=== PATIENT | female | born 2005 | race Caucasian/White ===

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

== ENCOUNTER 2025-04-30 20:09 | Emergency (ER) | payer BC, MEDICAID, SELFPAY ==
[2025-04-30 20:11] VITALS: BP 131/89; PULSE 99; RESP 16; TEMP 36.6; O2SAT 100; BMI 30.2
--- NOTE | 2025-04-30 20:19 | EKG12_ITS ---
Test Reason : CP Blood Pressure : */* mmHG Vent. Rate : 93 BPM Atrial Rate : 93 BPM P-R Int : 146 ms QRS Dur : 86 ms QT Int : 328 ms P-R-T Axes : 69 59 40 degrees QTcB Int : 407 ms Normal sinus rhythm Normal ECG Confirmed by RICCO BHATT, MIGUEL ([id number]), fan mail editor CINTHIA SHEN ([id number]) on 05/04/2025 1:02:21 PM Referred By: Wayne Koroma Confirmed By: MIGUEL CHACKO MD
--- NOTE | 2025-04-30 20:26 | ED.VIS.CHEST ---
HPI <MARY Guzmán - Last Filed: 04/30/25 21:36> History of Present Illness Chief Complaint: Chest Pain Narrative Narrative: 19-year-old female states her mom was just admitted to another hospital with chest pain that turned out to be pneumonia and now she is experiencing chest pain worried she has pneumonia. She started a shift at [employer] around 4 PM. Around 6 PM she felt like the center of her chest was tight when taking a deep breath. She does not feel short of breath. She has no radiating pain or pain in her jaw or arms. No recent fever, chills, cough, nausea or vomiting, or abdominal pain. She vapes occasionally. She has no personal history of cardiac disease or DVT/PE. She said no recent surgery or travel, leg pain or swelling, cough or hemoptysis, or hormone use FOR[facility]LY [facility] <MARY Guzmán - Last Filed: 04/30/25 21:36> [facility] Medical History (Updated 04/30/25 @ 21:01 by MARY Guzmán) Gastritis Colitis Seborrheic dermatitis Hyperhidrosis Tic Allergic rhinitis Asperger's disorder Acid reflux Asthma Abnormality of pituitary gland IBS (irritable bowel syndrome) Depression ADHD Home Medications ?Medication ?Instructions ?Recorded ?Last Taken ?Type atomoxetine 25 mg capsule 35 mg PO DAILY 08/04/13 Unknown History (Strattera) fluticasone propionate 50 1 spray DAILY 08/04/13 Unknown History mcg/actuation nasal spray,suspension lansoprazole 30 mg capsule,delayed 30 mg PO DAILY 08/04/13 Unknown History release (Prevacid) risperidone 0.5 mg tablet 0.5 mg PO QHS 08/04/13 Unknown History sertraline 50 mg tablet 50 mg PO DAILY 08/04/13 Unknown History dicyclomine 10 mg capsule 20 mg (2 x 10 mg) PO TIDAC ##20 10/30/18 Unknown Rx ondansetron 4 mg disintegrating 4 mg PO Q8H PRN PRN Nausea #10 tabs 10/30/18 Unknown Rx tablet albuterol sulfate 90 mcg/actuation 2 puff inhalation Q4H PRN PRN 04/30/25 Unknown History aerosol inhaler wheezing bupropion HCl 300 mg 24 hr tablet, 300 mg PO DAILY 04/30/25 Unknown History extended release cetirizine 10 mg tablet 10 mg PO DAILY 04/30/25 Unknown History Allergy/AdvReac Type Severity Reaction Status Date / Time No Known Allergies Allergy Verified 04/30/25 20:14 Social History Smoking Status: Current every day smoker tobacco type: e-cigarettes ROS <MARY Guzmán - Last Filed: 04/30/25 21:36> ROS ED ROS Narrative Constitutional: Negative for fever, chills, malaise. CVS: Positive for chest pain. No palpitations or syncope. Respiratory: Negative for shortness of breath, cough, orthopnea. GI: Negative for abdominal pain, nausea, vomiting. EXAM <MARY Guzmán - Last Filed: 04/30/25 21:36> Physical Exam Narrative Exam Narrative: CONST: Patient sitting in no acute distress. EYES: Normal inspection. NECK: Normal inspection. RESP: No respiratory distress, CTAB. CVS: Regular rate and rhythm, no murmur, no gallop. ABD: Soft and nontender, no guarding or rebound, nondistended. SKIN: Color normal, no rash, warm, dry, intact. EXTREMITIES: Normal appearance, no pedal edema. NEURO: Alert and answering questions appropriately. PSYCH: Normal affect. Const Vital Signs: 04/30/25 20:11 04/30/25 21:03 Temperature 97.9 F 98 F Temperature Source Oral Pulse Rate 99 88 Respiratory Rate 16 18 Blood Pressure 131/89 H 133/88 H Blood Pressure Mean 103 103 Pulse Ox 100 100 Oxygen Delivery Method Room Air <Dr. Wayne Koroma MD - Last Filed: 04/30/25 21:43> Physical Exam Const Vital Signs: 04/30/25 20:11 04/30/25 21:03 Temperature 97.9 F 98 F Temperature Source Oral Pulse Rate 99 88 Respiratory Rate 16 18 Blood Pressure 131/89 H 133/88 H Blood Pressure Mean 103 103 Pulse Ox 100 100 Oxygen Delivery Method Room Air MDM <MARY Guzmán - Last Filed: 04/30/25 21:36> MDM MDM Narrative Medical decision making narrative: 19-year-old female presents with a few hours of midsternal chest pain when taking a deep breath. She is concerned because her mom has pneumonia but she could also have it. She has had no fever, chills, or upper respiratory symptoms. She is awake alert no distress. Vitals are stable. Normal cardiopulmonary exam. Her chest and abdomen are nontender. She is moving all extremities and neurovascularly intact. She was concerned about hypoglycemia so a fingerstick glucose was obtained and is 96. EKG is normal sinus rhythm without ischemic changes. She does not have risk factors for ACS and symptoms are not exertional so I do not think she requires cardiac workup. She is also PERC negative. Patient seems anxious because her mom is having health problems and I think anxiety is some component of this. She does not have a fever or cough and she is not 100% on room air so pneumonia is extremely unlikely. I discussed follow-up with her primary care doctor and return precautions and she was discharged in stable condition. I have personally performed a face to face assessment of the patient and have reviewed the STEPHAN Note. I performed a substantive portion of the visit including all aspects of the following. My rodriguez findings include: History is brought in for chest pain. There is a pleuritic component. She is on no hormonal therapy. No history of VTE. No leg pain, swelling discoloration. She is concerned because her mother had chest pain and was diagnosed with pneumonia. She does report mild nasal congestion. She denies cough or shortness of breath. She denies fever or chills. She denies myalgias or arthralgias. Exam is remarkable slight elevation of blood pressure 131/89. HEENT exam is unremarkable other than piercings. Lungs are clear to auscultation with symmetric breath sounds. Heart is regular. Rate is normal. There is no murmur, gallop or rub. Pulse ox is normal. Examination lower extremity reveals no swelling, discoloration, asymmetry, leg vein distention, palpable cords signs on the distribution to be in the system. Medical Decison Making with normal vital signs normal lung exam patient was informed this is not pneumonia. Suggest pleuritic pain patient was assessed for PE. PERC negative and Wells score less than 3. Since her vital signs are normal there is no indication for imaging. There is no indication for laboratory testing. Patient was reassured. She does have a history of anxiety. She was instructed to take NSAIDs and she has no contraindication. Other additions or changes: [None] Lab Data Labs: Laboratory Results - last 24 hr 04/30/25 20:23 POC Glucose 96 EKG Initial EKG: Attestation: I personally reviewed and interpreted this EKG as follows: Interpretation: Sinus Rhythm and No Acute Injury Pattern Comments: Normal sinus rhythm at 93 bpm Normal intervals, no acute ischemic changes <Dr. Wayne Koroma MD - Last Filed: 04/30/25 21:43> [facility] MDM Narrative Medical decision making narrative: 19-year-old female presents with a few hours of midsternal chest pain when taking a deep breath. She is concerned because her mom has pneumonia but she could also have it. She has had no fever, chills, or upper respiratory symptoms. She is awake alert no distress. Vitals are stable. Normal cardiopulmonary exam. Her chest and abdomen are nontender. She is moving all extremities and neurovascularly intact. She was concerned about hypoglycemia so a fingerstick glucose was obtained and is 96. EKG is normal sinus rhythm without ischemic changes. She does not have risk factors for ACS and symptoms are not exertional so I do not think she requires cardiac workup. She is also PERC negative. Patient seems anxious because her mom is having health problems and I think anxiety is some component of this. She does not have a fever or cough and she is not 100% on room air so pneumonia is extremely unlikely. I discussed follow-up with her primary care doctor and return precautions and she was discharged in stable condition. I have personally performed a face to face assessment of the patient and have reviewed the STEPHAN Note. I performed a substantive portion of the visit including all aspects of the following. My rodriguez findings include: History is brought in for chest pain. There is a pleuritic component. She is on no hormonal therapy. No history of VTE. No leg pain, swelling discoloration. She is concerned because her mother had chest pain and was diagnosed with pneumonia. She does report mild nasal congestion. She denies cough or shortness of breath. She denies fever or chills. She denies myalgias or arthralgias. Exam is remarkable slight elevation of blood pressure 131/89. HEENT exam is unremarkable other than piercings. Lungs are clear to auscultation with symmetric breath sounds. Heart is regular. Rate is normal. There is no murmur, gallop or rub. Pulse ox is normal. Examination lower extremity reveals no swelling, discoloration, asymmetry, leg vein distention, palpable cords signs on the distribution to be in the system. Medical Decison Making with normal vital signs normal lung exam patient was informed this is not pneumonia. Suggest pleuritic pain patient was assessed for PE. PERC negative and Wells score less than 3. Since her vital signs are normal there is no indication for imaging. There is no indication for laboratory testing. Patient was reassured. She does have a history of anxiety. She was instructed to take NSAIDs and she has no contraindication. Other additions or changes: After explaining why an x-ray was not ordered. She was discharged and home going instructions were given to the nurse. The nurse told me that she wants an x-ray. Patient has been informed with normal vital signs no abnormal aspiratory findings no cough chest pain is not due to pneumonia. Patient was told since my note had been completed and I had no justification for chest x-ray 1 was not ordered. Lab Data Labs: Laboratory Results - last 24 hr 04/30/25 20:23 POC Glucose 96 Differential Diagnosis Chest pain/SOB: pulmonary embolism Reason(s) PE less likely: Positive for PERC negative, Well's <3, not tachycardic and not hypoxic, pneumothorax Reason(s) pneumothorax less likely: Positive for bilateral breath sounds, pneumonia Reason(s) pneumonia less likely: Positive for other (Symptoms are not consistent with infection), aortic dissection Reason(s) Aortic dissection less likely:: Positive for normal vascular exam, no history of HTN, normal neurological exam, no significant risk factors for dissection, pain not sudden onset, no ripping/tearing pain, no pain to back and blood pressure appropriate in ED, CHF Reason(s) CHF less likely: Positive for no significant peripheral edema, no orthopnea and other (Exam is not consistent with CHF nor is patient's history) and COPD Reason(s) COPD less likely: Positive for no significant wheezing on exam, no tachypnea, no conversational dyspnea, normal air movement noted on auscultation on lungs and other (Patient has no history of lung disease) Discharge Plan Triage Chief Complaint: Chest Pain ED Midlevel Provider: Beth Ramos ED Provider: Wayne Koroma Dx/Rx/DC Orders Clinical Impression: Chest pain Instructions: ED Chest Pain, Uncertain Cause Prescriptions: No Action lansoprazole [Prevacid] 30 MG capsule 30 mg PO DAILY fluticasone propionate 1 SPRAY spray,suspension 1 spray NASAL DAILY sertraline 50 MG tablet 50 mg PO DAILY risperidone 0.5 MG tablet 0.5 mg PO QHS atomoxetine [Strattera] 25 MG capsule 35 mg PO DAILY ondansetron 4 MG tablet 4 mg PO Q8H PRN PRN (Reason: Nausea) Qty: 10 0RF dicyclomine 10 MG capsule 20 mg PO TIDAC Qty: 20 0RF bupropion HCl 300 mg tablet extended release 24 hr 300 mg PO DAILY cetirizine 10 mg tablet 10 mg PO DAILY albuterol sulfate 90 mcg/actuation HFA aerosol inhaler 2 puff inhalation Q4H PRN PRN (Reason: wheezing) Stand Alone Forms: Work / School Excuse Primary Care Provider: Vera Song Referrals: Vera Song MD [Primary Care Provider] - Activity Restrictions/Additional Instructions: I do not think you have pneumonia since you do not have a fever or cough and your 100% on room air. Your EKG shows normal heart rhythm. I recommend you follow-up with your primary care doctor or return to the ER if symptoms worsen. Print Language: Luxembourger Disposition Disposition: Home, Self Care Discharge Date/Time: 04/30/25 21:08
[2025-04-30 21:03] VITALS: BP 133/88; PULSE 88; RESP 18; TEMP 36.6; O2SAT 100
== END 2025-04-30 21:08 | disposition home or self-care (01) ==
PROVIDERS: Emergency Provider Emergency Medicine; PCP Pediatrics; Referring Provider Emergency Medicine; Visit Provider Emergency Medicine
DX: R07.9 Chest pain, unspecified (principal); F41.9 Anxiety disorder, unspecified; F90.9 Attention-deficit hyperactivity disorder, unspecified type; Z79.899 Other long term (current) drug therapy; J45.909 Unspecified asthma, uncomplicated; Z79.51 Long term (current) use of inhaled steroids; F32.A Depression, unspecified; F17.290 Nicotine dependence, other tobacco product, uncomplicated
CPT/HCPCS: 82962; 93005; 99282

== ENCOUNTER 2025-08-12 11:18 | Emergency (ER) | payer BC, MEDICAID, SELFPAY ==
[2025-08-12 11:18] VITALS: BP 149/98; PULSE 119; RESP 19; TEMP 36.5; O2SAT 98; BMI 31.6
[2025-08-12 12:07] VITALS: PULSE 106; RESP 19; O2SAT 98
--- NOTE | 2025-08-12 12:30 | RAD_ITS ---
PROCEDURE: RAD/Chest PA and Lateral
[2025-08-12 12:38] LABS: Hematocrit 43.0 % (37-47); Hemoglobin 14.4 g/dL (12.0-15.0); Immature Granulocytes Count 0.010 X10^3/uL (0.0-0.0); Mean Corp Hgb Conc 33.5 g/dL (32-36); Mean Corpuscular Volume 87.9 fL (81-99); Mean Platelet Vol. 9.6 fl (6.2-12.0); NRBC Flagged by Analyzer 0 % (0-5); Platelet Count 306 K/mm3 (150-450); RBC Distribution Width CV 13.5 % (11.6-14.6); RBC Distribution Width SD 43.8 fl (35.1-43.9); Red Blood Count 4.89 M/mm3 (4.2-5.4); White Blood Count 5.1 K/mm3 (4.4-11.0)
--- NOTE | 2025-08-12 12:41 | ED.VIS.CHEST ---
HPI History of Present Illness Chief Complaint: Chest Pain Narrative Narrative: Chief complaint and HPI: 20-year-old female with past medical history of Asperger's disorder, gastritis, ADHD presents for evaluation of chest pain. Patient states for the past 3 days she has been having intermittent sharp chest pain. States today it radiated into her left shoulder/arm. On control. Denies any trauma or lifting anything heavy. Denies any fever, chills, URI symptoms, shortness of breath, abdominal pain, nausea, vomiting. Denies a history of DVT/PE, recent trauma or surgery, unilateral leg swelling, known malignancy, travel. Has not taken anything for the pain. Non-smoker. Review of systems: See HPI Medications: As listed on the chart Allergies: As listed on the chart PFSH: Per chart Vital signs: As listed on the chart. Reviewed. Physical exam: Gen: A&O x3, NAD Head: Normocephalic, atraumatic Eyes: No sclera icterus, conjunctiva clear ENT: Moist mucous membranes Neck: Trachea midline, full range of motion CV: RRR, no murmurs, patient tender to palpation to the left chest wall diffusely including the costal chondral angles-recreates her pain-no external signs of trauma, no peripheral edema Resp: Lungs CTA BL, no w/r/c GI: Abd soft, non-distended, non-tender, no r/r/g Musc: Full ROM, no deformity Skin: Warm, dry Psych: Cooperative, appropriate mood and affect [facility] Medical History Physical exam, pre-employment Gastritis Colitis Seborrheic dermatitis Hyperhidrosis Tic Allergic rhinitis Asperger's disorder Acid reflux Asthma Abnormality of pituitary gland IBS (irritable bowel syndrome) Depression ADHD Home Medications ?Medication ?Instructions ?Recorded ?Last Taken ?Type atomoxetine 25 mg capsule 35 mg PO DAILY 08/04/13 Unknown History (Strattera) fluticasone propionate 50 1 spray DAILY 08/04/13 Unknown History mcg/actuation nasal spray,suspension lansoprazole 30 mg capsule,delayed 30 mg PO DAILY 08/04/13 Unknown History release (Prevacid) risperidone 0.5 mg tablet 0.5 mg PO QHS 08/04/13 Unknown History sertraline 50 mg tablet 50 mg PO DAILY 08/04/13 Unknown History dicyclomine 10 mg capsule 20 mg (2 x 10 mg) PO TIDAC ##20 10/30/18 Unknown Rx ondansetron 4 mg disintegrating 4 mg PO Q8H PRN PRN Nausea #10 tabs 10/30/18 Unknown Rx tablet albuterol sulfate 90 mcg/actuation 2 puff inhalation Q4H PRN PRN 04/30/25 Unknown History aerosol inhaler wheezing bupropion HCl 300 mg 24 hr tablet, 300 mg PO DAILY 04/30/25 Unknown History extended release cetirizine 10 mg tablet 10 mg PO DAILY 04/30/25 Unknown History Allergy/AdvReac Type Severity Reaction Status Date / Time No Known Allergies Allergy Verified 08/12/25 11:20 Social History Smoking Status: Former smoker EXAM Physical Exam Const Vital Signs: 08/12/25 11:18 08/12/25 11:27 08/12/25 12:07 Temperature 97.7 F L Temperature Source Oral Pulse Rate 119 H 106 H Respiratory Rate 19 H 19 H Respiratory Effort Normal Non-Labored Respiratory Pattern Normal Blood Pressure 149/98 H Blood Pressure Mean 115 Pulse Ox 98 98 Oxygen Delivery Method Room Air 08/12/25 13:00 08/12/25 14:00 08/12/25 15:00 Temperature Temperature Source Pulse Rate 97 107 H 99 Respiratory Rate 19 H 19 H 18 Respiratory Effort Respiratory Pattern Blood Pressure 133/87 H Blood Pressure Mean 101 Pulse Ox 98 100 100 Oxygen Delivery Method MDM MDM MDM Narrative Medical decision making narrative: 20-year-old female with past medical history of Asperger's disorder, gastritis, ADHD presents for evaluation of chest pain. Patient states for the past 3 days she has been having intermittent sharp chest pain. States today it radiated into her left shoulder/arm. Chest pain is atypical and reproducible. Differential diagnosis includes but is not limited to costochondritis, chest wall pain, suspect less likely PE or ACS. Toradol ordered for pain. Cardiac workup ordered. CBC unremarkable without leukocytosis or anemia. D-dimer unremarkable. BMP unremarkable. Troponin unremarkable x 2. At this point in time, no clear etiology to explain patient's chest pain. She does describe it as atypical. She is young and healthy. Low suspicion for ACS. If you have performed a heart score, she is at 0. Patient stable to discharge home. May be secondary to costochondritis versus myofascial. Tylenol and Motrin as needed for pain. Follow-up with primary care physician. Return back to ED symptoms change or worsen. She confirmed understand the plan. Patient will discharge home. EKG: Interpreted by me/EM physician: EKG shows normal sinus rhythm with nonspecific T wave abnormalities. Heart rate 106. Diagnostic: Interpreted by me/EM physician: Chest x-ray pneumonia, effusion, cardiomegaly, pneumothorax. Radiology in agreement. Impression: 1. Atypical chest pain Lab Data Labs: Laboratory Results - last 24 hr 08/12/25 08/12/25 12:25 14:17 WBC 5.1 RBC 4.89 Hgb 14.4 Hct 43.0 MCV 87.9 MCH 29.4 MCHC 33.5 RDW Std Deviation 43.8 RDW Coeff of Pieter 13.5 Plt Count 306 MPV 9.6 Immature Gran % (Auto) 0.200 Neut % (Auto) 62.6 Lymph % (Auto) 29.0 [place] % (Auto) 6.8 Eos % (Auto) 0.8 Baso % (Auto) 0.6 Absolute Neuts (auto) 3.2 Absolute Lymphs (auto) 1.49 Nucleated RBC % 0 D-Dimer Quant (PE/DVT) < 0.27 L Sodium 140 Potassium 3.8 Chloride 105 Carbon Dioxide 23.1 Anion Gap 13 BUN 15 Creatinine 0.67 L Estim Creat Clear Calc 132.78 Est GFR (MDRD) Non-Af 127 BUN/Creatinine Ratio 22.2 H Glucose 99 Calcium 9.9 Troponin T High Sens < 6 Troponin T Hi Sens 2 Hr < 6 Radiography Diagnostic Testing: Clinical Impression(s) from Imaging Studies Chest X-Ray 08/12/25 12:30 IMPRESSION: No acute cardiopulmonary process. Reading Location: [id number] Discharge Plan Triage Chief Complaint: Chest Pain ED Provider: Juan Gray Dx/Rx/DC Orders Prescriptions: No Action lansoprazole [Prevacid] 30 MG capsule 30 mg PO DAILY fluticasone propionate 1 SPRAY spray,suspension 1 spray NASAL DAILY sertraline 50 MG tablet 50 mg PO DAILY risperidone 0.5 MG tablet 0.5 mg PO QHS atomoxetine [Strattera] 25 MG capsule 35 mg PO DAILY ondansetron 4 MG tablet 4 mg PO Q8H PRN PRN (Reason: Nausea) Qty: 10 0RF dicyclomine 10 MG capsule 20 mg PO TIDAC Qty: 20 0RF bupropion HCl 300 mg tablet extended release 24 hr 300 mg PO DAILY cetirizine 10 mg tablet 10 mg PO DAILY albuterol sulfate 90 mcg/actuation HFA aerosol inhaler 2 puff inhalation Q4H PRN PRN (Reason: wheezing) Primary Care Provider: Selam Do Referrals: Selam Do MD [Primary Care Provider, Family Practice] Print Language: Georgian
[2025-08-12 12:49] LABS: D-Dimer Quantitative (DVT/PE) < 0.27 FEU/ug/m (0.27-0.49)
[2025-08-12 13:00] VITALS: PULSE 97; RESP 19; O2SAT 98
[2025-08-12 13:18] LABS: Anion Gap 13 (5-15); BUN 15 mg/dL (4-19); BUN/Creat Ratio 22.2 RATIO (10-20); Calcium,Total 9.9 mg/dL (7.6-11.0); Carbon Dioxide 23.1 mmol/L (21.0-32.0); Chloride 105 mmol/L (98-108); Estimated Creatinine Clearance 132.78 ml/min (50-250); Glucose 99 mg/dL (70-99); Potassium 3.8 mmol/L (3.3-5.1); Troponin T High Sensitivity < 6 ng/L (<=14)
[2025-08-12 14:00] VITALS: PULSE 107; RESP 19; O2SAT 100
[2025-08-12 15:00] VITALS: BP 133/87; PULSE 99; RESP 18; O2SAT 100
[2025-08-12 15:13] LABS: Troponin T High Sens 2 HR < 6 ng/L (<=14)
[2025-08-12 15:39] VITALS: BP 130/83; PULSE 105; RESP 18; TEMP 37.3; O2SAT 100
== END 2025-08-12 15:39 | disposition home or self-care (01) ==
PROVIDERS: Emergency Provider Surgery; PCP Family Medicine Sports Medicine; Visit Provider Surgery
DX: R07.89 Other chest pain (principal); R03.0 Elevated blood-pressure reading, without diagnosis of hypertension; Z87.891 Personal history of nicotine dependence
CPT/HCPCS: 71046; 80048; 84484; 85025; 85379; 93005; 96374; 99283; A4216

== ENCOUNTER 2025-09-01 15:57 | Emergency (ER) | payer BC, MEDICAID, SELFPAY ==
[2025-09-01 15:59] VITALS: BP 144/95; PULSE 99; RESP 18; TEMP 36.1; O2SAT 100; BMI 30.4
--- NOTE | 2025-09-01 16:12 | CT_ITS ---
PROCEDURE: ABDOMEN/PELVIS WITHOUT CONT 09/01/2025 REASON FOR EXAM: KIDNEY STONE TECHNIQUE: Procedure Code: CTABDPEL Modality: CT Procedure: ABDOMEN/PELVIS WITHOUT CONT Noncontrast technique limits evaluation of the abdominal and pelvic viscera. Coronal and Sagittal reconstruction series were provided. One or more dose reduction techniques were used (e.g., Automated exposure control, adjustment of the mA and/or kV according to patient size, use of iterative reconstruction technique). RADIATION DOSE SUMMARY: CTDlvol: 11 mGy DLP: 547 mGycm COMPARISON: 10/30/2018. FINDINGS: The lung bases are clear. The peripheral soft tissues are unremarkable. No acute osseous abnormalities. The liver, gallbladder, pancreas, spleen, and adrenals are unremarkable. No renal or ureteral calculi. No hydroureteronephrosis. The urinary bladder is unremarkable. Anteverted uterus. Normal caliber large bowel, small bowel, and appendix without surrounding inflammatory changes. CT/Abdomen/Pelvis without Cont IMPRESSION: No acute abnormalities. No nephrolithiasis or obstructive uropathy. Reading Location: [id number]
--- NOTE | 2025-09-01 16:19 | EDS_ITS ---
HPI History of Present Illness Chief Complaint: Flank Pain Narrative Narrative: 20-year-old female with past medical history of IBS-D presents with right flank pain that began suddenly within the last hour. She relates history that she has had upper respiratory infection/viral infection over the last week or so. She gets up and down out of a chair for work every 30 minutes. She states that while she was sitting, she began having right flank pain right around her right hip bone. No fevers or chills, no nausea or vomiting, no exacerbating or alleviating factors. She has sharp stabbing pain in that area. No prior abdominal surgeries. She states currently she is on her menses. No dysuria or hematuria. No new problems with bowel movements. [facility] Medical History Physical exam, pre-employment Gastritis Colitis Seborrheic dermatitis Hyperhidrosis Tic Allergic rhinitis Asperger's disorder Acid reflux Asthma Abnormality of pituitary gland IBS (irritable bowel syndrome) Depression ADHD Home Medications ?Medication ?Instructions ?Recorded ?Last Taken ?Type atomoxetine 25 mg capsule 35 mg PO DAILY 08/04/13 Unkn own History (Strattera) fluticasone propionate 50 1 spray DAILY 08/04/13 Unkno wn History mcg/actuation nasal spray,suspension lansoprazole 30 mg capsule,delayed 30 mg PO DAILY 07/09 05/20 Unknown History release (Prevacid) risperidone 0.5 mg tablet 0.5 mg PO QHS 08/04/13 Unkno wn History sertraline 50 mg tablet 50 mg PO DAILY 08/04/13 Unkn own History dicyclomine 10 mg capsule 20 mg (2 x 10 mg) PO TIDAC # #20 10/30/18 Unknown Rx ondansetron 4 mg disintegrating 4 mg PO Q8H PRN PRN Na usea #10 tabs 10/30/18 Unknown Rx tablet albuterol sulfate 90 mcg/actuation 2 puff inhalation Q 4H PRN PRN 04/30/25 Unknown History aerosol inhaler wheezing bupropion HCl 300 mg 24 hr tablet, 300 mg PO DAILY Unknown History extended release cetirizine 10 mg tablet 10 mg PO DAILY 04/30/25 Unkn own History Allergy/AdvReac Type Severity Reaction Status Date / Time No Known Allergies Allergy Verified 09/01/25 15:59 Social History Smoking Status: Current some day smoker tobacco type: e-cigarettes ROS ROS ED ROS Narrative Review of systems positive for right flank pain. Described as sharp and stabbing, just above right hip bone and in right flank area. No fevers or chills, no nausea or vomiting, no dysuria or hematuria, no problems with bowel movements. Currently on menses. EXAM Physical Exam Narrative Exam Narrative: Afebrile. Vital signs noted. Nontoxic-appearing. Cardiovascular examination feels a regular rate and rhythm. Lungs are clear to auscultation bilaterally. Abdomen is soft and nontender without guarding or rebound. Negative Stephen sign. No pain over McBurney's point. No guarding or rebound. No CVA tenderness to percussion bilaterally. Neurological examination nonfocal, nonlateralizing. No pain in hip. Able to cross and uncross legs and ankles during examination. Const Vital Signs: 09/01/25 15:59 09/01/25 17:32 Temperature 96.9 F L Temperature Source Temporal Pulse Rate 99 99 Respiratory Rate 18 14 Blood Pressure 144/95 H 119/78 Blood Pressure Mean 111 91 Pulse Ox 100 100 Oxygen Delivery Method Room Air Room Air MDM MDM MDM Narrative Medical decision making narrative: The differential diagnosis includes but not limited to ureterolithiasis versus pyelonephritis versus nonspecific flank pain versus acute appendicitis. I have low suspicion for pancreatitis because her pain is in the right flank, she has no epigastric pain, and she has not had any nausea or vomiting. Kidney stone workup was pursued. After negative she will be given ketorolac 15 mg intravenously. I reviewed her laboratory work and she has normal white count of 5.0 with hemoglobin normal at 14.0, platelet count normal at 354. BMP is grossly unremarkable with a normal BUN of 7 and creatinine 0.76, serum is negative. Urinalysis is negative for ketones, there are 5-10 RBCs but 0-5 WBCs. I do not feel antibiotics are indicated and additionally she states she is on her menses. Additionally, I reviewed the radiology report of the CT of the abdomen and pelvis without contrast. There is no acute process on radiology report, no obstructive uropathy. Upon repeat examination at approximately 1800, she states she is feeling mildly improved. At this point in time, while I am unsure as to the cause of her flank pain, and it may be musculoskeletal, I do feel she can be discharged to follow- up with her primary care provider. She can take [id number] medications. Return instructions to the emergency department were reviewed. Disposition is discharged home in stable condition. History & Record Review Discussion w/independent historian: Patient Additional record(s) reviewed:: Prior ED visit (Seen earlier this month for chest pain.) Lab Data Attestation: I reviewed the patient's lab results. Labs: Laboratory Results - last 24 hr 09/01/25 16:24 WBC 5.0 RBC 4.86 Hgb 14.0 Hct 42.8 MCV 88.1 MCH 28.8 MCHC 32.7 RDW Std Deviation 42.4 RDW Coeff of Pieter 13.1 Plt Count 354 MPV 9.6 Immature Gran % (Auto) 0.200 Neut % (Auto) 52.9 Lymph % (Auto) 36.6 [place] % (Auto) 8.7 Eos % (Auto) 1.4 Baso % (Auto) 0.2 Absolute Neuts (auto) 2.6 Absolute Lymphs (auto) 1.82 Nucleated RBC % 0 Sodium 140 Potassium 3.6 Chloride 103 Carbon Dioxide 22.8 Anion Gap 14 BUN 7 Creatinine 0.76 Estim Creat Clear Calc 114.83 Est GFR (MDRD) Non-Af 114 BUN/Creatinine Ratio 8.8 L Glucose 108 H Calcium 9.4 Serum , Qual NEGATIVE Urine Color Yellow Urine Clarity Sl. Cloudy Urine pH 6.0 Ur Specific Adrian 1.025 Urine Protein 30 H Urine Glucose (UA) Normal Urine Ketones Negative Urine Occult Blood 250 H Urine Nitrite Negative Urine Bilirubin 1 H Urine Urobilinogen 1 H Ur Leukocyte Esterase Negative Urine RBC 5-10 SEEN Urine WBC 0-5 SEEN Ur Squamous Epith Cells 0-5 SEEN Amorphous Sediment 1+ Urine Bacteria 1+ Urine Mucus 0 SEEN Radiography Diagnostic Testing: Clinical Impression(s) from Imaging Studies Abdomen/Pelvis CT 09/01/25 16:12 IMPRESSION: No acute abnormalities. No nephrolithiasis or obstructive uropathy. Reading Location: [address] Discharge Plan Triage Chief Complaint: Flank Pain ED Provider: Andreas Petersen Dx/Rx/DC Orders Clinical Impression: Flank pain, right side, History of depression Instructions: ED Flank Pain with Uncertain Cause Prescriptions: No Action lansoprazole [Prevacid] 30 MG capsule 30 mg PO DAILY fluticasone propionate 1 SPRAY spray,suspension 1 spray NASAL DAILY sertraline 50 MG tablet 50 mg PO DAILY risperidone 0.5 MG tablet 0.5 mg PO QHS atomoxetine [Strattera] 25 MG capsule 35 mg PO DAILY ondansetron 4 MG tablet 4 mg PO Q8H PRN PRN (Reason: Nausea) Qty: 10 0RF dicyclomine 10 MG capsule 20 mg PO TIDAC Qty: 20 0RF bupropion HCl 300 mg tablet extended release 24 hr 300 mg PO DAILY cetirizine 10 mg tablet 10 mg PO DAILY albuterol sulfate 90 mcg/actuation HFA aerosol inhaler 2 puff inhalation Q4H PRN PRN (Reason: wheezing) Primary Care Provider: Selam Do Referrals: Selam Do MD [Primary Care Provider, Family Practice] - 3-5 Days if not improving Activity Restrictions/Additional Instructions: [id number] medications like Tylenol and/or ibuprofen as needed for pain. Return with fever, worsening pain, new or worsening symptoms. Print Language: Romansh Disposition Disposition: Home, Self Care
[2025-09-01 16:29] LABS: Mucous, Urine 0 SEEN /hpf (<or=2+)
[2025-09-01 16:41] LABS: Hematocrit 42.8 % (37-47); Hemoglobin 14.0 g/dL (12.0-15.0); Immature Granulocytes Count 0.010 X10^3/uL (0.0-0.0); Mean Corp Hgb Conc 32.7 g/dL (32-36); Mean Corpuscular Volume 88.1 fL (81-99); Mean Platelet Vol. 9.6 fl (6.2-12.0); NRBC Flagged by Analyzer 0 % (0-5); Platelet Count 354 K/mm3 (150-450); RBC Distribution Width CV 13.1 % (11.6-14.6); RBC Distribution Width SD 42.4 fl (35.1-43.9); Red Blood Count 4.86 M/mm3 (4.2-5.4); White Blood Count 5.0 K/mm3 (4.4-11.0)
[2025-09-01 16:48] LABS: Internal QC Validated? YES +Cl - CLEAR BKGD; Pregnancy, Serum, hCG Quali. NEGATIVE Negative; Record Kit Lot#, Serum Preg. 980607
[2025-09-01 17:02] LABS: Color, Urine Yellow (Yellow); Glucose, Dipstick Normal (Normal); Ketone-Dipstick Negative (Negative); Leukocyte Esterase-Dipstick Negative /ul (Negative); Nitrite-Dipstick Negative (Negative); Occult Blood-Urine 250 /ul (Negative); Protein-Dipstick 30 mg/dl (Negative); Specific Gravity, Urine 1.025 (1.002-1.030)
[2025-09-01 17:03] LABS: Urine Bilirubin Dipstick 1 mg/dL (Negative)
[2025-09-01 17:31] LABS: Red Blood Cells-Urine 5-10 SEEN /hpf (0-5)
[2025-09-01 17:32] VITALS: BP 119/78; PULSE 99; RESP 14; O2SAT 100
[2025-09-01 17:32] LABS: Squamous Epithelial Cells - UA 0-5 SEEN /hpf (5-10)
[2025-09-01 17:35] LABS: Anion Gap 14 (5-15); BUN 7 mg/dL (4-19); BUN/Creat Ratio 8.8 RATIO (10-20); Calcium,Total 9.4 mg/dL (7.6-11.0); Carbon Dioxide 22.8 mmol/L (21.0-32.0); Chloride 103 mmol/L (98-108); Estimated Creatinine Clearance 114.83 ml/min (50-250); Glucose 108 mg/dL (70-99); Potassium 3.6 mmol/L (3.3-5.1)
[2025-09-01 18:11] VITALS: BP 124/66; PULSE 99; RESP 14; TEMP 37; O2SAT 100
== END 2025-09-01 18:29 | disposition home or self-care (01) ==
PROVIDERS: Emergency Provider Emergency Medicine; PCP Family Medicine Sports Medicine; Visit Provider Emergency Medicine
DX: R10.A1 Flank pain, right side (principal); F32.A Depression, unspecified; F17.290 Nicotine dependence, other tobacco product, uncomplicated; Z79.899 Other long term (current) drug therapy
CPT/HCPCS: 74176; 80048; 81001; 84703; 85025; 96374; 99283; A4216

== ENCOUNTER 2025-10-01 21:21 | Emergency (ER) | payer BC, MEDICAID, SELFPAY ==
[2025-10-01 21:22] VITALS: BP 134/89; PULSE 99; RESP 18; TEMP 36.2; O2SAT 100; BMI 30.7
--- OUTSIDE RECORDS SUMMARY | 2025-10-01 21:49 | XMS RPT_ITS | CCD ---
Author Organization [facility] Care Team Providers Care Straight Line Edger Name Role Phone Karlie Parra Primary Care Provid er JOHNATHAN QUINTERO Attending Unavailable VERA SONG Primary Care Unavailable REFERRED, SELF Referring Unavailable VERA SONG Attending Unavailable REFERRED, SELF Referring Unavailable VERA SONG Primary Care Unavailable VERA SONG Attending Unavailable REFERRED, SELF Referring Unavailable VERA SONG Primary Care Unavailable VERA SONG Attending Unavailable REFERRED, SELF Referring Unavailable VERA SONG Primary Care Unavailable NOHEMIVERA ALAS Attending Unavailable REFERRED, SELF Referring Unavailable VERA SONG Primary Care Unavailable CARRI ANDERSON Attending Unavailable VERA SONG Referring Unavailable VERA SONG Primary Care Unavailable VERA SONG Referring Unavailable VERA SONG Attending Unavailable FRANCINE ESTRADA Primary Care Unavailable Priya Do MD Primary Care Provider Priya Do MD Primary Care Provider [phone] [facility] Primary Care Unavailable BRAYAN, MONICA Attending Unavailable [facility] Primary Care Unavailable BRAYAN, MONICA Attending Unavailable [facility] Primary Care Unavailable BRAYAN, MONICA Attending Unavailable [facility] Primary Care Unavailable BRAYAN, MONICA Attending Unavailable [facility] Primary Care Unavailable BRAYAN, MONICA Attending Unavailable [facility] Primary Care Unavailable BRAYAN, MONICA Attending Unavailable [facility] Primary Care Unavailable BRAYAN, MONICA Attending Unavailable [facility] Primary Care Provider Unav ailable Pb RODRIGUEZ, Yue Thompson Unavailable Nohemi BHATT, Dr. Gamez Primary Care Provider Ga BHATT, Dr. Black Referring Provider Ga BHATT, Dr. Black Emergency Provider [phone] Nohemi BHATT, Dr. Gamez Primary Care Physician Ga BHATT, Dr. Black Attending Physician Ga BHATT, Dr. Black Emergency Department Physician Nohemi BHATT, Dr. Gamez Referring Provider Gilbert Hilario Attending Physician Vera Song Referring Unavailable Gilbert Hilario Attending Unavailable Nohemi, Vera Primary Care Unavailable Distel, Priya Primary Care Unavailable Juan Gray Attending Unavailabl e Nohemi, Vera Primary Care Unavailable Koroma, Wayne Attending Unavailable Ga, Wayne Referring Unavailable Nohemi, Vera Primary Care Unavailable Vera Song Referring Unavailable Gilbert Hilario Attending Unavailable DISTEL, PRIYA Primary Care Unavailable AMBRIZ, YUE E Attending Unavailable DISTEL, PRIYA Primary Care Unavailable AMBRIZ, YUE E Referring Unavailable PATRICIA KEARNEY Attending Unava ilable DISTEL, PRIYA Primary Care Unavailable DISTEL, PRIYA Primary Care Unavailable WIGLE, HALEY Attending Unavailable PATRICIA KEARNEY Referring Unava ilable WIGLE, HALEY Referring Unavailable ASHISH MCCLENDON Attending Unavailable DISTEL, PRIYA Primary Care Unavailable DISTEL, PRIYA Primary Care Unavailable AMBRIZ, YUE E Referring Unavailable AMBRIZ, YUE E Attending Unavailable DISTEL, PRIYA Primary Care Unavailable DISTEL, PRIYA Primary Care Unavailable AMBRIZ, YUE E Attending Unavailable DISTEL, PRIYA Primary Care Unavailable AMBRIZ, YUE E Attending Unavailable DANIAL GUIDRY Attending Unavailable DISTEL, PRIYA Primary Care Unavailable DISTEL, PRIYA Referring Unavailable DISTEL, PRIYA Primary Care Unavailable AMBRIZ, YUE E Referring Unavailable DISTEL, PRIYA Primary Care Unavailable Allergies Allergy Classification Reported Allergen(s) Allergy Type Date of Onset Reaction(s) Facility (2 sources) OTHER; Translations: [OTHER] Propensity to adverse reactions to food (disorder) 3 [facility] Repository Medications Current Medications Medication Drug Class(es) Dates Sig (Normalized) Sig (Original) [id number] 200 actuat albuterol 0.09 mg/actuat metered dose inhaler (20 sources) beta2-Adrenergic Agonist Start: 04-30-2025 Start: 01-19-2023 End: 11-18-2024 take 2 puff(s) by inhalation every four hours as needed for wheezing albuterol HFA (PROVENTIL HFA, VENTOLIN HFA) 90 mcg/actuation inhaler Indications: Moderate persistent asthma, uncomplicated (HCC) Inhale 2 Puffs as instructed every 4 hours as needed for wheezing/shortness of breath. 1 Each 11/18/2024 Active Start: 07-23-2020 End: 01-19-2023 take 2 puff(s) by mouth every four hours albuterol HFA (PROVENTIL HFA, VENTOLIN HFA) 90 mcg/actuation inhaler Indications: Asthma case management patient inhale 2 puffs by mouth and INTO THE LUNGS every 4 hours if needed for shortness of breath 0 07/23/2020 01/19/2023 Discontinued Comment on above: inhale 2 puffs by mo [facility] and INTO THE LUNGS every 4 hours if needed for shortness of breath Inhale 2 Puffs as in structed every 4 hours as needed for wheezing/shortness of breath. aluminum chloride 200 mg/ml topical solution (20 sources) Start: 01-20-20 End: 01-19-20 aluminum chloride (DRYSOL) 20 % external solution Indications: Hyperhidrosis Apply to affected area daily at bedtime. 60 mL 01/19/2023 Active Comment on above: Apply to affected ar ea daily at bedtime. amoxicillin 875 mg oral tablet (1 source) Penicillin-class Antibacterial Start: 05-15-20 End: 05-22-20 take 1 tablet by mouth twice daily amoxicillin (AMOXIL) 875 mg tablet Take 1 tablet by mouth twice daily for 7 days. 14 tablet 0 05/15/2022 05/22/2022 Active Comment on above: Take 1 tablet by la twice daily for 7 days. atomoxetine 25 mg oral capsule (20 sources) Norepinephrine Reuptake Inhibitor Start: 08-24-20 End: 06-13-20 25 take 2 capsules by mouth once daily at bedtime atomoxetine (STRATTERA) 25 mg capsule TAKE 2 CAPSULES BY MOUTH DAILY AT BEDTIME. 180 capsule 2 03/20/2025 Active Start: 01-19-2023 take 2 capsules by m outh once daily at bedtime atomoxetine (STRATTERA) 25 mg capsule Take 2 capsules by mouth daily at bedtime. 0 01/19/2023 Active Start: 08-04-2013 take 1 capsule by mo uth once daily End: 01-19-2023 ATOMOXETINE HCL (STRATTERA O RAL) Take by mouth. 0 01/19/2023 Discontinued ATOMOXETINE HCL (STRATTERA ORAL) Take by mouth. 0 Active Comment on above: Take by mouth. Take 2 capsules by m outh daily at bedtime. benzonatate 100 mg oral capsule (5 sources) Non-narcotic Antitussive Start: 03-26-20 25 take 1 capsule by mouth three times daily as needed benzonatate (TESSALON PERLE) 100 mg capsule Indications: URI, acute Take 1-2 capsules by mouth three times a day as needed. 30 capsule 03/26/2025 Active Budesonide / formoterol (20 sources) Corticosteroid, beta2-Adrenergic Agonist Start: 01-20-20 23 take 2 puff(s) by inhalation twice daily budesonide-formoterol (SYMBICORT) 80-4.5 mcg/actuation inhaler Indications: Moderate persistent asthma, uncomplicated (HCC) Inhale 2 Puffs as instructed twice daily. 3 Each 1 01/19/2023 Active Start: 01-19-2023 take 2 puff(s) by in halation twice daily budesonide-formoterol (SYMBICORT) 80-4.5 mcg/actuation inhaler Indications: Moderate persistent asthma, uncomplicated Inhale 2 Puffs as instructed twice daily. 3 Each 1 01/19/2023 Active Start: 01-19-2023 End: 07-18-2023 take 2 puff(s) by inhalation twice daily budesonide-formoterol (SYMBICORT) 80-4.5 mcg/actuation inhaler Indications: Moderate persistent asthma, uncomplicated Inhale 2 Puffs as instructed twice daily. 3 Each 1 01/19/2023 07/18/2023 Active Start: 08-04-2013 take 1 puff(s) by in halation twice daily Symbicort 80-4.5 Mcg Inhaler Active 2 PUFF TWICE A DAY August 04, 2013 7:41pm Start: 08-04-2013 End: 04-30-2025 Symbicort 80-4.5 Mcg Inhaler Discontinued 2 NMA TWICE A DAY August 04, 2013 12:00am April 30, 2025 8:26pm Start: 08-04-2013 take 1 puff(s) by in halation twice daily Symbicort 80-4.5 Mcg Inhaler Active 2 PUFF TWICE A DAY August 04, 2013 12:00am End: 01-19-2023 take 2 puff(s) by inhalation twice daily budesonide-formoterol (SYMBICORT) 80-4.5 mcg/actuation inhaler Inhale 2 Puffs as instructed twice daily. 0 01/19/2023 Discontinued Comment on above: Inhale 2 Puffs as in structed twice daily. 24 hr buPROPion hydrochloride 300 mg extended release oral tablet (20 sources) Aminoketone Start: End: take 1 tablet by mouth once daily Comment on above: Take 300 mg by mouth once daily. cabergoline 0.5 mg oral tablet (20 sources) Ergot Derivative Start: take 1 tablet by mouth three times weekly cabergoline (DOSTINEX) 0.5 mg tablet Indications: Hyperprolactinemia (HCC) Take 1 tablet by mouth three times a week. 12 tablet 1 12/27/2023 Active Start: 06-01-2022 End: 06-01-2022 take 1 tablet by mouth three times weekly cabergoline (DOSTINEX) 0.5 mg tablet Indications: Hyperprolactinemia (HCC) Take 1 tablet by mouth three times a week. 12 tablet 11 06/01/2022 Active Start: 2022 take 1 tablet by la th two times weekly cabergoline (DOSTINEX) 0.5 mg tablet Indications: Hyperprolactinemia (HCC) take 1 tablet by mouth two times a week 0 2022 Active Comment on above: take 1 tablet by la th two times a week Take 1 tablet by la th three times a week. cetirizine hydrochloride 10 mg oral tablet (20 sources) Histamine-1 Receptor Antagonist Start: 04-30-2025 take 1 tablet by mouth once daily Start: 02-04-2024 End: 01-17-2025 take 1 tablet by mouth once daily cetirizine (ZYRTEC) 10 mg tablet Take 1 tablet by mouth once daily. 90 tablet 1 01/18/2025 Active Start: 05-11-2023 End: 02-01-2024 take 1 tablet by mouth once daily cetirizine (ZYRTEC) 10 mg tablet take 1 tablet by mouth once daily 90 tablet 1 12/31/2023 02/01/2024 Discontinued CETIRIZINE HCL ( ZYRTEC ORAL) Take by mouth. Active CETIRIZINE HCL ( ZYRTEC ORAL) Take by mouth. 0 Active Comment on above: Take by mouth. Take 1 tablet by la th once daily. take 1 tablet by la th once daily cholecalciferol 1.25 mg oral capsule (20 sources) Vitamin D Start: 10-15-2024 take 1 capsule by mouth every week cholecalciferol, Vitamin D3, (VITAMIN D3) 1,250 mcg (50,000 unit) cap capsule Take 1 capsule by mouth one time a week. 12 capsule 10/15/2024 Active Desogestrel / Ethinyl Estradiol (20 sources) Progestin, Estrogen Start: 01-18-2025 End: 12-20-2025 take 1 tablet by mouth once daily VOLNEA, 28, 0.15-0.02 mgx21 /0.01 mg x 5 per tablet Take 1 tablet by mouth once daily. 84 tablet 3 01/18/2025 12/20/2025 Active Start: 04-25-2024 End: 01-17-2025 take 1 tablet by mouth once daily VOLNEA, 28, 0.15-0.02 mgx21 /0.01 mg x 5 per tablet Take 1 tablet by mouth once daily. 84 tablet 3 04/25/2024 01/17/2025 Discontinued Start: 04-25-2024 End: 03-27-2025 take 1 tablet by mouth once daily VOLNEA, 28, 0.15-0.02 mgx21 /0.01 mg x 5 per tablet Take 1 tablet by mouth once daily. 84 tablet 3 04/25/2024 03/27/2025 Active Start: 02-21-2024 End: 04-25-2024 take 1 tablet by mouth once daily VOLNEA, 28, 0.15-0.02 mgx21 /0.01 mg x 5 per tablet Take 1 tablet by mouth once daily. 84 tablet 3 02/21/2024 04/25/2024 Discontinued Start: 02-21-2024 End: 01-22-2025 take 1 tablet by mouth once daily VOLNEA, 28, 0.15-0.02 mgx21 /0.01 mg x 5 per tablet Take 1 tablet by mouth once daily. 84 tablet 3 02/21/2024 01/22/2025 Active Start: 04-04-2022 take 1 tablet by la th once daily VOLNEA, 28, 0.15-0.02 mgx21 /0.01 mg x 5 per tablet Take 1 tablet by mouth once daily. 0 04/04/2022 Active Comment on above: Take 1 tablet by la th once daily. dicyclomine hydrochloride 10 mg oral capsule (20 sources) Anticholinergic Start: 10-30-2018 take 2 capsules by mouth three times daily before mealtime Start: 10-30-2018 take 20 mg by mouth three times daily before mealtime Dicyclomine Active 20 MG PO THREE TIMES DAILY BEFORE MEALS October 30, 2018 11:12pm Start: 02-22-2016 dicyclomine (B ENTYL) 10 mg capsule Take 10 mg by mouth. 02/22/2016 Active Comment on above: Take 10 mg by mouth. etonogestrel 68 mg drug implant (1 source) Progestin Start: 5 End: 8 etonogestrel (NEXPLANON) 68 mg impl subdermal implant 68 mg by SUBDERMAL route one time only. 05/13/2025 05/13/2028 Active ferrous sulfate 325 mg oral tablet (20 sources) Start: 4 End: 5 take 1 tablet by mouth once daily ferrous sulfate 325 mg (65 mg iron) tablet Indications: Iron deficiency anemia, unspecified iron deficiency anemia type TAKE 1 TABLET BY MOUTH EVERY DAY 30 tablet 2 04/01/2025 Active fluticasone propionate 0.05 mg/actuat metered dose nasal spray (20 sources) Corticosteroid Start: 2 take 1 spray(s) nasal route twice daily fluticasone (FLONASE) 50 mcg/actuation nasal spray Indications: Asthma case management patient (HCC) place 1 spray into each nostril twice a day 05/26/2022 Active Start: 08-04-2013 Start: 08-04-2013 Fluticasone Pr opionate Active 1 SPRAY NASAL DAILY August 04, 2013 7:41pm Comment on above: place 1 spray into e ach nostril twice a day lansoprazole 30 mg delayed release oral capsule (20 sources) Proton Pump Inhibitor Start: 4 End: 5 take 1 capsule by mouth twice daily lansoprazole (PREVACID) 30 mg capsule TAKE 1 CAPSULE BY MOUTH TWICE A DAY 180 capsule 1 01/12/2025 Active Start: 01-19-2023 End: 07-18-2023 take 1 capsule by mouth twice daily lansoprazole (PREVACID) 15 mg capsule Indications: GERD without esophagitis Take 1 capsule by mouth twice daily. 180 capsule 1 01/19/2023 Active Start: 08-04-2013 take 1 capsule by mo uth once daily LANSOPRAZOLE (HI EVACID ORAL) Take by mouth. 0 Active Comment on above: Take by mouth. Take 1 capsule by mo uth twice daily. Take 30 mg by mouth twice daily. ondansetron 4 mg disintegrating oral tablet (20 sources) Serotonin-3 Receptor Antagonist Start: 10-30-19 take 1 tablet by mouth every eight hours as needed for nausea oseltamivir 75 mg oral capsule (2 sources) Neuraminidase Inhibitor Start: 11-21-19 End: 11-26-19 take 1 capsule by mouth twice daily oseltamivir (TAMIFLU) 75 mg capsule Indications: Influenza A Take 1 capsule by mouth two times a day for 5 days. 10 capsule 11/21/2024 11/26/2024 Active risperiDONE 0.5 mg oral tablet (20 sources) Atypical Antipsychotic Start: 08-04-20 End: 02-06-20 take 1 tablet by mouth once daily risperiDONE (RisperDAL) 0.5 MG tablet Indications: Autism Disorder Take 1 tablet (0.5 mg) by mouth Nightly. 180 tablet 1 02/11/2024 02/05/2025 Active Start: 08-04-2013 End: 03-10-2025 take 1 tablet by mouth twice daily risperiDONE (RISPERDAL) 0.5 mg tablet Take 1 tablet by mouth two times a day. 180 tablet 03/10/2025 Active Start: 08-04-2013 End: 04-30-2025 take 1 tablet by mouth at breakfast Risperidone 1 MG tablet Discontinued 1 mg PO WITH BREAKFAST August 04, 2013 12:00am April 30, 2025 8:25pm take 1.5 mg by mouth once daily risperiDONE (RISPERDAL) 1 mg tablet Take 1.5 mg by mouth once daily. 0 Active Comment on above: Take 1.5 mg by mouth once daily. Take 1 mg by mouth d aily at bedtime. sertraline 100 mg oral tablet (20 sources) Serotonin Reuptake Inhibitor Start: 01-19-2023 End: 02-10-2025 take 2 tablets by mouth once daily, then take 2 tablets by mouth once daily sertraline (ZOLOFT) 100 mg tablet Take 2 tablets by mouth once daily. 2 tablets daily 60 tablet 11/18/2024 Active Start: 08-04-2013 take 1 tablet by la once daily End: 01-19-2023 sertraline (ZOLOFT) 50 mg ta blet Take 75 mg by mouth once daily. 0 01/19/2023 Discontinued Comment on above: Take 75 mg by mouth once daily. Take 2 tablets by mo [facility] once daily. 2 tablets daily Take 100 mg by mouth once daily. 2 tablets daily sulfamethoxazole 800 mg / trimethoprim 160 mg oral tablet (3 sources) Dihydrofolate Reductase Inhibitor Antibacterial, Sulfonamide Antimicrobial Start: 06-01-20 End: 06-08-20 take 1 tablet by mouth twice daily sulfamethoxazole- trimethoprim (BACTRIM DS) 800-160 mg per tablet Indications: Skin infection Take 1 tablet by mouth two times a day for 5 days. 10 tablet 06/03/2024 06/08/2024 Active Completed/Discontinued Medications Medication Drug Class(es) Dates Sig (Normalized) Sig (Original) BUDESONIDE/FORMOTEROL FUMARATE (SYMBICORT INHALATION) (5 sources) BUDESONIDE/FORMO TEROL FUMARATE (SYMBICORT INHALATION) Inhale as instructed. 0 Active Comment on above: Inhale as instructed . 9 hr methylphenidate 1.11 mg/hr transdermal system (12 sources) Central Nervous System Stimulant Start: 08-04-2013 End: 04-30-2025 Methylphenidate (Daytrana) 1 EACH patch 24 hour Discontinued 1 NMA TD August 04, 2013 12:00am April 30, 2025 8:25pm Start: 08-04-2013 Methylphenidat e (Daytrana) 1 EACH Patch.Td24 Active 1 EACH TD August 04, 2013 7:41pm End: 01-19-2023 take 1 tablet by mouth once daily methylphenidate ER 36 mg tablet Take 36 mg by mouth once daily. 0 01/19/2023 Discontinued Comment on above: Take 36 mg by mouth once daily. MULTIVIT &MINERALS/FERROUS FUM (MULTI VITAMIN ORAL) (6 sources) End: 01-19-2023 MULTIVIT &MINERALS/FERROUS FUM (MULTI VITAMIN ORAL) Take by mouth. 0 01/19/2023 Discontinued MULTIVIT &MINERA LS/FERROUS FUM (MULTI VITAMIN ORAL) Take by mouth. 0 Active Comment on above: Take by mouth. Problems Active Problems Problem Classification Problem Date Documented Date Episodic/Chronic Administrative/social admission (1 source) Encounter for pre-employment examination; Translations: [Encounter for pre-employment examination] Onset: 07-14-2025 Episodic Anxiety disorders (2 sources) Generalized anxiety disorder; Translations: [Generalized anxiety disorder] Onset: 09-20-2022 09-20-2022 Chronic Asthma (20 sources) Asthma; Translations: [Unspecified asthma, uncomplicated] Onset: 08-22-2012 05-30-2022 Chronic Attention-deficit, conduct, and disruptive behavior disorders (20 sources) Attention deficit hyperactivity disorder; Translations: [Attention-deficit hyperactivity disorder, unspecified type] Onset: 12-09-2010 05-30-2022 Chronic Attention-deficit, conduct, and disruptive behavior disorders (3 sources) Attention deficit hyperactivity disorder, combined type; Translations: [Attention-deficit hyperactivity disorder, combined type] Onset: 09-10-2022 Chronic Deficiency and other anemia (10 sources) Iron deficiency anemia; Translations: [Iron deficiency anemia, unspecified] 01-30-2024 Episodic Disorders usually diagnosed in infancy, childhood, or adolescence (20 sources) Asperger's disorder; Translations: [Asperger's syndrome] Onset: 05-29-2012 05-30-2022 Chronic Esophageal disorders (20 sources) Gastro-esophageal reflux disease with esophagitis; Translations: [Reflux esophagitis] Onset: 03-23-2017 05-30-2022 Chronic Genitourinary symptoms and ill-defined conditions (1 source) Nocturia; Translations: [Nocturia] Episodic Immunizations and screening for infectious disease (3 sources) Suspected disease caused by 2019-nCoV; Translations: [Suspected COVID-19 virus infection] Episodic Influenza (1 source) Influenza due to Influenza A virus; Translations: [Influenza due to other identified influenza virus with other respiratory manifestations] 11-21-2024 Episodic Menstrual disorders (6 sources) Irregular periods; Translations: [Irregular menstruation, unspecified] Onset: 03-26-2025 Chronic Mood disorders (3 sources) Recurrent major depressive episodes, moderate ; Translations: [Major depressive disorder, recurrent, moderate] Onset: 09-10-2022 Chronic Nonmalignant breast conditions (1 source) Increased ; Translations: [Galactorrhea not associated with childbirth] Episodic Nonspecific chest pain (8 sources) Chest pain; Translations: [Other chest pain] Onset: 03-26-2025 03-26-2025 Episodic Nutritional deficiencies (2 sources) Vitamin D deficiency; Translations: [Vitamin D deficiency, unspecified] Onset: 01-13-2025 10-15-2024 Chronic Other circulatory disease (1 source) Elevated blood-pressure reading without diagnosis of hypertension; Translations: [Elevated blood-pressure reading, without diagnosis of hypertension] 12-24-2024 Episodic Other endocrine disorders (3 sources) Hyperprolactinemia; Translations: [Hyperprolactinemia] Chronic Other female genital disorders (1 source) Vaginal bleeding; Translations: [Abnormal uterine and vaginal bleeding, unspecified] 10-31-2024 Chronic Other non-traumatic joint disorders (1 source) Pain in right knee; Translations: [Pain in joint, lower leg] 11-20-2024 Episodic Other upper respiratory disease (20 sources) Allergic rhinitis; Translations: [Allergic rhinitis, unspecified] Onset: 02-23-2009 05-30-2022 Chronic Other upper respiratory disease (1 source) Allergic rhinitis, unspecified; Translations: [Allergic rhinitis, unspecified seasonality, unspecified trigger] Onset: 05-30-2022 Chronic Otitis media and related conditions (1 source) Acute bilateral otitis media ; Translations: [Otitis media, unspecified, bilateral] Episodic Skin and subcutaneous tissue infections (2 sources) Infection of skin; Translations: [Local infection of the skin and subcutaneous tissue, unspecified] 06-01-2024 Episodic Unclassified (1 source) Patient encounter status 03-26-2025 Past or Other Problems Problem Classification Problem Date Documented Da te Episodic/Chronic Contraceptive and procreative management (8 sources) Patient encounter status; Translations: [Encounter for other general counseling and advice on contraception] Onset: 03-26-2025 03-26-2025 Episodic Deficiency and other anemia (2 sources) Iron deficiency anemia, unspecified; Translations: [Iron deficiency anemia, unspecified iron deficiency anemia type] Onset: 10-14-2024 Episodic Malaise and fatigue (2 sources) Fatigue; Translations: [Other fatigue] Onset: 10-14-2024 10-14-2024 Episodic Neoplasms of unspecified nature or uncertain behavior (20 sources) Neoplasm of pituitary gland; Translations: [Neoplasm of unspecified behavior of endocrine glands and other parts of nervous system] Onset: 05-30-2022 05-30-2022 Episodic Other screening for suspected conditions (not mental disorders or infectious disease) (1 source) Encounter for test, result unknown; Translations: [ examination or test, unconfirmed] Onset: 05-13-2025 Episodic Other skin disorders (20 sources) Hyperhidrosis; Translations: [Generalized hyperhidrosis] Onset: 01-19-2023 Episodic Other upper respiratory infections (3 sources) Acute upper respiratory infection; Translations: [Acute upper respiratory infection, unspecified] Onset: 03-26-2025 11-20-2024 Episodic Results Test Name Value Interpretation Reference Range Facility [facility] 08-14-2025 CNCO Letter Text Normal [facility] CNOVon 08-14-2025 CNOV Office Visit (FAMDNA ) CHRIS URBINA ([id number]) 1 F Date Time Provider Department 08/14/25 2:20 PM YUE AMBRIZ During your visit today, we recorded the following information about you: Temperature Pulse Blood pressure Weight 98 degrees 112/minute 139/87 79.8 kg Height 1.6 m Yue Ambriz, MAR[facility] 08/14/2025 2:26 PM Signed Chris Urbina is a 20 year old female with a complaint of chest pain x 4 days. Went to ED two days ago, [facility]. Dx with sore muscles. States had xray, EKG, labs. Told to take ibuprofen but states doesn't help. Described as sharp, worse with breathing. Radiates into left upper arm. States pain has been constant x 4 days. Heating pad helps. Feels like she has to breathe harder because of the pain. Denies cough, fever or recent illness. 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 Denies arm or leg swelling, sob or any other complaints. No recent travel or surgeries. Has nexplanon. REVIEW OF SYSTEMS See HPI, otherwise unremarkable. PAST MEDICAL HISTORY Diagnosis Date Acid reflux ADHD Asthma (HCC) High-functioning autism spectrum disorder (HCC) IBS (irritable bowel syndrome) Pituitary tumor 05/30/2022 PAST SURGICAL HISTORY Procedure Laterality Date EAR TUBES HX TONSILLECTOMY AND ADENOIDECTOMY HX FAMILY HISTORY Problem Relation Age of Onset Depression Mother Irritable Bowel Syndrome Mother Asthma Mother Fibromyalgia Mother Heart Father Depression Father Hyperlipidemia Father other (pituitary tumor) Father Anxiety disorder Sister other (ovarian cysts) Sister other (peptic ulcer) Sister Allergies Sister Hypertension Maternal Grandmother Depression Maternal Grandmother other (CVA) Maternal Grandfather other (pulmonary embolus) Maternal Grandfather Hypertension Paternal Grandmother Ischemic Heart Disease Paternal Grandmother Cancer Paternal Grandfather Ischemic Heart Disease Paternal Grandfather Diabetes Paternal Grandfather Hypertension Paternal Aunt Diabetes Paternal Aunt Alzheimer's Disease Maternal great-grandfather SOCIAL HISTORY[1] PHYSICAL EXAMINATION: Vitals:BP 139/87 Pulse 112 Temp 36.7 ?C (98 ?F) Ht 160 cm (5' 2.99) Wt 79.8 kg (175 lb 14.8 oz) LMP 04/13/2025 (Approximate) SpO2 100% BMI 31.17 kg/m? General Appearance: Well appearing, alert, in no acute distress, well-hydrated, well nourished.. Lungs: Lungs clear to auscultation. No wheezing, rhonchi, rales. +ttp center of chest wall. Heart: tachycardic 110 bpm. Extremities: No deformities, edema, calves nontender ASSESSMENT: DIAGNOSIS: (R07.9) Chest pain, unspecified type (primary encounter diagnosis) PLAN: ASSESSMENT/PLAN: 1. Chest pain, unspecified type - ICD9: 786.50, ICD10: R07.9 Unable to obtain records from ED. Check D dimer, follow up dependent on results. - D-DIMER Pt advised to report to ED in the interim for new or worsening sx. Pt in agreement with the plan and verbalized understanding. Yue Ambriz PA-C [1] Social History Tobacco Use Smoking status: Never Smokeless tobacco: Never Vaping Use Vaping status: Some Days Substances: Flavoring Devices: Disposable Substance Use Topics Alcohol use: Never Drug use: Never Jessica Petty MA 08/14/2025 2:26 PM Signed GC (Gonorrhea) Screening (18-24) Never done Depression Screening Never done Anxiety Screening Never done Chlamydia Screening (18-24) Never done Cervical Cancer Screening Never done DTaP,Tdap,Td Vaccine(7 - Td or Tdap) due on 05/15/2024 Influenza Vaccine(1) due on 06/08/2025 Covid-19 Vaccine( - season) due on 06/08/2025 Allergies As of Date: 08/14/2025 (No Known Allergies) Date Reviewed: 08/14/2025 Reviewed by: Jessica Petty MA - Fully Assessed Reason for Visit: Chest Pain [21] Primary Visit Diagnosis:Chest pain, unspecified type [R07.9] Order(s):D-DIMER [SQDDMER] Order #: [id number] FUTURE Prescriptions as of 08/14/2025 - risperiDONE (RISPERDAL) 0.5 mg tablet TAKE 1 TABLET BY MOUTH TWICE A DAY - sertraline (ZOLOFT) 100 mg tablet TAKE 2 TABLETS BY MOUTH ONCE DAILY. 2 TABLETS DAILY - lansoprazole (PREVACID) 30 mg capsule TAKE 1 CAPSULE BY MOUTH TWICE A DAY - ferrous sulfate 325 mg (65 mg iron) tablet TAKE 1 TABLET BY MOUTH EVERY DAY - buPROPion XL (WELLBUTRIN XL) 300 mg 24 hr tablet Take 1 tablet by mouth once daily. - etonogestrel (NEXPLANON) 68 mg impl subdermal implant 68 mg by SUBDERMAL route one time only. - benzonatate (TESSALON PERLE) 100 mg capsule Take 1-2 capsules by mouth three times a day as needed. - atomoxetine (STRATTERA) 25 mg capsule TAKE 2 CAPSULES BY MOUTH DAILY AT BEDTIME. - cetirizine (ZYRTEC) 10 mg tablet Take 1 tablet by mouth once daily. - ondansetron orally disintegrating (ZOFRAN ODT) 4 mg disintegrating tablet Take 1 tablet by mouth every 8 hours as n (more content not included)... Normal [facility] D dimer FEU PPP-mCncon 08-14 Fibrin D-dimer FEU (PPP) [Mass/Vol] 350 ng/mL FEU Normal <500 [facility] Comment on above: Order Comment: Speci men Type: BLOOD SPECIMEN Ordering Facility: [facility] Address: [address] [place] [address] Performed By: #### 4 8065-7 #### [facility] CLIA [id number] [address] [place] [address] [place] Basic Metabolic Profile (BMP )on 08-12-2025 BUN/CRE 22.2 RATIO High 10-20 [facility] Comment on above: Performed By: #### L 300.8000, L500.2500, L100.0100, L501.4021 #### [facility] [address] [place], [address] Calcium [Mass/Vol] 9.9 mg/dL Normal 7.6-11.0 [facility] Comment on above: Performed By: #### L 300.8000, L500.2500, L100.0100, L501.4021 #### [facility] [address] [facility] [place], [address] Chloride [Moles/Vol] 105 mmol/L Normal 98-108 [facility] Comment on above: Performed By: #### L 300.8000, L500.2500, L100.0100, L501.4021 #### [facility] [address] [place], [address] CO2 [Moles/Vol] 23.1 mmol/L Normal 21.0-32.0 [facility] Comment on above: Performed By: #### L 300.8000, L500.2500, L100.0100, L501.4021 #### [facility] [address] [place], [address] Creatinine [Mass/Vol] 0.67 mg/dL Low 0.70-1.20 [facility] Comment on above: Performed By: #### L 300.8000, L500.2500, L100.0100, L501.4021 #### [facility] [address], [address] ECRCL 132.78 ml/min Normal 50-250 [facility] Comment on above: Performed By: #### L 300.8000, L500.2500, L100.0100, L501.4021 #### [facility] [address], [address] GAP 13 Normal 5-15 [facility] Comment on above: Performed By: #### L 300.8000, L500.2500, L100.0100, L501.4021 #### [facility] [address], [address] GFR/1.73 sq M.predicted among non-blacks MDRD (S/P/Bld) [Vol rate/Area] 127 mL/min/{1.73_m2} Normal >60 [facility] Comment on above: Result Comment: mL/m in/1.73m2 CKD-EPI Creatinine Equation (2020) Performed By: #### L 300.8000, L500.2500, L100.0100, L501.4021 #### [facility] [address], [address] Glucose [Mass/Vol] 99 mg/dL Normal 70-99 [facility] Comment on above: Performed By: #### L 300.8000, L500.2500, L100.0100, L501.4021 #### [facility] [address] [place], [address] Potassium [Moles/Vol] 3.8 mmol/L Normal 3.3-5.1 [facility] Comment on above: Performed By: #### L 300.8000, L500.2500, L100.0100, L501.4021 #### [facility] [address], [address] Sodium [Moles/Vol] 140 mmol/L Normal 133-145 [facility] Comment on above: Performed By: #### L 300.8000, L500.2500, L100.0100, L501.4021 #### [facility] [address] [place], [address] Urea nitrogen [Mass/Vol] 15 mg/dL Normal 4-19 [facility] Comment on above: Performed By: #### L 300.8000, L500.2500, L100.0100, L501.4021 #### [facility] [address] [place], [address] CBC W/Diff, Automatedon 11-0 5-2024 Absolute Lymph 1.49 X10 3/uL Normal 0.83-4.51 [facility] Comment on above: Performed By: #### L 300.8000, L500.2500, L100.0100, L501.4021 #### [facility] [address], [address] Absolute Neut 3.2 X10 3/uL Normal 2.0-7.7 [facility] Comment on above: Performed By: #### L 300.8000, L500.2500, L100.0100, L501.4021 #### [facility] [address] [place], [address] Basophils/100 WBC (Bld) 0.6 % Normal 0-1 [facility] Comment on above: Performed By: #### L 300.8000, L500.2500, L100.0100, L501.4021 #### [facility] [address] [place], [address] Eosinophils/100 WBC (Bld) 0.8 % Normal 0-5 [facility] Comment on above: Performed By: #### L 300.8000, L500.2500, L100.0100, L501.4021 #### [facility] [address] [place], [address] Erythrocyte distribution width (RBC) [Ratio] 13.5 % Normal 11.6-14.6 [facility] Comment on above: Performed By: #### L 300.8000, L500.2500, L100.0100, L501.4021 #### [facility] [address] [place], [address] Hematocrit (Bld) [Volume fraction] 43.0 % Normal 37-47 [facility] Comment on above: Performed By: #### L 300.8000, L500.2500, L100.0100, L501.4021 #### [facility] [address] [place], [address] Hemoglobin (Bld) [Mass/Vol] 14.4 g/dL Normal 12.0-15.0 [facility] Comment on above: Performed By: #### L 300.8000, L500.2500, L100.0100, L501.4021 #### [facility] [address] [place], [address] IG% 0.200 Normal 0.0-0.9 [facility] Comment on above: Result Comment: IG% - Immature Granulocytes (promyelocytes, myelocytes and metamyelocytes) > 1% indicates that a LEFT SHIFT is Present. Performed By: #### L 300.8000, L500.2500, L100.0100, L501.4021 #### [facility] [address] [place], [address] Lymphocytes/100 WBC (Bld) 29.0 % Normal 19-41 [facility] Comment on above: Performed By: #### L 300.8000, L500.2500, L100.0100, L501.4021 #### [facility] [address] [place], [address] MCH (RBC) [Entitic mass] 29.4 pg Normal 27.0-32.0 [facility] Comment on above: Performed By: #### L 300.8000, L500.2500, L100.0100, L501.4021 #### [facility] [address] [place], [address] MCHC (RBC) [Mass/Vol] 33.5 g/dL Normal 32-36 [facility] Comment on above: Performed By: #### L 300.8000, L500.2500, L100.0100, L501.4021 #### [facility] [address] [place], [address] MCV (RBC) [Entitic vol] 87.9 fL Normal 81-99 [facility] Comment on above: Performed By: #### L 300.8000, L500.2500, L100.0100, L501.4021 #### [facility] [address] [place], [address] Monocytes/100 WBC (Bld) 6.8 % Normal 0-10 [facility] Comment on above: Performed By: #### L 300.8000, L500.2500, L100.0100, L501.4021 #### [facility] [address] [place], [address] Neutrophils/100 WBC (Bld) 62.6 % Normal 47-70 [facility] Comment on above: Performed By: #### L 300.8000, L500.2500, L100.0100, L501.4021 #### [facility] [address] [place], [address] Nucleated RBC (Bld) [#/Vol] 0 10*3/uL Normal 0-5 [facility] Comment on above: Performed By: #### L 300.8000, L500.2500, L100.0100, L501.4021 #### [facility] [address] [place], [address] Platelet mean volume (Bld) [Entitic vol] 9.6 fL Normal 6.2-12.0 [facility] Comment on above: Performed By: #### L 300.8000, L500.2500, L100.0100, L501.4021 #### [facility] [address] [place], [address] Platelets (Bld) [#/Vol] 306 10*3/uL Normal 150-450 [facility] Comment on above: Performed By: #### L 300.8000, L500.2500, L100.0100, L501.4021 #### [facility] [address] [place], [address] RBC (Bld) [#/Vol] 4.89 10*6/uL Normal 4.2-5.4 [facility] Comment on above: Performed By: #### L 300.8000, L500.2500, L100.0100, L501.4021 #### [facility] [address] [place], [address] RDW SD 43.8 fl Normal 35.1-43.9 [facility] Comment on above: Performed By: #### L 300.8000, L500.2500, L100.0100, L501.4021 #### [facility] [address] [place], [address] WBC (Bld) [#/Vol] 5.1 10*3/uL Normal 4.4-11.0 [facility] Comment on above: Performed By: #### L 300.8000, L500.2500, L100.0100, L501.4021 #### [facility] [address] [place], [address] Chest PA and Lateralon 08-12 Chest PA and Lateral [facility] [address] [address] Chest PA and Lateral MR#: [id number] Acct: [id number] Name: CHRIS URBINA Rep #: [id number] : 2005 F 20 From: Noman Wilkins MD PCP: Dr. Priya Do MD Status: REG ER Study: Chest PA and Lateral Date of Exam: 08/12/25 Exam# [id number] Ordering Dr: Juan Gray DO PROCEDURE: CHEST PA AND LATERAL 08/12/2025 REASON FOR EXAM: CHEST PAIN TECHNIQUE: Procedure Code: RADCXR Modality: DX Procedure: CHEST PA AND LATERAL COMPARISON: None FINDINGS: Hardware: None Heart: The heart size is normal. Mediastinum: The mediastinal contour is unremarkable. Lungs: The lungs are clear. Bones: The bones are unremarkable. RAD/Chest PA and Lateral IMPRESSION: No acute cardiopulmonary process. Reading Location: [id number] CC: Dr. Juan Gray DO; Dr. Priya Do MD R D Engineer: Signed Normal [facility] D-Dimer Quantitative (DVT/PE )on 08-12-2025 D-DIMER QUANT < 0.27 Low 0.27-0.49 [facility] Comment on above: Result Comment: NORM AL D-Dimer level (<0.50) indicates no DVT or PE. Performed By: #### L 300.8000, L500.2500, L100.0100, L501.4021 #### [facility] [address] [place], [address] Emergency Department Summary on 08-12-2025 Emergency Department Summary [facility] Medical Records Department [address] [place] [address] Emergency Department Summary 08/12/25 MR#: [id number] Acct: [id number] Name: CHRIS URBINA Rep #: [id number] : 2005 20 From: Juan Gray DO PCP: Dr. Priya Do MD Status:REG ER Location: ED HPI History of Present Illness Chief Complaint: Chest Pain Narrative Narrative: Chief complaint and HPI: 20-year-old female with past medical history of Asperger's disorder, gastritis, ADHD presents for evaluation of chest pain. Patient states for the past 3 days she has been having intermittent sharp chest pain. States today it radiated into her left shoulder/arm. On control. Denies any trauma or lifting anything heavy. Denies any fever, chills, URI symptoms, shortness of breath, abdominal pain, nausea, vomiting. Denies a history of DVT/PE, recent trauma or surgery, unilateral leg swelling, known malignancy, travel. Has not taken anything for the pain. Non-smoker. Review of systems: See HPI Medications: As listed on the chart Allergies: As listed on the chart PFSH: Per chart Vital signs: As listed on the chart. Reviewed. Physical exam: Gen: A O x3, NAD Head: Normocephalic, atraumatic Eyes: No sclera icterus, conjunctiva clear ENT: Moist mucous membranes Neck: Trachea midline, full range of motion CV: RRR, no murmurs, patient tender to palpation to the left chest wall diffusely including the costal chondral angles-recreates her pain-no external signs of trauma, no peripheral edema Resp: Lungs CTA BL, no w/r/c GI: Abd soft, non-distended, non-tender, no r/r/g Musc: Full ROM, no deformity Skin: Warm, dry Psych: Cooperative, appropriate mood and affect [facility] Medical History Physical exam, pre-employment Gastritis Colitis Seborrheic dermatitis Hyperhidrosis Tic Allergic rhinitis Asperger's disorder Acid reflux Asthma Abnormality of pituitary gland IBS (irritable bowel syndrome) Depression ADHD Home Medications ???Medication ???Instructions ???Recorded ???Last Taken ???Type atomoxetine 25 mg capsule 35 mg PO DAILY 08/04/13 Unknown Hi story (Strattera) fluticasone propionate 50 1 spray DAILY 08/04/13 Unknown His tory mcg/actuation nasal spray,suspension lansoprazole 30 mg capsule,delayed 30 mg PO DAILY 08/04/13 Unknown History release (Prevacid) risperidone 0.5 mg tablet 0.5 mg PO QHS 08/04/13 Unknown His tory sertraline 50 mg tablet 50 mg PO DAILY 08/04/13 Unknown Hi story dicyclomine 10 mg capsule 20 mg (2 x 10 mg) PO TIDAC ##20 Unknown Rx ondansetron 4 mg disintegrating 4 mg PO Q8H PRN PRN Nausea #10 tab s 10/30/18 Unknown Rx tablet albuterol sulfate 90 mcg/actuation 2 puff inhalation Q4H PRN PRN Unknown History aerosol inhaler wheezing bupropion HCl 300 mg 24 hr tablet, 300 mg PO DAILY 04/30/25 Unknown History extended release cetirizine 10 mg tablet 10 mg PO DAILY 04/30/25 Unknown Hi story Allergy/AdvReac Type Severity Reaction Status Date / Time No Known Allergies Allergy Verified 08/12/25 11:20 Social History Smoking Status: Former smoker EXAM Physical Exam Const Vital Signs: 08/12/25 11:18 08/12/25 11:27 08/12/25 12:07 Temperature 97.7 F L Temperature Source Oral Pulse Rate 119 H 106 H Respiratory Rate 19 H 19 H Respiratory Effort Normal Non-Labored Respiratory Pattern Normal Blood Pressure 149/98 H Blood Pressure Mean 115 Pulse Ox 98 98 Oxygen Delivery Method Room Air 08/12/25 13:00 08/12/25 14:00 08/12/25 15:00 Temperature Temperature Source Pulse Rate 97 107 H 99 Respiratory Rate 19 H 19 H 18 Respiratory Effort Respiratory Pattern Blood Pressure 133/87 H Blood Pressure Mean 101 Pulse Ox 98 100 100 Oxygen Delivery Method MDM MDM MDM Narrative Medical decision making narrative: 20-year-old female with past medical history of Asperger's disorder, gastritis, ADHD presents for evaluation of chest pain. Patient states for the past 3 days she has been having intermittent sharp chest pain. States today it radiated into her left shoulder/arm. Chest pain is atypical and reproducible. Differential diagnosis includes but is not limited to costochondritis, chest wall pain, suspect less likely PE or ACS. Toradol ordered for pain. Cardiac workup ordered. CBC unremarkable without leukocytosis or anemia. D-dimer unremarkable. BMP unremarkable. Troponin unremarkable x 2. At this point in time, no clear etiology to explain patient's chest pain. She does describe it as atypical. She is young and healthy. Low suspicion for ACS. If you have performed a heart score, she is at 0. Patient stable to discharge home. (more content not included)... Normal [facility] L501.4021on 08-12-2025 Trop T High Sen < 6 Normal <=14 [facility] Comment on above: Performed By: #### L 300.8000, L500.2500, L100.0100, L501.4021 #### [facility] [address] [place], [place], [address] Troponin T HS 2 HRon 025 Trop T High Sen < 6 Normal <=14 [facility] Comment on above: Performed By: #### L 499.0042 #### [facility] [address] [place], [place], [address] [facility] ([id number]) 1 F Date Time Provider Department 07/20/25 YUE AMBRIZ During your visit today, we recorded the following information about you: Yue Ambriz PA-C 07/20/2025 10:12 AM Signed Please let pt know that her iron is a little lower than previous. Is she still taking iron? Thanks, Yue Ambriz, PA-C McKoski, Shea, RN 07/20/2025 11:03 AM Signed Called patient regarding message below, no answer. Left message to call office back. CHERI Rosen Jacqueline, RN 07/20/2025 5:29 PM Signed Spoke with pt, reviewed below message. Verbalized understanding, no further questions. Taking 325 mg ferrous sulfate daily with breakfast Yue Ambriz PA-C 07/21/2025 9:02 AM Signed Continue once daily and recheck in three months. Yue Paige PA-C McKoski, Mary Kay, RN 07/21/2025 9:43 AM Signed Notified patient. Patient verbalizes understanding and has no other questions or concerns at this time. Sravanthi Lynne RN Allergies As of Date: 07/20/2025 (No Known Allergies) Date Reviewed: 05/13/2025 Reviewed by: Ashish Mcclendon MD - Fully Assessed Reason for Visit: Results [95] Primary Visit Diagnosis:Iron deficiency anemia, unspecified iron deficiency anemia type [D50.9] Order(s):COMPLETE BLOOD COUNT AND DIFFERENTIAL [SQCBCDIF] Order #: [id number] FUTURE IRON AND TIBC [SQIRON] Order #: [id number] FUTURE FERRITIN [SQFERR] Order #: [id number] FUTURE Prescriptions as of 07/21/2025 - ferrous sulfate 325 mg (65 mg iron) tablet TAKE 1 TABLET BY MOUTH EVERY DAY - sertraline (ZOLOFT) 100 mg tablet Take 2 tablets by mouth once daily. 2 tablets daily - lansoprazole (PREVACID) 30 mg capsule TAKE 1 CAPSULE BY MOUTH TWICE A DAY - buPROPion XL (WELLBUTRIN XL) 300 mg 24 hr tablet Take 1 tablet by mouth once daily. - etonogestrel (NEXPLANON) 68 mg impl subdermal implant 68 mg by SUBDERMAL route one time only. - benzonatate (TESSALON PERLE) 100 mg capsule Take 1-2 capsules by mouth three times a day as needed. - atomoxetine (STRATTERA) 25 mg capsule TAKE 2 CAPSULES BY MOUTH DAILY AT BEDTIME. - risperiDONE (RISPERDAL) 0.5 mg tablet Take 1 tablet by mouth two times a day. - cetirizine (ZYRTEC) 10 mg tablet Take 1 tablet by mouth once daily. - ondansetron orally disintegrating (ZOFRAN ODT) 4 mg disintegrating tablet Take 1 tablet by mouth every 8 hours as needed for nausea/vomiting. - albuterol HFA (PROVENTIL HFA, VENTOLIN HFA) 90 mcg/actuation inhaler Inhale 2 Puffs as instructed every 4 hours as needed for wheezing/shortness of breath. - cholecalciferol, Vitamin D3, (VITAMIN D3) 1,250 mcg (50,000 unit) cap capsule Take 1 capsule by mouth one time a week. - cabergoline (DOSTINEX) 0.5 mg tablet Take 1 tablet by mouth three times a week. - budesonide-formoterol (SYMBICORT) 80-4.5 mcg/actuation inhaler Inhale 2 Puffs as instructed twice daily. - aluminum chloride (DRYSOL) 20 % external solution Apply to affected area daily at bedtime. - fluticasone (FLONASE) 50 mcg/actuation nasal spray place 1 spray into each nostril twice a day - dicyclomine (BENTYL) 10 mg capsule Take 10 mg by mouth. - CETIRIZINE HCL (ZYRTEC ORAL) Take by mouth. Problem List As Of Date 07/20/2025 Noted Resolved Allergic rhinitis [J30.9] 02/23/2009 Asperger's disorder [F84.5] 10/30/2012 Asthma [J45.909] 08/22/2012 Attention deficit hyperactivity disorder (ADHD)*12/09/2010 Reflux esophagitis [K21.00] 03/23/2017 Tic [F95.9] 05/29/2012 Pituitary tumor [D49.7] 05/30/2022 Hyperhidrosis [R61] 01/19/2023 Encounter Status:Closed by SRAVANTHI LYNNE on 07/21/25 Normal [facility] CBC W Auto Differential pane l (Bld)on 07-17-2025 Basophils (Bld) [#/Vol] 0.04 10*3/uL Normal <0.11 [facility] Comment on above: Order Comment: Speci men Type: BLOOD SPECIMENOrdering Facility: [facility] Address: [address] [place] [address] Performed By: #### 5 7021-8 ####[facility] [id number] [place] [address] [place] Basophils/100 WBC (Bld) 0.8 % Normal [facility] Comment on above: Order Comment: Speci men Type: BLOOD SPECIMENOrdering Facility: [facility] Address: [address] [place] [address] Performed By: #### 5 7021-8 ####[facility] [id number] [place] [address] [place] Differential cell count method Nom (Bld) Auto Normal [facility] Comment on above: Order Comment: Speci men Type: BLOOD SPECIMENOrdering Facility: [facility] Address: [address] [place] [address] Performed By: #### 5 7021-8 ####[facility] [id number] [place] [address] [place] Eosinophils (Bld) [#/Vol] 0.12 10*3/uL Normal <0.46 [facility] Comment on above: Order Comment: Speci men Type: BLOOD SPECIMENOrdering Facility: [facility] Address: [address] [place] [address] Performed By: #### 5 7021-8 ####[facility] [id number] [place] [address] [place] Eosinophils/100 WBC (Bld) 2.4 % Normal [facility] Comment on above: Order Comment: Speci men Type: BLOOD SPECIMENOrdering Facility: [facility] Address: [address] [place] [address] Performed By: #### 5 7021-8 ####[facility] HOSPITALLIA [id number] [place] [address] [place] Erythrocyte distribution width (RBC) [Ratio] 13.0 % Normal 11.5-15.0 [facility] Comment on above: Order Comment: Speci men Type: BLOOD SPECIMENOrdering Facility: [facility] Address: [address] [place] [address] Performed By: #### 5 7021-8 ####[facility] HOSPITALVENESSA [id number] [place] [address] [place] Hematocrit (Bld) [Volume fraction] 40.3 % Normal 36.0-46.0 [facility] Comment on above: Order Comment: Speci men Type: BLOOD SPECIMENOrdering Facility: [facility] Address: [address] [place] [address] Performed By: #### 5 7021-8 ####[facility]ITAL[facility]ESSA [id number] [place] [address] [place] Hemoglobin (Bld) [Mass/Vol] 13.6 g/dL Normal 11.5-15.5 [facility] Comment on above: Order Comment: Speci men Type: BLOOD SPECIMENOrdering Facility: [facility] Address: [address] [place] [address] Performed By: #### 5 7021-8 ####[facility] HOSPITALYUELIA [id number] [place] [address] [place] Immature granulocytes (Bld) [#/Vol] 10*3/uL Normal <0.10 [facility] Comment on above: Order Comment: Speci men Type: BLOOD SPECIMENOrdering Facility: [facility] Address: [address] [place] [address] Performed By: #### 5 7021-8 ####[facility] H[facility]ITALNCLIA [id number] [place] [address] [place] Immature granulocytes/100 WBC (Bld) 0.0 % Normal [facility] Comment on above: Order Comment: Speci men Type: BLOOD SPECIMENOrdering Facility: [facility] Address: [address] [place] [address] Performed By: #### 5 7021-8 ####[facility] LINDABeatriceNCJIN [id number] [place] [address] [place] Lymphocytes (Bld) [#/Vol] 2.08 10*3/uL Normal 1.00-4.00 [facility] Comment on above: Order Comment: Speci men Type: BLOOD SPECIMENOrdering Facility: [facility] Address: [address] [place] [address] Performed By: #### 5 7021-8 ####[facility]ITALNCLA[facility] [id number] [place] [address] [place] Lymphocytes/100 WBC (Bld) 41.4 % Normal [facility] Comment on above: Order Comment: Speci men Type: BLOOD SPECIMENOrdering Facility: [facility] Address: [address] [place] [address] Performed By: #### 5 7021-8 ####[facility] HOSPITALNCA [id number] [place] [address] [place] MCH (RBC) [Entitic mass] 29.2 pg Normal 26.0-34.0 [facility] Comment on above: Order Comment: Speci men Type: BLOOD SPECIMENOrdering Facility: [facility] Address: [address] [place] [address] Performed By: #### 5 7021-8 ####[facility] H[facility]ITALNCLIA [id number] [place] [address] [place] MCHC (RBC) [Mass/Vol] 33.7 g/dL Normal 30.5-36.0 [facility] Comment on above: Order Comment: Speci men Type: BLOOD SPECIMENOrdering Facility: [facility] Address: [address] [place] [address] Performed By: #### 5 7021-8 ####[facility]ITALNCLIA [id number] [place] [address] [place] MCV (RBC) [Entitic vol] 86.7 fL Normal 80.0-100.0 [facility] Comment on above: Order Comment: Speci men Type: BLOOD SPECIMENOrdering Facility: [facility] Address: [address] [place] [address] Performed By: #### 5 7021-8 ####[facility]ITALNCLA[facility] [id number] [place] [address] [place] Monocytes (Bld) [#/Vol] 0.32 10*3/uL Normal <0.87 [facility] Comment on above: Order Comment: Speci men Type: BLOOD SPECIMENOrdering Facility: [facility] Address: [address] [place] [address] Performed By: #### 5 7021-8 ####[facility] H[facility]PITALA [id number] [place] [address] [place] Monocytes/100 WBC (Bld) 6.4 % Normal [facility] Comment on above: Order Comment: Speci men Type: BLOOD SPECIMENOrdering Facility: [facility] Address: [address] [place] [address] Performed By: #### 5 7021-8 ####[facility] HOSPITALA [id number] [place] [address] [place] Neutrophils (Bld) [#/Vol] 2.47 10*3/uL Normal 1.45-7.50 [facility] Comment on above: Order Comment: Speci men Type: BLOOD SPECIMENOrdering Facility: [facility] Address: [address] [place] [address] Performed By: #### 5 7021-8 ####[facility] HOSPITALNCLI [id number] [place] [address] [place] Neutrophils/100 WBC (Bld) 49.0 % Normal [facility] Comment on above: Order Comment: Speci men Type: BLOOD SPECIMENOrdering Facility: [facility] Address: [address] [place] [address] Performed By: #### 5 7021-8 ####[facility]ITALNCLA[facility] [id number] [place] [address] [place] Nucleated RBC (Bld) [#/Vol] 10*3/uL Normal <0.01 [facility] Comment on above: Order Comment: Speci men Type: BLOOD SPECIMENOrdering Facility: [facility] Address: [address] [place] [address] Performed By: #### 5 7021-8 ####[facility]ITALN[facility] [id number] [place] [address] [place] Nucleated RBC/100 WBC (Bld) [Ratio] 0.0 /100 WBC Normal [facility] Comment on above: Order Comment: Speci men Type: BLOOD SPECIMENOrdering Facility: [facility] Address: [address] [place] [address] Performed By: #### 5 7021-8 ####[facility]PITALNCLIA [id number] [place] [address] [place] Platelet mean volume (Bld) [Entitic vol] 9.2 fL Normal 9.0-12.7 [facility] Comment on above: Order Comment: Speci men Type: BLOOD SPECIMENOrdering Facility: [facility] Address: [address] [place] [address] Performed By: #### 5 7021-8 ####[facility] H[facility]PITALNCLIA [id number] [place] [address] [place] Platelets (Bld) [#/Vol] 269 10*3/uL Normal 150-400 [facility] Comment on above: Order Comment: Speci men Type: BLOOD SPECIMENOrdering Facility: [facility] Address: [address] [place] [address] Performed By: #### 5 7021-8 ####[facility] INSTITUTEWNCLIA [id number] [place] [address] [place] RBC (Bld) [#/Vol] 4.65 10*6/uL Normal 3.90-5.20 [facility] Comment on above: Order Comment: Speci men Type: BLOOD SPECIMENOrdering Facility: [facility] Address: [address] [place] [address] Performed By: #### 5 7021-8 ####[facility]STITUTEWNCLIA [id number] [place] [address] [place] WBC (Bld) [#/Vol] 5.03 10*3/uL Normal 3.70-11.00 [facility] Comment on above: Order Comment: Speci men Type: BLOOD SPECIMENOrdering Facility: [facility] Address: [address] [place] [address] Performed By: #### 5 7021-8 ####[facility]ITALNCLIA [id number] [place] [address] [place] Ferritin SerPl-mCncon 2024 Ferritin [Mass/Vol] 44.8 ng/mL Normal 14.7-205.1 [facility] Comment on above: Order Comment: Speci men Type: BLOOD SPECIMENOrdering Facility: [facility] Address: [address] [place] [address] Performed By: #### 5 0190-8, 2276-4 ####[facility] LABCLIA [id number] [place] [address] [place] Iron and Iron binding capaci ty panelon 07-17-2025 Iron [Mass/Vol] 45 ug/dL Normal 41-186 [facility] Comment on above: Order Comment: Speci men Type: BLOOD SPECIMENOrdering Facility: [facility] Address: [address] [place] [address] Performed By: #### 5 0190-8, 2276-4 ####[facility] LABCLIA [id number] [place] [address] [place] Iron binding capacity [Mass/Vol] 390 ug/dL High 232-386 [facility] Comment on above: Order Comment: Speci men Type: BLOOD SPECIMENOrdering Facility: [facility] Address: [address] [place] [address] Performed By: #### 5 0190-8, 6-4 ####[facility] LABCLIA [id number] [place] [address] [place] Iron/TIBC [Molar ratio] 11.5 % Low 15.0-57.0 [facility] Comment on above: Order Comment: Speci men Type: BLOOD SPECIMENOrdering Facility: [facility] Address: [address] [place] [address] Performed By: #### 5 0190-8, 2276-4 ####[facility] LABIA [id number] [place] [address] [place] Urgent Care Visit Reporton 1 Urgent Care Visit Report [facility] [address], [address] [place] [address] OFFICE VISIT Date of Service: 07/14/25 MR#: [id number] Acct: [id number] Name: CARLITOSCHRIS LEE GILBERT Rep #: [id number] : 2005 Provider: MARY Lundberg Age/Sex: 20/F Location[place] [facility] Status: Signed Intake Vital Signs 04/30/25 20:11 Height 5 ft 3 in Intake Visit Reasons: PE NON DOT PHYSICAL/ [facility] Allergies No Known Allergies Allergy (Verified 04/30/25 20:14) [facility] (Updated 07/14/25 @ 15:28 by Gilbert HERNANDEZ PA) Physical exam, pre-employment Gastritis Colitis Seborrheic dermatitis Hyperhidrosis Tic Allergic rhinitis Asperger's disorder Acid reflux Asthma Abnormality of pituitary gland IBS (irritable bowel syndrome) Depression ADHD Social History Smoking Status: Current every day smoker tobacco type: e-cigarettes HPI HPI Details: CHRIS URBINA, is a 20 F who presents to the office today for Office Procedures Physical Exam Coding PE Coding Pre-employment PE: Yes Coding Level of Care Code Attention Adam Diagnoses Physical exam, pre-employment Z02.1 Assessment and Plan Assessment and Plan (1) Physical exam, pre-employment: Status: Acute 07/14/25 1528 Date Gilbert HERNANDEZ Cosigner Signature: Date (if applicable) CC: Normal [facility] CNOVon 05-13-2025 OV Office Visit (OBGYST ) CHRIS URBINA ([id number]) 1 F Date Time Provider Department 05/13/25 1:30 PM ASHISH MCCLENDON OBPARKER During your visit today, we recorded the following information about you: Pulse Blood pressure Weight Height 111/minute 109/74 76.2 kg 1.6 m Last Period 04/13/25 Ashish Mcclendon MD 05/13/2025 1:59 PM Signed Chris is a 20 year old patient who presents for Nexplanon insertion. Patient's last menstrual period was 04/13/2025 (approximate). VITALS: BP 109/74 Pulse 111 Ht 5' 3 (1.60m) Wt 168 lb (76.2kg) LMP 04/13/2025 BMI 29.77 kg/(m2). test: negative Nexplanon lot #: [id number] Exp date: 04/03 UNIVERSAL PROTOCOL / SAFETY CHECKLIST Procedure to be Performed: Nexplanon insertion Manager Testing: Carri Flores Sign In: A Moment of CARE was completed. Appropriate PPE (Personal Protective Equipment) worn by all providers involved with the procedure. Special equipment not required. Patient/Surrogate Stated/Verified: Patient name, Date of , Relevant allergies, and The intended procedure Time Out: Relevant labs, photos, and/or imaging studies have been reviewed. Intended patient and procedure match the source document(s) (e.g. consent, HANDP, associated studies [imaging, pathology]) are not applicable. Consent obtained and matches the intended procedure. Yes. Correct side/site has been marked and visible. Medications required for this procedure are verified. Fire risk assessed and is not applicable. Implants: are not applicable. Sign Out: Specimens not collected. All instruments, equipment, possible retained foreign bodies are accounted for. Yes. The post-procedure plan of care has been communicated to the patient or surrogate. TECHNIQUE: Patient placed in supine position with left) bent at the elbow and placed over the head. Skin cleansed with betadine. 3mL of 1% lidocaine with 1:100,000 epi injected subQ along insertion site. Nexplanon jere inserted under sterile technique. After insertion by the provider, the jere was palpable under the skin by both patient and provider. Steristrips and sterile pressure dressing applied. AANDP: Nexplanon inserted without complications. Patient user card was filled out and given to the patient. The patient was instructed to remove the dressing after 24 hours. Advised to use backup contraception for 7 days. Ashish Mcclendon MD Referring Provider: HALEY ROSS [[id number]] Allergies As of Date: 05/13/2025 (No Known Allergies) Date Reviewed: 05/13/2025 Reviewed by: Ashish Mcclendon MD - Fully Assessed Reason for Visit: nexplanon insert [Other] Primary Visit Diagnosis:Nexplanon insertion [Z30.017] Other Visit Diagnosis: examination or test, unconfirmed [Z32.00] Order(s):UA DIP,URINE HCG (POC) [2700691] Order #: [id number] #[id number] [] etonogestrel subdermal implant 68 mg (NEXPLANON)Disp: Rfl: Prescriptions as of 05/13/2025 - etonogestrel (NEXPLANON) 68 mg impl subdermal implant 68 mg by SUBDERMAL route one time only. - ferrous sulfate 325 mg (65 mg iron) tablet TAKE 1 TABLET BY MOUTH EVERY DAY - benzonatate (TESSALON PERLE) 100 mg capsule Take 1-2 capsules by mouth three times a day as needed. - atomoxetine (STRATTERA) 25 mg capsule TAKE 2 CAPSULES BY MOUTH DAILY AT BEDTIME. - risperiDONE (RISPERDAL) 0.5 mg tablet Take 1 tablet by mouth two times a day. - cetirizine (ZYRTEC) 10 mg tablet Take 1 tablet by mouth once daily. - lansoprazole (PREVACID) 30 mg capsule TAKE 1 CAPSULE BY MOUTH TWICE A DAY - ondansetron orally disintegrating (ZOFRAN ODT) 4 mg disintegrating tablet Take 1 tablet by mouth every 8 hours as needed for nausea/vomiting. - sertraline (ZOLOFT) 100 mg tablet Take 2 tablets by mouth once daily. 2 tablets daily - albuterol HFA (PROVENTIL HFA, VENTOLIN HFA) 90 mcg/actuation inhaler Inhale 2 Puffs as instructed every 4 hours as needed for wheezing/shortness of breath. - buPROPion XL (WELLBUTRIN XL) 300 mg 24 hr tablet Take 1 tablet by mouth once daily. - cholecalciferol, Vitamin D3, (VITAMIN D3) 1,250 mcg (50,000 unit) cap capsule Take 1 capsule by mouth one time a week. - cabergoline (DOSTINEX) 0.5 mg tablet Take 1 tablet by mouth three times a week. - budesonide-formoterol (SYMBICORT) 80-4.5 mcg/actuation inhaler Inhale 2 Puffs as instructed twice daily. - aluminum chloride (DRYSOL) 20 % external solution Apply to affected area daily at bedtime. - fluticasone (FLONASE) 50 mcg/actuation nasal spray place 1 spray into each nostril twice a day - dicyclomine (BENTYL) 10 mg capsule Take 10 mg by mouth. - CETIRIZINE HCL (ZYRTEC ORAL) Take by mouth. Medication notes this encounter BENZONATATE 100 MG CAPSULE >> Beny Hirsch MA 05/13/2025 1:22 PM >> BENY HIRSCH SunMay 13, 2025 1:22 PM Not taking VOLNEA (28) 0 (more content not included)... Normal [facility] 12 Lead EKGon 04-30-2025 12 Lead EKG [facility] [address] [address] 12 Lead EKG 04/30/252018 MR#: [id number] Acct: [id number] Name: CHRIS URBINA Rep #: [id number] : 2005 19 From: Ananda Roland MD Attending Dr: Status: DEP ER Ordering Dr: Wayne Koroma MD Date: 04/30/25 Location: ED Sex: F C Admitted: Test Reason : CP Blood Pressure : */* mmHG Vent. Rate : 93 BPM Atrial Rate : 93 BPM P-R Int : 146 ms QRS Dur : 86 ms QT Int : 328 ms P-R-T Axes : 69 59 40 degrees QTcB Int : 407 ms Normal sinus rhythm Normal ECG Confirmed by ANANDA ROLAND MD ([id number]), market editor CARRI SHEN ([id number]) on 05/04/2025 1:02:21 PM Referred By: Wayne Koroma Confirmed By: ANANDA ROLAND MD 05/04/25 1302 Date nAanda Roland MD CC: Dr. Vera Song MD; Dr. Wayne Koroma MD Signed Normal [facility] Bedside Glucoseon 04-30-2025 FINGERSTICK GLU 96 mg/dL Normal 74-106 [facility] Comment on above: Result Comment: SHAD [place] OF PATIENT CARE PER NURSING PROTOCOL Performed By: #### L 501.080 #### [facility] [address] [place], [address] Emergency Department Summary on 04-30-2025 Emergency Department Summary [facility] Medical Records Department [address] [place] [address] Emergency Department Summary 04/30/25 MR#: [id number] Acct: [id number] Name: CHRIS URBINA Rep #: [id number] : 2005 19 From: Wayne Koroma MD PCP: Dr. Vera Song MD Status:DEP ER Location: ED HPI History of Present Illness Chief Complaint: Chest Pain Narrative Narrative: 19-year-old female states her mom was just admitted to another hospital with chest pain that turned out to be pneumonia and now she is experiencing chest pain worried she has pneumonia. She started a shift at [employer] around 4 PM. Around 6 PM she felt like the center of her chest was tight when taking a deep breath. She does not feel short of breath. She has no radiating pain or pain in her jaw or arms. No recent fever, chills, cough, nausea or vomiting, or abdominal pain. She vapes occasionally. She has no personal history of cardiac disease or DVT/PE. She said no recent surgery or travel, leg pain or swelling, cough or hemoptysis, or hormone use [facility] Medical History (Updated 04/30/25 @ 21:01 by MARY Guzmán) Gastritis Colitis Seborrheic dermatitis Hyperhidrosis Tic Allergic rhinitis Asperger's disorder Acid reflux Asthma Abnormality of pituitary gland IBS (irritable bowel syndrome) Depression ADHD Home Medications ???Medication ???Instructions ???Recorded ???Last Taken ???Type atomoxetine 25 mg capsule 35 mg PO DAILY 08/04/13 Unknown Hi story (Strattera) fluticasone propionate 50 1 spray DAILY 08/04/13 Unknown His tory mcg/actuation nasal spray,suspension lansoprazole 30 mg capsule,delayed 30 mg PO DAILY 08/04/13 Unknown History release (Prevacid) risperidone 0.5 mg tablet 0.5 mg PO QHS 08/04/13 Unknown His tory sertraline 50 mg tablet 50 mg PO DAILY 08/04/13 Unknown Hi story dicyclomine 10 mg capsule 20 mg (2 x 10 mg) PO TIDAC ##20 Unknown Rx ondansetron 4 mg disintegrating 4 mg PO Q8H PRN PRN Nausea #10 tab s 10/30/18 Unknown Rx tablet albuterol sulfate 90 mcg/actuation 2 puff inhalation Q4H PRN PRN Unknown History aerosol inhaler wheezing bupropion HCl 300 mg 24 hr tablet, 300 mg PO DAILY 04/30/25 Unknown History extended release cetirizine 10 mg tablet 10 mg PO DAILY 04/30/25 Unknown Hi story Allergy/AdvReac Type Severity Reaction Status Date / Time No Known Allergies Allergy Verified 04/30/25 20:14 Social History Smoking Status: Current every day smoker tobacco type: e-cigarettes ROS ROS ED ROS Narrative Constitutional: Negative for fever, chills, malaise. CVS: Positive for chest pain. No palpitations or syncope. Respiratory: Negative for shortness of breath, cough, orthopnea. GI: Negative for abdominal pain, nausea, vomiting. EXAM Physical Exam Narrative Exam Narrative: CONST: Patient sitting in no acute distress. EYES: Normal inspection. NECK: Normal inspection. RESP: No respiratory distress, CTAB. CVS: Regular rate and rhythm, no murmur, no gallop. ABD: Soft and nontender, no guarding or rebound, nondistended. SKIN: Color normal, no rash, warm, dry, intact. EXTREMITIES: Normal appearance, no pedal edema. NEURO: Alert and answering questions appropriately. PSYCH: Normal affect. Const Vital Signs: 04/30/25 20:11 04/30/25 21:03 Temperature 97.9 F 98 F Temperature Source Oral Pulse Rate 99 88 Respiratory Rate 16 18 Blood Pressure 131/89 H 133/88 H Blood Pressure Mean 103 103 Pulse Ox 100 100 Oxygen Delivery Method Room Air Physical Exam Const Vital Signs: 04/30/25 20:11 04/30/25 21:03 Temperature 97.9 F 98 F Temperature Source Oral Pulse Rate 99 88 Respiratory Rate 16 18 Blood Pressure 131/89 H 133/88 H Blood Pressure Mean 103 103 Pulse Ox 100 100 Oxygen Delivery Method Room Air MDM MDM MDM Narrative Medical decision making narrative: 19-year-old female presents with a few hours of midsternal chest pain when taking a deep breath. She is concerned because her mom has pneumonia but she could also have it. She has had no fever, chills, or upper respiratory symptoms. She is awake alert no distress. Vitals are stable. Normal cardiopulmonary exam. Her chest and abdomen are nontender. She is moving all extremities and neurovascularly intact. She was concerned about hypoglycemia so a fingerstick glucose was obtained and is 96. EKG is normal sinus rhythm without ischemic changes. She does not have risk factors for ACS and symptoms are not exertional so I do not think she requires cardiac workup. She is also PERC negative. Patient seems anxious because her mom is having health problems and I think anxiety is some component of this. She does not have a fever or cough and s (more content not included)... Normal [facility] deOrdered By: Wayne Koroma on 04-30-2025 Glucose [Mass/Vol] 96 mg/dL 74-106 [facility] Comment on above: MANAGEMENT OF YAN T CARE PER NURSING PROTOCOL CNOVon 04-21-2025 CNOV Office Visit (OBGYST ) CHRIS URBINA ([id number]) 1 F Date Time Provider Department 04/21/25 2:30 PM HALEY ROSS OBPARKER During your visit today, we recorded the following information about you: Pulse Blood pressure Weight Last Period 100/minute 117/80 76.7 kg 04/13/25 Haley Ross APRN.CNP 04/22/2025 12:42 PM Signed Chris Browning Carlitos is a 19 year old who presents today for contraception.Interes elfego in the Nexplanon Patient's last menstrual period was 04/13/2025.. SUBJECTIVE Sexually active: Never Method of control: oral contraceptives x 1 year unsatisfactory, caused irregular cycles and painful periods Methods tried previously: none Patient currently interested in: Nexplanon Date of last test: Not applicable Relevant Past Medical History: No relevant past medical history OBJECTIVE: General Appearance: Well appearing, alert, in no acute distress, well-hydrated, well nourished. Reviewed options in BC, Nexplanon procedure reviewed ASSESSMENT/PLAN: Britany ordered Written information given Haley Ross APRN.GUN[employer]ER Referring Provider: PATRICIA KEARNEY [[id number]] Allergies As of Date: 04/21/2025 (No Known Allergies) Date Reviewed: 04/21/2025 Reviewed by: Kyra Madera MA - Fully Assessed Reason for Visit: Contraception [26] Primary Visit Diagnosis:General counseling and advice for contraceptive management [Z30.09] Other Visit Diagnosis:Dysmenorrhe a [N94.6] Order(s):CONSULT TO FINGER BUFFS ASSEMBLER [9021] Order #: [id number]: [id number] NEXPLANON INSERTION [1203139] Order #: [id number] Prescriptions as of 04/22/2025 - ferrous sulfate 325 mg (65 mg iron) tablet TAKE 1 TABLET BY MOUTH EVERY DAY - benzonatate (TESSALON PERLE) 100 mg capsule Take 1-2 capsules by mouth three times a day as needed. - atomoxetine (STRATTERA) 25 mg capsule TAKE 2 CAPSULES BY MOUTH DAILY AT BEDTIME. - risperiDONE (RISPERDAL) 0.5 mg tablet Take 1 tablet by mouth two times a day. - cetirizine (ZYRTEC) 10 mg tablet Take 1 tablet by mouth once daily. - VOLNEA, 28, 0.15-0.02 mgx21 /0.01 mg x 5 per tablet Take 1 tablet by mouth once daily. - lansoprazole (PREVACID) 30 mg capsule TAKE 1 CAPSULE BY MOUTH TWICE A DAY - ondansetron orally disintegrating (ZOFRAN ODT) 4 mg disintegrating tablet Take 1 tablet by mouth every 8 hours as needed for nausea/vomiting. - sertraline (ZOLOFT) 100 mg tablet Take 2 tablets by mouth once daily. 2 tablets daily - albuterol HFA (PROVENTIL HFA, VENTOLIN HFA) 90 mcg/actuation inhaler Inhale 2 Puffs as instructed every 4 hours as needed for wheezing/shortness of breath. - buPROPion XL (WELLBUTRIN XL) 300 mg 24 hr tablet Take 1 tablet by mouth once daily. - cholecalciferol, Vitamin D3, (VITAMIN D3) 1,250 mcg (50,000 unit) cap capsule Take 1 capsule by mouth one time a week. - cabergoline (DOSTINEX) 0.5 mg tablet Take 1 tablet by mouth three times a week. - budesonide-formoterol (SYMBICORT) 80-4.5 mcg/actuation inhaler Inhale 2 Puffs as instructed twice daily. - aluminum chloride (DRYSOL) 20 % external solution Apply to affected area daily at bedtime. - fluticasone (FLONASE) 50 mcg/actuation nasal spray place 1 spray into each nostril twice a day - dicyclomine (BENTYL) 10 mg capsule Take 10 mg by mouth. - CETIRIZINE HCL (ZYRTEC ORAL) Take by mouth. Problem List As Of Date 04/21/2025 Noted Resolved Allergic rhinitis [J30.9] 02/23/2009 Asperger's disorder [F84.5] 10/30/2012 Asthma [J45.909] 08/22/2012 Attention deficit hyperactivity disorder (ADHD)*12/09/2010 Reflux esophagitis [K21.00] 03/23/2017 Tic [F95.9] 05/29/2012 Pituitary tumor [D49.7] 05/30/2022 Hyperhidrosis [R61] 01/19/2023 Encounter Status:[facility] (FAM[facility] ) CHRIS URBINA ([id number]) 1 F Date Time Provider Department 03/26/25 10:40 AM PATRICIA KEARNEYDNA During your visit today, we recorded the following information about you: Temperature Pulse Respiration Blood pressure 97.1 degrees 100/minute 20/minute 110/75 Weight 74.9 kg Patricia Kearney, [employer]ER.[employer] 03/26/2025 11:14 AM Signed Patient presents with: Acute Visit Cough: Chest pain when coughing for past 3 days. Needs referral to OB to get back on control. Cough and Sinus Congestion: - Onset 3 days ago. - Using qzny-kmk-wlxaqlu cough suppressant with minimal relief. - Denies ear pain. - No known exposure to sick contacts. - Denies testing for COVID-19. Chest Pain: - Onset yesterday, associated only with coughing. - Described as midline, bilateral pain. - Denies pain with palpation or arm movement or deep breathing. - Denies dyspnea. Seasonal Allergies: - History of seasonal allergies; suspects current flare due to pollen. - Has Flonase nasal spray at home. Asthma: - History of asthma; denies current wheezing. Dysmenorrhea: - Reports severe dysmenorrhea with nausea; current oral contraceptive not providing relief. - Menstrual cycles are irregular. - Has not considered alternative forms of contraception. ROS: Constitutional: (-) fever Ears/Nose/Mouth/Throa t: (+) nasal congestion, (-) ear pain Cardiovascular: (+) chest pain Respiratory: (+) cough, (-) shortness of breath Genitourinary: (+) menstrual cramps, (+) irregular menses Musculoskeletal: (-) chest wall tenderness PE: BP 110/75 Pulse 100 Temp 36.2 ?C (97.1 ?F) (Temporal) Resp 20 Wt 74.9 kg (165 lb 2 oz) LMP 11/20/2024 (Exact Date) SpO2 98% BMI 29.26 kg/m? GENERAL: NAD, alert and oriented SKIN: Unremarkable, no rash or skin lesions. HEAD: Normocephalic EYES: PERRLA, EOMI, conjunctiva clear EARS: External ears normal, canals clear, TM's normal. NOSE/SINUSES: Nares erythematous and swollen. Septum midline. OROPHARYNX: Lips, mucosa, and tongue normal, good dentition. No oral lesions noted. NECK: Supple, no lymphadenopathy. LUNGS: Clear to auscultation bilaterally, no wheezes/rhonchi/rales . HEART: Regular rate and rhythm, no murmurs. No ectopy. EXTREMITIES: Normal, no deformities, no skin discoloration, no edema. NEURO: Awake, alert and oriented x3, cranial nerves II-XII grossly intact, normal gait, no involuntary motions Assessment and Plan: 1. URI, acute (J06.9) 2. Other chest pain (R07.89) - Onset 3 days ago; associated with cough and sinus congestion. Chest pain localized to the mid-sternal area, exacerbated by coughing. - No wheezing or abnormal lung sounds on auscultation; no fever currently. - Differential diagnosis includes costochondritis or pleurisy due to inflammation from coughing. - Ordered COVID-19 viral swab test; results expected overnight. Ok to offer antiviral if positive. - Prescribed Tessalon Perles to be taken in conjunction with current zcah-ram-kyhnskp cough suppressant. - Recommended ibuprofen twice daily with food to reduce inflammation and alleviate chest pain. - Advised to monitor symptoms and follow up if no improvement within 7-10 days or if symptoms worsen. 3. Dysmenorrhea (N94.6) - Current oral contraceptive not effectively managing menstrual cramps. - Discussed alternative contraceptive methods, including IUDs and implants, which may provide better symptom control. - Advised initiating ibuprofen a day or two before the onset of menstruation to mitigate cramps. - Referral to [employer] for further evaluation and management; scheduled with MARY Hines, at [place]. 4. General counseling and advice for contraceptive management (Z30.09) - Provided education on various contraceptive options, including oral contraceptives, IUDs, and implants. - Discussed the ease of removal and suitability of IUDs for future planning. - Referral to [employer] for consultation on alternative contraceptive methods. 5. Allergic rhinitis, unspecified seasonality, unspecified trigger (J30.9) - Noted nasal mucosa erythema and edema on examination. - Recommended Flonase nasal spray to manage symptoms. - Patient has a history of seasonal allergies; current symptoms may be exacerbated by high pollen levels. The patient consented to the use of [employer] software for draft documentation of the visit consistent with [facility]?s Notice of Privacy Practices. Patricia Christina APRN.[facility] Patient Instructions: - A COVID-19 viral swab was performed today; you will receive the result overnight. - Start Flonase nasal spray as directed to help reduce nasal inflammation. - Continue your current zhsw-baf-xryghkq cough suppressant. - Begin the prescribed Tessalon Perles (benzonatate) to help numb your cough re (more content not included)... [facility] (FAMDNA) CHRIS URBINA ([id number]) 1 F Date Time Provider Department 01/14/25 YUE AMBRIZ During your visit today, we recorded the following information about you: Yue Ambriz PA-C 01/14/2025 5:45 PM Signed Reviewing labs that were ordered in Oct and just completed yesterday. Iron is ok. Blood counts and vitamin D normal. Is she still taking iron? ThanksYue PA-C Rajecki, Jacqueline, RN 01/14/2025 7:12 PM Signed Spoke with pt, reviewed below message. Confirms she is still taking iron Denies any questions or concerns at this time Yue Ambriz PA-C 01/15/2025 8:46 AM Signed Continue current dose and recheck in 6 months. Thanks JENNIFER De Los Santos Jacqueline, RN 01/15/2025 9:15 AM Signed Spoke with pt, reviewed below message. Verbalized understanding, no further questions. Allergies As of Date: 01/14/2025 (No Known Allergies) Date Reviewed: 12/24/2024 Reviewed by: Jessica Petty MA - Fully Assessed Reason for Visit: Results [95] Primary Visit Diagnosis:Iron deficiency anemia, unspecified iron deficiency anemia type [D50.9] Order(s):FERRITIN [SQFERR] Order #: [id number] FUTURE IRON AND TIBC [SQIRON] Order #: [id number] FUTURE COMPLETE BLOOD COUNT AND DIFFERENTIAL [SQCBCDIF] Order #: [id number] FUTURE Prescriptions as of 01/15/2025 - lansoprazole (PREVACID) 30 mg capsule TAKE 1 CAPSULE BY MOUTH TWICE A DAY - atomoxetine (STRATTERA) 25 mg capsule TAKE 2 CAPSULES BY MOUTH DAILY AT BEDTIME. - ondansetron orally disintegrating (ZOFRAN ODT) 4 mg disintegrating tablet Take 1 tablet by mouth every 8 hours as needed for nausea/vomiting. - ferrous sulfate (FEROSUL) 325 mg (65 mg iron) tablet Take 1 tablet by mouth once daily. - sertraline (ZOLOFT) 100 mg tablet Take 2 tablets by mouth once daily. 2 tablets daily - albuterol HFA (PROVENTIL HFA, VENTOLIN HFA) 90 mcg/actuation inhaler Inhale 2 Puffs as instructed every 4 hours as needed for wheezing/shortness of breath. - buPROPion XL (WELLBUTRIN XL) 300 mg 24 hr tablet Take 1 tablet by mouth once daily. - risperiDONE (RISPERDAL) 0.5 mg tablet TAKE 1 TABLET BY MOUTH TWICE A DAY - cholecalciferol, Vitamin D3, (VITAMIN D3) 1,250 mcg (50,000 unit) cap capsule Take 1 capsule by mouth one time a week. - cetirizine (ZYRTEC) 10 mg tablet Take 1 tablet by mouth once daily. - VOLNEA, 28, 0.15-0.02 mgx21 /0.01 mg x 5 per tablet Take 1 tablet by mouth once daily. - cabergoline (DOSTINEX) 0.5 mg tablet Take 1 tablet by mouth three times a week. - budesonide-formoterol (SYMBICORT) 80-4.5 mcg/actuation inhaler Inhale 2 Puffs as instructed twice daily. - aluminum chloride (DRYSOL) 20 % external solution Apply to affected area daily at bedtime. - fluticasone (FLONASE) 50 mcg/actuation nasal spray place 1 spray into each nostril twice a day - dicyclomine (BENTYL) 10 mg capsule Take 10 mg by mouth. - CETIRIZINE HCL (ZYRTEC ORAL) Take by mouth. Problem List As Of Date 01/14/2025 Noted Resolved Allergic rhinitis [J30.9] 02/23/2009 Asperger's disorder [F84.5] 10/30/2012 Asthma [J45.909] 08/22/2012 Attention deficit hyperactivity disorder (ADHD)*12/09/2010 Reflux esophagitis [K21.00] 03/23/2017 Tic [F95.9] 05/29/2012 Pituitary tumor [D49.7] 05/30/2022 Hyperhidrosis [R61] 01/19/2023 Encounter Status:Closed by GINNY HOOD on 01/15/25 Normal [facility] 25(OH)D3 Sushil 2024 25-hydroxyvitamin D3 [Mass/Vol] 54.9 ng/mL Normal 31.0-80.0 [facility] Comment on above: Order Comment: Speci men Type: BLOOD SPECIMENOrdering Facility: [facility] Address: [address] [place] [address] Result Comment: Clas sification of 25 OH Vitamin D status: Deficiency/Insufficiency: < or = 30 ng/ml. Sufficiency/Optimal Levels: 31-80 ng/mL Toxicity: > 100 ng/mL. Test performed by chemiluminescent immunoassay. Performed By: #### 1 989-3 ####[facility] LABCLIA [id number] [place] [address] [place] CBC W Auto Differential pane l (Bld)on 01-13-2025 Basophils (Bld) [#/Vol] 10*3/uL Normal <0.11 [facility] Comment on above: Order Comment: Speci men Type: BLOOD SPECIMENOrdering Facility: [facility] Address: [address] [place] [address] Performed By: #### 5 7021-8 ####[facility] [id number] [place] [address] [place] Basophils/100 WBC (Bld) 0.4 % Normal [facility] Comment on above: Order Comment: Speci men Type: BLOOD SPECIMENOrdering Facility: [facility] Address: [address] [place] [address] Performed By: #### 5 7021-8 ####[facility] [id number] [place] [address] [place] Differential cell count method Nom (Bld) Auto Normal [facility] Comment on above: Order Comment: Speci men Type: BLOOD SPECIMENOrdering Facility: [facility] Address: [address] [place] [address] Performed By: #### 5 7021-8 ####[facility] EVANWYUELIA [id number] [place] [address] [place] Eosinophils (Bld) [#/Vol] 0.05 10*3/uL Normal <0.46 [facility] Comment on above: Order Comment: Speci men Type: BLOOD SPECIMENOrdering Facility: [facility] Address: [address] [place] [address] Performed By: #### 5 7021-8 ####[facility] HOSPITALYUELIA [id number] [place] [address] [place] Eosinophils/100 WBC (Bld) 0.9 % Normal [facility] Comment on above: Order Comment: Speci men Type: BLOOD SPECIMENOrdering Facility: [facility] Address: [address] [place] [address] Performed By: #### 5 7021-8 ####[facility] H[facility]PITALYUELIA [id number] [place] [address] [place] Erythrocyte distribution width (RBC) [Ratio] 13.6 % Normal 11.5-15.0 [facility] Comment on above: Order Comment: Speci men Type: BLOOD SPECIMENOrdering Facility: [facility] Address: [address] [place] [address] Performed By: #### 5 7021-8 ####[facility]ITALYUELIA [id number] [place] [address] [place] Hematocrit (Bld) [Volume fraction] 40.0 % Normal 36.0-46.0 [facility] Comment on above: Order Comment: Speci men Type: BLOOD SPECIMENOrdering Facility: [facility] Address: [address] [place] [address] Performed By: #### 5 7021-8 ####[facility] HOSPITALL[facility] [id number] [place] [address] [place] Hemoglobin (Bld) [Mass/Vol] 13.5 g/dL Normal 11.5-15.5 [facility] Comment on above: Order Comment: Speci men Type: BLOOD SPECIMENOrdering Facility: [facility] Address: [address] [place] [address] Performed By: #### 5 7021-8 ####[facility] HOSPIT[facility] [id number] [place] [address] [place] Immature granulocytes (Bld) [#/Vol] 10*3/uL Normal <0.10 [facility] Comment on above: Order Comment: Speci men Type: BLOOD SPECIMENOrdering Facility: [facility] Address: [address] [place] [address] Performed By: #### 5 7021-8 ####[facility] [id number] [place] [address] [place] Immature granulocytes/100 WBC (Bld) 0.2 % Normal [facility] Comment on above: Order Comment: Speci men Type: BLOOD SPECIMENOrdering Facility: [facility] Address: [address] [place] [address] Performed By: #### 5 7021-8 ####[facility] HOSPITALL[facility] [id number] [place] [address] [place] Lymphocytes (Bld) [#/Vol] 1.47 10*3/uL Normal 1.00-4.00 [facility] Comment on above: Order Comment: Speci men Type: BLOOD SPECIMENOrdering Facility: [facility] Address: [address] [place] [address] Performed By: #### 5 7021-8 ####[facility]ITALNCLIA [id number] [place] [address] [place] Lymphocytes/100 WBC (Bld) 26.2 % Normal [facility] Comment on above: Order Comment: Speci men Type: BLOOD SPECIMENOrdering Facility: [facility] Address: [address] [place] [address] Performed By: #### 5 7021-8 ####[facility] [id number] [place] [address] [place] MCH (RBC) [Entitic mass] 30.0 pg Normal 26.0-34.0 [facility] Comment on above: Order Comment: Speci men Type: BLOOD SPECIMENOrdering Facility: [facility] Address: [address] [place] [address] Performed By: #### 5 7021-8 ####[facility] [id number] [place] [address] [place] MCHC (RBC) [Mass/Vol] 33.8 g/dL Normal 30.5-36.0 [facility] Comment on above: Order Comment: Speci men Type: BLOOD SPECIMENOrdering Facility: [facility] Address: [address] [place] [address] Performed By: #### 5 7021-8 ####[facility] [id number] [place] [address] [place] MCV (RBC) [Entitic vol] 88.9 fL Normal 80.0-100.0 [facility] Comment on above: Order Comment: Speci men Type: BLOOD SPECIMENOrdering Facility: [facility] Address: [address] [place], [place] [address] Performed By: #### 5 7021-8 ####[facility] [id number] [place] [address] [place] Monocytes (Bld) [#/Vol] 0.38 10*3/uL Normal <0.87 [facility] Comment on above: Order Comment: Speci men Type: BLOOD SPECIMENOrdering Facility: [facility] Address: [address] [place] [address] Performed By: #### 5 7021-8 ####[facility] MILLTOWNCLIA [id number] [place] [address] [place] Monocytes/100 WBC (Bld) 6.8 % Normal [facility] Comment on above: Order Comment: Speci men Type: BLOOD SPECIMENOrdering Facility: [facility] Address: [address] [place] [address] Performed By: #### 5 7021-8 ####[facility] MILLWNCLIA [id number] [place] [address] [place] Neutrophils (Bld) [#/Vol] 3.69 10*3/uL Normal 1.45-7.50 [facility] Comment on above: Order Comment: Speci men Type: BLOOD SPECIMENOrdering Facility: [facility] Address: [address] [place] [address] Performed By: #### 5 7021-8 ####[facility]STITUTEWNCLIA [id number] [place] [address] [place] Neutrophils/100 WBC (Bld) 65.5 % Normal [facility] Comment on above: Order Comment: Speci men Type: BLOOD SPECIMENOrdering Facility: [facility] Address: [address] [place] [address] Performed By: #### 5 7021-8 ####[facility] MILLTOWNCLIA [id number] [place] [address] [place] Nucleated RBC (Bld) [#/Vol] 10*3/uL Normal <0.01 [facility] Comment on above: Order Comment: Speci men Type: BLOOD SPECIMENOrdering Facility: [facility] Address: [address] [place] [address] Performed By: #### 5 7021-8 ####[facility] MILLWNCLIA [id number] [place] [address] [place] Nucleated RBC/100 WBC (Bld) [Ratio] 0.0 /100 WBC Normal [facility] Comment on above: Order Comment: Speci men Type: BLOOD SPECIMENOrdering Facility: [facility] Address: [address] [place] [address] Performed By: #### 5 7021-8 ####[facility] [id number] [place] [address] [place] Platelet mean volume (Bld) [Entitic vol] 9.7 fL Normal 9.0-12.7 [facility] Comment on above: Order Comment: Speci men Type: BLOOD SPECIMENOrdering Facility: [facility] Address: [address] [place] [address] Performed By: #### 5 7021-8 ####[facility] [id number] [place] [address] [place] Platelets (Bld) [#/Vol] 294 10*3/uL Normal 150-400 [facility] Comment on above: Order Comment: Speci men Type: BLOOD SPECIMENOrdering Facility: [facility] Address: [address] [place] [address] Performed By: #### 5 7021-8 ####[facility] HOSPITALAkil [id number] [place] [address] [place] RBC (Bld) [#/Vol] 4.50 10*6/uL Normal 3.90-5.20 [facility] Comment on above: Order Comment: Speci men Type: BLOOD SPECIMENOrdering Facility: [facility] Address: [address] [place] [address] Performed By: #### 5 7021-8 ####[facility] [id number] [place] [address] [place] WBC (Bld) [#/Vol] 5.62 10*3/uL Normal 3.70-11.00 [facility] Comment on above: Order Comment: Speci men Type: BLOOD SPECIMENOrdering Facility: [facility] Address: [address] [place] [address] Performed By: #### 5 7021-8 ####[facility] MILLWSDLIA [id number] [place] [address] [place] Ferritin SerPl-mCncon 2024 Ferritin [Mass/Vol] 45.3 ng/mL Normal 14.7-205.1 [facility] Comment on above: Order Comment: Speci men Type: BLOOD SPECIMENOrdering Facility: [facility] Address: [address] [place] [address] Performed By: #### 5 0190-8, 2276-4 ####[facility] LABCLIA [id number] [place] [address] [place] Iron and Iron binding capaci ty panelon 01-13-2025 Iron [Mass/Vol] 72 ug/dL Normal 41-186 [facility] Comment on above: Order Comment: Speci men Type: BLOOD SPECIMENOrdering Facility: [facility] Address: [address] [place] [address] Performed By: #### 5 0190-8, 6-4 ####[facility] LABCLIA [id number] [place] [address] [place] Iron binding capacity [Mass/Vol] 440 ug/dL High 232-386 [facility] Comment on above: Order Comment: Speci men Type: BLOOD SPECIMENOrdering Facility: [facility] Address: [address] [place] [address] Performed By: #### 5 0190-8, 6-4 ####[facility] LABCLIA [id number] [place] [address] [place] Iron/TIBC [Molar ratio] 16.4 % Normal 15.0-57.0 [facility] Comment on above: Order Comment: Speci men Type: BLOOD SPECIMENOrdering Facility: [facility] Address: [address] [place] [address] Performed By: #### 5 0190-8, 2276-4 ####[facility] LABCLIA [id number] [address] JOHNSON [address] OF [facility] CNOVon 12-24-2024 CNOV Office Visit (FAMDNA ) CHRIS URBINA ([id number]) 1 F Date Time Provider Department 12/24/24 1:40 PM YUE AMBRIZ FAMDNA During your visit today, we recorded the following information about you: Temperature Pulse Blood pressure Weight 97.2 degrees 101/minute 123/84 79.3 kg Height 1.6 m Yue Ambriz, JENNIFER 12/24/2024 1:52 PM Signed Chris Browning Carlitos is a 19 year old female with a complaint of high blood pressure. Pt was curious to know her BP and took with home BP cuff and diastolic was in the 90s. She is here today to discuss. Feels fine. Drinks caffeine daily, multiple servings of pop. Sometimes energy drinks. Diet is fair. Some processed foods. No regimented exercise. REVIEW OF SYSTEMS See HPI, otherwise unremarkable. PAST MEDICAL HISTORY Diagnosis Date Acid reflux ADHD Asthma High-functioning autism spectrum disorder IBS (irritable bowel syndrome) Pituitary tumor 05/30/2022 PAST SURGICAL HISTORY Procedure Laterality Date EAR TUBES HX TONSILLECTOMY AND ADENOIDECTOMY HX FAMILY HISTORY Problem Relation Age of Onset Depression Mother Irritable Bowel Syndrome Mother Asthma Mother Fibromyalgia Mother Heart Father Depression Father Hyperlipidemia Father other (pituitary tumor) Father Anxiety disorder Sister other (ovarian cysts) Sister other (peptic ulcer) Sister Allergies Sister Hypertension Maternal Grandmother Depression Maternal Grandmother other (CVA) Maternal Grandfather other (pulmonary embolus) Maternal Grandfather Hypertension Paternal Grandmother Ischemic Heart Disease Paternal Grandmother Cancer Paternal Grandfather Ischemic Heart Disease Paternal Grandfather Diabetes Paternal Grandfather Hypertension Paternal Aunt Diabetes Paternal Aunt Alzheimer's Disease Maternal great-grandfather Social History Tobacco Use Smoking status: Never Smokeless tobacco: Never Vaping Use Vaping status: Some Days Substances: Flavoring Substance Use Topics Alcohol use: Never Drug use: Never PHYSICAL EXAMINATION: Vitals: BP 123/84 Pulse 101 Temp 36.2 ?C (97.2 ?F) Ht 160 cm (5' 2.99) Wt 79.3 kg (174 lb 13.2 oz) LMP 11/20/2024 (Exact Date) SpO2 99% BMI 30.98 kg/m? Home cuff 119/83 General Appearance: Well appearing, alert, in no acute distress, well-hydrated, well nourished.. ASSESSMENT: DIAGNOSIS: (R03.0) Elevated blood pressure reading without diagnosis of hypertension (primary encounter diagnosis) PLAN: Educated on proper body position while checking BP, reduce caffeine, 150 min cardiovascular exercise per week, reduce processed foods, weight loss. Follow up if continued elevated readings. Pt in agreement with the plan and verbalized understanding. JENNIFER De Los Santos Aliena, MA 12/24/2024 1:52 PM Signed Asthma Action Plan Never done Asthma Control Test Never done Spirometry Never done GC (Gonorrhea) Screening (18-24) Never done Depression Screening Never done Anxiety Screening Never done Chlamydia Screening (18-24) Never done Cervical Cancer Screening Never done DTaP,Tdap,Td Vaccine(7 - Td or Tdap) due on 05/15/2024 Allergies As of Date: 12/24/2024 (No Known Allergies) Date Reviewed: 12/24/2024 Reviewed by: Jessica Petty MA - Fully Assessed Reason for Visit: Follow Up [171] Cmt: Blood pressure Primary Visit Diagnosis:Elevated blood pressure reading without diagnosis of hypertension [R03.0] Prescriptions as of 12/24/2024 - lansoprazole (PREVACID) 30 mg capsule TAKE 1 CAPSULE BY MOUTH TWICE A DAY - atomoxetine (STRATTERA) 25 mg capsule TAKE 2 CAPSULES BY MOUTH DAILY AT BEDTIME. - ondansetron orally disintegrating (ZOFRAN ODT) 4 mg disintegrating tablet Take 1 tablet by mouth every 8 hours as needed for nausea/vomiting. - ferrous sulfate (FEROSUL) 325 mg (65 mg iron) tablet Take 1 tablet by mouth once daily. - sertraline (ZOLOFT) 100 mg tablet Take 2 tablets by mouth once daily. 2 tablets daily - albuterol HFA (PROVENTIL HFA, VENTOLIN HFA) 90 mcg/actuation inhaler Inhale 2 Puffs as instructed every 4 hours as needed for wheezing/shortness of breath. - buPROPion XL (WELLBUTRIN XL) 300 mg 24 hr tablet Take 1 tablet by mouth once daily. - risperiDONE (RISPERDAL) 0.5 mg tablet TAKE 1 TABLET BY MOUTH TWICE A DAY - cholecalciferol, Vitamin D3, (VITAMIN D3) 1,250 mcg (50,000 unit) cap capsule Take 1 capsule by mouth one time a week. - cetirizine (ZYRTEC) 10 mg tablet Take 1 tablet by mouth once daily. - VOLNEA, 28, 0.15-0.02 mgx21 /0.01 mg x 5 per tablet Take 1 tablet by mouth once daily. - cabergoline (DOSTINEX) 0.5 mg tablet Take 1 tablet by mouth three times a week. - budesonide-formoterol (SYMBICORT) 80-4.5 mcg/actuation inhaler Inhale 2 Puffs as instructed twice daily. - aluminum chloride (DRYSOL) 20 % external solution Apply to affected area daily at bedtime. (more content not included)... Normal [facility] CNOVon 11-20-2024 [facility] Office Visit (FAMDNA ) CHRIS URBINA ([id number]) 1 F Date Time Provider Department 11/20/24 3:40 PM DANIAL GUIDRY During your visit today, we recorded the following information about you: Temperature Pulse Respiration Blood pressure 97.8 degrees 90/minute 16/minute 126/91 Weight Last Period 76.4 kg 11/20/24 Bam Cristiane, MA 11/20/2024 4:11 PM Signed Asthma Action Plan Never done Asthma Control Test Never done Spirometry Never done GC (Gonorrhea) Screening (18-24) Never done Depression Screening Never done Anxiety Screening Never done Chlamydia Screening (18-24) Never done Cervical Cancer Screening Never done DTaP,Tdap,Td Vaccine(7 - Td or Tdap) due on 05/15/2024 Danial Guidry APRN.CNP 11/20/2024 4:11 PM Signed ESTABLISHED PATIENT Chris Urbina is a 19 year old female presenting for URI (Nausea, cough, congestion for the past two weeks. Also right knee pain). HISTORY OF PRESENT ILLNESS Had a runny nose for two weeks Yesterday Cough started Nausea started yesterday as well No fevers Bad body aches yesterday Hurts to cough in chest SOB on exertion, Using rescue inhaler every 4 hours which helps Nausea worse with laying Is eating and drinking well, no vomiting No diarrhea No wheezing Taking day/nyquil, bobbyitussin Has had chronic knee issues Both knees give out sometimes as well as cause pain Wears knee braces and this helps Knees have been ok until today Today her R lateral knee started hurting for no reason, no injury No swelling or bruising or numbness or tingling Hasn't tried her brace yet today HISTORIES FAMILY HISTORY Problem Relation Age of Onset Depression Mother Irritable Bowel Syndrome Mother Asthma Mother Fibromyalgia Mother Heart Father Depression Father Hyperlipidemia Father other (pituitary tumor) Father Anxiety disorder Sister other (ovarian cysts) Sister other (peptic ulcer) Sister Allergies Sister Hypertension Maternal Grandmother Depression Maternal Grandmother other (CVA) Maternal Grandfather other (pulmonary embolus) Maternal Grandfather Hypertension Paternal Grandmother Ischemic Heart Disease Paternal Grandmother Cancer Paternal Grandfather Ischemic Heart Disease Paternal Grandfather Diabetes Paternal Grandfather Hypertension Paternal Aunt Diabetes Paternal Aunt Alzheimer's Disease Maternal great-grandfather PAST MEDICAL HISTORY Diagnosis Date Acid reflux ADHD Asthma High-functioning autism spectrum disorder IBS (irritable bowel syndrome) Pituitary tumor 05/30/2022 PAST SURGICAL HISTORY Procedure Laterality Date EAR TUBES HX TONSILLECTOMY AND ADENOIDECTOMY HX Social History Tobacco Use Smoking status: Never Smokeless tobacco: Never Vaping Use Vaping status: Some Days Substances: Flavoring Substance Use Topics Alcohol use: Never Drug use: Never Allergies: ALLERGIES No Known Allergies Medications: atomoxetine (STRATTERA) 25 mg capsule Take 2 capsules by mouth daily at bedtime. ferrous sulfate (FEROSUL) 325 mg (65 mg iron) tablet Take 1 tablet by mouth once daily. sertraline (ZOLOFT) 100 mg tablet Take 2 tablets by mouth once daily. 2 tablets daily albuterol HFA (PROVENTIL HFA, VENTOLIN HFA) 90 mcg/actuation inhaler Inhale 2 Puffs as instructed every 4 hours as needed for wheezing/shortness of breath. buPROPion XL (WELLBUTRIN XL) 300 mg 24 hr tablet Take 1 tablet by mouth once daily. risperiDONE (RISPERDAL) 0.5 mg tablet TAKE 1 TABLET BY MOUTH TWICE A DAY cholecalciferol, Vitamin D3, (VITAMIN D3) 1,250 mcg (50,000 unit) cap capsule Take 1 capsule by mouth one time a week. cetirizine (ZYRTEC) 10 mg tablet Take 1 tablet by mouth once daily. lansoprazole (PREVACID) 30 mg capsule Take 1 capsule by mouth two times a day. VOLNEA, 28, 0.15-0.02 mgx21 /0.01 mg x 5 per tablet Take 1 tablet by mouth once daily. cabergoline (DOSTINEX) 0.5 mg tablet Take 1 tablet by mouth three times a week. fluticasone (FLONASE) 50 mcg/actuation nasal spray place 1 spray into each nostril twice a day dicyclomine (BENTYL) 10 mg capsule Take 10 mg by mouth. CETIRIZINE HCL (ZYRTEC ORAL) Take by mouth. budesonide-formoterol (SYMBICORT) 80-4.5 mcg/actuation inhaler Inhale 2 Puffs as instructed twice daily. aluminum chloride (DRYSOL) 20 % external solution Apply to affected area daily at bedtime. REVIEW OF SYSTEMS See HPI PHYSICAL EXAM BP 126/91 Pulse 90 Temp 36.6 ?C (97.8 ?F) (Left Tympanic) Resp 16 Wt 76.4 kg (168 lb 6.9 oz) LMP 11/20/2024 (Exact Date) SpO2 98% BMI 29.84 kg/m? General Appearance: Well appearing, alert, in no acute distress, well-hydrated, well nourished, does sound congested/nasally Ears: External ears normal, canals clear, bilateral TM intact R TM slightly erythematous with no purulent fluid noted behind TM, left TM normal Nose/Sinus (more content not included)... Normal [facility] CNOVon 11-04-2024 [facility] Office Visit (FAMDNA ) CHRIS URBINA ([id number]) 1 F Date Time Provider Department 11/04/24 11:00 AM YUE AMBRIZ FAMDNA During your visit today, we recorded the following information about you: Temperature Pulse Blood pressure Weight 96.8 degrees 125/minute 108/69 76.2 kg Height 1.6 m Jessica Petty MA 11/04/2024 11:10 AM Signed Asthma Action Plan Never done Asthma Control Test Never done Spirometry Never done GC (Gonorrhea) Screening (18-24) Never done Depression Screening Never done Anxiety Screening Never done Chlamydia Screening (18-24) Never done Cervical Cancer Screening Never done DTaP,Tdap,Td Vaccine(7 - Td or Tdap) due on 05/15/2024 Yue Ambriz, PAWadeC 11/04/2024 11:10 AM Signed Chris Browning Carlitos is a 19 year old female here today for medication refill. Was seeing psych at [facility]. Insurance changed. Needs new psychiatrist. Dx with depression and anxiety. Needs refill of wellbutrin. Denies SI or HI. Increased stress due to father's recent affair. REVIEW OF SYSTEMS See HPI, otherwise unremarkable. PAST MEDICAL HISTORY Diagnosis Date Acid reflux ADHD Asthma High-functioning autism spectrum disorder IBS (irritable bowel syndrome) Pituitary tumor 05/30/2022 PAST SURGICAL HISTORY Procedure Laterality Date EAR TUBES HX TONSILLECTOMY AND ADENOIDECTOMY HX FAMILY HISTORY Problem Relation Age of Onset Depression Mother Irritable Bowel Syndrome Mother Asthma Mother Fibromyalgia Mother Heart Father Depression Father Hyperlipidemia Father other (pituitary tumor) Father Anxiety disorder Sister other (ovarian cysts) Sister other (peptic ulcer) Sister Allergies Sister Hypertension Maternal Grandmother Depression Maternal Grandmother other (CVA) Maternal Grandfather other (pulmonary embolus) Maternal Grandfather Hypertension Paternal Grandmother Ischemic Heart Disease Paternal Grandmother Cancer Paternal Grandfather Ischemic Heart Disease Paternal Grandfather Diabetes Paternal Grandfather Hypertension Paternal Aunt Diabetes Paternal Aunt Alzheimer's Disease Maternal great-grandfather Social History Tobacco Use Smoking status: Never Smokeless tobacco: Never Vaping Use Vaping status: Some Days Substances: Flavoring Substance Use Topics Alcohol use: Never Drug use: Never PHYSICAL EXAMINATION: Vitals: BP 108/69 Pulse (!) 125 Temp 36 ?C (96.8 ?F) Ht 160 cm (5' 2.99) Wt 76.2 kg (167 lb 15.9 oz) LMP 05/12/2022 SpO2 98% BMI 29.77 kg/m? General Appearance: Well appearing, alert, in no acute distress, well-hydrated, well nourished.. Psych: pleasant, somewhat anxious appearing, answers questions appropriately. ASSESSMENT: DIAGNOSIS: (F90.2) Attention deficit hyperactivity disorder (ADHD), combined type (primary encounter diagnosis) (F41.1) XIOMY (generalized anxiety disorder) PLAN: Refilled wellbutrin. Call SW to get set up with psych. Return in the interim prn. Pt in agreement with the plan and verbalized understanding. Yue Ambriz PA-C Allergies As of Date: 11/04/2024 (No Known Allergies) Date Reviewed: 11/04/2024 Reviewed by: Jessica Petty MA - Fully Assessed Reason for Visit: New Medication [4091] Cmt: Wants to restart wellbutrin Primary Visit Diagnosis:Attention deficit hyperactivity disorder (ADHD), combined type [F90.2] Other Visit Diagnosis:XIOMY (generalized anxiety disorder) [F41.1] Order(s):buPROPion XL (WELLBUTRIN XL) 300 mg 24 hr tabletTake 1 tablet by mouth once daily.Disp: 90 tabletRfl: 1 Prescriptions as of 11/04/2024 - buPROPion XL (WELLBUTRIN XL) 300 mg 24 hr tablet Take 1 tablet by mouth once daily. - risperiDONE (RISPERDAL) 0.5 mg tablet TAKE 1 TABLET BY MOUTH TWICE A DAY - cholecalciferol, Vitamin D3, (VITAMIN D3) 1,250 mcg (50,000 unit) cap capsule Take 1 capsule by mouth one time a week. - cetirizine (ZYRTEC) 10 mg tablet Take 1 tablet by mouth once daily. - atomoxetine (STRATTERA) 25 mg capsule Take 2 capsules by mouth daily at bedtime. - lansoprazole (PREVACID) 30 mg capsule Take 1 capsule by mouth two times a day. - ferrous sulfate (FEROSUL) 325 mg (65 mg iron) tablet Take 1 tablet by mouth once daily. - sertraline (ZOLOFT) 100 mg tablet Take 2 tablets by mouth once daily. 2 tablets daily - VOLNEA, 28, 0.15-0.02 mgx21 /0.01 mg x 5 per tablet Take 1 tablet by mouth once daily. - cabergoline (DOSTINEX) 0.5 mg tablet Take 1 tablet by mouth three times a week. - budesonide-formoterol (SYMBICORT) 80-4.5 mcg/actuation inhaler Inhale 2 Puffs as instructed twice daily. - albuterol HFA (PROVENTIL HFA, VENTOLIN HFA) 90 mcg/actuation inhaler Inhale 2 Puffs as instructed every 4 hours as needed for wheezing/shortness of breath. - aluminum chloride (DRYSOL) 20 % external solution Apply to affected area daily at bedtime. - fluticasone (FLONASE) 50 mcg/actuat (more content not included)... Normal [facility] 11-04-2024 [facility] Telephone (PSYLME) CHRIS URBINA ([id number]) 1 F Date Time Provider Department 11/04/24 KADI BENTLEY During your visit today, we recorded the following information about you: [facility]/04/2024 12:04 PM Signed Behavioral Health Social Work Progress Note Patient identified for [facility] from: PCP [facility] encounter type: Telephone Encounter Attempts to Outreach: 3 attempts Patient Discharged?: No Patient reported that caregiver was able to meet their needs today?: N/A therapist returned patient's call, attempted to clarify what services are needed. Patient states that she does take a pill for ADHD but not sure name of rx. Patient was driving and agreed to call back when she had more information to discussed services. Kadi Bentley [facility] November 04, 2024 Allergies As of Date: 11/04/2024 (No Known Allergies) Date Reviewed: 11/04/2024 Reviewed by: Jessica Petty MA - Fully Assessed Reason for Visit: consult [Other] Prescriptions as of 11/04/2024 - buPROPion XL (WELLBUTRIN XL) 300 mg 24 hr tablet Take 1 tablet by mouth once daily. - risperiDONE (RISPERDAL) 0.5 mg tablet TAKE 1 TABLET BY MOUTH TWICE A DAY - cholecalciferol, Vitamin D3, (VITAMIN D3) 1,250 mcg (50,000 unit) cap capsule Take 1 capsule by mouth one time a week. - cetirizine (ZYRTEC) 10 mg tablet Take 1 tablet by mouth once daily. - atomoxetine (STRATTERA) 25 mg capsule Take 2 capsules by mouth daily at bedtime. - lansoprazole (PREVACID) 30 mg capsule Take 1 capsule by mouth two times a day. - ferrous sulfate (FEROSUL) 325 mg (65 mg iron) tablet Take 1 tablet by mouth once daily. - sertraline (ZOLOFT) 100 mg tablet Take 2 tablets by mouth once daily. 2 tablets daily - VOLNEA, 28, 0.15-0.02 mgx21 /0.01 mg x 5 per tablet Take 1 tablet by mouth once daily. - cabergoline (DOSTINEX) 0.5 mg tablet Take 1 tablet by mouth three times a week. - budesonide-formoterol (SYMBICORT) 80-4.5 mcg/actuation inhaler Inhale 2 Puffs as instructed twice daily. - albuterol HFA (PROVENTIL HFA, VENTOLIN HFA) 90 mcg/actuation inhaler Inhale 2 Puffs as instructed every 4 hours as needed for wheezing/shortness of breath. - aluminum chloride (DRYSOL) 20 % external solution Apply to affected area daily at bedtime. - fluticasone (FLONASE) 50 mcg/actuation nasal spray place 1 spray into each nostril twice a day - dicyclomine (BENTYL) 10 mg capsule Take 10 mg by mouth. - CETIRIZINE HCL (ZYRTEC ORAL) Take by mouth. Problem List As Of Date 11/04/2024 Noted Resolved Allergic rhinitis [J30.9] 02/23/2009 Asperger's disorder [F84.5] 10/30/2012 Asthma [J45.909] 08/22/2012 Attention deficit hyperactivity disorder (ADHD)*12/09/2010 Reflux esophagitis [K21.00] 03/23/2017 Tic [F95.9] 05/29/2012 Pituitary tumor [D49.7] 05/30/2022 Hyperhidrosis [R61] 01/19/2023 Encounter Status:Closed by KADI BENTLEY on 11/04/24 [facility] 11-03-2024 [facility] Telephone (PSYLME) CHRIS URBINA ([id number]) 1 F Date Time Provider Department 11/03/24 KADI BENTLEY PSYLME During your visit today, we recorded the following information about you: Kadi Bentley [facility] 11/03/2024 12:29 PM Signed Behavioral Health Social Work Progress Note Patient identified for [facility] from: PCP Reason for referral: [facility] Assessment [facility] encounter type: Telephone Encounter Attempts to Outreach: 1 attempt Patient Discharged?: No Patient reported that caregiver was able to meet their needs today?: N/A Phone call placed today that [facility]. Left my contact information and brief nature of call. Initial outreach also completed via [employer] sending list of in network providers with insurance. [facility] November 03, 2024 Allergies As of Date: 11/03/2024 (No Known Allergies) Date Reviewed: 10/14/2024 Reviewed by: Jessica Petty MA - Fully Assessed Reason for Visit: consult [Other] Prescriptions as of 11/03/2024 - risperiDONE (RISPERDAL) 0.5 mg tablet TAKE 1 TABLET BY MOUTH TWICE A DAY - cholecalciferol, Vitamin D3, (VITAMIN D3) 1,250 mcg (50,000 unit) cap capsule Take 1 capsule by mouth one time a week. - cetirizine (ZYRTEC) 10 mg tablet Take 1 tablet by mouth once daily. - atomoxetine (STRATTERA) 25 mg capsule Take 2 capsules by mouth daily at bedtime. - lansoprazole (PREVACID) 30 mg capsule Take 1 capsule by mouth two times a day. - ferrous sulfate (FEROSUL) 325 mg (65 mg iron) tablet Take 1 tablet by mouth once daily. - sertraline (ZOLOFT) 100 mg tablet Take 2 tablets by mouth once daily. 2 tablets daily - VOLNEA, 28, 0.15-0.02 mgx21 /0.01 mg x 5 per tablet Take 1 tablet by mouth once daily. - cabergoline (DOSTINEX) 0.5 mg tablet Take 1 tablet by mouth three times a week. - buPROPion XL (WELLBUTRIN XL) 300 mg 24 hr tablet Take 300 mg by mouth once daily. - budesonide-formoterol (SYMBICORT) 80-4.5 mcg/actuation inhaler Inhale 2 Puffs as instructed twice daily. - albuterol HFA (PROVENTIL HFA, VENTOLIN HFA) 90 mcg/actuation inhaler Inhale 2 Puffs as instructed every 4 hours as needed for wheezing/shortness of breath. - aluminum chloride (DRYSOL) 20 % external solution Apply to affected area daily at bedtime. - fluticasone (FLONASE) 50 mcg/actuation nasal spray place 1 spray into each nostril twice a day - dicyclomine (BENTYL) 10 mg capsule Take 10 mg by mouth. - CETIRIZINE HCL (ZYRTEC ORAL) Take by mouth. Problem List As Of Date 11/03/2024 Noted Resolved Allergic rhinitis [J30.9] 02/23/2009 Asperger's disorder [F84.5] 10/30/2012 Asthma [J45.909] 08/22/2012 Attention deficit hyperactivity disorder (ADHD)*12/09/2010 Reflux esophagitis [K21.00] 03/23/2017 Tic [F95.9] 05/29/2012 Pituitary tumor [D49.7] 05/30/2022 Hyperhidrosis [R61] 01/19/2023 Encounter Status:Closed by KADI BENTLEY on 11/03/24 Normal [facility] 25(OH)D3 SerPl-mCncon 2024 25-hydroxyvitamin D3 [Mass/Vol] 19.0 ng/mL Low 31.0-80.0 [facility] Comment on above: Order Comment: Speci men Type: BLOOD SPECIMEN Ordering Facility: [facility] Address: [address] [place] [address] Result Comment: Clas sification of 25 [place] Vitamin D status: Deficiency/Insufficiency: < or = 30 ng/ml. Sufficiency/Optimal Levels: 31-80 ng/mL Toxicity: > 100 ng/mL. Test performed by chemiluminescent immunoassay. Performed By: #### 1 989-3 #### [facility] CLIA [id number] [address] [place] [address] [place] CBC W Auto Differential pane l (Bld)on 10-14-2024 Basophils (Bld) [#/Vol] [facility] Basophils/100 WBC (Bld) 0.2 % [facility] Differential cell count method Nom (Bld) Auto [facility] Eosinophils (Bld) [#/Vol] 0.03 10*3/uL [facility] Eosinophils/100 WBC (Bld) 0.3 % [facility] Erythrocyte distribution width (RBC) [Ratio] 14.1 % 11.5 - 15.0 % [facility] Hematocrit (Bld) [Volume fraction] 42.9 % 36.0 - 46.0 % [facility] Hemoglobin (Bld) [Mass/Vol] 13.8 g/dL 11.5 - 15.5 g/dL [facility] Immature granulocytes (Bld) [#/Vol] [facility] Immature granulocytes/100 WBC (Bld) 0.2 % [facility] Interpretation and review of laboratory results Abnormal [facility] Lymphocytes (Bld) [#/Vol] 1.07 10*3/uL [facility] Lymphocytes/100 WBC (Bld) 11.8 % [facility] MCH (RBC) [Entitic mass] 28.8 pg 26.0 - 34.0 pg [facility] MCHC (RBC) [Mass/Vol] 32.2 g/dL 30.5 - 36.0 g/dL [facility] MCV (RBC) [Entitic vol] 89.6 fL 80.0 - 100.0 fL [facility] Monocytes (Bld) [#/Vol] 0.28 10*3/uL [facility] Monocytes/100 WBC (Bld) 3.1 % [facility] Neutrophils (Bld) [#/Vol] 7.66 10*3/uL High [facility] Neutrophils/100 WBC (Bld) 84.4 % [facility] Nucleated RBC (Bld) [#/Vol] [facility] Nucleated RBC/100 WBC (Bld) [Ratio] 0.0 % /100 WBC [facility] Platelet mean volume (Bld) [Entitic vol] 9.7 fL 9.0 - 12.7 fL [facility] Platelets (Bld) [#/Vol] 306 10*3/uL [facility] RBC (Bld) [#/Vol] 4.79 10*6/uL 3.90 - 5.2 0 m/uL [facility] WBC (Bld) [#/Vol] 9.08 10*3/uL [facility] Basophils (Bld) [#/Vol] 10*3/uL Normal <0.11 [facility] Comment on above: Order Comment: Speci men Type: BLOOD SPECIMEN Ordering Facility: [facility] Address: [address] [place] [address] Performed By: #### 5 7021-8 #### [facility] CLIA [id number] [address] [place] [id number] [place] Basophils/100 WBC (Bld) 0.2 % Normal [facility] Comment on above: Order Comment: Speci men Type: BLOOD SPECIMEN Ordering Facility: [facility] Address: [address] [place] [address] Performed By: #### 5 7021-8 #### [facility] CLIA [id number] [address] [place] Differential cell count method Nom (Bld) Auto Normal [facility] Comment on above: Order Comment: Speci men Type: BLOOD SPECIMEN Ordering Facility: [facility] Address: [address] [place] [address] Performed By: #### 5 7021-8 #### [facility] CLIA [id number] [address] [place] [address] [place] Eosinophils (Bld) [#/Vol] 0.03 10*3/uL Normal <0.46 [facility] Comment on above: Order Comment: Speci men Type: BLOOD SPECIMEN Ordering Facility: [facility] Address: [address] [place] [address] Performed By: #### 5 7021-8 #### [facility] CLIA [id number] [address] Eosinophils/100 WBC (Bld) 0.3 % Normal [facility] Comment on above: Order Comment: Speci men Type: BLOOD SPECIMEN Ordering Facility: [facility] Address: [address] [place] [address] Performed By: #### 5 7021-8 #### [facility] CLIA [id number] [address] [place] Erythrocyte distribution width (RBC) [Ratio] 14.1 % Normal 11.5-15.0 [facility] Comment on above: Order Comment: Speci men Type: BLOOD SPECIMEN Ordering Facility: [facility] Address: [address] [place] [address] Performed By: #### 5 7021-8 #### [facility] CLIA [id number] [address] [place] Hematocrit (Bld) [Volume fraction] 42.9 % Normal 36.0-46.0 [facility] Comment on above: Order Comment: Speci men Type: BLOOD SPECIMEN Ordering Facility: [facility] Address: [address] [place] [address] Performed By: #### 5 7021-8 #### [facility] CLIA [id number] [address] [place] Hemoglobin (Bld) [Mass/Vol] 13.8 g/dL Normal 11.5-15.5 [facility] Comment on above: Order Comment: Speci men Type: BLOOD SPECIMEN Ordering Facility: [facility] Address: [address] [place] [address] Performed By: #### 5 7021-8 #### [facility] CLIA [id number] [address] [place] [address] [place] Immature granulocytes (Bld) [#/Vol] 10*3/uL Normal <0.10 [facility] Comment on above: Order Comment: Speci men Type: BLOOD SPECIMEN Ordering Facility: [facility] Address: [address] [place] [address] Performed By: #### 5 7021-8 #### [facility] CLIA [id number] [address] Immature granulocytes/100 WBC (Bld) 0.2 % Normal [facility] Comment on above: Order Comment: Speci men Type: BLOOD SPECIMEN Ordering Facility: [facility] Address: [address] [place] [address] Performed By: #### 5 7021-8 #### [facility] CLIA [id number] [address] [place] Lymphocytes (Bld) [#/Vol] 1.07 10*3/uL Normal 1.00-4.00 [facility] Comment on above: Order Comment: Speci men Type: BLOOD SPECIMEN Ordering Facility: [facility] Address: [address] [place] [address] Performed By: #### 5 7021-8 #### [facility] CLIA [id number] [address] Lymphocytes/100 WBC (Bld) 11.8 % Normal [facility] Comment on above: Order Comment: Speci men Type: BLOOD SPECIMEN Ordering Facility: [facility] Address: [address] [place] [address] Performed By: #### 5 7021-8 #### [facility] CLIA [id number] [address] MCH (RBC) [Entitic mass] 28.8 pg Normal 26.0-34.0 [facility] [facility] Comment on above: Order Comment: Speci men Type: BLOOD SPECIMEN Ordering Facility: [facility] Address: [address] [place] [address] Performed By: #### 5 7021-8 #### [facility] CLIA [id number] [address] [place] MCHC (RBC) [Mass/Vol] 32.2 g/dL Normal 30.5-36.0 [facility] Comment on above: Order Comment: Speci men Type: BLOOD SPECIMEN Ordering Facility: [facility] Address: [address] [place] [address] Performed By: #### 5 7021-8 #### [facility] CLIA [id number] [address] MCV (RBC) [Entitic vol] 89.6 fL Normal 80.0-100.0 [facility] Comment on above: Order Comment: Speci men Type: BLOOD SPECIMEN Ordering Facility: [facility] Address: [address] [place] [address] Performed By: #### 5 7021-8 #### [facility] CLIA [id number] [address] Monocytes (Bld) [#/Vol] 0.28 10*3/uL Normal <0.87 [facility] Comment on above: Order Comment: Speci men Type: BLOOD SPECIMEN Ordering Facility: [facility] Address: [address] [place] [address] Performed By: #### 5 7021-8 #### [facility] CLIA [id number] [address] Monocytes/100 WBC (Bld) 3.1 % Normal [facility] Comment on above: Order Comment: Speci men Type: BLOOD SPECIMEN Ordering Facility: [facility] Address: [address] [place] [address] Performed By: #### 5 7021-8 #### [facility] CLIA [id number] [address] [place] [address] [place] Neutrophils (Bld) [#/Vol] 7.66 10*3/uL High 1.45-7.50 [facility] Comment on above: Order Comment: Speci men Type: BLOOD SPECIMEN Ordering Facility: [facility] Address: [address] [place] [address] Performed By: #### 5 7021-8 #### [facility] CLIA [id number] [address] [place] Neutrophils/100 WBC (Bld) 84.4 % Normal [facility] Comment on above: Order Comment: Speci men Type: BLOOD SPECIMEN Ordering Facility: [facility] Address: [address] [place] [address] Performed By: #### 5 7021-8 #### [facility] CLIA [id number] [address] [place] Nucleated RBC (Bld) [#/Vol] 10*3/uL Normal <0.01 [facility] Comment on above: Order Comment: Speci men Type: BLOOD SPECIMEN Ordering Facility: [facility] Address: [address] [place] [address] Performed By: #### 5 7021-8 #### [facility] CLIA [id number] [address] Nucleated RBC/100 WBC (Bld) [Ratio] 0.0 /100 WBC Normal [facility] Comment on above: Order Comment: Speci men Type: BLOOD SPECIMEN Ordering Facility: [facility] Address: [address] [place] [address] Performed By: #### 5 7021-8 #### [facility] CLIA [id number] [address] Platelet mean volume (Bld) [Entitic vol] 9.7 fL Normal 9.0-12.7 [facility] Comment on above: Order Comment: Speci men Type: BLOOD SPECIMEN Ordering Facility: [facility] Address: [address] [place] [address] Performed By: #### 5 7021-8 #### [facility] CLIA [id number] [address] [place] Platelets (Bld) [#/Vol] 306 10*3/uL Normal 150-400 [facility] Comment on above: Order Comment: Speci men Type: BLOOD SPECIMEN Ordering Facility: [facility] Address: [address] [place] [address] Performed By: #### 5 7021-8 #### [facility] CLIA [id number] [address] [place] RBC (Bld) [#/Vol] 4.79 10*6/uL Normal 3.90-5.20 [facility] Comment on above: Order Comment: Speci men Type: BLOOD SPECIMEN Ordering Facility: [facility] Address: [address] [place] [address] Performed By: #### 5 7021-8 #### [facility] CLIA [id number] [address] [place] WBC (Bld) [#/Vol] 9.08 10*3/uL Normal 3.70-11.00 [facility] Comment on above: Order Comment: Speci men Type: BLOOD SPECIMEN Ordering Facility: [facility] Address: [address] [place] [address] Performed By: #### 5 7021-8 #### [facility] CLIA [id number] [address] OF [facility] CNOVon 10-14-2024 CNOV Office Visit ([facility]AM[facility] ) CHRIS URBINA ([id number]) 1 F Date Time Provider Department 10/14/24 10:00 AM YUE AMBRIZ During your visit today, we recorded the following information about you: Temperature Pulse Blood pressure Weight 96.7 degrees 86/minute 108/75 76.6 kg Height 1.609 m Yue Ambriz PA-C 10/14/2024 10:32 AM Signed Chris Browning Carlitos is a 19 year old female with a complaint of increased fatigue since September. Wants iron checked, checked for diabetes. History of iron def anemia, taking iron once daily. Normal menses, LMP current. States normal flow. No abnormal bruising or bleeding. Denies changes in weight, hair/skin/nails, bowels, sob. Doesn't take any vitamins or supplements. Denies sore throat or recent illness. Denies chance of . Sleeps for 10-12 hours. Doesn't snore. Depression had been well controlled but recently found out father is leaving her mother. Increased depression with this news. No SI. No recent changes in medications. REVIEW OF SYSTEMS See HPI, otherwise unremarkable. PAST MEDICAL HISTORY Diagnosis Date Acid reflux ADHD Asthma High-functioning autism spectrum disorder IBS (irritable bowel syndrome) Pituitary tumor 05/30/2022 PAST SURGICAL HISTORY Procedure Laterality Date EAR TUBES HX TONSILLECTOMY AND ADENOIDECTOMY HX FAMILY HISTORY Problem Relation Age of Onset Depression Mother Irritable Bowel Syndrome Mother Asthma Mother Fibromyalgia Mother Heart Father Depression Father Hyperlipidemia Father other (pituitary tumor) Father Anxiety disorder Sister other (ovarian cysts) Sister other (peptic ulcer) Sister Allergies Sister Hypertension Maternal Grandmother Depression Maternal Grandmother other (CVA) Maternal Grandfather other (pulmonary embolus) Maternal Grandfather Hypertension Paternal Grandmother Ischemic Heart Disease Paternal Grandmother Cancer Paternal Grandfather Ischemic Heart Disease Paternal Grandfather Diabetes Paternal Grandfather Hypertension Paternal Aunt Diabetes Paternal Aunt Alzheimer's Disease Maternal great-grandfather Social History Tobacco Use Smoking status: Never Smokeless tobacco: Never Vaping Use Vaping status: Some Days Substances: Flavoring Substance Use Topics Alcohol use: Never Drug use: Never PHYSICAL EXAMINATION: Vitals:BP 108/75 Pulse 86 Temp (!) 35.9 ?C (96.7 ?F) Ht 160.9 cm (5' 3.35) Wt 76.6 kg (168 lb 15.7 oz) LMP 05/12/2022 SpO2 97% BMI 29.61 kg/m? General Appearance: Well appearing, alert, in no acute distress, well-hydrated, well nourished.. Eyes: no pallor Oropharynx: Lips, mucosa, and tongue normal, teeth and gums normal, oropharynx normal. Neck: Supple, no adenopathy; thyroid symmetric, normal size Lungs: Lungs clear to auscultation. No wheezing, rhonchi, rales.. Heart: RRR without murmur, gallop, or rubs. No ectopy. Psych: pleasant, appropriate affect. ASSESSMENT: DIAGNOSIS: (D50.9) Iron deficiency anemia, unspecified iron deficiency anemia type (primary encounter diagnosis) (R53.83) Fatigue, unspecified type PLAN: ASSESSMENT/PLAN: 1. Iron deficiency anemia, unspecified iron deficiency anemia type - ICD9: 280.9, ICD10: D50.9 (primary diagnosis) - COMPREHENSIVE METABOLIC PANEL - IRON AND TIBC - FERRITIN 2. Fatigue, unspecified type - ICD9: 780.79, ICD10: R53.83 - THYROID STIMULATING HORMONE - VITAMIN D 25 HYDROXY - COMPLETE BLOOD COUNT AND DIFFERENTIAL - COMPREHENSIVE METABOLIC PANEL - IRON AND TIBC - FERRITIN Follow up dependent on results. Return in the interim for new or worsening sx. Pt in agreement with the plan and verbalized understanding. JENNIFER De Los Santos Aliena, MA 10/14/2024 10:32 AM Signed Asthma Action Plan Never done Asthma Control Test Never done Spirometry Never done GC (Gonorrhea) Screening (18-24) Never done Depression Screening Never done Anxiety Screening Never done Chlamydia Screening (18-24) Never done Cervical Cancer Screening Never done DTaP,Tdap,Td Vaccine(7 - Td or Tdap) due on 05/15/2024 Allergies As of Date: 10/14/2024 (No Known Allergies) Date Reviewed: 10/14/2024 Reviewed by: Jessica Petty MA - Fully Assessed Reason for Visit: Fatigue [46] Primary Visit Diagnosis:Iron deficiency anemia, unspecified iron deficiency anemia type [D50.9] Other Visit Diagnosis:Fatigue, unspecified type [R53.83] Order(s):THYROID STIMULATING HORMONE [SQTSH] Order #: [id number] FUTURE VITAMIN D 25 HYDROXY [SQVITD] Order #: [id number] FUTURE COMPLETE BLOOD COUNT AND DIFFERENTIAL [SQCBCDIF] Order #: [id number] FUTURE COMPREHENSIVE METABOLIC PANEL [SQCMP] Order #: [id number] FUTURE IRON AND TIBC [SQIRON] Order #: [id number] FUTURE FERRITIN [SQFERR] Order #: [id number] FUTURE Prescriptions as of 10/14/2024 - cetirizine (ZYRTEC) 10 mg tablet Take (more content not included)... Normal [facility] metabolic 2000 panelon 10-14-2024 Albumin [Mass/Vol] 3.9 g/dL 3.9 - 4.9 g/dL [facility] ALP [Catalytic activity/Vol] 73 U/L 34 - 123 U/L [facility] ALT [Catalytic activity/Vol] 13 U/L 7 - 38 U/L [facility] Anion gap [Moles/Vol] 9 mmol/L 8 - 15 mmol/L [facility] AST [Catalytic activity/Vol] 16 U/L 13 - 35 U/L [facility] Bilirubin [Mass/Vol] 0.3 mg/dL 0.2 - 1 .3 mg/dL [facility] Calcium [Mass/Vol] 8.9 mg/dL 8.5 - 10. 2 mg/dL [facility] Chloride [Moles/Vol] 105 mmol/L 98 - 10 7 mmol/L [facility] CO2 [Moles/Vol] 24 mmol/L 22 - 30 mmol/L [facility] Creatinine [Mass/Vol] 0.75 mg/dL 0.58 - 0.96 mg/dL [facility] GFR/1.73 sq M.predicted among non-blacks MDRD (S/P/Bld) [Vol rate/Area] 116 mL/min/{1.73_m2} - PINF [facility] Comment on above: Estimated Glomerular Filtration Rate (eGFR) is calculated using the 2020 CKD-EPI creatinine equation. This equation utilizes serum creatinine, sex, and age as parameters. The creatinine assay has traceable calibration to isotope dilution-mass spectrometry. Refer to KDIGO guidelines for clinical interpretation. In patients with unstable renal function, e.g. those with acute kidney injury, the eGFR may not accurately reflect actual GFR. Glucose [Mass/Vol] 101 mg/dL High 74 - 99 mg/dL [facility] Comment on above: The [place] Diabete s Association (ADA) provides guidance for cutoff values for fasting glucose and random glucose. The ADA defines fasting as no caloric intake for at least 8 hours. Fasting plasma glucose results between 100 to 125 mg/dL indicate increased risk for diabetes (prediabetes). Fasting plasma glucose results greater than or equal to 126 mg/dL meet the criteria for diagnosis of diabetes. In the absence of unequivocal hyperglycemia, results should be confirmed by repeat testing. In a patient with classic symptoms of hyperglycemia or hyperglycemic crisis, random plasma glucose results greater than or equal to 200 mg/dL meet the criteria for diagnosis of diabetes. Reference: Standards of Medical Care in Diabetes 2016, [place] Diabetes Association. Diabetes Care. 2016.39(Suppl 1). Interpretation and review of laboratory results Abnormal [facility] Potassium [Moles/Vol] 4.3 mmol/L 3.7 - 5.1 mmol/L [facility] Protein [Mass/Vol] 6.9 g/dL 6.3 - 8.0 g/dL [facility] Sodium [Moles/Vol] 138 mmol/L 136 - 144 mmol/L [facility] Urea nitrogen [Mass/Vol] 10 mg/dL 7 - 21 mg/dL [facility] Albumin [Mass/Vol] 3.9 g/dL Normal 3.9-4.9 [facility] Comment on above: Order Comment: Shawna muniz Type: BLOOD SPECIMEN Ordering Facility: [facility] Address: [address] [place] [address] Performed By: #### 2 4323-8, 12231-9, 6-4, 3016-3 #### [facility] CLIA [id number] [address] [place] [address] [place] [facility] ALP [Catalytic activity/Vol] 73 U/L Normal 34-123 [facility] Comment on above: Order Comment: Namratai flavio Type: BLOOD SPECIMEN Ordering Facility: [facility] Address: [address] [place] [address] Performed By: #### 2 4323-8, 99147-4, 6-4, 3016-3 #### [facility] CLIA [id number] [address] [place] [address] [place] ALT [Catalytic activity/Vol] 13 U/L Normal 7-38 [facility] Comment on above: Order Comment: Namratai men Type: BLOOD SPECIMEN Ordering Facility: [facility] Address: [address] [place] [address] Performed By: #### 2 4323-8, 10724-1, 6-4, 3016-3 #### [facility] CLIA [id number] [address] [place] [address] [place] [facility] Anion gap [Moles/Vol] 9 mmol/L Normal 8-15 [facility] Comment on above: Order Comment: Speci men Type: BLOOD SPECIMEN Ordering Facility: [facility] Address: [address] [place] [address] Performed By: #### 2 4323-8, 56342-7, 6-4, 3016-3 #### [facility] CLIA [id number] [address] [place] [address] [place] AST [Catalytic activity/Vol] 16 U/L Normal 13-35 [facility] Comment on above: Order Comment: Speci men Type: BLOOD SPECIMEN Ordering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 2:00 PM I have reviewed the documented history, ROS, exam, and decision making of the resident physician, Dr. Lynn Merlos and agree. Rommel Miles Jr, MD [facility] Patient Name: Chris Urbina Date of : 2005 Date of Service: 09/25/23 Patient was identified and seen today via Telehealth by agreement and consent. I used the following Telehealth technology: Audio and video capabilities. Patient location: [place] Patient Location: Home. This patient encounter is appropriate and reasonable under the circumstances: Behavioral Health . The patient has been advised of the potential risks and limitations of this mode of treatment (including but not limited to the absence of in-person examination) and has agreed to be treated in a remote fashion in spite of them. Any and all of the patient's/patient's family's questions on this issue have been answered and I have made no promises or guarantees to the patient. The patient has also been advised to contact this office for worsening conditions or problems, and seek emergency medical treatment and/or call 911 if the patient deems either necessary. The patient stated that they are currently in the state [facility]. If the patient is a minor, permission has been obtained by the parent or guardian for the patient to receive medical care at this visit. Chief Complaint Patient presents with Anxiety Depression ADHD INTERVAL HISTORY: 18-year-old female with history of ADHD, ASD, depression and anxiety presents for follow-up. In meeting with the patient today, she states she has been at her baseline. She endorses some lack of motivation. She also endorses anxiety and that is currently preventing her from learning driving. Patient states she wishes to continue for her parents to be her legal guardian. Patient requests to fill out guardianship paperwork for another year. Patient is hoping that after this year her parents do not have to be her guardian anymore and she is able to do more with her life. she does not think she is ready to take responsibility as an adult but eventually she would like to move out and make a home for herself. Other than that patient is doing well. Patient states they have been sleeping well with no issues falling asleep or staying asleep and does awaken well rested in the mornings. No issues with appetite reported. Patient states her ADHD is well controlled right now. She denies any symptoms of depression anxiety. Patient has been compliant with their medications as prescribed and does not endorse any adverse effects. Patient denies any suicidal ideation, homicidal ideation, auditory or visual hallucinations, paranoia, or delusions. Patient denies any tobacco use, alcohol use, or illicit substance use. Patient voices no further questions or concerns about their care at this time. CURRENT MEDICATIONS: Current Outpatient Medications on File Prior to Visit Medication Sig Dispense Refill atomoxetine (Strattera) 25 MG capsule Take 2 capsules (50 mg) by mouth Nightly. Swallow capsule whole; do not open. If opened accidentally, do not touch eyes; wash hands immediately (product is an eye irritant). 180 capsule 0 buPROPion XL (Wellbutrin XL) 300 MG 24 hr tablet Take 1 tablet (300 mg) by mouth every morning. Do not crush, chew, or split. 30 tablet 11 risperiDONE (RisperDAL) 1 MG tablet Take 1 tablet (1 mg) by mouth Nightly. 180 tablet 0 sertraline (Zoloft) 100 MG tablet Take 2 tablets (200 mg) by mouth daily. 60 tablet 11 No current facility-administered medications on file prior to visit. There are no discontinued medications. ALLERGIES: Allergies Allergen Reactions Other Seasonal allergies REVIEW OF SYSTEMS: Review of Systems Constitutional: Negative for activity change and fatigue. HENT: Negative for congestion and sore throat. Eyes: Negative for photophobia and visual disturbance. Respiratory: Negative for cough and choking. Cardiovascular: Negative for chest pain and palpitations. Gastrointestinal: Negative for nausea and vomiting. Endocrine: Negative for polyphagia and polyuria. Genitourinary: Negative for dysuria and hematuria. Musculoskeletal: Negative for arthralgias and myalgias. Neurological: Negative for facial asymmetry and headaches. Psychiatric/Behaviora l: Positive for dysphoric mood. Negative for agitation, behavioral problems, confusion, decreased concentration, hallucinations, self-injury, sleep disturbance and suicidal ideas. The patient is not nervous/anxious and is not hyperactive. Remainder of review of systems is negative except where described elsewhere in this note. OBJECTIVE EXAM: There were n (more content not included)... [facility] Progress Noteon 08-28-2023 Progress Note - Attestation signed by Rajesh Oconnor MD at 09/04/2023 1:47 PM This patient met criteria for indirect supervision. I have reviewed the note and exam findings and I concur with the treatment plan as documented with the following additions/suggestions : Would question benefits of Risperdal vs significant side effect burden associated with custodial use. Rajesh Oconnor MD on 09/04/2023 at 1:41 PM [facility] Patient Name: Chris Urbina Date of : 2005 Date of Service: 08/28/23 Patient was identified and seen today via Telehealth by agreement and consent. I used the following Telehealth technology: Audio and video capabilities. Patient location: Patient Location: Home. This patient encounter is appropriate and reasonable under the circumstances: Behavioral Health . The patient has been advised of the potential risks and limitations of this mode of treatment (including but not limited to the absence of in-person examination) and has agreed to be treated in a remote fashion in spite of them. Any and all of the patient's/patient's family's questions on this issue have been answered and I have made no promises or guarantees to the patient. The patient has also been advised to contact this office for worsening conditions or problems, and seek emergency medical treatment and/or call 911 if the patient deems either necessary. The patient stated that they are currently in the [facility]. If the patient is a minor, permission has been obtained by the parent or guardian for the patient to receive medical care at this visit. Chief Complaint Patient presents with Anxiety Depression ADHD INTERVAL HISTORY: 18-year-old female with history of ADHD, ASD, depression and anxiety presents for follow-up. In meeting with the patient today, she states she has been doing well. 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 She wants to work to support her family. Currently she does not work because she does not have a tram driver's license. She states she is motivated and wants to make a plan with her family for driving lessons. She states she had to discontinue with her therapist because of co-pay. She was hoping to do some yard work to make some money, but she was not able to do it. Patient states they have been sleeping well with no issues falling asleep or staying asleep and does awaken well rested in the mornings. No issues with appetite reported. Patient states her ADHD is well controlled right now. She denies any symptoms of depression anxiety. Patient has been compliant with their medications as prescribed and does not endorse any adverse effects. Patient denies any suicidal ideation, homicidal ideation, auditory or visual hallucinations, paranoia, or delusions. Patient denies any tobacco use, alcohol use, or illicit substance use. Patient voices no further questions or concerns about their care at this time. CURRENT MEDICATIONS: Current Outpatient Medications on File Prior to Visit Medication Sig Dispense Refill [DISCONTINUED] atomoxetine (Strattera) 25 MG capsule Take 2 capsules (50 mg) by mouth Nightly. Swallow capsule whole; do not open. If opened accidentally, do not touch eyes; wash hands immediately (product is an eye irritant). 180 capsule 0 [DISCONTINUED] buPROPion XL (Wellbutrin XL) 300 MG 24 hr tablet Take 1 tablet (300 mg) by mouth every morning. Do not crush, chew, or split. 30 tablet 11 [DISCONTINUED] risperiDONE (RisperDAL) 1 MG tablet Take 1 tablet (1 mg) by mouth Nightly. 90 tablet 1 [DISCONTINUED] sertraline (Zoloft) 100 MG tablet Take 2 tablets (200 mg) by mouth daily. 60 tablet 11 No current facility-administered medications on file prior to visit. Medications Discontinued During This Encounter Medication Reason atomoxetine (Strattera) 25 MG capsule Reorder buPROPion XL (Wellbutrin XL) 300 MG 24 hr tablet Reorder risperiDONE (RisperDAL) 1 MG tablet Reorder sertraline (Zoloft) 100 MG tablet Reorder ALLERGIES: Allergies Allergen Reactions Other Seasonal allergies REVIEW OF SYSTEMS: Review of Systems Constitutional: Negative for activity change and fatigue. HENT: Negative for congestion and sore throat. Eyes: Negative for photophobia and visual disturbance. Respiratory: Negative for cough and choking. Cardiovascular: Negative for chest pain and palpitations. Gastrointestinal: Negative for nausea and vomiting. Endocrine: Negative for polyphagia and polyuria. Genitourinary: Negative for dysuria and hematuria. Musculoskeletal: Negative for arthralgias and myalgias. Neurological: Negative for facial asymmetry and headaches. Psychiatric/Behaviora l: Positive for dysph (more content not included)... Normal [facility] Progress Noteon 07-31-2023 Progress Note - Attestation signed by Rajesh Oconnor MD at 08/03/2023 1:53 PM This patient met criteria for indirect supervision. I have reviewed the note and exam findings and I concur with the treatment plan as documented. Rajesh Oconnor MD on 08/03/2023 at 1:53 PM [facility] Patient Name: Chris Urbina Date of : 2005 Date of Service: 07/31/23 Patient was identified and seen today via Telehealth by agreement and consent. I used the following Telehealth technology: Audio and video capabilities. Patient location: Patient Location: Home. This patient encounter is appropriate and reasonable under the circumstances: transportation issues . The patient has been advised of the potential risks and limitations of this mode of treatment (including but not limited to the absence of in-person examination) and has agreed to be treated in a remote fashion in spite of them. Any and all of the patient's/patient's family's questions on this issue have been answered and I have made no promises or guarantees to the patient. The patient has also been advised to contact this office for worsening conditions or problems, and seek emergency medical treatment and/or call 911 if the patient deems either necessary. The patient stated that they are currently in the [facility]. If the patient is a minor, permission has been obtained by the parent or guardian for the patient to receive medical care at this visit. Chief Complaint Patient presents with Anxiety Depression ADHD INTERVAL HISTORY: 18-year-old female with history of ADHD, ASD, depression and anxiety presents for follow-up. In meeting with the patient today, she states she did not tolerate going back on Concerta and became very anxious. Other than that, patient has been doing well for the most part. Patient states she is not in school currently. She plans to study for a test for [employer], but she does not have money right now. She states her family is financially stretched. She does not know where to start. 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 She is open to doing some yard work for the neighbors' to get some money. She states her social anxiety might be a barrier. Patient states they have been sleeping well with no issues falling asleep or staying asleep and does awaken well rested in the mornings. No issues with appetite reported. Patient states her ADHD is well controlled right now. . She has not been on Concerta since December. She would like to go back on her ADHD medications. No issues with memory reported. Patient has been compliant with their medications as prescribed and does not endorse any adverse effects. Patient denies any suicidal ideation, homicidal ideation, auditory or visual hallucinations, paranoia, or delusions. Patient denies any tobacco use, alcohol use, or illicit substance use. Patient voices no further questions or concerns about their care at this time. CURRENT MEDICATIONS: Current Outpatient Medications on File Prior to Visit Medication Sig Dispense Refill atomoxetine (Strattera) 25 MG capsule Take 2 capsules (50 mg) by mouth Nightly. Swallow capsule whole; do not open. If opened accidentally, do not touch eyes; wash hands immediately (product is an eye irritant). 180 capsule 0 buPROPion XL (Wellbutrin XL) 300 MG 24 hr tablet Take 1 tablet (300 mg) by mouth every morning. Do not crush, chew, or split. 30 tablet 11 methylphenidate ER (Concerta) 36 MG CR tablet Take 1 tablet (36 mg) by mouth every morning. Do not crush, chew, or split. 30 tablet 0 risperiDONE (RisperDAL) 1 MG tablet Take 1 tablet (1 mg) by mouth Nightly. 90 tablet 1 sertraline (Zoloft) 100 MG tablet Take 2 tablets (200 mg) by mouth daily. 60 tablet 11 No current facility-administered medications on file prior to visit. There are no discontinued medications. ALLERGIES: Allergies Allergen Reactions Other Seasonal allergies REVIEW OF SYSTEMS: Review of Systems Constitutional: Negative for activity change and fatigue. HENT: Negative for congestion and sore throat. Eyes: Negative for photophobia and visual disturbance. Respiratory: Negative for cough and choking. Cardiovascular: Negative for chest pain and palpitations. Gastrointestinal: Negative for nausea and vomiting. Endocrine: Negative for polyphagia and polyuria. Genitourinary: Negative for dysuria and hematuria. Musculoskeletal: Negative for arthralgias and myalgias. Neurological: Negative for facial asymmetry and headaches. Psychiatric/Behaviora l: Positive for dysphoric mood. Negative for agitation, behavioral problems, confusion, decreased concentration, hallucinations, self-injury, sleep disturbance and suicidal ideas. The patient is not nervous/anxious (more content not included)... Normal [facility] Progress Noteon 09-26-2022 Radiator Core Tester Authentication Interface Message Text Pediatric Gastroenterology Follow-up Note - [facility] Date of Visit: 09/26/2022 ---Telemedicine Video Visit done today in lieu of Coronavirus situation This visit was modified due to the COVID19 pandemic. ---History from patient and mother today Date of previous visit: 06/01/20 ---Last seen by Dr. Mcintosh Patient Active Problem List Diagnosis ADHD (attention deficit hyperactivity disorder) Allergic rhinitis Tic Asperger's disorder Seborrheic dermatitis Asthma Gastroesophageal reflux disease without esophagitis Generalized abdominal pain Colitis Reflux esophagitis Gastritis Anxiety associated with depression Previous History Chris Urbina is a 17 y.o. female with a PMH significant for ADHD, anxiety, Asperger's disorder and depression followed [facility] the [facility] for GERD and abdominal pain. The patient has been followed by Jennie Gonzalez in the past. She was previously treated with Prevacid, but this medication was weaned in the Fall of 2017. She was doing well until 10/2017 when she was admitted to [facility] with severe abdominal pain Oct 2018. She was admitted to GI service for serial abdominal exams and pain control. A HIDA scan was within normal limits. An Upper endoscopy with biopsies showed gastritis. The patient was discharged home on Prevacid BID, Bentyl as needed, Carafate x 2 weeks and MiraLax as needed. We did decrease the Prevacid from 30 mg BID to 30 mg daily, but the patient did not tolerate this change due to Upper GI symptoms. ABD pain - No issues at all Stooling - Regular ---no diarrhea, no blood in stool UO - Normal ---no hematuria N/V - no issues noted Dysphagia - NO issues Odynophagia - No issues Appetite - Very well - no changes Growth - no weight loss noted Activity - Patient trying to be more active ---working on getting license - wants to get a job Prevacid - 30mg po q12 ---last time she tried to decrease medication, was Oct 2018, and patient had such severe issues, she ended up being admitted to [facility] Currently - Doing very well, as long as she takes the Prevacid 2x per day Past Medical History Past Medical History: Diagnosis Date ADHD (attention deficit hyperactivity disorder) Allergy environmental Anxiety Asperger's disorder Asthma Depression GE reflux Reflux Past Surgical History Past Surgical History: Procedure Laterality Date ADENOIDECTOMY summer 2014 outside facility ESOPHAGOSCOPY N/A 09/13/2015 ENDOSCOPY (UPPER AND COLONOSCOPY) with biopsies performed by Amado Zamarripa MD at [facility] [place] ESOPHAGOSCOPY N/A 12/25/2016 ENDOSCOPY (UPPER AND COLONOSCOPY) with biopsies performed by Amado Zamarripa MD at [facility] [place] TONSILLECTOMY april 2015 TONSILLECTOMY AND ADENOIDECTOMY TYMPANOSTOMY TUBE PLACEMENT UPPER GASTROINTESTINAL ENDOSCOPY N/A 05/30/2017 ENDOSCOPY UPPER (FLEXIBLE) with biopsies performed by Amado Zamarripa MD at [facility] [place] UPPER GASTROINTESTINAL ENDOSCOPY N/A 10/17/2017 ENDOSCOPY UPPER (FLEXIBLE) with biopsies performed by Eber Batres MD at [facility] [place] UPPER GASTROINTESTINAL ENDOSCOPY N/A 11/05/2018 ENDOSCOPY UPPER (FLEXIBLE) + biopsies performed by Lashae Prince MD at [facility] OR Allergies Allergies Allergen Reactions Other Seasonal allergies Medications Outpatient Encounter Medications as of 09/26/2022 Medication Sig Dispense Refill fluticasone (FLONASE) 50 MCG/ACT nasal spray place 1 spray into each nostril twice a day 16 g 2 buPROPion (WELLBUTRIN SR) 100 MG SR tablet Take 1 Tablet (100 mg) by mouth daily cetirizine (ZYRTEC) 10 MG tablet take 1 tablet by mouth once daily 30 Tablet 5 methylphenidate HCl 36 MG ER tablet Take 1 Tablet (36 mg) by mouth daily for 30 days 30 Tablet 0 sertraline (ZOLOFT) 100 MG tablet take 2 tablets by mouth daily 60 Tablet 3 VOLNEA 0.15-0.02/0.01 MG (21/5) TABS Take 1 Tablet by mouth daily atomoxetine (STRATTERA) 25 MG capsule take 2 capsules by mouth daily 180 Capsule 0 lansoprazole (PREVACID) 30 MG capsule take 1 capsule by mouth twice a day 60 Capsule 6 ALBUTEROL 108 (90 Base) MCG/ACT inhaler inhale 2 puffs by mouth and INTO THE LUNGS every 4 hours if needed for shortness of breath (Patient not taking: No sig reported) 8.5 g 2 No facility-administered encounter medications on file as of 09/26/2022. Family Medical History Family History Problem Relation Age of Onset Asthma Mother eczema Depression Mother Constipation Mother Gastroesophageal reflux Mother Irritable Bowel Syndrome Mother Gallbladder Disease Mother Headaches Mother Asthma Father environmental Obstructive Sleep Apnea Father Reflux Father Gastroesophageal reflux Father High Blood Pressure Father Reflux Maternal Grandmother Obstructive Sleep Apnea Maternal Grandmother Constipation Maternal Grandmother Gastroesophageal reflux Maternal Grandmother Irritable Bowel Syndrome Maternal (more content not included)... Normal [facility] Progress Noteon 09-13-2022 Radiator Core Tester Authentication Interface Message Text Patient ID: Chris Urbina is a 17 y.o. female. Her chief complaint(s) include: ADHD Follow-up Assessment 1. Attention deficit hyperactivity disorder (ADHD), combined type Plan Chris was seen today for adhd follow-up. Diagnoses and associated orders for this visit: Attention deficit hyperactivity disorder (ADHD), combined type Continue current rx To transition to adult psych/medical care Call for any questions/concerns/pr oblems/.change Return withadult psych. Subjective She is accompanied by her mother. ADHD Follow-up The information was obtained from the patient and parent(s). Current ADHD medication(s) include Metadate ER. The other interventions include behavior therapy and medications. Side effects have included delayed sleep onset and sleepiness. Side effects have not included decreased appetite, stomachache and headaches. Her school performance includes: doing well. Primary Care Review of Systems Objective Vital Signs 09/13/22 0915 BP: 128/77 Pulse: 95 Weight: 75.1 kg Height: (!) 157 cm Body mass index is 30.47 kg/m . Physical Exam Nursing note reviewed. Constitutional: She appears well. She is active. No distress. HENT: Head: Atraumatic. Ears: Right Ear: External ear normal. Left Ear: External ear normal. Mouth/Throat: Mucous membranes are moist. Eyes: Conjunctivae are normal. Pulmonary/Chest: Breath sounds normal. There is normal air entry. Neurological: She is alert. Vitals reviewed: Blood pressure 128/77, pulse 95, height (!) 157 cm, weight 75.1 kg, last menstrual period 08/14/2022. Normal [facility] Progress Noteon 07-18-2022 Radiator Core Tester Authentication Interface Message Text Patient ID: Chris Urbina is a 17 y.o. female. Her chief complaint(s) include: Medication Refill Assessment 1. Anxiety associated with depression Plan Chris was seen today for medication refill. Diagnoses and all orders for this visit: Anxiety associated with depression Other orders - Influenza Vaccine 0.5 mL >= 6 mo Quadrivalent (PF) Rec psych for eval Call for any questions/concerns/pr oblems/changes No follow-ups on file. Subjective She is accompanied by her mother. Medication Refill This problem is recurrent. The course is unchanging. The patient's symptoms have included no fever, no congestion, no rhinorrhea and no difficulty breathing. The previous interventions include medications. Primary Care Review of Systems Objective Vital Signs 07/18/22 1442 BP: 116/72 Pulse: 97 Weight: 70.2 kg Height: (!) 156.6 cm Body mass index is 28.63 kg/m . Physical Exam Nursing note reviewed. Constitutional: She appears well. She is active. No distress. HENT: Head: Atraumatic. Ears: Right Ear: External ear normal. Left Ear: External ear normal. Mouth/Throat: Mucous membranes are moist. Eyes: Conjunctivae are normal. Pulmonary/Chest: There is normal air entry. Neurological: She is alert. Vitals reviewed: Blood pressure 116/72, pulse 97, height (!) 156.6 cm, weight 70.2 kg, last menstrual period 07/16/2022. Normal [facility] Comprehensive metabolic 2000 panelon 05-30-2022 Albumin [Mass/Vol] 4.3 g/dL 3.9 - 4.9 g/dL [facility] ALP [Catalytic activity/Vol] 70 U/L 34 - 123 U/L [facility] ALT [Catalytic activity/Vol] 18 U/L 7 - 38 U/L [facility] Anion gap [Moles/Vol] 12 mmol/L 9 - 18 mmol/L [facility] AST [Catalytic activity/Vol] 18 U/L 13 - 35 U/L [facility] Bilirubin [Mass/Vol] 0.2 mg/dL 0.2 - 1 .3 mg/dL [facility] Calcium [Mass/Vol] 9.4 mg/dL 8.5 - 10. 2 mg/dL [facility] Chloride [Moles/Vol] 100 mmol/L 97 - 10 5 mmol/L [facility] CO2 [Moles/Vol] 24 mmol/L 22 - 30 mmol/L [facility] Creatinine [Mass/Vol] 0.74 mg/dL 0.58 - 0.96 mg/dL [facility] Estimated Glomerular Filtration Rate 120 mL/min/1.73m >=60 mL/min/1.73m [facility] Glucose [Mass/Vol] 96 mg/dL 74 - 99 mg/dL [facility] Potassium [Moles/Vol] 4.0 mmol/L 3.7 - 5.1 mmol/L [facility] Protein [Mass/Vol] 7.4 g/dL 6.3 - 8.0 g/dL [facility] Sodium [Moles/Vol] 136 mmol/L 136 - 144 mmol/L [facility] Urea nitrogen [Mass/Vol] 10 mg/dL 7 - 21 mg/dL [facility] DHEA-S [facility] 05-30-2022 DHEA-S [Mass/Vol] 141.4 ug/dL 65.1 - 368 .0 ug/dL [facility] OSMOLALITY [facility] 05-30-2022 Osmolality [Osmolality] 284 mosm/kg 275 - 300 mOsm/kg [facility] OSMOLALITY URINEon Osmolality (U) [Osmolality] 552 mosm/kg 50 - 1,200 mOsm/kg [facility] PHOSPHORUS INORGANICon 05-30 Phosphate [Mass/Vol] 3.2 mg/dL 2.7 - 4 .8 mg/dL [facility] PROLACTIN BLDon 05-30-2022 Prolactin [Mass/Vol] 40.6 ng/mL High 4.5 - 2 6.8 ng/mL [facility] T4 FREE/FREE THYROXon 2021 Free T4 [Mass/Vol] 1.2 ng/dL 0.9 - 1.7 ng/dL [facility] Prolactin [Mass/Vol]on 03-29 Prolactin 66.2 ng/mL Abnormal 2.2 - 30.3 ng/mL [facility] Serum or plasma prolactin me asurement (mass/volume)on 03-28-2022 Prolactin [Mass/Vol] 66.3 ng/mL [facility] Work Phone: Comment on above: NORMAL REFERENCE RAN GES FEMALE NON- 2.2 - 30.3 ng/mL 8.1 - 347.6 ng/mL POST-MENOPAUSAL 0.7 - 31.5 ng/mL MALE 2.5 - 17.4 ng/mL Chlamydia trachomatis rRNA d etection by probe and target amplification methodon 01-11-2022 C. trachomatis rRNA ANALI+probe Ql (Unsp spec) Negative Negative [facility] Work Phone: Laboratory - Microbiology an d Antimicrobial susceptibilityon 01-11-2022 N. gonorrhoeae DNA ANALI+probe Ql (Unsp spec) Negative Negative [facility] Work Phone: Comment on above: Performed at: =[address] [id number] Director: Nicole Russ MD, Phone: [phone] No Panel Informationon 01-11 Thyroid Stimulating Hormone (TSH) 2.30 uIU/mL 0.358-3.74 [facility] Work Phone: Progress Noteon 01-11-2022 Radiator Core Tester Authentication Interface Message Text Patient ID: Chris Urbina is a 16 y.o. female. Her chief complaint(s) include: Follow Up (MEDICATION) Assessment 1. Attention deficit hyperactivity disorder (ADHD), combined type Plan Chris was seen today for follow up. Diagnoses and all orders for this visit: Attention deficit hyperactivity disorder (ADHD), combined type doing well Continue current medications Call for any questions/concerns/pr oblems/changes All questions answered Return 3-6 mos med check. This is a telemedicine video visit requested by the patient/guardian that was performed with the patient's location at car and the provider's location at [facility]. Subjective She is accompanied by her mother. Independent history obtained from mother. ADHD Follow-upThe information was obtained from the patient and guardian. Current ADHD medication(s) include Concerta and Intuniv. Compliance with medication: takes medication daily. The other interventions include medications. Side effects have not included decreased appetite, stomachache, weight loss and sleepiness. The patient is in 12th grade. Her school performance includes: doing well. Her contributing co-morbidities include depression. Primary Care Review of Systems Objective Vital Signs 01/11/22 1703 Temp: 37 C (98.6 F) TempSrc: Temporal Weight: 60 kg There is no height or weight on file to calculate BMI. Physical Exam Normal [facility] Prolactin [Mass/Vol]on 01-11 Prolactin 58.6 ng/mL Abnormal 2.2 - 30.3 ng/mL [facility] TSH Qn 2.300 m[IU]/L 0.510 - 4.300 mIU/L [facility] Serum or plasma prolactin me asurement (mass/volume)on 01-11-2022 Prolactin [Mass/Vol] 58.6 ng/mL [facility] Work Phone: Comment on above: NORMAL REFERENCE RAN GES FEMALE NON- 2.2 - 30.3 ng/mL 8.1 - 347.6 ng/mL POST-MENOPAUSAL 0.7 - 31.5 ng/mL MALE 2.5 - 17.4 ng/mL SARS-CoV-2 (COVID-19) RT-PCR on 11-30-2021 SARS-CoV-2 (COVID-19) RNA ANALI+probe Ql (Unsp spec) Negative Normal [facility] Comment on above: Order Comment: Is th is a pre-procedure screening test?->No Is this specimen being sent to an external lab?->No [id number]&Nasopharyngeal swab^\S\^Nose (source)&Nose (source) Result Comment: NEGA TIVE: SARS-CoV-2 RNA was NOT detected. - Interpretation: A negative result indicates severe acute respiratory syndrome coronavirus 2 (SARS-CoV-2) RNA was not detected. Negative results do not preclude SARS-CoV-2 infection and should not be used as the sole basis for patient management decisions. Negative results must be combined with clinical observations, patient history, and epidemiological information. The possibility of a false negative result should be considered if the patient's recent exposures or clinical presentation suggest that SARS-CoV-2 infection is possible, and diagnostic tests for other causes of illness are negative. If SARS-CoV-2 infection is still suspected, re-testing should be considered. - Method: Real-time reverse transcriptase PCR amplification for the qualitative detection of SARS-CoV-2 non-structural protein 2 (Nsp2) gene specific RNA and SARS-CoV-2 N gene specific RNA using the [employer] ([employer] SARS-CoV-2 Assay on the [employer] System. - Comment: This test has received FDA Emergency Use Authorization (EUA) and has been verified by [facility]. This test is only authorized for the duration of the public health emergency declaration and the circumstances that exist to justify the authorization of the emergency use of in vitro diagnostic tests for the detection of SARS-CoV-2 virus and/or diagnosis of COVID-19 infection under section 564(b) (1) of the Act, 21 U.S.C. 360bbb-3(b)(1), unless the authorization is terminated or revoked sooner. This test has not been FDA cleared or approved. Results should be used in conjunction with clinical findings, and should not form the sole basis for a diagnosis or treatment decision. Fact Sheets for this EUA can be found at the following links: For Healthcare Providers: www.fda.gov/media/320292/download For Patients: www.fda.gov/media/935958/download - Reference Value: Negative Performed By: #### C OVID #### [place] [address] [employer] SARS-CoV-2 (COVID-19) RT-PCR Not detected Normal [facility] Comment on above: Order Comment: Is th is a pre-procedure screening test?->No Is this specimen being sent to an external lab?->No [id number]&Nasopharyngeal swab^\S\^Nose (source)&Nose (source) Performed By: #### C OVID #### [place] [address] Progress Noteon 11-29-2021 Radiator Core Tester Authentication Interface Message Text Patient ID: Chris Urbina is a 16 y.o. female. Her chief complaint(s) include: Cough, Nasal Congestion, Headache, and Facial Pain (Into teeth) Assessment 1. Nasal congestion 2. Cough Plan Chris was seen today for cough, nasal congestion, headache and facial pain. Diagnoses and all orders for this visit: Nasal congestion - SARS-CoV-2 (COVID-19) RT-PCR - fluticasone (FLONASE) 50 MCG/ACT nasal spray; 1 [place] by Each Nare route 2 times daily for 30 days Cough - SARS-CoV-2 (COVID-19) RT-PCR Rest and fluids Isolate pending results Call for any questions/concerns/pr oblems/changes Return if symptoms worsen or fail to improve. Subjective She is accompanied by her mother. Independent history obtained from mother. Nasal Congestion The onset has been acute. The duration has been 4 days. The pattern is episodic. The course is unchanging. The patient's symptoms have included congestion and cough. The patient's symptoms have included no fever, no difficulty sleeping, no difficulty breathing, no wheezing, no bilateral ear pain, no vomiting, no diarrhea and no rash. The patient has been exposed to sick contacts with common cold at school The patient's home management has included acetaminophen. Primary Care Review of Systems Objective Vital Signs 11/29/21 1528 Temp: 37.2 C (98.9 F) TempSrc: Temporal Weight: 58.7 kg There is no height or weight on file to calculate BMI. Physical Exam Nursing note reviewed. Constitutional: She appears well. She is active. No distress. HENT: Head: Atraumatic. Ears: Right Ear: Tympanic membrane normal. Left Ear: Tympanic membrane normal. Nose: Nasal discharge present. Mouth/Throat: Mucous membranes are moist. Eyes: Conjunctivae are normal. Pulmonary/Chest: Breath sounds normal. There is normal air entry. Neurological: She is alert. Vitals reviewed: Temperature 37.2 C (98.9 F), temperature source Temporal, weight 58.7 kg. 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 No Normal [facility] Comment on above: Order Comment: Is th is a pre-procedure screening test?->No Is this specimen being sent to an external lab?->No [id number]&Nasopharyngeal swab^\S\^Nose (source)&Nose (source) Performed By: #### C OVID #### [place] [phone] ICU? No [facility] Comment on above: Order Comment: Is th is a pre-procedure screening test?->No Is this specimen being sent to an external lab?->No 14668&Nasopharyngeal swab^\S\^Nose (source)&Nose (source) Performed By: #### C OVID #### [place] [phone] ? Unknown Normal [facility] Comment on above: Order Comment: Is th is a pre-procedure screening test?->No Is this specimen being sent to an external lab?->No 61740&Nasopharyngeal swab^\S\^Nose (source)&Nose (source) Performed By: #### C OVID #### [place] [address] Resident in congrega care setting? No Normal [facility] Comment on above: Order Comment: Is th is a pre-procedure screening test?->No Is this specimen being sent to an external lab?->No 13821&Nasopharyngeal swab^\S\^Nose (source)&Nose (source) Performed By: #### C OVID #### [place] [address] SARS-CoV-2 (COVID-19) RNA ANALI+probe Ql (Unsp spec) No Normal [facility] Comment on above: Order Comment: Is th is a pre-procedure screening test?->No Is this specimen being sent to an external lab?->No 66846&Nasopharyngeal swab^\S\^Nose (source)&Nose (source) Performed By: #### C OVID #### [place] [address] Symptomatic as defined by CDC? Yes Normal [facility] Comment on above: Order Comment: Is th is a pre-procedure screening test?->No Is this specimen being sent to an external lab?->No 89366&Nasopharyngeal swab^\S\^Nose (source)&Nose (source) Performed By: #### C OVID #### [place] [address] Comp Metabolic Panelon 10-18 Albumin [Mass/Vol] 4.4 g/dL Normal 3.5-5.0 [facility] Comment on above: Order Comment: Is th is specimen being sent to an external lab?->No Release to patient->Automatic 39052&Blood^\S\^Vein&Vein Performed By: #### C MP #### [address] [id number] ALP [Catalytic activity/Vol] 56 U/L Normal 43-83 [facility] Comment on above: Order Comment: Is th is specimen being sent to an external lab?->No Release to patient->Automatic 79328&Blood^\S\^Vein&Vein Performed By: #### C MP #### [address] [address] ALT [Catalytic activity/Vol] 15 U/L Normal 0-31 [facility] Comment on above: Order Comment: Is th is specimen being sent to an external lab?->No Release to patient->Automatic 60702&Blood^\S\^Vein&Vein Performed By: #### C MP #### [place] [address] AST [Catalytic activity/Vol] 14 U/L Normal 0-31 [facility] Comment on above: Order Comment: Is th is specimen being sent to an external lab?->No Release to patient->Automatic 04163&Blood^\S\^Vein&Vein Performed By: #### C MP #### [place] [address] Bili,Total 1.0 mg/dl Normal 0.0-1.0 [facility] Comment on above: Order Comment: Is th is specimen being sent to an external lab?->No Release to patient->Automatic 39226&Blood^\S\^Vein&Vein Performed By: #### C MP #### [place] [address] Calcium [Mass/Vol] 9.5 mg/dL Normal 7.6-11.0 [facility] Comment on above: Order Comment: Is th is specimen being sent to an external lab?->No Release to patient->Automatic 01493&Blood^\S\^Vein&Vein Performed By: #### C MP #### [address] [address] Chloride [Moles/Vol] 104 mmol/L Normal 96-108 [facility] Comment on above: Order Comment: Is th is specimen being sent to an external lab?->No Release to patient->Automatic 17247&Blood^\S\^Vein&Vein Performed By: #### C MP #### [place] [address] CO2 [Moles/Vol] 25.4 mmol/L Normal 22.0-29.0 [facility] Comment on above: Order Comment: Is th is specimen being sent to an external lab?->No Release to patient->Automatic 95493&Blood^\S\^Vein&Vein Performed By: #### C MP #### [place] [address] Creatinine [Mass/Vol] 0.66 mg/dL Normal 0.50-1.00 [facility] Comment on above: Order Comment: Is th is specimen being sent to an external lab?->No Release to patient->Automatic 53229&Blood^\S\^Vein&Vein Result Comment: Premature 0.3-1.0 mg/dL Performed By: #### C MP #### [place] [address] Glucose [Mass/Vol] 80 mg/dL Normal 70-99 [facility] Comment on above: Order Comment: Is th is specimen being sent to an external lab?->No Release to patient->Automatic 80811&Blood^\S\^Vein&Vein Result Comment: Criteria for Diagnosis of Diabetes(Effective 03/13/11): Fasting specimen (no caloric intake for at least 8 hours). <100 mg/dl Normal 100-125 mg/dl Increased Risk for Diabetes >125 mg/dl Diagnostic for Diabetes Random Glucose (any time of day without regard to last meal). >=200 mg/dl plus Classic Symptoms of Diabetes Performed By: #### C MP #### [place] [id number] Potassium [Moles/Vol] 4.9 mmol/L Normal 3.3-5.1 [facility] Comment on above: Order Comment: Is th is specimen being sent to an external lab?->No Release to patient->Automatic 03044&Blood^\S\^Vein&Vein Performed By: #### C MP #### [place] [address] Protein [Mass/Vol] 7.0 g/dL Normal 5.9-8.4 [facility] Comment on above: Order Comment: Is th is specimen being sent to an external lab?->No Release to patient->Automatic 81955&Blood^\S\^Vein&Vein Performed By: #### C MP #### [place] [address] Sodium [Moles/Vol] 140 mmol/L Normal 133-145 [facility] Comment on above: Order Comment: Is th is specimen being sent to an external lab?->No Release to patient->Automatic 69461&Blood^\S\^Vein&Vein Performed By: #### C MP #### [place] [address] Urea nitrogen [Mass/Vol] 13 mg/dL Normal 4-19 [facility] Comment on above: Order Comment: Is th is specimen being sent to an external lab?->No Release to patient->Automatic 27864&Blood^\S\^Vein&Vein Performed By: #### C MP #### [place] [address] Lipid Panelon 10-18-2021 Cholesterol [Mass/Vol] 186 mg/dL High 0-169 [facility] Comment on above: Order Comment: Is th is specimen being sent to an external lab?->No Release to patient->Automatic 14409&Blood^\S\^Vein&Vein Result Comment: Acceptable <170 mg/dL Borderline 170-199 mg/dL Abnormal >199 mg/dL NOTE: Reference Range change effective 09/10/18 Performed By: #### L IPID #### [place] [address] Cholesterol in HDL [Mass/Vol] 60 mg/dL Normal [facility] Comment on above: Order Comment: Is th is specimen being sent to an external lab?->No Release to patient->Automatic 72583&Blood^\S\^Vein&Vein Result Comment: Acceptable >45 mg/dL Borderline 40-45 mg/dL Abnormal <40 mg/dL NOTE: Reference Range change effective 09/10/18 Performed By: #### L IPID #### [address] [id number] Cholesterol in LDL [Mass/Vol] 118 mg/dL High 0-109 [facility] Comment on above: Order Comment: Is th is specimen being sent to an external lab?->No Release to patient->Automatic 56319&Blood^\S\^Vein&Vein Result Comment: Acceptable <110 mg/dL Borderline 110-129 mg/dL Abnormal >129 mg/dl NOTE: Reference Range change effective 09/10/18 Performed By: #### L IPID #### [address] [address] Non-HDL Cholesterol 126 mg/dl High 0-119 [facility] Comment on above: Order Comment: Is th is specimen being sent to an external lab?->No Release to patient->Automatic 26349&Blood^\S\^Vein&Vein Result Comment: Acceptable <120 mg/dL Borderline 120-144 mg/dL Abnormal >144 mg/dl Performed By: #### L IPID #### [address] [address] Triglyceride [Mass/Vol] 40 mg/dL Normal 0-89 [facility] Comment on above: Order Comment: Is th is specimen being sent to an external lab?->No Release to patient->Automatic 93270&Blood^\S\^Vein&Vein Result Comment: Acceptable <90 mg/dl Borderline 90-129 mg/dl Abnormal >129 mg/dl NOTE: Reference Range change effective 09/10/18 Result invalid if not a fasting specimen. Performed By: #### L IPID #### [facility] [place] [address] Progress Noteon 10-03-2021 [employer] Authentication Interface Message Text Chris Urbina is a 16 y.o. female patient. PHQ9 Assessment With Score Performed by: Vera Song MD Authorized by: Vera Song MD PHQ-9 See PHQ9 Flowsheet Feeling down, depressed, irritable or hopeless: Nearly every day Little interest or pleasure in doing things: Several days Trouble falling or staying sleep, or sleeping too much: Nearly every day Poor appetite, weight loss, or overeating: Nearly every day Feeling tired or having little energy: Nearly every day Feeling bad about yourself - or feeling that you are a failure, or have let yourself or your family down: Not at all Trouble concentrating on things, like school work, reading or watching TV: Nearly every day Moving or speaking so slowly that other people could have noticed. Or the opposite - being so fidgety or restless that you were moving around a lot more than usual: Nearly every day Thoughts that you would be better off , or of hurting yourself in some way: Not at all In the past year have you felt depressed or sad most days, even if you felt OK sometimes?: Yes If you are experiencing any of the problems on this form, how difficult have these problems made it for you to do your work, take care of things at home or get along with other people?: Very difficult Has there been a time in the past month when you have had serious thoughts about ending your life?: No Have you ever, in your whole life, tried to kill yourself or made a suicide attempt?: No PHQ-9 Manual Score: 19 PHQ-9 Total Score: 19 Comments: resources. Health Risk Assessment - CRAFFT Authorized by: Vera Song MD CRAFFT Results: 1. Drink more than a few sips of beer, wine, or any drink containing alcohol? Put 0 if none.: 0 2. Use any marijuana (weed, oil, or hash by smoking, vaping, or in food) or synthetic marijuana (like K2, Spice)? Put 0 if none.: 0 3. Use anything else to get high (like other illegal drugs, prescription or zwhm-vhl-zrohxay medications, and things that you sniff, menchaca, or vape)? Put 0 if none.: 0 4. Use any tobacco or nicotine products (for example, cigarettes, e-cigarettes, hookahs or smokeless tobacco)?: 0 5. Have you ever ridden in a CAR driven by someone (including yourself) who was high or had been using alcohol or drugs?: No Electronically signed by: Vera Song, [facility] ID: Chris Urbina is a 16 y.o. female. Her chief complaint(s) include: 16 YEAR WELL CHILD, Difficulty Sleeping, and Immunizations (Covid booster & flu) Assessment 1. Routine general medical examination at a health care facility 2. Need for vaccination Plan Chris was seen today for 16 year well child, difficulty sleeping and immunizations. Diagnoses and all orders for this visit: Routine general medical examination at a health care facility - PHQ9 Assessment With Score - Health Risk Assessment - CRAFFT Need for vaccination - Influenza Vaccine 0.5 mL >= 6 mo Quadrivalent (PF) - COVID-19 MRNA VACCINE ([employer]) 30 MCG/0.3ML IM SUSP Growth and development reviewed Call for any questions/concerns/pr oblems/changes All questions answered Return in about 1 year (around 10/03/2022) for well check. Subjective She is accompanied by her mother. Independent history obtained from mother. 16 YEAR WELL CHILD Home: Chris eats meals with family. Education: Chris is in 12th grade and is doing well and earns A's & B's. Eating: Chris eats regular meals including fruits and vegetables. Activities & Sports: Chris has friends and performs at least 1 hour of physical activity daily. Drugs: Chris does not use tobacco and does not use alcohol. Output Urine and Stool Pattern: Urine and Stool Pattern: Normal stool pattern, normal urine pattern. Screenings Previous Vaccine Reactions: No. Hearing Vision Concerns: The caregiver has no concerns about the patient's hearing. The caregiver has no concerns about the patient's vision. Primary Care Review of Systems Objective Vital Signs 10/03/21 1112 BP: 120/69 Pulse: (!) 124 Temp: 37.6 C (99.7 F) TempSrc: Temporal Weight: 58.2 kg Height: 157.8 cm Body mass index is 23.37 kg/m . Physical Exam Nursing note reviewed. Constitutional: She appears well. She is active. No distress. HENT: Head: Atraumatic. Ears: Right Ear: Tympanic membrane normal. Left Ear: Tympanic membrane normal. Mouth/Throat: Mucous membranes are moist. Eyes: Conjunctivae are normal. Cardiovascular: Normal rate and regular rhythm. Heart murmur not heard. Pulmonary/Chest: Breath sounds normal. There is normal air entry. Neurological: She is alert. Vitals reviewed: Blood pressure 120/69, pulse (!) 124, temperature 37.6 C (99.7 F), temperature source Temporal, height 157.8 cm, weight 58.2 kg, last menstrual period 09/29/2021. Normal [facility] .Auto Diffon 02-11-2019 Ammonia mass conc (P) 0.40 10 3/mcL Normal 0.15-1.00 [facility] ([place]) Comment on above: Performed By: #### A DIFF, ANEU, CBC #### [place] [address] #### BMP #### [address] [address] Basophils #/vol (Bld) 0.00 10 3/mcL Normal 0.00-0.19 [facility] ([place]) Comment on above: Performed By: #### A DIFF, ANEU, CBC #### [place] [address] #### BMP #### [address] [address] Basophils/100 WBC (Bld) 0.3 % Normal 0.0-2.5 [facility] ([place]) Comment on above: Performed By: #### A DIFF, ANEU, CBC #### [place] [address] #### BMP #### [address] [address] Eosinophils #/vol (Bld) 0.00 10 3/mcL Normal 0.00-0.40 [facility] ([place]) Comment on above: Performed By: #### A DIFF, ANEU, CBC #### [address] [address] #### BMP #### [address] [address] Eosinophils/100 WBC (Bld) 0.5 % Normal 0.0-7.0 [facility] ([place]) Comment on above: Performed By: #### A DIFF, ANEU, CBC #### [address] [address] #### BMP #### [address] [address] Lymphocytes #/vol (Bld) 2.30 10 3/mcL Normal 0.77-3.85 [facility] ([place]) Comment on above: Performed By: #### A DIFF, ANEU, CBC #### [address] [address] #### BMP #### [address] [address] Lymphocytes/100 WBC (Bld) 34.7 % Normal 10.0-50.0 [facility] ([place]) Comment on above: Performed By: #### A DIFF, ANEU, CBC #### [address] [address] #### BMP #### [address] [address] Monocytes/100 WBC (Bld) 6.8 % Normal 1.7-13.0 [facility] ([place]) Comment on above: Performed By: #### A DIFF, ANEU, CBC #### [address] [address] #### BMP #### [address] [address] Neutrophils/100 WBC (Bld) 57.7 % Normal 37.0-80.0 [facility] ([place]) Comment on above: Performed By: #### A DIFF, ANEU, CBC #### [address] [address] #### BMP #### [address] [address] .NEUABSon 02-11-2019 Neutrophils #/vol (Bld) 3.80 10 3/mcL Normal 2.85-6.16 [facility] ([place]) Comment on above: Performed By: #### A DIFF, ANEU, CBC #### [place] [address] #### BMP #### [place] [address] .Urinalysis Microscopic (AO) on 02-11-2019 RBC #/vol (U) None Seen Normal None Seen [facility] ([place]) Comment on above: Performed By: #### U AMICAO, UA #### [place] [address] #### PREGU #### [place] [address] UA Bacteria 1+ /hpf [facility] ([place]) Comment on above: Performed By: #### U AMICAO, UA #### [place] [address] #### PREGU #### [place] [address] UA Squam Epithelial 5-10 None Seen [facility] ([place]) Comment on above: Performed By: #### U AMICAO, UA #### [place] [address] #### PREGU #### [place] [address] UA WBC None Seen Normal None Seen [facility] ([place] Comment on above: Performed By: #### U AMICAO, UA #### [place] [address] #### PREGU #### [place] [address] BMPon 02-11-2019 Calcium mass conc 9.4 mg/dL Normal 8.4-10.2 [facility] ([place] Comment on above: Performed By: #### A DIFF, ANEU, CBC #### [address] [address] #### BMP #### [address] [address] Chloride molar conc 104 mmol/L Normal 98-107 [facility] ([place] Comment on above: Performed By: #### A DIFF, ANEU, CBC #### [address] [address] #### BMP #### [address] [address] CO2 molar conc 23 mmol/L Normal 22-29 [facility] ([place]) Comment on above: Performed By: #### A DIFF, ANEU, CBC #### [address] [address] #### BMP #### [address] [address] Creatinine mass conc 0.46 mg/dL Low 0.55-1.02 Count includes the [facility] ([place]) Comment on above: Performed By: #### A DIFF, ANEU, CBC #### [address] [address] #### BMP #### [address] [address] Electrolyte Balance 14.0 mEq/L Normal [facility] ([place] Comment on above: Performed By: #### A DIFF, ANEU, CBC #### [address] [address] #### BMP #### [address] [address] Glucose mass conc 89 mg/dL Normal 70-105 [facility] ([place] Comment on above: Performed By: #### A DIFF, ANEU, CBC #### [address] [address] #### BMP #### [address] [address] Potassium molar conc 4.9 mmol/L Normal 3.5-5.1 Count includes the [facility] ([place] Comment on above: Performed By: #### A DIFF, ANEU, CBC #### [address] [address] #### BMP #### [address] [address] Sodium molar conc 141 mmol/L Normal 136-145 [facility] ([place] Comment on above: Performed By: #### A DIFF, ANEU, CBC #### [address] [address] #### BMP #### [address] [address] Urea nitrogen mass conc 14 mg/dL Normal 7-18 [facility] ([place] Comment on above: Performed By: #### A DIFF, ANEU, CBC #### [place] [address] #### BMP #### [place] [address] Urea nitrogen/Creatinine mass ratio 30 ratio High 7-27 [facility] ([place] Comment on above: Performed By: #### A DIFF, ANEU, CBC #### [place] [address] #### BMP #### [address] [address] CBCon 02-11-2019 Erythrocyte distribution width Ratio (RBC) 13.8 % Normal 11.5-14.5 [facility] ([place] Comment on above: Performed By: #### A DIFF, ANEU, CBC #### [place] [address] #### BMP #### [place] [address] Hematocrit Volume Fraction (Bld) 39.1 % Normal 37.0-47.0 [facility] ([place] Comment on above: Performed By: #### A DIFF, ANEU, CBC #### [place] [address] #### BMP #### [address] [address] Hemoglobin mass conc (Bld) 13.1 G/dL Normal 12.0-16.0 [facility] ([place] Comment on above: Performed By: #### A DIFF, ANEU, CBC #### [address] [address] #### BMP #### [place] [address] MCH Entitic mass (RBC) 28.9 pg Normal 27.0-31.2 [facility] ([place] Comment on above: Performed By: #### A DIFF, ANEU, CBC #### [place] [address] #### BMP #### [place] [address] MCHC mass conc (RBC) 33.4 G/dL Normal 33.0-37.0 Count includes the [facility] ([place] Comment on above: Performed By: #### A DIFF, ANEU, CBC #### [place] [address] #### BMP #### [place] [address] MCV Entitic volume (RBC) 86.6 fL Normal 80.0-94.0 [facility] ([place]) Comment on above: Performed By: #### A DIFF, ANEU, CBC #### [place] [address] #### BMP #### [place] [address] Platelet mean volume Entitic volume (Bld) 8.0 fL Normal 7.4-10.4 [facility] ([place] Comment on above: Performed By: #### A DIFF, ANEU, CBC #### [place] [address] #### BMP #### [address] [address] Platelets #/vol (Bld) 357 10 3/mcL Normal 130-400 A [facility] ([place]) Comment on above: Performed By: #### A DIFF, ANEU, CBC #### [place] [address] #### BMP #### [place] [address] RBC #/vol (Bld) 4.51 10 6/mcL High 3.63-4.46 [facility] ([place]) Comment on above: Performed By: #### A DIFF, ANEU, CBC #### [address] [address] #### BMP #### [place] [address] WBC #/vol (Bld) 6.50 10 3/mcL Normal 4.60-10.80 [facility] ([place]) Comment on above: Performed By: #### A DIFF, ANEU, CBC #### [place] [address] #### BMP #### [place] [address] PREGUon 02-11-2019 HCG ( test) Ql (U) Negative Normal [facility] ([place] Comment on above: Performed By: #### U AMICAO, UA #### [place] [address] #### PREGU #### [place] [address] test (u) int HCG not detected. [facility] ([place]) Comment on above: Performed By: #### U AMICAO, UA #### [place] [address] #### PREGU #### [address] [address] UAon 02-11-2019 Color Nom (U) Yellow Normal [facility] ([place]) Comment on above: Performed By: #### U AMICAO, UA #### [place] [address] #### PREGU #### [address] [address] Glucose mass conc (U) Negative Normal Negative [facility] ([place]) Comment on above: Performed By: #### U AMICAO, UA #### [place] [address] #### PREGU #### [address] [address] Ketones Ql (U) 15 mg/dL Negative [facility] ([place]) Comment on above: Performed By: #### U AMICAO, UA #### [place] [address] #### PREGU #### [address] [address] UA Appear Clear Normal Clear [facility] ([place] Comment on above: Performed By: #### U AMICAO, UA #### [place] [address] #### PREGU #### [address] [address] UA Blood Negative Normal Negative [facility] ([place] Comment on above: Performed By: #### U AMICAO, UA #### [place] [address] #### PREGU #### [address] [address] UA Leuk Est Negative Normal Negative [facility] ([place] Comment on above: Performed By: #### U AMICAO, UA #### [place] [address] #### PREGU #### [address] [address] UA Nitrite Negative Normal Negative [facility] ([place] Comment on above: Performed By: #### U AMICAO, UA #### [place] [address] #### PREGU #### [address] [address] UA pH 6.0 Normal 5.0 - 8.0 [facility] ([place] Comment on above: Performed By: #### U AMICAO, UA #### [place] [address] #### PREGU #### [place] [address] UA Protein Negative Normal Negative [facility] ([place] Comment on above: Performed By: #### U AMICAO, UA #### [place] [address] #### PREGU #### [address] [address] UA Spec Grav 1.020 Normal 1.015-1.025 [facility] ([place] Comment on above: Performed By: #### U AMICAO, UA #### [place] [address] #### PREGU #### [address] [address] UA Specimen Type Clean Catch Normal [facility] ([place] Comment on above: Performed By: #### U AMICAO, UA #### [place] [address] #### PREGU #### [place] [address] UA Urobilinogen 0.2 E.U./dL Normal 0.2-1.0 [facility] ([place] Comment on above: Performed By: #### U AMICAO, UA #### [place] [address] #### PREGU #### [place] [address] Urobilinogen Qn (U) Negative Normal Negative [facility] ([place] Comment on above: Performed By: #### U AMICAO, UA #### [place] [address] #### PREGU #### [place] [address] Vital Signs Date Time Vital Sign Value Performing Clinician Facility 04-30-2025 21:03-0400 Body temperature 98 [degF] Dr. Vera Song MD Work Phone: [facility] 04-30-2025 21:03-0400 Diastolic blood pressure 88 mm[Hg] Dr. Vera Song MD Work Phone: [phone] [place] [address] 04-30-2025 21:03-0400 Heart rate 88 /min Dr. Vera Song MD Work Phone: [phone] [address] 04-30-2025 21:03-0400 Respiratory rate 18 /min Dr. Vera Song MD Work Phone: [phone] [place] [address] 04-30-2025 21:03-0400 SaO2% (BldA) [Mass fraction] 100 % Dr. Vera Song MD Work Phone: [phone] [place] [address] 04-30-2025 21:03-0400 Systolic blood pressure 133 mm[Hg] Dr. Vera Song MD Work Phone: [phone] [place] [address] 04-30-2025 20:11-0400 Body height 160.[address] Vera Song MD Work Phone: [phone] [place] [address] 04-30-2025 20:11-0400 Body mass index (BMI) [Ratio] 30.2 kg/m2 Dr. Vera Song MD Work Phone: [phone] [address] 04-30-2025 20:11-0400 Body weight 77.[address] Vera Song MD Work Phone: [phone] [address] 04-21-2025 14:31-0400 Body mass index (BMI) [Ratio] 29.98 kg/m2 Haley Ross APRN.GUNITE M[employer]ER Work Phone: [facility] 04-21-2025 14:31-0400 Body weight 76.75 kg Haley Ross APRN.GUNITE MIXER Work Phone: [facility] 04-21-2025 14:31-0400 Diastolic blood pressure 80 mm[Hg] Haley Ross APRN.GUNITE M[employer]ER Work Phone: [facility] 04-21-2025 14:31-0400 Heart rate 100 /min Haley Ross APRN.GUNITE M[employer]ER Work Phone: [facility] 04-21-2025 14:31-0400 Systolic blood pressure 117 mm[Hg] Haley Densonrowdy SOIL BIOLOGY TEACHER.GUN[employer]ER Work Phone: [facility] 03-26-2025 10:57-0400 Body mass index (BMI) [Ratio] 29.26 kg/m2 Patricia Christina SOIL BIOLOGY TEACHER.GUNITE M[employer]ER Work Phone: [facility] 03-26-2025 10:57-0400 Body temperature 97.11 [degF] Patricia Christina SOIL BIOLOGY TEACHER.GUNITE M[employer]ER Work Phone: [facility] 03-26-2025 10:57-0400 Body weight 74.9 kg Patricia Christina SOIL BIOLOGY TEACHER.GUNITE M[employer]ER Work Phone: [facility] 03-26-2025 10:57-0400 Diastolic blood pressure 75 mm[Hg] Patricia Christina SOIL BIOLOGY TEACHER.GUNITE M[employer]ER Work Phone: [facility] 03-26-2025 10:57-0400 Heart rate 100 /min Patricia Christina APRN.GUNITE M[employer]ER Work Phone: [facility] 03-26-2025 10:57-0400 Respiratory rate 20 /min Patricia Christina APRN.GUNITE M[employer]ER Work Phone: [facility] 03-26-2025 10:57-0400 SaO2% (BldA) [Mass fraction] 98 % Patricia Christina APRN.GUNITE M[employer]ER Work Phone: [facility] 03-26-2025 10:57-0400 Systolic blood pressure 110 mm[Hg] Patricia Christina SOIL BIOLOGY TEACHER.GUNITE M[employer]ER Work Phone: [facility] 12-24-2024 13:34-0400 Body height 160 cm Yue Ambriz PA-C Work Phone: [facility] 12-24-2024 13:34-0400 Body mass index (BMI) [Ratio] 30.98 kg/m2 Yue Ambriz PA-C Work Phone: [facility] 12-24-2024 13:34-0400 Body temperature 97.2 [degF] Yue Ambriz PA-C Work Phone: [facility] 12-24-2024 13:34-0400 Body weight 79.3 kg Yue Ambriz PA-C Work Phone: [facility] 12-24-2024 13:34-0400 Diastolic blood pressure 84 mm[Hg] Yue Ambriz PA-C Work Phone: [facility] 12-24-2024 13:34-0400 Heart rate 101 /min Yue Ambriz PA-C Work Phone: [facility] 12-24-2024 13:34-0400 SaO2% (BldA) [Mass fraction] 99 % Yue Ambriz PA-C Work Phone: [facility] 12-24-2024 13:34-0400 Systolic blood pressure 123 mm[Hg] Yue Ambriz PA-C Work Phone: [facility] 11-20-2024 15:44-0500 Body mass index (BMI) [Ratio] 29.84 kg/m2 Danial Guidry APRN.GUNITE M[employer]ER Work Phone: [facility] 11-20-2024 15:44-0500 Body temperature 97.81 [degF] Dainal Guidry APRN.GUNITE MIXER Work Phone: [facility] 11-20-2024 15:44-0500 Body weight 76.4 kg Danial Guidry APRN.GUNITE MIXER Work Phone: [facility] 11-20-2024 15:44-0500 Diastolic blood pressure 91 mm[Hg] Danial Guidry APRN.GUNITE MIXER Work Phone: [facility] 11-20-2024 15:44-0500 Heart rate 90 /min Danial Guidry APRN.GUNITE MIXER Work Phone: [facility] 11-20-2024 15:44-0500 Respiratory rate 16 /min Danial Guidry APRN.GUNITE MIXER Work Phone: [facility] 11-20-2024 15:44-0500 SaO2% (BldA) [Mass fraction] 98 % Danial Guidry APRN.GUNITE MIXER Work Phone: [facility] 11-20-2024 15:44-0500 Systolic blood pressure 126 mm[Hg] Danial Guidry APRN.GUNITE MIXER Work Phone: [facility] 11-04-2024 10:50-0500 Body height 160 cm Yue Ambriz PA-C Work Phone: [facility] 11-04-2024 10:50-0500 Body mass index (BMI) [Ratio] 29.77 kg/m2 Yue Ambriz PA-C Work Phone: [facility] 11-04-2024 10:50-0500 Body temperature 96.8 [degF] Yue Ambriz PA-C Work Phone: [facility] 11-04-2024 10:50-0500 Body weight 76.2 kg Yue Ambriz PA-C Work Phone: [facility] 11-04-2024 10:50-0500 Diastolic blood pressure 69 mm[Hg] Yue Ambriz PA-C Work Phone: [facility] 11-04-2024 10:50-0500 Heart rate 125 /min Yue Ambriz PA-C Work Phone: [facility] 11-04-2024 10:50-0500 SaO2% (BldA) [Mass fraction] 98 % Yue Ambriz PA-C Work Phone: [facility] 11-04-2024 10:50-0500 Systolic blood pressure 108 mm[Hg] Yue Ambriz PA-C Work Phone: [facility] 10-14-2024 10:09-0500 Body height 160.9 cm Yue Ambriz PA-C Work Phone: [facility] 10-14-2024 10:09-0500 Body mass index (BMI) [Ratio] 29.61 kg/m2 Yue Ambriz PA-C Work Phone: [facility] 10-14-2024 10:09-0500 Body temperature 96.69 [degF] Yue Ambriz PA-C Work Phone: [facility] 10-14-2024 10:09-0500 Body weight 76.65 kg Yue Ambriz PA-C Work Phone: [facility] 10-14-2024 10:09-0500 Diastolic blood pressure 75 mm[Hg] Yue Ambriz PA-C Work Phone: [facility] 10-14-2024 10:09-0500 Heart rate 86 /min Yue Ambriz PA-C Work Phone: [facility] 10-14-2024 10:09-0500 SaO2% (BldA) [Mass fraction] 97 % Yue Ambriz PA-C Work Phone: [facility] 10-14-2024 10:09-0500 Systolic blood pressure 108 mm[Hg] Yue Ambriz PA-C Work Phone: [facility] 06-03-2024 11:32-0400 Body height 160.9 cm Yue Ambriz PA-C Work Phone: [facility] 06-03-2024 11:32-0400 Body mass index (BMI) [Ratio] 27.97 kg/m2 Yue Ambriz PA-C Work Phone: [facility] 06-03-2024 11:32-0400 Body temperature 97.2 [degF] Yue Ambriz PA-C Work Phone: [facility] 06-03-2024 11:32-0400 Body weight 72.4 kg Yue Ambriz PA-C Work Phone: [facility] 06-03-2024 11:32-0400 Diastolic blood pressure 78 mm[Hg] Yue Ambriz PA-C Work Phone: [facility] 06-03-2024 11:32-0400 Heart rate 120 /min Yue Ambriz PA-C Work Phone: [facility] 06-03-2024 11:32-0400 SaO2% (BldA) [Mass fraction] 98 % Yue Ambriz PA-C Work Phone: [facility] 06-03-2024 11:32-0400 Systolic blood pressure 126 mm[Hg] Yue Beckmane PA-C Work Phone: [facility] 06-01-2024 12:50-0400 Body mass index (BMI) [Ratio] 27.19 kg/m2 Ramon SOIL BIOLOGY TEACHER.GUNITE M[employer]ER Work Phone: [facility] 06-01-2024 12:50-0400 Body temperature 98.1 [degF] Ramon Vega SOIL BIOLOGY TEACHER.GUNITE MIXER Work Phone: [facility] 06-01-2024 12:50-0400 Body weight 70.4 kg aRmon Vega SOIL BIOLOGY TEACHER.GUN[employer] M[employer]ER Work Phone: [facility] 06-01-2024 12:50-0400 Diastolic blood pressure 70 mm[Hg] Ramon Vega SOIL BIOLOGY TEACHER.GUNITE MIXER Work Phone: [facility] 06-01-2024 12:50-0400 Heart rate 124 /min Ramon Vega SOIL BIOLOGY TEACHER.GUNITE M[employer]ER Work Phone: [facility] 06-01-2024 12:50-0400 Respiratory rate 18 /min Ramon Vega SOIL BIOLOGY TEACHER.GUNITE MIXER Work Phone: [facility] 06-01-2024 12:50-0400 SaO2% (BldA) [Mass fraction] 99 % Ramon Vega SOIL BIOLOGY TEACHER.GUNITE M[employer]ER Work Phone: [facility] 06-01-2024 12:50-0400 Systolic blood pressure 118 mm[Hg] Ramon Gary SOIL BIOLOGY TEACHER.GUNITE MIXER Work Phone: [facility] 02-26-2023 17:39-0400 Body height 160.9 cm Priya Do MD Work Phone: [facility] 02-26-2023 17:39-0400 Body temperature 97.59 [degF] Priya Do MD Work Phone: [facility] 02-26-2023 17:39-0400 Body weight 75.39 kg Priya oD MD Work Phone: [facility] 02-26-2023 17:39-0400 Diastolic blood pressure 76 mm[Hg] Priya Do MD Work Phone: [facility] 02-26-2023 17:39-0400 Heart rate 115 /min Priya Do MD Work Phone: [facility] 02-26-2023 17:39-0400 SaO2% (BldA) [Mass fraction] 99 % Priya Do MD Work Phone: [facility] 02-26-2023 17:39-0400 Systolic blood pressure 120 mm[Hg] Priya Do MD Work Phone: [facility] 01-19-2023 15:07-0400 Body height 160.9 cm Priya Do MD Work Phone: [facility] 01-19-2023 15:07-0400 Body temperature 98.29 [degF] Priya Do MD Work Phone: [facility] 01-19-2023 15:07-0400 Body weight 75.03 kg Priya Do MD Work Phone: [facility] 01-19-2023 15:07-0400 Diastolic blood pressure 78 mm[Hg] Priya Do MD Work Phone: [facility] 01-19-2023 15:07-0400 Heart rate 84 /min Priya Do MD Work Phone: [facility] 01-19-2023 15:07-0400 SaO2% (BldA) [Mass fraction] 99 % Priya Do MD Work Phone: [facility] 01-19-2023 15:07-0400 Systolic blood pressure 122 mm[Hg] Priya Do MD Work Phone: [facility] 05-30-2022 11:03-0400 Body height 160.9 cm Caitie Goodman MD Work Phone: [facility] 05-30-2022 11:03-0400 Body weight 68.04 kg Caitie Goodman MD Work Phone: [facility] 05-30-2022 11:03-0400 Diastolic blood pressure 75 mm[Hg] Caitie Goodman MD Work Phone: [facility] 05-30-2022 11:03-0400 Heart rate 106 /min Caitie Goodman MD Work Phone: [facility] 05-30-2022 11:03-0400 Systolic blood pressure 118 mm[Hg] Caitie Goodman MD Work Phone: [facility] 05-15-2022 18:12-0400 Body temperature 100.09 [degF] Jose Gleason SOIL BIOLOGY TEACHER.GUNITE M[employer]ER Work Phone: [facility] 05-15-2022 18:12-0400 Body weight 68.04 kg Jose Gleason SOIL BIOLOGY TEACHER.GUNITE M[employer]ER Work Phone: [facility] 05-15-2022 18:12-0400 Diastolic blood pressure 62 mm[Hg] Jose Pendlemartin SOIL BIOLOGY TEACHER.GUNITE M[employer]ER Work Phone: [facility] 05-15-2022 18:12-0400 Heart rate 117 /min Jose Pendlemartin SOIL BIOLOGY TEACHER.GUNITE MIXER Work Phone: [facility] 05-15-2022 18:12-0400 Respiratory rate 18 /min Jose Pendlemartin SOIL BIOLOGY TEACHER.GUNITE MIXER Work Phone: [facility] 05-15-2022 18:12-0400 SaO2% (BldA) [Mass fraction] 97 % Jose Pendlemartin SOIL BIOLOGY TEACHER.GUNITE MIXER Work Phone: [facility] 05-15-2022 18:12-0400 Systolic blood pressure 108 mm[Hg] Jose Victorino SOIL BIOLOGY TEACHER.GUNITE MIXER Work Phone: [facility] 01-11-2022 16:00-0400 Body height 133.35 cm [facility] Work Phone: Encounters Encounter Date Encounter Type Care Provider Facility Start: 08-14-2025 End: 08-14-2025 ambulatory YUE AMBRIZ Facility:[facility] Start: 08-12-2025 End: 08-12-2025 Emergency department patient visit [facility] Facility:[facility] Start: 07-17-2025 End: 07-17-2025 ambulatory [facility] Facility:[facility] Start: 07-14-2025 End: 07-14-2025 Patient encounter procedure Gilbert Swann AR [facility] Work Phone: Start: 07-14-2025 End: 07-14-[address] Vera Song MD Work Phone: -[facility] Start: 05-18-2025 End: 05-18-2025 Refill Yue Ambriz PA-C Work Phone: [facility] [place] Comment on above: Refill Request Start: 05-13-2025 End: 05-13-2025 ambulatory HALEY ROSS Facility:[facility] Start: 04-30-2025 End: 04-30-2025 Emergency department patient visit Dr. Vera Song MD Work Phone: -Emergency Department Work Phone: Start: 04-21-2025 End: 04-21-2025 Patient encounter procedure Haley Ross SOIL BIOLOGY TEACHER.G[employer] M[employer]ER Work Phone: OB/Gynecology Comment on above: General counseling a nd advice for contraceptive management (Primary Dx); Dysmenorrhea Start: 04-21-2025 End: 04-21-2025 ambulatory PRIYAAkil DO Facility:[facility] Start: 03-31-2025 End: 04-01-2025 Refill Yue Ambriz PA-C Work Phone: [facility] Comment on above: Refill Request Start: 03-27-2025 End: 05-27-2025 Follow-up encounter Patricia Christina APRN.GUNITE MIXER Work Phone: [facility] Start: 03-26-2025 End: 03-26-2025 ambulatory PATRICIA CHRISTINA Facility:[facility] Start: 03-26-2025 End: 03-26-2025 Office outpatient visit 25 minutes Patricia Christina APRN.GUNITE MIXER Work Phone: [facility] Comment on above: URI, acute (Primary Dx); Other chest pain; Dysmenorrhea; General counseling and advice for contraceptive management; Allergic rhinitis, unspecified seasonality, unspecified trigger Start: 03-19-2025 End: 03-20-2025 Refill Danial Guidry APRN.GUNITE MIXER Work Phone: [facility] Comment on above: Med Change Request Start: 03-10-2025 End: 03-10-2025 Refill Danial Guidry APRN.GUNITE MIXER Work Phone: [facility] Comment on above: Refill Request Start: 01-17-2025 End: 01-18-2025 Refill Priya Do MD Work Phone: [facility] Comment on above: Refill Request Start: 01-14-2025 End: 01-15-2025 Telephone encounter Yue Ambriz PA-C Work Phone: [facility] Comment on above: Results Start: 01-13-2025 End: 01-13-2025 ambulatory Priya Do MD Work Phone: [facility] Comment on above: Diarrhea Start: 01-12-2025 End: 01-13-2025 ambulatory Priya Do MD Work Phone: [facility] Comment on above: Weekly thing Start: 01-10-2025 End: 01-12-2025 Refill Danial Guidry APRN.GUNITE MIXER Work Phone: [facility] Comment on above: Med Change Request Start: 12-26-2024 End: 12-29-2024 Refill Yue Ambriz PA-C Work Phone: [facility] Comment on above: Med Change Request Start: 12-24-2024 End: 12-24-2024 ambulatory PRIYA DO Facility:[facility] Start: 12-24-2024 End: 12-24-2024 Office outpatient visit 15 minutes Yue Ambriz PA-C Work Phone: [facility] Comment on above: Elevated blood press ure reading without diagnosis of hypertension (Primary Dx) Start: 12-22-2024 End: 12-23-2024 ambulatory Priya Do MD Work Phone: [facility] Comment on above: Blood pressure Start: 12-16-2024 End: 12-16-2024 Refill Priya Do MD Work Phone: [facility] Comment on above: Refill Request Start: 12-11-2024 End: 12-12-2024 ambulatory Priya Do MD Work Phone: [facility] Comment on above: Gasto Start: 12-11-2024 End: 12-12-2024 Refill Yue Ambriz PA-C Work Phone: [facility] Comment on above: Med Change Request Start: 11-23-2024 End: 11-24-2024 ambulatory Danial Guidry APRN.GUNITE MIXER Work Phone: [facility] Comment on above: Vomiting Start: 11-21-2024 End: 11-21-2024 Follow-up encounter Danial Guidry APRN.GUNITE MIXER Work Phone: [facility] Comment on above: Influenza A (Primary Dx) Start: 11-20-2024 End: 11-20-2024 ambulatory DANIAL GUIDRY Facility:[facility] Start: 11-20-2024 End: 11-20-2024 Office outpatient visit 15 minutes Danial Guidry APRN.CNP Work Phone: [facility] Comment on above: URI, acute (Primary Dx); Acute pain of right knee Start: 11-18-2024 End: 11-18-2024 Refill Priya Do MD Work Phone: [facility] Comment on above: Refill Request Start: 11-17-2024 End: 11-18-2024 Refill Patricia Christina APRN.CNP Work Phone: [facility] Comment on above: Refill Request Start: 11-14-2024 End: 11-20-2024 ambulatory Priya Do MD Work Phone: [facility] Comment on above: Nurse Triage Call Start: 11-13-2024 End: 11-14-2024 ambulatory Priya Do MD Work Phone: [facility] Comment on above: Pain in my thighs an d knees Start: 11-04-2024 End: 11-04-2024 [facility] Comment on above: consult Start: 11-04-2024 End: 11-04-2024 ambulatory Yue Ambriz PA-C Work Phone: [facility] Comment on above: ADHD medication Start: 11-04-2024 End: 11-04-2024 Patient encounter procedure Yue Ambriz PA-C Work Phone: [facility] Comment on above: Attention deficit hy peractivity disorder (ADHD), combined type (Primary Dx); XIOMY (generalized anxiety disorder) Start: 11-03-2024 End: 11-03-2024 Telephone encounter Kadi VEGAS Work Phone: Psychology Comment on above: consult Start: 10-30-2024 End: 11-04-2024 ambulatory Priya Do MD Work Phone: [facility] Start: 10-30-2024 End: 11-04-2024 Patient encounter procedure Priya Do MD Work Phone: [facility] Comment on above: Referred to a psychi atrist at [facility] Referral to an obgyn Start: 10-17-2024 End: 10-17-2024 Refill Danial Guidry APRN.CNP Work Phone: [facility] Comment on above: Med Change Request Start: 10-16-2024 End: 10-16-2024 Refill Yue Ambriz PA-C Work Phone: [facility] Comment on above: Refill Request Start: 10-15-2024 End: 10-15-2024 ambulatory Yue Ambriz PA-C Work Phone: [facility] Comment on above: results Start: 10-15-2024 End: 10-15-2024 E-mail encounter from caregiver Yue Ambriz PA-C Work Phone: [facility] Start: 10-14-2024 End: 10-14-2024 ambulatory PRIYA DO Facility:[facility] Start: 10-14-2024 End: 10-14-2024 Patient encounter procedure Yue Ambriz PA-C Work Phone: [facility] Comment on above: Iron deficiency anem ia, unspecified iron deficiency anemia type (Primary Dx); Fatigue, unspecified type Start: 10-05-2024 End: 10-06-2024 ambulatory Priya Do MD Work Phone: [facility] Comment on above: Constantly extremely tired Start: 08-28-2024 End: 08-29-2024 Refill Yue Ambriz PA-C Work Phone: [facility] Comment on above: Refill Request Start: 08-22-2024 End: 08-25-2024 ambulatory Priya Do MD Work Phone: [facility] 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 Start: 08-22-2024 End: 08-26-2024 Refill Yue Ambriz PA-C Work Phone: [facility] Comment on above: Refill Request Start: 08-18-2024 End: 08-18-2024 Refill Yue Ambriz PA-C Work Phone: [facility] Comment on above: Refill Request Start: 07-22-2024 End: 07-30-2024 Refill Danial Guidry APRN.GUNITE MIXER Work Phone: [facility] Comment on above: Refill Request Appointment Request Start: 06-23-2024 End: 09-03-2024 Refill Yue Ambriz PA-C Work Phone: [facility] Comment on above: Refill Request Separation anxiety Need more Wellbutrin Start: 06-03-2024 End: 06-03-2024 Patient encounter procedure Yue Ambriz PA-C Work Phone: [facility] Comment on above: Skin infection Start: 06-01-2024 End: 06-01-2024 ambulatory Shelly Terry RN NURSE NEWSPAPER REPORTER Comment on above: skin lump Start: 06-01-2024 End: 06-01-2024 Patient encounter procedure Ramon Vega APRN.GUNITE MIXER Work Phone: [facility] Comment on above: Skin infection (Prim rob Dx) Start: 05-20-2024 Refill Danial Guidry APRN.GUNITE MIXER Work Phone: [facility] Comment on above: Refill Request Start: 05-14-2024 Refill Priya Hogue Work Phone: [facility] Comment on above: Refill Request Next step after late st blood work Start: 05-08-2024 Refill Priya Hogue Work Phone: [facility] Comment on above: Refill Request control Refill my risperidon e 0.5 mg Start: 04-25-2024 Refill Priya Hogue Work Phone: [facility] Comment on above: Refill Request Start: 04-23-2024 Refill Priya Hogue Work Phone: [facility] Comment on above: Refill Request Start: 04-21-2024 [facility] Get Medical Advice Priya Kiran MD Work Phone: [facility] Comment on above: Refill prevacid Start: 03-03-2024 Refill Priya Hogue Work Phone: [facility] Comment on above: Refill Request Start: 02-26-2024 ambulatory Priya Hogue Work Phone: [facility] Comment on above: Uncontrollable ulyssesnellie ng Start: 02-11-2024 End: 02-11-2024 ambulatory [facility] Start: 02-01-2024 Refill Yue thompson PA-C Work Phone: [facility] Comment on above: Refill Request Start: 01-30-2024 Telephone encounter Priya brewer MD Work Phone: [facility] Comment on above: Results Start: 12-31-2023 Refill Yue thompson PA-C Work Phone: [facility] Comment on above: Refill Request Start: 12-26-2023 ambulatory Priya Hogue Work Phone: [facility] Comment on above: Low iron Start: 12-24-2023 End: 12-24-2023 ambulatory [facility] Start: 12-20-2023 ambulatory Priya Hogue Work Phone: [facility] Comment on above: Pain in my left xiao st around my nipple Start: 11-12-2023 End: 11-12-2023 ambulatory [facility] Start: 10-02-2023 ambulatory [facility] Start: 09-25-2023 End: 09-25-2023 ambulatory [facility] Start: 08-28-2023 End: 08-28-2023 ambulatory [facility] Start: 07-31-2023 End: 07-31-2023 ambulatory [facility] Start: 05-21-2023 ambulatory Priya Hogue Work Phone: [facility] Comment on above: Risperdol Start: 05-11-2023 ambulatory Priya Hogue Work Phone: [facility] Comment on above: Zyrtec Start: 02-26-2023 End: 02-26-2023 Patient encounter procedure Priya Do MD Work Phone: [facility] Comment on above: Separation anxiety d isorder (Primary Dx); Attention deficit hyperactivity disorder (ADHD), combined type; Asperger's disorder; Moderate episode of recurrent major depressive disorder (HCC) Start: 01-19-2023 End: 01-19-2023 Patient encounter procedure Priya Do MD Work Phone: [facility] Comment on above: Encounter for well a dult exam without abnormal findings (Primary Dx); GERD without esophagitis; Moderate persistent asthma, uncomplicated; Moderate persistent asthma without complication; Asthma case management patient; Special screening examination for viral disease; Screening for HIV (human immunodeficiency virus); Laboratory exam ordered as part of routine general medical examination; Hyperhidrosis Start: 01-19-2023 End: 01-19-2023 Patient encounter status Priya Do MD Work Phone: [facility] Start: 09-26-2022 End: 09-26-2022 ambulatory JOHNATHAN QUINTERO [facility] Start: 09-13-2022 End: 09-13-2022 ambulatory [facility] Start: 07-18-2022 End: 07-18-2022 ambulatory [facility] Start: 06-07-2022 Telephone encounter Caitie cabrera MD Work Phone: Endocrinology Comment on above: Received Outside Med ical Records Start: 06-01-2022 Refill Caitie Goodman MD Work Phone: Endocrinology Comment on above: Refill Request Start: 05-30-2022 Telephone encounter Caitie cabrera MD Work Phone: Endocrinology Comment on above: Forms (Medical Recor ds) Start: 05-30-2022 End: 05-30-2022 Patient encounter procedure Caitie Goodman MD Work Phone: Endocrinology Comment on above: Pituitary tumor (Shanelle sravanthi Dx); Nocturia; Hyperprolactinemia (HCC); Galactorrhea; Irregular menses; Asthma case management patient Start: 05-15-2022 End: 05-15-2022 Patient encounter procedure Jose Gleason APRN.GUNITE MIXER Work Phone: [facility] Comment on above: Suspected COVID-19 v irus infection (Primary Dx); Acute otitis media, bilateral Start: 03-28-2022 End: 03-28-2022 Patient encounter procedure [facility] [place] systems coordinator Off Start: 02-06-2022 End: 02-06-2022 Patient encounter procedure [facility] Start: 01-11-2022 End: 01-11-2022 ambulatory [facility] Start: 01-11-2022 End: 01-11-2022 Patient encounter procedure [facility] [place] systems coordinator Off Start: 11-29-2021 End: 11-29-2021 ambulatory [facility] Start: 10-18-2021 End: 10-18-2021 ambulatory CARRI ANDERSON [facility] Start: 10-03-2021 End: 10-03-2021 ambulatory [facility] Procedures Date Procedure Procedure Detail Performing Clinician Start: 03-28-2022 PROLACTIN BLD [facility] Provi sharon Start: 02-06-2022 MRI of brain with contrast Start: 01-11-2022 PROLACTIN BLD [facility] Provi sharon Plan of Treatment Date Care Activity Detail Author Start: 2078 RSV Immunization for Adults (1 - 1-dose 75+ series) RSV Immunization for Adults (1 - 1-dose 75+ series) [facility] Start: 2053 Zoster Vaccines (1 of 2) Zoster Vaccines (1 of 2) [facility] Start: 03-26-2026 Annual PCP Team Chronic Disease Visit Annual PCP Team Chronic Disease Visit [facility] Start: 12-24-2025 Annual PCP Team Chronic Disease Visit Annual PCP Team Chronic Disease Visit [facility] Start: 11-20-2025 Annual PCP Team Chronic Disease Visit Annual PCP Team Chronic Disease Visit [facility] Start: 11-04-2025 Annual PCP Team Chronic Disease Visit Annual PCP Team Chronic Disease Visit [facility] Start: 10-14-2025 Annual PCP Team Chronic Disease Visit Annual PCP Team Chronic Disease Visit [facility] Start: 07-17-2025 End: 10-16-2025 CBC W Auto Differential panel - Blood COMPLETE BLOOD COUNT AND DIFFERENTIAL Lab Routine Iron deficiency anemia, unspecified iron deficiency anemia type Expected: 07/17/2025, Expires: 10/16/2025 [facility] Comment on above: Expected: 07/17/2025, Expires: Start: 07-17-2025 End: 10-16-2025 Ferritin [Mass/volume] in Serum or Plasma FERRITIN Lab Routine Iron deficiency anemia, unspecified iron deficiency anemia type Expected: 07/17/2025, Expires: 10/16/2025 [facility] Work Phone: Comment on above: Expected: 07/17/2025, Expires: Start: 07-17-2025 End: 10-16-2025 Iron and Iron binding capacity panel - Serum or Plasma IRON AND TIBC Lab Routine Iron deficiency anemia, unspecified iron deficiency anemia type Expected: 07/17/2025, Expires: 10/16/2025 [facility] Comment on above: Expected: 07/17/2025, Expires: Start: 07-17-2025 End: 07-17-2025 ambulatory 07/17/2025 11:15 AM EDT Results Only Isamar Sanchez [facility] [address] [place] [address] Isamar Sanchez [facility] Start: 06-08-2025 Influenza vaccination Influenza Vaccine (#1) [facility] Start: 06-03-2025 Annual PCP Team Chronic Disease Visit Annual PCP Team Chronic Disease Visit [facility] Start: 05-13-2025 End: 05-13-2025 Patient encounter procedure 05/13/2025 1:30 PM EDT Office Visit OB/Gynecology [address] [place] [address] [place] [address] [place] [address] [facility]plan[facility] insertion [facility] Comment on above: [employer]Explanon insertion Start: 04-30-2025 [facility] Start: 04-21-2025 End: 04-21-2025 Patient encounter procedure 04/21/2025 2:30 PM EDT Office Visit OB/Gynecology [address] [place] [address] Haley Ross APRN.[employer] [address] [place] [address] Comment: Interested in IUD placement OB/Gynecology Comment on above: Comment: Interested in IUD placement Start: 01-19-2025 End: 01-19-2025 ambulatory 01/19/2025 11:15 AM EDT Results Only [facility] [address] [place] [address] [facility] Start: 01-16-2025 End: 01-16-2025 Patient encounter procedure 01/16/2025 9:00 AM EDT [facility] [address] [facility] [address] [address] Carri Vidal APRN.[employer] [address] [facility] [place] [address] GERD without esophagitis [K21.9] [facility] Comment on above: GERD without esophagitis [K21.9] Start: 01-13-2025 End: 04-14-2025 25-hydroxyvitamin D3 [Mass/volume] in Serum or Plasma VITAMIN D 25 HYDROXY Lab Routine Vitamin D deficiency Expected: 01/13/2025, Expires: 04/14/2025 [facility] Work Phone: Comment on above: Expected: 01/13/2025, Expires: Start: 01-13-2025 End: 04-14-2025 CBC W Auto Differential panel - Blood COMPLETE BLOOD COUNT AND DIFFERENTIAL Lab Routine Iron deficiency anemia, unspecified iron deficiency anemia type Expected: 01/13/2025, Expires: 04/14/2025 [facility] Comment on above: Expected: 01/13/2025, Expires: Start: 01-13-2025 End: 04-14-2025 Ferritin [Mass/volume] in Serum or Plasma FERRITIN Lab Routine Iron deficiency anemia, unspecified iron deficiency anemia type Expected: 01/13/2025, Expires: 04/14/2025 [facility] Comment on above: Expected: 01/13/2025, Expires: Start: 01-13-2025 End: 04-14-2025 Iron and Iron binding capacity panel - Serum or Plasma IRON AND TIBC Lab Routine Iron deficiency anemia, unspecified iron deficiency anemia type Expected: 01/13/2025, Expires: 04/14/2025 [facility] Comment on above: Expected: 01/13/2025, Expires: Start: 01-13-2025 End: 01-13-2025 ambulatory 01/13/2025 10:00 AM EDT Results Only [facility] [address] [place] [address] [facility] Start: 01-01-2025 Annual PCP Team Chronic Disease Visit Annual PCP Team Chronic Disease Visit [facility] Start: 12-24-2024 End: 12-24-2024 Patient encounter procedure 12/24/2024 1:40 PM EDT Office Visit [facility] [address] [address] Yue Ambriz, [place] [address] [place] [id number] Blood pressure [facility] [place] Comment on above: Blood pressure Start: 11-11-2024 End: 02-10-2025 CBC panel - Blood by Automated count COMPLETE BLOOD COUNT Lab Routine Iron deficiency anemia, unspecified iron deficiency anemia type Expected: 11/11/2024, Expires: 02/10/2025 [facility] Work Phone: Comment on above: Expected: 11/11/2024, Expires: Start: 11-11-2024 End: 02-10-2025 Ferritin [Mass/volume] in Serum or Plasma FERRITIN Lab Routine Iron deficiency anemia, unspecified iron deficiency anemia type Expected: 11/11/2024, Expires: 02/10/2025 [facility] Comment on above: Expected: 11/11/2024, Expires: Start: 11-11-2024 End: 02-10-2025 Iron and Iron binding capacity panel - Serum or Plasma IRON AND TIBC Lab Routine Iron deficiency anemia, unspecified iron deficiency anemia type Expected: 11/11/2024, Expires: 02/10/2025 [facility] Comment on above: Expected: 11/11/2024, Expires: Start: 11-04-2024 End: 11-04-2024 Patient encounter procedure 11/04/2024 11:00 AM EST Office Visit [address] [address] Yue Ambriz PA-C [address] [place] [id number] restart Zoloft/Wellbutrin [facility] Comment on above: restart Zoloft/Wellbutrin Start: 10-14-2024 End: 01-13-2025 25-hydroxyvitamin D3 [Mass/volume] in Serum or Plasma [facility] Work Phone: Comment on above: Expected: 10/14/2024, Expires: Start: 10-14-2024 End: 10-14-2024 Patient encounter procedure 10/14/2024 10:00 AM EST Office Visit [address] [address] Yue Ambriz PA-C [address] [place] [address] Tired for no reason and test for diabetes [facility] [place] Comment on above: Tired for no reason and test for diabete s Start: 06-08-2024 COVID-19 Vaccine () COVID-19 Vaccine () [facility] Start: 06-08-2024 Covid-19 Vaccine () Covid-19 Vaccine () [facility] Start: 06-08-2024 Influenza vaccination Influenza Vaccine (#1) [facility] Start: 06-03-2024 End: 06-03-2024 Patient encounter procedure 06/03/2024 11:20 AM EDT Office Visit [address] [address] Yue Ambriz PA-C [address] [place] [address] URG CARE FOLLOW UP [facility] Comment on above: URG CARE FOLLOW UP Start: 05-15-2024 DTaP/Tdap/Td Vaccines (7 - Td or Tdap) DTaP/Tdap/Td Vaccines (7 - Td or Tdap) [facility] Start: 05-15-2024 Urine microalbumin profile [facility] Start: 05-13-2024 End: 05-13-2024 ambulatory 05/13/2024 11:45 AM EDT Results Only Isamar Sanchez [facility] [address] [place] [address] Isamar Mezawn [facility] Start: 2024 Screening for malignant neoplasm of cervix [facility] Start: 04-30-2024 End: 07-30-2024 CBC panel - Blood by Automated count COMPLETE BLOOD COUNT Lab Routine Iron deficiency anemia, unspecified iron deficiency anemia type Expected: 04/30/2024, Expires: 07/30/2024 [facility] Work Phone: Comment on above: Expected: 04/30/2024, Expires: Start: 04-30-2024 End: 07-30-2024 Ferritin [Mass/volume] in Serum or Plasma FERRITIN Lab Routine Iron deficiency anemia, unspecified iron deficiency anemia type Expected: 04/30/2024, Expires: 07/30/2024 [facility] Comment on above: Expected: 04/30/2024, Expires: Start: 04-30-2024 End: 07-30-2024 Iron and Iron binding capacity panel - Serum or Plasma IRON AND TIBC Lab Routine Iron deficiency anemia, unspecified iron deficiency anemia type Expected: 04/30/2024, Expires: 07/30/2024 [facility] Comment on above: Expected: 04/30/2024, Expires: Start: 03-07-2024 End: 03-07-2024 ambulatory 03/07/2024 11:00 AM EDT [facility] [address] [place] [address] Caitie Goodman MD [address] [place] [address] pituitary gland Endocrinology Comment on above: pituitary gland Start: 02-27-2024 ANNUAL PCP TEAM CHRONIC DISEASE VISIT ANNUAL PCP TEAM CHRONIC DISEASE VISIT [facility] Start: 02-06-2024 End: 02-06-2024 ambulatory 02/06/2024 11:40 AM EDT [facility] [address] [address] Priya Do MD [address] [place] [address] Lab work results [facility] Comment on above: Lab work results Start: 01-20-2024 ANNUAL PCP TEAM CHRONIC DISEASE VISIT ANNUAL PCP TEAM CHRONIC DISEASE VISIT [facility] Start: 01-20-2024 CHLAMYDIA SCREENING (18-24) CHLAMYDIA SCREENING (18-24) [facility] Comment on above: Postponed from 2021 (Declined at t his time) Start: 01-20-2024 GC (GONORRHEA) SCREENING (18-24) GC (GONORRHEA) SCREENING (18-24) [facility] Comment on above: Postponed from 2021 (Declined at t his time) Start: 01-20-2024 Screening for Chlamydia trachomatis Chlamydia Screening (18-) [facility] Comment on above: Postponed from 2021 (Declined at t his time) Start: 10-08-2023 Depression Assessment Depression Assessment [facility] Start: 06-16-2023 Depression Monitoring Depression Monitoring [facility] Start: 06-08-2023 Covid-19 Vaccine () Covid-19 Vaccine () [facility] Start: 06-08-2023 Influenza vaccination [facility] Start: 02-18-2023 End: 04-20-2023 Basic metabolic 2000 panel - Serum or Plasma BASIC METABOLIC PNL Lab Routine Laboratory exam ordered as part of routine general medical examination Expected: 02/18/2023, Expires: 04/20/2023 [facility] Work Phone: Comment on above: Expected: 02/18/2023, Expires: Start: 02-18-2023 End: 04-20-2023 Hepatitis C virus Ab [Presence] in Serum HEP C AB IA W/CONF SCRN Lab Routine Special screening examination for viral disease Expected: 02/18/2023 (Approximate), Expires: 04/20/2023 [facility] Work Phone: Comment on above: Expected: 02/18/2023 (Approximate), Expi res: 04/20/2023 Start: 02-18-2023 End: 04-20-2023 HIV 1+2 Ab [Presence] in Serum or Plasma by Immunoassay HIV 1 2 COMBO(AG/AB),WITH REFLEX TO DIFFERENTIATION Lab Routine Screening for HIV (human immunodeficiency virus) Expected: 02/18/2023 (Approximate), Expires: 04/20/2023 [facility] Work Phone: Comment on above: Expected: 02/18/2023 (Approximate), Expi res: 04/20/2023 Start: 07-11-2022 End: 09-10-2022 Thyrotropin [Units/volume] in Serum or Plasma TSH BLD Lab Routine Pituitary tumor Expected: 07/11/2022 (Approximate), Expires: 09/10/2022 [facility] Work Phone: Comment on above: Expected: 07/11/2022 (Approximate), Expi res: 09/10/2022 Start: 06-08-2022 Influenza vaccination INFLUENZA (#1) [facility] Start: 05-30-2022 End: 07-30-2022 INSULIN LIK GR FAC I [facility] Work Phone: Comment on above: Expected: 05/30/2022, Expires: Start: 2022 Urine microalbumin profile DTAP,TDAP,TD (1 - Tdap) [facility] Start: 2021 ANNUAL PCP TEAM CHRONIC DISEASE VISIT ANNUAL PCP TEAM CHRONIC DISEASE VISIT [facility] Start: 2021 Anxiety Screening Anxiety Screening [facility] Start: 2021 CHLAMYDIA SCREENING (18-24) CHLAMYDIA SCREENING (18-24) [facility] Start: 2021 Depression Screening Depression Screening [facility] Start: 2021 GC (GONORRHEA) SCREENING (18-24) GC (GONORRHEA) SCREENING (18-24) [facility] Start: 2021 HEPATITIS C SCREENING HEPATITIS C SCREENING [facility] Start: 2021 Hepatitis C screening Hepatitis C Screening [facility] Start: 2021 HIV SCREENING HIV SCREENING [facility] Start: 2021 Screening for Chlamydia trachomatis Chlamydia Screening (18-24) [facility] Start: 2021 SPIROMETRY SPIROMETRY [facility] Start: 2017 PEDS TO ADULT TRANSITION ANNUAL ASSESSMENT PEDS TO ADULT TRANSITION ANNUAL ASSESSMENT [facility] Start: 2015 Adult depression screening assessment DEPRESSION SCREENING [facility] Start: 2015 PEDS TO ADULT TRANSITION INITIAL DISCUSSION PEDS TO ADULT TRANSITION INITIAL DISCUSSION [facility] Start: 2014 HPV VACCINE (1 - 2-dose series) HPV VACCINE (1 - 2-dose series) [facility] Start: 2013 MENINGOCOCCAL B: Consider based on risk (1 of 2 - Risk Bexsero 2-dose series) MENINGOCOCCAL B: Consider based on risk (1 of 2 - Risk Bexsero 2-dose series) [facility] Start: 2009 PNEUMOCOCCAL (1 - PCV) PNEUMOCOCCAL (1 - PCV) [facility] Start: 2009 Pneumococcal vaccination Pneumococcal Vaccine (1 - PCV) [facility] Start: 2009 Pneumococcal Vaccine: Pediatrics (0 to 5 Years) and At-Risk Patients (6 to 64 Years) (1 of 2 - PCV) Pneumococcal Vaccine: Pediatrics (0 to 5 Years) and At-Risk Patients (6 to 64 Years) (1 of 2 - PCV) [facility] Start: 2007 ASTHMA CONTROL TEST ASTHMA CONTROL TEST [facility] Start: 2005 ASTHMA ACTION PLAN ASTHMA ACTION PLAN [facility] Start: 2003 HEPATITIS B (1 of 3 - 3-dose series) HEPATITIS B (1 of 3 - 3-dose series) [facility] Start: 2003 HIV screening HIV Screening [facility] COVID & INFLUENZA A/ B & RSV PCR, ROUTINE COVID & INFLUENZA A/B & RSV PCR, ROUTINE Microbiology Routine URI, acute 11/20/2024 4:09 PM EST [facility] Work Phone: COVID & INFLUENZA A/ B & RSV PCR, ROUTINE COVID & INFLUENZA A/B & RSV PCR, ROUTINE Microbiology Routine URI, acute 03/26/2025 11:16 AM EDT [facility] Work Phone: NEXPLANON INSERTION NEXPLANON IN SERTION Procedures Routine Dysmenorrhea Ordered: 04/21/2025 [facility] Work Phone: Comment on above: Ordered: 04/21/2025 Patient Education ED Chest Pain, Uncertain Cause [facility] Work Phone: SARS-CoV-2 (COVID-19 ) RNA [Presence] in Respiratory specimen by ANALI with probe detection 2019 CORONAVIRUS Microbiology Routine Suspected COVID-19 virus infection Ordered: 05/15/2022 [facility] Work Phone: Comment on above: Ordered: 05/15/2022 End: 02-18-2024 SPIROMETRY - BASELINE AND POST DILATOR SPIROMETRY - BASELINE AND POST DILATOR PFT Routine Moderate persistent asthma, uncomplicated 1 Occurrences starting 01/19/2023 until 02/18/2024 [facility] Work Phone: Comment on above: 1 Occurrences starting 01/19/2023 until 02/18/2024 [facility] Immunizations Immunization Date Immunization Notes Care Provider Manny doyle 06-25-2024 influenza virus vacc ine, unspecified formulation Haley Densonnayaivelisse [employer] Work Phone: [facility] 08-14-2023 influenza virus vacc ine, unspecified formulation Priya Do MD Work Phone: [facility] 07-18-2022 influenza virus vacc ine, unspecified formulation Priya Do MD Work Phone: [facility] 10-03-2021 influenza, injectabl e, quadrivalent, preservative free Caitie Goodman MD Work Phone: [facility] Work Phone: 04-28-2021 meningococcal B vacc ine, recombinant, OMV, adjuvanted Caitie Goodman MD Work Phone: [facility] Work Phone: 09-28-2020 meningococcal B vacc ine, recombinant, OMV, adjuvanted Caitie Goodman MD Work Phone: [facility] Work Phone: 06-30-2020 influenza, injectabl e, quadrivalent, preservative free Caitie Goodman MD Work Phone: [facility] Work Phone: 09-23-2019 influenza, injectabl e, quadrivalent, preservative free Caitie Goodman MD Work Phone: [facility] Work Phone: 09-23-2019 meningococcal polysaccharide (groups A, C, Y and W-135) diphtheria toxoid conjugate vaccine (MCV4P) Caitie Goodman MD Work Phone: [facility] Work Phone: 09-09-2018 influenza, injectabl e, quadrivalent, preservative free Caitie Goodman MD Work Phone: [facility] Work Phone: 08-31-2017 influenza, injectabl e, quadrivalent, preservative free Caitie Goodman MD Work Phone: [facility] Work Phone: 01-23-2017 hepatitis A vaccine, pediatric/adolescent dosage, 2 dose schedule Caitie Goodman MD Work Phone: [facility] Work Phone: 01-23-2017 Human Papillomavirus 9-valent vaccine Caitie Goodman MD Work Phone: [facility] Work Phone: 09-20-2016 Human Papillomavirus 9-valent vaccine Caitie Goodman MD Work Phone: [facility] Work Phone: 07-18-2016 hepatitis A vaccine, pediatric/adolescent dosage, 2 dose schedule Caitie Goodman MD Work Phone: [facility] Work Phone: 07-18-2016 Human Papillomavirus 9-valent vaccine Caitie Goodman MD Work Phone: [facility] Work Phone: 07-18-2016 influenza, injectabl e, quadrivalent, preservative free Caitie Goodman MD Work Phone: [facility] Work Phone: 08-27-2015 influenza, injectabl e, quadrivalent, preservative free Caitie Goodman MD Work Phone: [facility] Work Phone: 08-05-2014 influenza, injectabl e, quadrivalent, preservative free Caitie Goodman MD Work Phone: [facility] Work Phone: 05-15-2014 meningococcal polysaccharide (groups A, C, Y and W-135) diphtheria toxoid conjugate vaccine (MCV4P) Caitie Goodman MD Work Phone: [facility] Work Phone: 05-15-2014 tetanus toxoid, redu amrik diphtheria toxoid, and acellular pertussis vaccine, adsorbed Caitie Goodman MD Work Phone: [facility] Work Phone: 08-06-2013 influenza, seasonal, injectable Caitie Goodman MD Work Phone: [facility] Work Phone: 08-14-2012 influenza, seasonal, injectable Caitie Goodman MD Work Phone: [facility] Work Phone: 08-06-2012 influenza, seasonal, injectable Caitie Goodman MD Work Phone: [facility] Work Phone: 08-13-2011 influenza, seasonal, injectable Caitie Goodman MD Work Phone: [facility] Work Phone: 07-10-2011 influenza, seasonal, injectable Caitie Goodman MD Work Phone: [facility] Work Phone: 07-07-2010 influenza, seasonal, injectable Caitie Goodman MD Work Phone: [facility] Work Phone: 07-01-2010 influenza virus vacc ine, live, attenuated, for intranasal use Caitie Goodman MD Work Phone: [facility] Work Phone: 09-10-2009 novel Influenza-H1N1 -09, live virus for nasal administration Caitie Goodman MD Work Phone: [facility] Work Phone: 08-11-2009 novel Influenza-H1N1 -09, live virus for nasal administration Caitie Goodman MD Work Phone: [facility] Work Phone: 07-08-2009 influenza virus vacc ine, whole virus Caitie Goodman MD Work Phone: [facility] Work Phone: 07-30-2008 influenza virus vacc ine, live, attenuated, for intranasal use Caitie Goodman MD Work Phone: [facility] Work Phone: 05-22-2008 diphtheria, tetanus toxoids and acellular pertussis vaccine, unspecified formulation Caitie Goodman MD Work Phone: [facility] Work Phone: 05-22-2008 measles, mumps and rubella virus vaccine Caitie Goodman MD Work Phone: [facility] Work Phone: 05-22-2008 poliovirus vaccine, inactivated Caitie Goodman MD Work Phone: [facility] Work Phone: 05-22-2008 varicella virus vaccine Dylan Goodman MD Work Phone: [facility] Work Phone: 08-07-2007 influenza virus vacc ine, whole virus Caitie Goodman MD Work Phone: [facility] Work Phone: 08-20-2006 influenza virus vacc ine, whole virus Caitie Goodman MD Work Phone: [facility] Work Phone: 07-28-2005 influenza virus vacc ine, whole virus Caitie Goodman MD Work Phone: [facility] Work Phone: 10-13-2004 influenza virus vacc ine, whole virus Caitie Goodman MD Work Phone: [facility] Work Phone: 10-13-2004 varicella virus vaccine Dylan Goodman MD Work Phone: [facility] Work Phone: 08-18-2004 diphtheria, tetanus toxoids and acellular pertussis vaccine, unspecified formulation Caitie Goodman MD Work Phone: [facility] Work Phone: 08-18-2004 pneumococcal conjuga te vaccine, 7 valent Caitei Goodman MD Work Phone: [facility] Work Phone: 08-18-2004 poliovirus vaccine, inactivated Caiite Goodman MD Work Phone: [facility] Work Phone: 08-09-2004 influenza virus vacc ine, whole virus Caitie Goodman MD Work Phone: [facility] Work Phone: 05-26-2004 haemophilus influenz ae type b conjugate and Hepatitis B vaccine Caitie Goodman MD Work Phone: [facility] Work Phone: 05-26-2004 haemophilus influenz ae type b vaccine, PRP-T conjugate Caitie Goodman MD Work Phone: [facility] Work Phone: 05-26-2004 hepatitis B vaccine, pediatric or pediatric/adolescent dosage Caitie Goodman MD Work Phone: [facility] Work Phone: 05-26-2004 measles, mumps and rubella virus vaccine Caitie Goodman MD Work Phone: [facility] Work Phone: 02-24-2004 poliovirus vaccine, inactivated Caitie Goodman MD Work Phone: [facility] Work Phone: 2003 diphtheria, tetanus toxoids and acellular pertussis vaccine, unspecified formulation Caitie Goodman MD Work Phone: [facility] Work Phone: 2003 haemophilus influenz ae type b vaccine, PRP-T conjugate Caitie Goodman MD Work Phone: [facility] Work Phone: 2003 pneumococcal conjuga te vaccine, 7 valent Caitie Goodman MD Work Phone: [facility] Work Phone: 2003 poliovirus vaccine, inactivated Caitie Goodman MD Work Phone: [facility] Work Phone: 2003 diphtheria, tetanus toxoids and acellular pertussis vaccine, unspecified formulation Caitie Goodman MD Work Phone: [facility] Work Phone: 2003 haemophilus influenz ae type b vaccine, PRP-T conjugate Caitie Goodman MD Work Phone: [facility] Work Phone: 2003 pneumococcal conjuga te vaccine, 7 valent Caitie Goodman MD Work Phone: [facility] Work Phone: 2003 poliovirus vaccine, inactivated Caitie Goodman MD Work Phone: [facility] Work Phone: 2003 diphtheria, tetanus toxoids and acellular pertussis vaccine, unspecified formulation Caitie Goodman MD Work Phone: [facility] Work Phone: 2003 haemophilus influenz ae type b conjugate and Hepatitis B vaccine Caitie Goodman MD Work Phone: [facility] Work Phone: 2003 pneumococcal conjuga te vaccine, 7 valent Caitie Goodman MD Work Phone: [facility] Work Phone: 2003 poliovirus vaccine, inactivated Caitie Goodman MD Work Phone: [facility] Work Phone: 2003 hepatitis B vaccine, pediatric or pediatric/adolescent dosage Caitie Goodman MD Work Phone: [facility] Work Phone: Payers Date Payer Category Payer Self-pay [id number] [phone] [id number] 2025 Unknown [id number] 2021 [employer] BLUE ACCE SS PPO [id number] 2021 Blue Cross Blue Shie ld [facility] - [facility] ANTHEM BLUE CROSS [id number] 2021 Unknown ANTHEM BLUE ACCE SS PPO [id number] 2021-Present [phone] [address] [place] [address] PPO [id number] 2021 Unknown [id number] 2014 Medicaid [id number] 2003 Unknown [id number] 2003 Unknown [id number] 2003 Unknown [id number] 2003 Unknown [id number] 2003 Unknown [id number] 479 2003 Unknown [id number] 2003 Unknown [id number] Unknown [id number] Unknown [id number] Unknown [id number] Unknown [id number] Unknown [id number] Unknown [id number] Social History Date Type Detail Facility Start: 10-30-2018 Tobacco smoking stat us NHIS Unknown if ever smoked [facility] Work Phone: Start: 2003 Sex Assigned At Female W [facility] Work Phone: Start: 05-15-2022 End: 12-09-2022 Tobacco smoking status NHIS Never smoked tobacco [facility] Start: 05-15-2022 End: 12-09-2022 Tobacco use and exposure Smokeless tobacco non-user [facility] Start: 05-15-2022 End: 12-24-2024 Alcohol intake Lifetime non-drinker (finding) [facility] Start: 12-17-2020 End: 01-17-2023 History SDOH Alcohol Frequency 1 [facility] Start: 2003 Sex Assigned At Not on file [facility] Start: 05-05-2022 End: 05-30-2022 Exposure to SARS-CoV-2 (event) Not sure [facility] Start: 01-17-2023 History SDOH Alcohol Std Drinks 0 [facility] Start: 01-17-2023 History SDOH Social Connections Phone 5 [facility] Start: 01-17-2023 History SDOH Social Connections Get Together 2 [facility] Start: 01-17-2023 History SDOH Social Connections Jew 3 [facility] [facility] Start: 01-17-2023 History SDOH Social Connections Living 7 [facility] Start: 01-17-2023 End: 02-26-2023 History of Social function [facility] Start: 01-17-2023 End: 02-26-2023 Social connection and isolation panel [facility] Do you belong to any clubs or organizations such as roman catholic groups, unions, fraternal or athletic groups, or school groups? Yes [facility] Are you now , , , , never or living with a partner? Never [facility] How often to you hav e a drink containing alcohol? Never [facility] Start: 02-04-[address] inks containing alcohol do you have on a typical day? Patient does not drink [facility] Do you feel stress - tense, restless, nervous, or anxious, or unable to sleep at night because your mind is troubled all the time - these days [OSQ] Very much [facility] (I/We) worried wheth er (my/our) food would run out before (I/we) got money to buy more. DK or Refused [facility] In the past 12 month s, was there a time when you were not able to pay the mortgage or rent on time? No [facility] Do you feel stress - tense, restless, nervous, or anxious, or unable to sleep at night because your mind is troubled all the time - these days [OSQ] Not at all [facility] (I/We) worried wheth er (my/our) food would run out before (I/we) got money to buy more. Never true [facility] Start: 01-09-2024 Gender identity Identifies as female gender (finding) [facility] Start: 08-15-2022 Sex Female (finding) [facility] How many standard dr inks containing alcohol do you have on a typical day? 1 or 2 [facility] Start: 04-30-2025 Tobacco smoking stat [facility] Smokes tobacco daily (finding) [facility] Functional Status Date Assessment Result Facility 03-26-2025 Total score [AUDIT-C] 0 03/26/20 25 10:28 AM EDT UserMarvin [facility] 03-26-2025 How often to you hav e a drink containing alcohol? Never 03/26/2025 10:28 AM EDT UserMarvin Never [facility] 03-26-[address] inks containing alcohol do you have on a typical day? 1 or 2 03/26/2025 10:28 AM EDT User, Marvin 1 or 2 [facility] 03-26-2025 How often do you hav e 6 or more drinks on 1 occasion? Never 03/26/2025 10:28 AM EDT Marvin Villatoro Never [facility] 02-22-2015 Are you deaf, or do you have serious difficulty hearing No 02/22/2015 5:23 PM EDT Amanda Trinh LPN No [facility] 02-22-2015 Are you blind, or do you have serious difficulty seeing, even when wearing glasses No 02/22/2015 5:23 PM EDT Amanda Trinh LPN No [facility] 02-22-2015 Do you have serious difficulty walking or climbing stairs No 02/22/2015 5:23 PM EDT Amanda Trinh LPN No [facility] 02-22-2015 Do you have difficul ty dressing or bathing No 02/22/2015 5:23 PM EDT Amanda Trinh LPN No [facility] Mental Status Date Assessment Result Facility 04-30-2025 Cognitive function Level Of Cons ciousness Awake;Alert;Appropriate;Fol lows Commands [facility] Work Phone: 02-22-2015 Because of a physica l, mental, or emotional condition, do you have serious difficulty concentrating, remembering, or making decisions Yes 02/22/2015 5:23 PM EDT Amanda Trinh LPN Yes [facility] Clinical Notes 05-15-2022 to 08-14-2025 Note Date & Type Note Facility 08-14-2025 Note HNO ID: [id number] Author: JESSICA PETTY MA Service: ? 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 Author Type: Physician Typing Section Chief Type: Progress Notes Filed: 08/14/2025 14:26 Note Text: Chris Urbina is a 20 year old female with a complaint of chest pain x 4 days. Went to ED two days ago, [facility]. Dx with sore muscles. States had xray, EKG, labs. Told to take ibuprofen but states doesn't help. Described as sharp, worse with breathing. Radiates into left upper arm. States pain has been constant x 4 days. Heating pad helps. Feels like she has to breathe harder because of the pain. Denies cough, fever or recent illness. 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 Denies arm or leg swelling, sob or any other complaints. No recent travel or surgeries. Has nexplanon. REVIEW OF SYSTEMS See HPI, otherwise unremarkable. PAST MEDICAL HISTORY Diagnosis Date Acid reflux ADHD Asthma (HCC) High-functioning autism spectrum disorder (HCC) IBS (irritable bowel syndrome) Pituitary tumor 05/30/2022 PAST SURGICAL HISTORY Procedure Laterality Date EAR TUBES HX TONSILLECTOMY AND ADENOIDECTOMY HX FAMILY HISTORY Problem Relation Age of Onset Depression Mother Irritable Bowel Syndrome Mother Asthma Mother Fibromyalgia Mother Heart Father Depression Father Hyperlipidemia Father other (pituitary tumor) Father Anxiety disorder Sister other (ovarian cysts) Sister other (peptic ulcer) Sister Allergies Sister Hypertension Maternal Grandmother Depression Maternal Grandmother other (CVA) Maternal Grandfather other (pulmonary embolus) Maternal Grandfather Hypertension Paternal Grandmother Ischemic Heart Disease Paternal Grandmother Cancer Paternal Grandfather Ischemic Heart Disease Paternal Grandfather Diabetes Paternal Grandfather Hypertension Paternal Aunt Diabetes Paternal Aunt Alzheimer's Disease Maternal great-grandfather SOCIAL HISTORY[1] PHYSICAL EXAMINATION: Vitals:BP 139/87 Pulse 112 Temp 36.7 ?C (98 ?F) Ht 160 cm (5' 2.99) Wt 79.8 kg (175 lb 14.8 oz) LMP 04/13/2025 (Approximate) SpO2 100% BMI 31.17 kg/m? General Appearance: Well appearing, alert, in no acute distress, well-hydrated, well nourished.. Lungs: Lungs clear to auscultation. No wheezing, rhonchi, rales. +ttp center of chest wall. Heart: tachycardic 110 bpm. Extremities: No deformities, edema, calves nontender ASSESSMENT: DIAGNOSIS: (R07.9) Chest pain, unspecified type (primary encounter diagnosis) PLAN: ASSESSMENT/PLAN: 1. Chest pain, unspecified type - ICD9: 786.50, ICD10: R07.9 Unable to obtain records from ED. Check D dimer, follow up dependent on results. - D-DIMER Pt advised to report to ED in the interim for new or worsening sx. Pt in agreement with the plan and verbalized understanding. Yue Ambriz PA-C [1] Social History Tobacco Use Smoking status: Never Smokeless tobacco: Never Vaping Use Vaping status: Some Days Substances: Flavoring Devices: Disposable Substance Use Topics Alcohol use: Never Drug use: Never [facility] 07-14-2025 Progress note [facility] 07-14-2025 Progress note Note Date/Time July 14, 2025 3:31pm [facility] [address] , [address] [place] [address] OFFICE VISIT Date of Service: 07/14/25 MR#: [id number] Acct: [id number] Name: CHRIS URBINA Rep #: 2005 Provider: MARY Lundberg Age/Sex: 20/F [place] [facility] [place]: Signed Intake Vital Signs 04/30/25 20:11 Height 5 ft 3 in Intake Visit Reasons: PE NON DOT PHYSICAL/ [facility] Allergies No Known Allergies Allergy (Verified 04/30/25 20:14) [facility] Medical History (Updated 07/14/25 @ 15:28 by MARY Molina) Physical exam, pre-employment Gastritis Colitis Seborrheic dermatitis Hyperhidrosis Tic Allergic rhinitis Asperger's disorder Acid reflux Asthma Abnormality of pituitary gland IBS (irritable bowel syndrome) Depression ADHD Social History Smoking Status: Current every day smoker tobacco type: e-cigarettes HPI HPI Details: CHRIS URBINA, is a 20 F who presents to the office today for Office Procedures Physical Exam Coding PE Coding Pre-employment PE: Yes Coding Level of Care Code Attention Adam Diagnoses Physical exam, pre-employment Z02.1 Assessment and Plan Assessment and Plan (1) Physical exam, pre-employment: Status: Acute 07/14/25 1528 <Electronically signed by Gilbert HERNANDEZ> Date _ Gilbert HERNANDEZ Cosigner Signature: Date (if applicable) CC: ~ [facility] Work Phone: [phone] Telephone encounter Note* Telephone Encounter - Jess Vargas MA - 05/18/2025 1:44 PM EDT Pharmacy verified in [facility]. Patient has been identified by name and date of : Yes Patient aware RX will be sent to pharmacy. No need to notify patient. Patient phones for refill(s): Requested Prescriptions Pending Prescriptions Disp Refills buPROPion XL (WELLBUTRIN XL) 300 mg 24 hr tablet 90 tablet 1 Sig: Take 1 tablet by mouth once daily. Date of last office visit : 03/26/2025 Date of next office visit : Visit date not found Last 2 Encounter Wt Readings: Date: Wt: 05/13/2025 76.2 kg (168 lb) 04/21/2025 76.7 kg (169 lb 3.2 oz) Not applicable Please advise. Jess Vargas MA [facility]08-11-2025 Miscellaneous Notes* Telephone Encounter - Jess Vargas MA - 05/18/2025 1:44 PM EDT Pharmacy verified in [facility]. Patient has been identified by name and date of : Yes Patient aware RX will be sent to pharmacy. No need to notify patient. Patient phones for refill(s): Requested Prescriptions Pending Prescriptions Disp Refills buPROPion XL (WELLBUTRIN XL) 300 mg 24 hr tablet 90 tablet 1 Sig: Take 1 tablet by mouth once daily. Date of last office visit : 03/26/2025 Date of next office visit : Visit date not found Last 2 Encounter Wt Readings: Date: Wt: 05/13/2025 76.2 kg (168 lb) 04/21/2025 76.7 kg (169 lb 3.2 oz) Not applicable Please advise. Jess Vargas MA documented in this encounterCleveland [id number] NoteHNO ID: [id number] Author: ASHISH MCCLENDON MD Service: ? Author Type: Physician Type: Progress Notes Filed: 05/13/2025 13:59 Note Text: Chris is a 20 year old patient who presents for Nexplanon insertion. Patient's last menstrual period was 04/13/2025 (approximate). VITALS: BP 109/74 Pulse 111 Ht 5' 3 (1.60m) Wt 168 lb (76.2kg) LMP 04/13/2025 BMI 29.77 kg/(m2). test: negative Nexplanon lot #: [id number] Exp date: 04/03 UNIVERSAL PROTOCOL / SAFETY CHECKLIST Procedure to be Performed: Nexplanon insertion Manager Testing: Carri Flores Sign In: A Moment of CARE was completed. Appropriate PPE (Personal Protective Equipment) worn by all providers involved with the procedure. Special equipment not required. Patient/Surrogate Stated/Verified: Patient name, Date of , Relevant allergies, and The intended procedure Time Out: Relevant labs, photos, and/or imaging studies have been reviewed. Intended patient and procedure match the source document(s) (e.g. consent, HANDP, associated studies [imaging, pathology]) are not applicable. Consent obtained and matches the intended procedure. Yes. Correct side/site has been marked and visible. Medications required for this procedure are verified. Fire risk assessed and is not applicable. Implants: are not applicable. Sign Out: Specimens not collected. All instruments, equipment, possible retained foreign bodies are accounted for. Yes. The post-procedure plan of care has been communicated to the patient or surrogate. TECHNIQUE: Patient placed in supine position with left) bent at the elbow and placed over the head. Skin cleansed with betadine. 3mL of 1% lidocaine with 1:100,000 epi injected subQ along insertion site. Nexplanon jere inserted under sterile technique. After insertion by the provider, the jere was palpable under the skin by both patient and provider. Steristrips and sterile pressure dressing applied. AANDP: Nexplanon inserted without complications. Patient user card was filled out and given to the patient. The patient was instructed to remove the dressing after 24 hours. Advised to use backup contraception for 7 days. Ashish Mcclendon, [facility]07-15-2025 NoteHNO ID: [id number] Author: HALEY ROSS APRN.CNP Service: ? Author Type: Nurse Practitioner Type: Progress Notes Filed: 04/22/2025 12:42 Note Text: Chris Urbina is a 19 year old who presents today for contraception.Interested in the Nexplanon Patient's last menstrual period was 04/13/2025.. SUBJECTIVE Sexually active: Never Method of control: oral contraceptives x 1 year unsatisfactory, caused irregular cycles and painful periods Methods tried previously: none Patient currently interested in: Nexplanon Date of last test: Not applicable Relevant Past Medical History: No relevant past medical history OBJECTIVE: General Appearance: Well appearing, alert, in no acute distress, well-hydrated, well nourished. Reviewed options in BC, Nexplanon procedure reviewed ASSESSMENT/PLAN: Nexplnon ordered Written information given Haley Ross APRN.[facility]NP[facility]07-15-2025 History of Present illness Narrative* Haley Ross APRN.CNP - 04/21/2025 2:26 PM EDT Chris Urbina is a 19 year old who presents today for contraception.Interested in the Nexplanon Patient's last menstrual period was 04/13/2025.. SUBJECTIVE Sexually active: Never Method of control: oral contraceptives x 1 year unsatisfactory, caused irregular cycles and painful periods Methods tried previously: none Patient currently interested in: Nexplanon Date of last test: Not applicable Relevant Past Medical History: No relevant past medical history OBJECTIVE: General Appearance: Well appearing, alert, in no acute distress, well-hydrated, well nourished. Reviewed options in BC, Nexplanon procedure reviewed ASSESSMENT/PLAN: Nexplnon ordered Written information given Haley Ross APRN.CNP [facility] Telephone encounter Note * Telephone Encounter - Beth Carrillo LPN - 03/31/2025 9:17 AM EDT Prescription Refill Information The patient has been identified by name and date of : Yes Caregiver verified no other encounters exist for this prescription request: Yes Caregiver confirmed with patient/requestor that no other refills are due, in the near future, with this provider at this time: Yes The last office visit in the department: 03/26/2025 Does the patient have a future office visit with this provider/department: No Requested Prescriptions Pending Prescriptions Disp Refills ferrous sulfate 325 mg (65 mg iron) tablet [Pharmacy Med Name: FERROUS SULFATE 325 MG TABLET] 30 tablet 2 Sig: TAKE 1 TABLET BY MOUTH EVERY DAY Beth Carrillo LPN March 31, 2025 9:17 AM [facility]06-24-2025 Miscellaneous Notes* Telephone Encounter - Beth Carrillo LPN - 03/31/2025 9:17 AM EDT Prescription Refill Information The patient has been identified by name and date of : Yes Caregiver verified no other encounters exist for this prescription request: Yes Caregiver confirmed with patient/requestor that no other refills are due, in the near future, with this provider at this time: Yes The last office visit in the department: 03/26/2025 Does the patient have a future office visit with this provider/department: No Requested Prescriptions Pending Prescriptions Disp Refills ferrous sulfate 325 mg (65 mg iron) tablet [Pharmacy Med Name: FERROUS SULFATE 325 MG TABLET] 30 tablet 2 Sig: TAKE 1 TABLET BY MOUTH EVERY DAY Beth Carrillo LPN March 31, 2025 9:17 AM documented in this encounterMedina Hospital06-19-2025 [id number] (AGENT OF COVID-19) RNA: Not detected INFLUENZA A RNA: Not detected INFLUENZA B RNA: Not detected RESPIRATORY SYNCYTIAL VIRUS (RSV) RNA: Not detectedWestern Reserve HospitalComment on above:Performed By: #### [id number]- [id number] ####[facility] LABCLIA [id number] [address] OF [id number] History of Present illness Narrative* Patricia Kearney APRN.[facility] - 03/26/2025 11:11 AM EDT Patient presents with: Acute Visit Cough: Chest pain when coughing for past 3 days. Needs referral to OB to get back on control. Cough and Sinus Congestion: - Onset 3 days ago. - Using ljnk-dbz-ttfdbtm cough suppressant with minimal relief. - Denies ear pain. - No known exposure to sick contacts. - Denies testing for COVID-19. Chest Pain: - Onset yesterday, associated only with coughing. - Described as midline, bilateral pain. - Denies pain with palpation or arm movement or deep breathing. - Denies dyspnea. Seasonal Allergies: - History of seasonal allergies; suspects current flare due to pollen. - Has Flonase nasal spray at home. Asthma: - History of asthma; denies current wheezing. Dysmenorrhea: - Reports severe dysmenorrhea with nausea; current oral contraceptive not providing relief. - Menstrual cycles are irregular. - Has not considered alternative forms of contraception. ROS: Constitutional: (-) fever Ears/Nose/Mouth/Throat: (+) nasal congestion, (-) ear pain Cardiovascular: (+) chest pain Respiratory: (+) cough, (-) shortness of breath Genitourinary: (+) menstrual cramps, (+) irregular menses Musculoskeletal: (-) chest wall tenderness PE: BP 110/75 Pulse 100 Temp 36.2 C (97.1 F) (Temporal) Resp 20 Wt 74.9 kg (165 lb 2 oz) LMP 11/20/2024 (Exact Date) SpO2 98% BMI 29.26 kg/m GENERAL: NAD, alert and oriented SKIN: Unremarkable, no rash or skin lesions. HEAD: Normocephalic EYES: PERRLA, EOMI, conjunctiva clear EARS: External ears normal, canals clear, TM's normal. NOSE/SINUSES: Nares erythematous and swollen. Septum midline. OROPHARYNX: Lips, mucosa, and tongue normal, good dentition. No oral lesions noted. NECK: Supple, no lymphadenopathy. LUNGS: Clear to auscultation bilaterally, no wheezes/rhonchi/rales. HEART: Regular rate and rhythm, no murmurs. No ectopy. EXTREMITIES: Normal, no deformities, no skin discoloration, no edema. NEURO: Awake, alert and oriented x3, cranial nerves II-XII grossly intact, normal gait, no involuntary motions Assessment and Plan: 1. URI, acute (J06.9) 2. Other chest pain (R07.89) - Onset 3 days ago; associated with cough and sinus congestion. Chest pain localized to the mid-sternal area, exacerbated by coughing. - No wheezing or abnormal lung sounds on auscultation; no fever currently. - Differential diagnosis includes costochondritis or pleurisy due to inflammation from coughing. - Ordered COVID-19 viral swab test; results expected overnight. Ok to offer antiviral if positive. - Prescribed Tessalon Perles to be taken in conjunction with current dqss-wvo-abjjlcj cough suppressant. - Recommended ibuprofen twice daily with food to reduce inflammation and alleviate chest pain. - Advised to monitor symptoms and follow up if no improvement within 7-10 days or if symptoms worsen. 3. Dysmenorrhea (N94.6) - Current oral contraceptive not effectively managing menstrual cramps. - Discussed alternative contraceptive methods, including IUDs and implants, which may provide better symptom control. - Advised initiating ibuprofen a day or two before the onset of menstruation to mitigate cramps. - Referral to [facility] for further evaluation and management; scheduled with MARY Hines, at [place]. 4. General counseling and advice for contraceptive management (Z30.09) - Provided education on various contraceptive options, including oral contraceptives, IUDs, and implants. - Discussed the ease of removal and suitability of IUDs for future planning. - Referral to [facility] for consultation on alternative contraceptive methods. 5. Allergic rhinitis, unspecified seasonality, unspecified trigger (J30.9) - Noted nasal mucosa erythema and edema on examination. - Recommended Flonase nasal spray to manage symptoms. - Patient has a history of seasonal allergies; current symptoms may be exacerbated by high pollen levels. The patient consented to the use of [employer] software for draft documentation of the visit consistent with [facility] s Notice of Privacy Practices. Patricia Christina APRN.[employer] Patient Instructions: - A COVID-19 viral swab was performed today; you will receive the result overnight. - Start Flonase nasal spray as directed to help reduce nasal inflammation. - Continue your current vwai-qnw-ptlxdlb cough suppressant. - Begin the prescribed Tessalon Perles (benzonatate) to help numb your cough receptors; you may useit along with your OTC cough medicine. - Take ibuprofen twice daily with food to reduce chest discomfort and inflammation from coughing. - For menstrual cramp relief, start ibuprofen one to two days before your period begins and continue regularly once you feel bloated or crampy. - A consult has been placed with our women s health provider (MARY Sutton) for contraceptive counseling and alternative control options; our desk staff will help you schedule that appointment before you leave. - If you test positive for COVID-19, we can discuss starting antiviral treatment tomorrow, as you remain within the treatment window. - Contact the clinic or follow up if your symptoms significantly worsen at any time or if you have no improvement by day 7-10 of this illness. documented in this encounterMedina Hospital06-19-2025 NoteHNO ID: [id number] Author: PATRICIA KEARNEY APRN.[employer] Service: ? Author Type: Nurse Practitioner Type: Progress Notes Filed: 03/26/2025 11:14 Note Text: Patient presents with: Acute Visit Cough: Chest pain when coughing for past 3 days. Needs referral to OB to get back on control. Cough and Sinus Congestion: - Onset 3 days ago. - Using yepw-jfy-ixtujae cough suppressant with minimal relief. - Denies ear pain. - No known exposure to sick contacts. - Denies testing for COVID-19. Chest Pain: - Onset yesterday, associated only with coughing. - Described as midline, bilateral pain. - Denies pain with palpation or arm movement or deep breathing. - Denies dyspnea. Seasonal Allergies: - History of seasonal allergies; suspects current flare due to pollen. - Has Flonase nasal spray at home. Asthma: - History of asthma; denies current wheezing. Dysmenorrhea: - Reports severe dysmenorrhea with nausea; current oral contraceptive not providing relief. - Menstrual cycles are irregular. - Has not considered alternative forms of contraception. ROS: Constitutional: (-) fever Ears/Nose/Mouth/Throat: (+) nasal congestion, (-) ear pain Cardiovascular: (+) chest pain Respiratory: (+) cough, (-) shortness of breath Genitourinary: (+) menstrual cramps, (+) irregular menses Musculoskeletal: (-) chest wall tenderness PE: BP 110/75 Pulse 100 Temp 36.2 ?C (97.1 ?F) (Temporal) Resp 20 Wt 74.9 kg (165 lb 2 oz) LMP 11/20/2024 (Exact Date) SpO2 98% BMI 29.26 kg/m? GENERAL: NAD, alert and oriented SKIN: Unremarkable, no rash or skin lesions. HEAD: Normocephalic EYES: PERRLA, EOMI, conjunctiva clear EARS: External ears normal, canals clear, TM's normal. NOSE/SINUSES: Nares erythematous and swollen. Septum midline. OROPHARYNX: Lips, mucosa, and tongue normal, good dentition. No oral lesions noted. NECK: Supple, no lymphadenopathy. LUNGS: Clear to auscultation bilaterally, no wheezes/rhonchi/rales. HEART: Regular rate and rhythm, no murmurs. No ectopy. EXTREMITIES: Normal, no deformities, no skin discoloration, no edema. NEURO: Awake, alert and oriented x3, cranial nerves II-XII grossly intact, normal gait, no involuntary motions Assessment and Plan: 1. URI, acute (J06.9) 2. Other chest pain (R07.89) - Onset 3 days ago; associated with cough and sinus congestion. Chest pain localized to the mid-sternal area, exacerbated by coughing. - No wheezing or abnormal lung sounds on auscultation; no fever currently. - Differential diagnosis includes costochondritis or pleurisy due to inflammation from coughing. - Ordered COVID-19 viral swab test; results expected overnight. Ok to offer antiviral if positive. - Prescribed Tessalon Perles to be taken in conjunction with current uyan-umg-nlfqmxj cough suppressant. - Recommended ibuprofen twice daily with food to reduce inflammation and alleviate chest pain. - Advised to monitor symptoms and follow up if no improvement within 7-10 days or if symptoms worsen. 3. Dysmenorrhea (N94.6) - Current oral contraceptive not effectively managing menstrual cramps. - Discussed alternative contraceptive methods, including IUDs and implants, which may provide better symptom control. - Advised initiating ibuprofen a day or two before the onset of menstruation to mitigate cramps. - Referral to [facility] for further evaluation and management; scheduled with MARY Hines, at [place]. 4. General counseling and advice for contraceptive management (Z30.09) - Provided education on various contraceptive options, including oral contraceptives, IUDs, and implants. - Discussed the ease of removal and suitability of IUDs for future planning. - Referral to [facility] for consultation on alternative contraceptive methods. 5. Allergic rhinitis, unspecified seasonality, unspecified trigger (J30.9) - Noted nasal mucosa erythema and edema on examination. - Recommended Flonase nasal spray to manage symptoms. - Patient has a history of seasonal allergies; current symptoms may be exacerbated by high pollen levels. The patient consented to the use of [employer] software for draft documentation of the visit consistent with [facility] Notice of Privacy Practices. Patricia Christina APRN.[employer] Patient Instructions: - A COVID-19 viral swab was performed today; you will receive the result overnight. - Start Flonase nasal spray as directed to help reduce nasal inflammation. - Continue your current syac-utn-yucxgln cough suppressant. - Begin the prescribed Tessalon Perles (benzonatate) to help numb your cough receptors; you may use it along with your OTC cough medicine. - Take ibuprofen twice daily with food to reduce chest discomfort and inflammation from coughing. 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 Patient has been identified by name and date of : Yes Patient aware RX will be sent to pharmacy. No need to notify patient. Patient phones for refill(s): Requested Prescriptions Pending Prescriptions Disp Refills atomoxetine (STRATTERA) 25 mg capsule [Pharmacy Med Name: ATOMOXETINE HCL 25 MG CAPSULE] 180 capsule 2 Sig: TAKE 2 CAPSULES BY MOUTH DAILY AT BEDTIME. Date of last office visit : 12/24/2024 Date of next office visit : Visit date not found Last 2 Encounter Wt Readings: Date: Wt: 12/24/2024 79.3 kg (174 lb 13.2 oz) 11/20/2024 76.4 kg (168 lb 6.9 oz) Not applicable Please advise. Jess Vargas MA [facility]06-12-2025 Miscellaneous Notes* Telephone Encounter - Jess Vargas MA - 03/19/2025 1:18 PM EDT Pharmacy verified in [employer]. Patient has been identified by name and date of : Yes Patient aware RX will be sent to pharmacy. No need to notify patient. Patient phones for refill(s): Requested Prescriptions Pending Prescriptions Disp Refills atomoxetine (STRATTERA) 25 mg capsule [Pharmacy Med Name: ATOMOXETINE HCL 25 MG CAPSULE] 180 capsule 2 Sig: TAKE 2 CAPSULES BY MOUTH DAILY AT BEDTIME. Date of last office visit : 12/24/2024 Date of next office visit : Visit date not found Last 2 Encounter Wt Readings: Date: Wt: 12/24/2024 79.3 kg (174 lb 13.2 oz) 11/20/2024 76.4 kg (168 lb 6.9 oz) Not applicable Please advise. Jess Vargas MA [facility] Telephone encounter Note * Telephone Encounter - Lara Groves LPN - 03/10/2025 4:38 PM EDT Mychart message sent with message below to patient. Lara Groves LPN [facility]06-03-2025 Miscellaneous Notes* Telephone Encounter - Lara Groves LPN - 03/10/2025 4:38 PM EDT Mychart message sent with message below to patient. Lara Groves LPN * Telephone Encounter - Yue Ambriz PA-C - 03/10/2025 1:46 PM EDT One refill sent. Pt needs to follow up with psychiatry. This has been discussed multiple times. Yue Ambriz PA-C * Telephone Encounter - Hazel Gaming LPN - 03/10/2025 1:42 PM EDT Prescription Refill Information The patient has been identified by name and date of : Yes Caregiver verified no other encounters exist for this prescription request: Yes Caregiver confirmed with patient/requestor that no other refills are due, in the near future, with this provider at this time: Yes The last office visit in the department: 12/24/24 Does the patient have a future office visit with this provider/department: No Requested Prescriptions Pending Prescriptions Disp Refills risperiDONE (RISPERDAL) 0.5 mg tablet 180 tablet 1 Sig: Take 1 tablet by mouth two times a day. Hazel Gaming LPN March 10, 2025 1:42 PM documented in [facility] encounter[facility]06[facility] Telephone encounter Note * Telephone Encounter - Yue Ambriz PA-C - 03/10/2025 1:46 PM EDT One refill sent. Pt needs to follow up with psychiatry. This has been discussed multiple times. Yue Ambriz PA-C [facility]06-03-2025 Telephone encounter Note* Telephone Encounter - Hazel Gaming LPN - 03/10/2025 1:42 PM EDT Prescription Refill Information The patient has been identified by name and date of : Yes Caregiver verified no other encounters exist for this prescription request: Yes Caregiver confirmed with patient/requestor that no other refills are due, in the near future, with this provider at this time: Yes The last office visit in the department: 12/24/24 Does the patient have a future office visit with this provider/department: No Requested Prescriptions Pending Prescriptions Disp Refills risperiDONE (RISPERDAL) 0.5 mg tablet 180 tablet 1 Sig: Take 1 tablet by mouth two times a day. Hazel Gaming LPN March 10, 2025 1:42 PM [facility]04-12-2025 Telephone encounter Note* Telephone Encounter - Lara Groves LPN - 01/17/2025 11:16 AM EDT Prescription Refill Information The patient has been identified by name and date of : Yes Caregiver verified no other encounters exist for this prescription request: Yes Caregiver confirmed with patient/requestor that no other refills are due, in the near future, with this provider at this time: Yes The last office visit in the department: 12/24/24 Does the patient have a future office visit with this provider/department: No Requested Prescriptions Pending Prescriptions Disp Refills VOLNEA, 28, 0.15-0.02 mgx21 /0.01 mg x 5 per tablet 84 tablet 3 Sig: Take 1 tablet by mouth once daily. Lara Groves LPN January 17, 2025 11:16 AM [facility]04-12-2025 Miscellaneous Notes* Telephone Encounter - Lara Groves LPN - 01/17/2025 11:16 AM EDT Prescription Refill Information The patient has been identified by name and date of : Yes Caregiver verified no other encounters exist for this prescription request: Yes Caregiver confirmed with patient/requestor that no other refills are due, in the near future, with this provider at this time: Yes The last office visit in the department: 12/24/24 Does the patient have a future office visit with this provider/department: No Requested Prescriptions Pending Prescriptions Disp Refills VOLNEA, 28, 0.15-0.02 mgx21 /0.01 mg x 5 per tablet 84 tablet 3 Sig: Take 1 tablet by mouth once daily. Lara Groves LPN January 17, 2025 11:16 AM documented in this encounterMed[facility]04-[facility]-2025 Telephone encounter Note * Telephone Encounter - Lara Groves LPN - 01/17/2025 11:15 AM EDT Prescription Refill Information The patient has been identified by name and date of : Yes Caregiver verified no other encounters exist for this prescription request: Yes Caregiver confirmed with patient/requestor that no other refills are due, in the near future, with this provider at this time: Yes The last office visit in the department: 12/24/24 Does the patient have a future office visit with this provider/department: No Requested Prescriptions Pending Prescriptions Disp Refills cetirizine (ZYRTEC) 10 mg tablet 90 tablet 1 Sig: Take 1 tablet by mouth once daily. Lara Groves LPN January 17, 2025 11:15 AM [facility]04-12-2025 Miscellaneous Notes* Telephone Encounter - Lara Groves LPN - 01/17/2025 11:15 AM EDT Prescription Refill Information The patient has been identified by name and date of : Yes Caregiver verified no other encounters exist for this prescription request: Yes Caregiver confirmed with patient/requestor that no other refills are due, in the near future, with this provider at this time: Yes The last office visit in the department: 12/24/24 Does the patient have a future office visit with this provider/department: No Requested Prescriptions Pending Prescriptions Disp Refills cetirizine (ZYRTEC) 10 mg tablet 90 tablet 1 Sig: Take 1 tablet by mouth once daily. Lara Groves LPN January 17, 2025 11:15 AM documented in this encounterMedina Hospital04-10-2025 Telephone encounter Note * Telephone Encounter - Ginny Hood RN - 01/15/2025 9:15 AM EDT Spoke with pt, reviewed below message. Verbalized understanding, no further questions. [facility]04-10-2025 Miscellaneous Notes* Telephone Encounter - Ginny Hood RN - 01/15/2025 9:15 AM EDT Spoke with pt, reviewed below message. Verbalized understanding, no further questions. * Telephone Encounter - Yue Ambriz PA-C - 01/15/2025 8:45 AM EDT Continue current dose and recheck in 6 months. Thanks Yue Ambriz PA-C * Telephone Encounter - Ginny Hood RN - 01/14/2025 7:11 PM EDT Spoke with pt, reviewed below message. Confirms she is still taking iron Denies any questions or concerns at this time * Telephone Encounter - Yue Ambriz PA-C - 01/14/2025 5:44 PM EDT Reviewing labs that were ordered in Oct and just completed yesterday. Iron is ok. Blood counts and vitamin D normal. Is she still taking iron? ThanksYue PA-C documented in this encounterMed[facility]04-[facility] Telephone encounter Note * Telephone Encounter - Yue Ambriz PA-C - 01/15/2025 8:45 AM EDT Continue current dose and recheck in 6 months. Thanks Yue Ambriz PA-C [facility]04-09-2025 Telephone encounter Note* Telephone Encounter - Ginny Hood RN - 01/14/2025 7:11 PM EDT Spoke with pt, reviewed below message. Confirms she is still taking iron Denies any questions or concerns at this time [facility]04-09-2025 Telephone encounter Note* Telephone Encounter - Yue Ambriz PA-C - 01/14/2025 5:44 PM EDT Reviewing labs that were ordered in Oct and just completed yesterday. Iron is ok. Blood counts and vitamin D normal. Is she still taking iron? Thanks, Yue Ambriz PA-C [facility]04-08-2025 Telephone encounter Note* Telephone Encounter - Kirsty Broussard RN - 01/13/2025 11:29 AM EDT See triage [facility]04-08-2025 Miscellaneous Notes* Telephone Encounter - Kirsty Broussard RN - 01/13/2025 11:29 AM EDT See triage * Telephone Encounter - Jess Vargas MA - 01/12/2025 4:34 PM EDT Please triage patient Thank you Jess Vargas MA documented in this encounterMedina Hospital04-[facility]-2025 Miscellaneous Notes* Telephone Encounter - Kirsty Broussard RN - 01/13/2025 11:29 AM EDT Spoke to patient who states sometimes she feels nauseous Hx: IBS Diarrhea 1-2x a week, started last week Might last half a day Denies abdominal pain or cramps Denies blood Never vomits Not taking OTC medications Nausea completely unrelated Denies fever - other sick symptoms No changes in medications Said she gets diarrhea normally with her IBS Does not drink water - pop or tea Said she is trying not to eat as much processed food Advised to schedule OV if symptoms continue/worsen or unable to get into GI quickly Used to see a GI doctor but did not establish with adult provider. Transferred to scheduling, provided [facility] phone number Reason for Disposition Diarrhea is a chronic symptom (recurrent or ongoing AND present > 4 weeks) Protocols used: [id number] documented in this encounterMedina Hospital04-[facility]-2025 Telephone encounter Note * Telephone Encounter - Kirsty Broussard RN - 01/13/2025 11:29 AM EDT Spoke to patient who states sometimes she feels nauseous Hx: IBS Diarrhea 1-2x a week, started last week Might last half a day Denies abdominal pain or cramps Denies blood Never vomits Not taking OTC medications Nausea completely unrelated Denies fever - other sick symptoms No changes in medications Said she gets diarrhea normally with her IBS Does not drink water - pop or tea Said she is trying not to eat as much processed food Advised to schedule OV if symptoms continue/worsen or unable to get into GI quickly Used to see a GI doctor but did not establish with adult provider. Transferred to scheduling, provided [facility] phone number Reason for Disposition Diarrhea is a chronic symptom (recurrent or ongoing AND present > 4 weeks) Protocols used: [id number] [facility]04-07-2025 Telephone encounter Note* Telephone Encounter - Jess Vargas MA - 01/12/2025 4:34 PM EDT Please triage patient Thank you Jess Vargas MA [facility]04-07-2025 Telephone encounter Note* Telephone Encounter - Cristiane Gracia MA - 01/12/2025 9:56 AM EDT Prescription Refill Information The patient has been identified by name and date of : Yes Caregiver verified no other encounters exist for this prescription request: Yes Caregiver confirmed with patient/requestor that no other refills are due, in the near future, with this provider at this time: Yes The last office visit in the department: 12/24/2024 Does the patient have a future office visit with this provider/department: No Requested Prescriptions Pending Prescriptions Disp Refills lansoprazole (PREVACID) 30 mg capsule [Pharmacy Med Name: LANSOPRAZOLE DR 30 MG CAPSULE] 180 capsule 1 Sig: TAKE 1 CAPSULE BY MOUTH TWICE A DAY Cristiane Gracia MA January 12, 2025 9:57 AM T [facility]04-07-2025 Miscellaneous Notes* Telephone Encounter - Cristiane Gracia MA - 01/12/2025 9:56 AM EDT Prescription Refill Information The patient has been identified by name and date of : Yes Caregiver verified no other encounters exist for this prescription request: Yes Caregiver confirmed with patient/requestor that no other refills are due, in the near future, with this provider at this time: Yes The last office visit in the department: 12/24/2024 Does the patient have a future office visit with this provider/department: No Requested Prescriptions Pending Prescriptions Disp Refills lansoprazole (PREVACID) 30 mg capsule [Pharmacy Med Name: LANSOPRAZOLE DR 30 MG CAPSULE] 180 capsule 1 Sig: TAKE 1 CAPSULE BY MOUTH TWICE A DAY Cristiane Gracia MA January 12, 2025 9:57 AM documented in this encounterMedina Hospital03-21-2025 Telephone encounter Note * Telephone Encounter - Trina Nolasco MA - 12/26/2024 3:23 PM EDT Left detailed message. Asked the pt to contact the office if she had any further questions/concerns [facility]03-21-2025 Miscellaneous Notes* Telephone Encounter - Trina Nolasco MA - 12/26/2024 3:23 PM EDT Left detailed message. Asked the pt to contact the office if she had any further questions/concerns * Telephone Encounter - Yue Ambriz PA-C - 12/26/2024 2:20 PM EDT Needs level repeated. May not need prescription dose any longer. Yue Ambriz PA-C * Telephone Encounter - Trina Nolasco MA - 12/26/2024 2:15 PM EDT Pharmacy requesting a 90 day supply Prescription Refill Information The patient has been identified by name and date of : Yes Caregiver verified no other encounters exist for this prescription request: Yes Caregiver confirmed with patient/requestor that no other refills are due, in the near future, with this provider at this time: Yes The last office visit in the department: 12-24-24 Does the patient have a future office visit with this provider/department: No Requested Prescriptions Pending Prescriptions Disp Refills cholecalciferol, Vitamin D3, (VITAMIN D3) 1,250 mcg (50,000 unit) cap capsule [Pharmacy Med Name: VITAMIN D3 50,000 UNIT CAPSULE] 12 capsule 1 Sig: TAKE 1 CAPSULE BY MOUTH ONE TIME A WEEK. Trina Nolasco MA December 26, 2024 2:16 PM documented in this encounterMedina Hospital03-21-2025 Telephone encounter Note * Telephone Encounter - Yue Ambriz PA-C - 12/26/2024 2:20 PM EDT Needs level repeated. May not need prescription dose any longer. Yue Ambriz PA-C [facility]03-21-2025 Telephone encounter Note* Telephone Encounter - Trina Nolasco MA - 12/26/2024 2:15 PM EDT Pharmacy requesting a 90 day supply Prescription Refill Information The patient has been identified by name and date of : Yes Caregiver verified no other encounters exist for this prescription request: Yes Caregiver confirmed with patient/requestor that no other refills are due, in the near future, with this provider at this time: Yes The last office visit in the department: 12-24-24 Does the patient have a future office visit with this provider/department: No Requested Prescriptions Pending Prescriptions Disp Refills cholecalciferol, Vitamin D3, (VITAMIN D3) 1,250 mcg (50,000 unit) cap capsule [Pharmacy Med Name: VITAMIN D3 50,000 UNIT CAPSULE] 12 capsule 1 Sig: TAKE 1 CAPSULE BY MOUTH ONE TIME A WEEK. Trina Nolasco MA December 26, 2024 2:16 PM [facility]03-19-2025 NoteHNO ID: [id number] Author: JESSICA PETTY MA Service: ? 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 Author Type: Physician Typing Section Chief Type: Progress Notes Filed: 12/24/2024 13:52 Note Text: hCris Urbina is a 19 year old female with a complaint of high blood pressure. Pt was curious to know her BP and took with home BP cuff and diastolic was in the 90s. She is here today to discuss. Feels fine. Drinks caffeine daily, multiple servings of pop. Sometimes energy drinks. Diet is fair. Some processed foods. No regimented exercise. REVIEW OF SYSTEMS See HPI, otherwise unremarkable. PAST MEDICAL HISTORY Diagnosis Date Acid reflux ADHD Asthma High-functioning autism spectrum disorder IBS (irritable bowel syndrome) Pituitary tumor 05/30/2022 PAST SURGICAL HISTORY Procedure Laterality Date EAR TUBES HX TONSILLECTOMY AND ADENOIDECTOMY HX FAMILY HISTORY Problem Relation Age of Onset Depression Mother Irritable Bowel Syndrome Mother Asthma Mother Fibromyalgia Mother Heart Father Depression Father Hyperlipidemia Father other (pituitary tumor) Father Anxiety disorder Sister other (ovarian cysts) Sister other (peptic ulcer) Sister Allergies Sister Hypertension Maternal Grandmother Depression Maternal Grandmother other (CVA) Maternal Grandfather other (pulmonary embolus) Maternal Grandfather Hypertension Paternal Grandmother Ischemic Heart Disease Paternal Grandmother Cancer Paternal Grandfather Ischemic Heart Disease Paternal Grandfather Diabetes Paternal Grandfather Hypertension Paternal Aunt Diabetes Paternal Aunt Alzheimer's Disease Maternal great-grandfather Social History Tobacco Use Smoking status: Never Smokeless tobacco: Never Vaping Use Vaping status: Some Days Substances: Flavoring Substance Use Topics Alcohol use: Never Drug use: Never PHYSICAL EXAMINATION: Vitals: BP 123/84 Pulse 101 Temp 36.2 ?C (97.2 ?F) Ht 160 cm (5' 2.99) Wt 79.3 kg (174 lb 13.2 oz) LMP 11/20/2024 (Exact Date) SpO2 99% BMI 30.98 kg/m? Home cuff 119/83 General Appearance: Well appearing, alert, in no acute distress, well-hydrated, well nourished.. ASSESSMENT: DIAGNOSIS: (R03.0) Elevated blood pressure reading without diagnosis of hypertension (primary encounter diagnosis) PLAN: Educated on proper body position while checking BP, reduce caffeine, 150 min cardiovascular exercise per week, reduce processed foods, weight loss. Follow up if continued elevated readings. Pt in agreement with the plan and verbalized understanding. [facility]03-19-2025 History of Present illness Narrative* Jessica Petty MA - 12/24/2024 1:34 PM EDT Asthma Action Plan Never done Asthma Control Test Never done Spirometry Never done GC (Gonorrhea) Screening () Never done Depression Screening Never done Anxiety Screening Never done Chlamydia Screening () Never done Cervical Cancer Screening Never done DTaP,Tdap,Td Vaccine(7 - Td or Tdap) due on 05/15/2024 * Yue Ambriz PA-C - 12/24/2024 1:34 PM EDT Chris Urbina is a 19 year old female with a complaint of high blood pressure. Pt was curious toknow her BP and took with home BP cuff and diastolic was in the 90s. She is here today to discuss. Feels fine. Drinks caffeine daily, multiple servings of pop. Sometimes energy drinks. Diet is fair. Some processed foods. No regimented exercise. REVIEW OF SYSTEMS See HPI, otherwise unremarkable. PAST MEDICAL HISTORY Diagnosis Date Acid reflux ADHD Asthma High-functioning autism spectrum disorder IBS (irritable bowel syndrome) Pituitary tumor 05/30/2022 PAST SURGICAL HISTORY Procedure Laterality Date EAR TUBES HX TONSILLECTOMY AND ADENOIDECTOMY HX FAMILY HISTORY Problem Relation Age of Onset Depression Mother Irritable Bowel Syndrome Mother Asthma Mother Fibromyalgia Mother Heart Father Depression Father Hyperlipidemia Father other (pituitary tumor) Father Anxiety disorder Sister other (ovarian cysts) Sister other (peptic ulcer) Sister Allergies Sister Hypertension Maternal Grandmother Depression Maternal Grandmother other (CVA) Maternal Grandfather other (pulmonary embolus) Maternal Grandfather Hypertension Paternal Grandmother Ischemic Heart Disease Paternal Grandmother Cancer Paternal Grandfather Ischemic Heart Disease Paternal Grandfather Diabetes Paternal Grandfather Hypertension Paternal Aunt Diabetes Paternal Aunt Alzheimer's Disease Maternal great-grandfather Social History Tobacco Use Smoking status: Never Smokeless tobacco: Never Vaping Use Vaping status: Some Days Substances: Flavoring Substance Use Topics Alcohol use: Never Drug use: Never PHYSICAL EXAMINATION: Vitals: BP 123/84 Pulse 101 Temp 36.2 C (97.2 F) Ht 160 cm (5' 2.99) Wt 79.3 kg (174 lb 13.2 oz) LMP 11/20/2024 (Exact Date) SpO2 99% BMI 30.98 kg/m Home cuff 119/83 General Appearance: Well appearing, alert, in no acute distress, well-hydrated, well nourished.. ASSESSMENT: DIAGNOSIS: (R03.0) Elevated blood pressure reading without diagnosis of hypertension (primary encounter diagnosis) PLAN: Educated on proper body position while checking BP, reduce caffeine, 150 min cardiovascular exercise per week, reduce processed foods, weight loss. Follow up if continued elevated readings. Pt in agreement with the plan and verbalized understanding. Yue Ambriz PA-C documented in this encounterMedina Hospital03-[facility]25 Telephone encounter Note * Telephone Encounter - Yue Ambriz PA-C - 12/23/2024 3:36 PM EDT Addressed in other [facility] msg. Yue Ambriz PA-C [facility]03-18-2025 Miscellaneous Notes* Telephone Encounter - Yue Ambriz PA-C - 12/23/2024 3:36 PM EDT Addressed in other [employer] msg. Yue Ambriz PA-C * Telephone Encounter - Jessica Petty MA - 12/22/2024 10:12 AM EDT Please review and advise documented in this encounterMedina Hospital03-17-2025 Telephone encounter Note * Telephone Encounter - Jessica Petty MA - 12/22/2024 10:12 AM EDT Please review and advise [facility]03-11-2025 Telephone encounter Note* Telephone Encounter - Lara Groves LPN - 12/16/2024 2:03 PM EDT Prescription Refill Information The patient has been identified by name and date of : Yes Caregiver verified no other encounters exist for this prescription request: Yes Caregiver confirmed with patient/requestor that no other refills are due, in the near future, with this provider at this time: Yes The last office visit in the department: 11/20/24 Does the patient have a future office visit with this provider/department: No Requested Prescriptions Pending Prescriptions Disp Refills lansoprazole (PREVACID) 30 mg capsule [Pharmacy Med Name: LANSOPRAZOLE DR 30 MG CAPSULE] 60 capsule1 Sig: TAKE 1 CAPSULE BY MOUTH TWICE A DAY Lara Groves LPN December 16, 2024 2:03 PM [facility]03-11-2025 Miscellaneous Notes* Telephone Encounter - Lara Groves LPN - 12/16/2024 2:03 PM EDT Prescription Refill Information The patient has been identified by name and date of : Yes Caregiver verified no other encounters exist for this prescription request: Yes Caregiver confirmed with patient/requestor that no other refills are due, in the near future, with this provider at this time: Yes The last office visit in the department: 11/20/24 Does the patient have a future office visit with this provider/department: No Requested Prescriptions Pending Prescriptions Disp Refills lansoprazole (PREVACID) 30 mg capsule [Pharmacy Med Name: LANSOPRAZOLE DR 30 MG CAPSULE] 60 capsule1 Sig: TAKE 1 CAPSULE BY MOUTH TWICE A DAY Lara Groves LPN December 16, 2024 2:03 PM [facility] Telephone encounter Note * Telephone Encounter - Alyssa Lobo MA - 12/12/2024 8:50 AM EST Prescription Refill Information The patient has been identified by name and date of : Yes Caregiver verified no other encounters exist for this prescription request: Yes Caregiver confirmed with patient/requestor that no other refills are due, in the near future, with this provider at this time: Yes The last office visit in the department: 11/20/24 Does the patient have a future office visit with this provider/department: No Requested Prescriptions Pending Prescriptions Disp Refills atomoxetine (STRATTERA) 25 mg capsule [Pharmacy Med Name: ATOMOXETINE HCL 25 MG CAPSULE] 180 capsule 1 Sig: TAKE 2 CAPSULES BY MOUTH DAILY AT BEDTIME. Alyssa Lobo MA December 12, 2024 8:51 AM [facility]03-07-2025 Miscellaneous Notes* Telephone Encounter - Alyssa Lobo MA - 12/12/2024 8:50 AM EST Prescription Refill Information The patient has been identified by name and date of : Yes Caregiver verified no other encounters exist for this prescription request: Yes Caregiver confirmed with patient/requestor that no other refills are due, in the near future, with this provider at this time: Yes The last office visit in the department: 11/20/24 Does the patient have a future office visit with this provider/department: No Requested Prescriptions Pending Prescriptions Disp Refills atomoxetine (STRATTERA) 25 mg capsule [Pharmacy Med Name: ATOMOXETINE HCL 25 MG CAPSULE] 180 capsule 1 Sig: TAKE 2 CAPSULES BY MOUTH DAILY AT BEDTIME. Alyssa Lobo MA December 12, 2024 8:51 AM documented in [facility] encounterMed[facility]03-[facility] Telephone encounter Note * Telephone Encounter - Lara Groves LPN - 12/12/2024 8:09 AM EST Please review and advise. [facility]03-07-20[facility] Miscellaneous Notes* Telephone Encounter - Lara Groves LPN - 12/12/2024 8:09 AM EST Please review and advise. documented in this encounterMed[facility]02-14-2025 Telephone encounter Note * Telephone Encounter - Ginny Hood RN - 11/21/2024 8:48 AM EST Spoke with pt, reviewed below message. Verbalized understanding Reviewed common side effects of Tamiflu Pt agreeable to taking it Pharmacy confirmed, [facility] [place] [facility]02[facility] Miscellaneous Notes* Telephone Encounter - Ginny Hood RN - 11/21/2024 8:48 AM EST Spoke with pt, reviewed below message. Verbalized understanding Reviewed common side effects of Tamiflu Pt agreeable to taking it Pharmacy confirmed, [facility] [place] * Telephone Encounter - Danial Guidry APRN.DANIEL - 11/21/2024 8:21 AM EST Please let patient know she is positive for flu A, symptoms started two days ago and is within 48hrwindow would she like to start tamiflu? Please review side effects and if she wants I will send in documented in this encounterMedina [facility]02-14-2025 Telephone encounter Note * Telephone Encounter - Danial Guidry APRN.CNP - 11/21/2024 8:21 AM EST Please let patient know she is positive for flu A, symptoms started two days ago and is within 48hrwindow would she like to start tamiflu? Please review side effects and if she wants I will send in [facility]02[facility]13[facility] [id number] (AGENT OF COVID-19) RNA: Not detected INFLUENZA A RNA: Detected INFLUENZA B RNA: Not detected RESPIRATORY SYNCYTIAL VIRUS (RSV) RNA: Not detectedWestern Reserve HospitalComment on above:Performed By: #### [id number] ####[facility] [id number] [address]02-13-[address]25 NoteHNO ID: [id number] Author: DANIAL GUIDRY APRN.GUNITE MIXER Service: ? Author Type: Nurse Practitioner Type: Progress Notes Filed: 11/20/2024 16:11 Note Text: ESTABLISHED PATIENT Chris Urbina is a 19 year old female presenting for URI (Nausea, cough, congestion for the past two weeks. Also right knee pain). HISTORY OF PRESENT ILLNESS Had a runny nose for two weeks Yesterday Cough started Nausea started yesterday as well No fevers Bad body aches yesterday Hurts to cough in chest SOB on exertion, Using rescue inhaler every 4 hours which helps Nausea worse with laying Is eating and drinking well, no vomiting No diarrhea No wheezing Taking day/nyquil, robitussin Has had chronic knee issues Both knees give out sometimes as well as cause pain Wears knee braces and this helps Knees have been ok until today Today her R lateral knee started hurting for no reason, no injury No swelling or bruising or numbness or tingling Hasn't tried her brace yet today HISTORIES FAMILY HISTORY Problem Relation Age of Onset Depression Mother Irritable Bowel Syndrome Mother Asthma Mother Fibromyalgia Mother Heart Father Depression Father Hyperlipidemia Father other (pituitary tumor) Father Anxiety disorder Sister other (ovarian cysts) Sister other (peptic ulcer) Sister Allergies Sister Hypertension Maternal Grandmother Depression Maternal Grandmother other (CVA) Maternal Grandfather other (pulmonary embolus) Maternal Grandfather Hypertension Paternal Grandmother Ischemic Heart Disease Paternal Grandmother Cancer Paternal Grandfather Ischemic Heart Disease Paternal Grandfather Diabetes Paternal Grandfather Hypertension Paternal Aunt Diabetes Paternal Aunt Alzheimer's Disease Maternal great-grandfather PAST MEDICAL HISTORY Diagnosis Date Acid reflux ADHD Asthma High-functioning autism spectrum disorder IBS (irritable bowel syndrome) Pituitary tumor 05/30/2022 PAST SURGICAL HISTORY Procedure Laterality Date EAR TUBES HX TONSILLECTOMY AND ADENOIDECTOMY HX Social History Tobacco Use Smoking status: Never Smokeless tobacco: Never Vaping Use Vaping status: Some Days Substances: Flavoring Substance Use Topics Alcohol use: Never Drug use: Never Allergies: ALLERGIES No Known Allergies Medications: atomoxetine (STRATTERA) 25 mg capsule Take 2 capsules by mouth daily at bedtime. ferrous sulfate (FEROSUL) 325 mg (65 mg iron) tablet Take 1 tablet by mouth once daily. sertraline (ZOLOFT) 100 mg tablet Take 2 tablets by mouth once daily. 2 tablets daily albuterol HFA (PROVENTIL HFA, VENTOLIN HFA) 90 mcg/actuation inhaler Inhale 2 Puffs as instructed every 4 hours as needed for wheezing/shortness of breath. buPROPion XL (WELLBUTRIN XL) 300 mg 24 hr tablet Take 1 tablet by mouth once daily. risperiDONE (RISPERDAL) 0.5 mg tablet TAKE 1 TABLET BY MOUTH TWICE A DAY cholecalciferol, Vitamin D3, (VITAMIN D3) 1,250 mcg (50,000 unit) cap capsule Take 1 capsule by mouth one time a week. cetirizine (ZYRTEC) 10 mg tablet Take 1 tablet by mouth once daily. lansoprazole (PREVACID) 30 mg capsule Take 1 capsule by mouth two times a day. VOLNEA, 28, 0.15-0.02 mgx21 /0.01 mg x 5 per tablet Take 1 tablet by mouth once daily. cabergoline (DOSTINEX) 0.5 mg tablet Take 1 tablet by mouth three times a week. fluticasone (FLONASE) 50 mcg/actuation nasal spray place 1 spray into each nostril twice a day dicyclomine (BENTYL) 10 mg capsule Take 10 mg by mouth. CETIRIZINE HCL (ZYRTEC ORAL) Take by mouth. budesonide-formoterol (SYMBICORT) 80-4.5 mcg/actuation inhaler Inhale 2 Puffs as instructed twice daily. aluminum chloride (DRYSOL) 20 % external solution Apply to affected area daily at bedtime. REVIEW OF SYSTEMS See HPI PHYSICAL EXAM BP 126/91 Pulse 90 Temp 36.6 ?C (97.8 ?F) (Left Tympanic) Resp 16 Wt 76.4 kg (168 lb 6.9 oz) LMP 11/20/2024 (Exact Date) SpO2 98% BMI 29.84 kg/m? General Appearance: Well appearing, alert, in no acute distress, well-hydrated, well nourished, does sound congested/nasally Ears: External ears normal, canals clear, bilateral TM intact R TM slightly erythematous with no purulent fluid noted behind TM, left TM normal Nose/Sinuses: Positive findings: clear rhinorrhea. Oropharynx: Lips, mucosa, and tongue normal, teeth and gums normal, oropharynx normal. Lungs: Lungs clear to auscultation. No wheezing, rhonchi, rales.. Heart: RRR without murmur, gallop, or rubs. No ectopy. R knee appears normal, no swelling or bruising, no instability of knee and unable to reproduce pain with ROM and ROM against resistance ASSESSMENT/PLAN: 1. URI, acute - ICD9: 465.9, ICD10: J06.9 (primary diagnosis) - does sound like a new illness, check viral panel, continue OTC's, exam relatively benign - reviewed in length s/sx that would warrant follow up and patient verbalizes understanding - COVID AND INFLUENZA A/B (more content not included)...[facility]02[facility] History of Present illness Narrative* Danial Guidry APRN.GUNITE MIXER - 11/20/2024 3:46 PM EST ESTABLISHED PATIENT Chris Urbina is a 19 year old female presenting for URI (Nausea, cough, congestion for the past two weeks. Also right knee pain). HISTORY OF PRESENT ILLNESS Had a runny nose for two weeks Yesterday Cough started Nausea started yesterday as well No fevers Bad body aches yesterday Hurts to cough in chest SOB on exertion, Using rescue inhaler every 4 hours which helps Nausea worse with laying Is eating and drinking well, no vomiting No diarrhea No wheezing Taking day/nyquil, romel Has had chronic knee issues Both knees give out sometimes as well as cause pain Wears knee braces and this helps Knees have been ok until today Today her R lateral knee started hurting for no reason, no injury No swelling or bruising or numbness or tingling Hasn't tried her brace yet today HISTORIES FAMILY HISTORY Problem Relation Age of Onset Depression Mother Irritable Bowel Syndrome Mother Asthma Mother Fibromyalgia Mother Heart Father Depression Father Hyperlipidemia Father other (pituitary tumor) Father Anxiety disorder Sister other (ovarian cysts) Sister other (peptic ulcer) Sister Allergies Sister Hypertension Maternal Grandmother Depression Maternal Grandmother other (CVA) Maternal Grandfather other (pulmonary embolus) Maternal Grandfather Hypertension Paternal Grandmother Ischemic Heart Disease Paternal Grandmother Cancer Paternal Grandfather Ischemic Heart Disease Paternal Grandfather Diabetes Paternal Grandfather Hypertension Paternal Aunt Diabetes Paternal Aunt Alzheimer's Disease Maternal great-grandfather PAST MEDICAL HISTORY Diagnosis Date Acid reflux ADHD Asthma High-functioning autism spectrum disorder IBS (irritable bowel syndrome) Pituitary tumor 05/30/2022 PAST SURGICAL HISTORY Procedure Laterality Date EAR TUBES HX TONSILLECTOMY AND ADENOIDECTOMY HX Social History Tobacco Use Smoking status: Never Smokeless tobacco: Never Vaping Use Vaping status: Some Days Substances: Flavoring Substance Use Topics Alcohol use: Never Drug use: Never Allergies: ALLERGIES No Known Allergies Medications: atomoxetine (STRATTERA) 25 mg capsule Take 2 capsules by mouth daily at bedtime. ferrous sulfate (FEROSUL) 325 mg (65 mg iron) tablet Take 1 tablet by mouth once daily. sertraline (ZOLOFT) 100 mg tablet Take 2 tablets by mouth once daily. 2 tablets daily albuterol HFA (PROVENTIL HFA, VENTOLIN HFA) 90 mcg/actuation inhaler Inhale 2 Puffs as instructed every 4 hours as needed for wheezing/shortness of breath. buPROPion XL (WELLBUTRIN XL) 300 mg 24 hr tablet Take 1 tablet by mouth once daily. risperiDONE (RISPERDAL) 0.5 mg tablet TAKE 1 TABLET BY MOUTH TWICE A DAY cholecalciferol, Vitamin D3, (VITAMIN D3) 1,250 mcg (50,000 unit) cap capsule Take 1 capsule by mouth one time a week. cetirizine (ZYRTEC) 10 mg tablet Take 1 tablet by mouth once daily. lansoprazole (PREVACID) 30 mg capsule Take 1 capsule by mouth two times a day. VOLNEA, 28, 0.15-0.02 mgx21 /0.01 mg x 5 per tablet Take 1 tablet by mouth once daily. cabergoline (DOSTINEX) 0.5 mg tablet Take 1 tablet by mouth three times a week. fluticasone (FLONASE) 50 mcg/actuation nasal spray place 1 spray into each nostril twice a day dicyclomine (BENTYL) 10 mg capsule Take 10 mg by mouth. CETIRIZINE HCL (ZYRTEC ORAL) Take by mouth. budesonide-formoterol (SYMBICORT) 80-4.5 mcg/actuation inhaler Inhale 2 Puffs as instructed twice daily. aluminum chloride (DRYSOL) 20 % external solution Apply to affected area daily at bedtime. REVIEW OF SYSTEMS See HPI PHYSICAL EXAM BP 126/91 Pulse 90 Temp 36.6 C (97.8 F) (Left Tympanic) Resp 16 Wt 76.4 kg (168 lb 6.9 oz) LMP 11/20/2024 (Exact Date) SpO2 98% BMI 29.84 kg/m General Appearance: Well appearing, alert, in no acute distress, well-hydrated, well nourished, does sound congested/nasally Ears: External ears normal, canals clear, bilateral TM intact R TM slightly erythematous with no purulent fluid noted behind TM, left TM normal Nose/Sinuses: Positive findings: clear rhinorrhea. Oropharynx: Lips, mucosa, and tongue normal, teeth and gums normal, oropharynx normal. Lungs: Lungs clear to auscultation. No wheezing, rhonchi, rales.. Heart: RRR without murmur, gallop, or rubs. No ectopy. R knee appears normal, no swelling or bruising, no instability of knee and unable to reproduce painwith ROM and ROM against resistance ASSESSMENT/PLAN: 1. URI, acute - ICD9: 465.9, ICD10: J06.9 (primary diagnosis) - does sound like a new illness, check viral panel, continue OTC's, exam relatively benign - reviewed in length s/sx that would warrant follow up and patient verbalizes understanding - COVID & INFLUENZA A/B & RSV PCR, ROUTINE 2. Acute pain of right knee - ICD9: 719.46, ICD10: M25.561 - pain just started today and is intermittant, no injury, recommend rest, ice ,compression nsaid regimen, if no better over next week or for any new/worsening she will let me know Danial Guidry APRN.GUNITE MIXER * Cristiane Gracia MA - 11/20/2024 3:45 PM EST Asthma Action Plan Never done Asthma Control Test Never done Spirometry Never done GC (Gonorrhea) Screening (18-24) Never done Depression Screening Never done Anxiety Screening Never done Chlamydia Screening (18-24) Never done Cervical Cancer Screening Never done DTaP,Tdap,Td Vaccine(7 - Td or Tdap) due on 05/15/2024 documented in this encounterMedina [facility]02-13-2025 NoteHNO ID: [id number] Author: CRISTIANE GRACIA MA Service: ? 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 States she has been ill for 2 weeks. Mostly sinus symptoms. Has not been assessed but feels miserable. Scheduled OV for today for eval. Sravanthi Lynne RN [facility]02-13-2025 Miscellaneous Notes* Telephone Encounter - Sravanthi Lynne RN - 11/20/2024 11:15 AM EST Spoke to patient. States she has been ill for 2 weeks. Mostly sinus symptoms. Has not been assessed but feels miserable. Scheduled OV for today for eval. Sravanthi Lynne RN * Telephone Encounter - Lyubov Mcmahan - 11/20/2024 10:32 AM EST Patient is calling back to speak to Nurse. Contact [phone]. Lyubov Armas * Telephone Encounter - Vera Alvarez RN - 11/20/2024 10:21 AM EST Unable to reach patient by phone, message sent for follow up * Telephone Encounter - Sravanthi Lynne RN - 11/20/2024 10:15 AM EST Message sent via [employer] to call triage back to discuss Sravanthi Lynne RN * Telephone Encounter - Kirsty Broussard RN - 11/14/2024 10:00 AM EST Called to triage, no answer, left VM : I ve always had problems with my knees giving out on me randomly and today on 11/13/2024 my thighs have rlly been hurting to touch our even sit or bend down and juanis why and it a pain level 10 Reason for Disposition Message left on unidentified voice mail. Phone number verified. Protocols used: No Contact or Duplicate Contact [id number] documented in this encounterMedina Hospital02-13-2025 Telephone encounter Note * Telephone Encounter - Alex Mcmahanise - 11/20/2024 10:32 AM EST Patient is calling back to speak to Nurse. Contact [phone]. Lyubov Justinying Armas [facility]02-13-2025 Telephone encounter Note* Telephone Encounter - Vera Alvarez RN - 11/20/2024 10:21 AM EST Unable to reach patient by phone, [employer] message sent for follow up [address]13-2025 Telephone encounter Note* Telephone Encounter - Sravanthi Lynne RN - 11/20/2024 10:15 AM EST Message sent via [employer] to call triage back to discuss Sravanthi Lynne RN [facility] Telephone encounter Note* Telephone Encounter - Lara Groves LPN - 11/18/2024 10:08 AM EST Prescription Refill Information The patient has been identified by name and date of : Yes Caregiver verified no other encounters exist for this prescription request: Yes Caregiver confirmed with patient/requestor that no other refills are due, in the near future, with this provider at this time: Yes The last office visit in the department: 11/04/24 Does the patient have a future office visit with this provider/department: No Requested Prescriptions Pending Prescriptions Disp Refills albuterol HFA (PROVENTIL HFA, VENTOLIN HFA) 90 mcg/actuation inhaler 1 Each 11 Sig: Inhale 2 Puffs as instructed every 4 hours as needed for wheezing/shortness of breath. Lara Groves LPN November 18, 2024 10:08 AM [facility]02-11-2025 Miscellaneous Notes* Telephone Encounter - Lara Groves LPN - 11/18/2024 10:08 AM EST Prescription Refill Information The patient has been identified by name and date of : Yes Caregiver verified no other encounters exist for this prescription request: Yes Caregiver confirmed with patient/requestor that no other refills are due, in the near future, with this provider at this time: Yes The last office visit in the department: 11/04/24 Does the patient have a future office visit with this provider/department: No Requested Prescriptions Pending Prescriptions Disp Refills albuterol HFA (PROVENTIL HFA, VENTOLIN HFA) 90 mcg/actuation inhaler 1 Each 11 Sig: Inhale 2 Puffs as instructed every 4 hours as needed for wheezing/shortness of breath. Lara Groves LPN November 18, 2024 10:08 AM documented in this encounterMedina Hospital02-11-2025 Telephone encounter Note * Telephone Encounter - Yue Ambriz PA-C - 11/18/2024 9:26 AM EST Pt has a refill of zyrtec at the pharmacy. Yue Ambriz PA-C [facility]02-11-20[facility] Miscellaneous Notes* Telephone Encounter - Yue Ambriz PA-C - 11/18/2024 9:26 AM EST Pt has a refill of zyrtec at the pharmacy. Yue Ambriz PA-C * Telephone Encounter - Lara Groves LPN - 11/17/2024 6:01 PM EST Prescription Refill Information The patient has been identified by name and date of : Yes Caregiver verified no other encounters exist for this prescription request: Yes Caregiver confirmed with patient/requestor that no other refills are due, in the near future, with this provider at this time: Yes The last office visit in the department: 11/04/24 Does the patient have a future office visit with this provider/department: No Requested Prescriptions Pending Prescriptions Disp Refills cetirizine (ZYRTEC) 10 mg tablet 90 tablet 1 Sig: Take 1 tablet by mouth once daily. atomoxetine (STRATTERA) 25 mg capsule 60 capsule 0 Sig: Take 2 capsules by mouth daily at bedtime. ferrous sulfate (FEROSUL) 325 mg (65 mg iron) tablet 90 tablet 0 Sig: Take 1 tablet by mouth once daily. Lara Groves LPN November 17, 2024 6:01 PM documented in this encounterMedina Hospital02-10-2025 Telephone encounter Note * Telephone Encounter - Lara Groves LPN - 11/17/2024 6:01 PM EST Prescription Refill Information The patient has been identified by name and date of : Yes Caregiver verified no other encounters exist for this prescription request: Yes Caregiver confirmed with patient/requestor that no other refills are due, in the near future, with this provider at this time: Yes The last office visit in the department: 11/04/24 Does the patient have a future office visit with this provider/department: No Requested Prescriptions Pending Prescriptions Disp Refills cetirizine (ZYRTEC) 10 mg tablet 90 tablet 1 Sig: Take 1 tablet by mouth once daily. atomoxetine (STRATTERA) 25 mg capsule 60 capsule 0 Sig: Take 2 capsules by mouth daily at bedtime. ferrous sulfate (FEROSUL) 325 mg (65 mg iron) tablet 90 tablet 0 Sig: Take 1 tablet by mouth once daily. Lara Groves LPN November 17, 2024 6:01 PM [facility] Telephone encounter Note* Telephone Encounter - Lara Groves LPN - 11/17/2024 6:00 PM EST Prescription Refill Information The patient has been identified by name and date of : Yes Caregiver verified no other encounters exist for this prescription request: Yes Caregiver confirmed with patient/requestor that no other refills are due, in the near future, with this provider at this time: Yes The last office visit in the department: 11/04/24 Does the patient have a future office visit with this provider/department: No Requested Prescriptions Pending Prescriptions Disp Refills sertraline (ZOLOFT) 100 mg tablet 60 tablet 0 Sig: Take 2 tablets by mouth once daily. 2 tablets daily Lara Groves LPN November 17, 2024 6:00 PM [facility]02-10-2025 Miscellaneous Notes* Telephone Encounter - Lara Groves LPN - 11/17/2024 6:00 PM EST Prescription Refill Information The patient has been identified by name and date of : Yes Caregiver verified no other encounters exist for this prescription request: Yes Caregiver confirmed with patient/requestor that no other refills are due, in the near future, with this provider at this time: Yes The last office visit in the department: 11/04/24 Does the patient have a future office visit with this provider/department: No Requested Prescriptions Pending Prescriptions Disp Refills sertraline (ZOLOFT) 100 mg tablet 60 tablet 0 Sig: Take 2 tablets by mouth once daily. 2 tablets daily Lara Groves LPN November 17, 2024 6:00 PM documented in this encounterMedina Hospital02-07-2025 Telephone encounter Note * Telephone Encounter - Kirsty Broussard RN - 11/14/2024 10:00 AM EST Called to triage, no answer, left MC: I ve always had problems with my knees giving out on me randomly and today on 11/13/2024 my thighs have rlly been hurting to touch our even sit or bend down and juanis why and it a pain level 10 Reason for Disposition Message left on unidentified voice mail. Phone number verified. Protocols used: No Contact or Duplicate Contact [id number] [facility] Telephone encounter Note* Telephone Encounter - Kirsty Broussard RN - 11/14/2024 9:59 AM EST See triage [facility]07[facility] Miscellaneous Notes* Telephone Encounter - Kirsty Broussard RN - 11/14/2024 9:59 AM EST See triage documented in this encounterMedina Hospital01-28-2025 Telephone encounter Note * Telephone Encounter - Kadi Bentley LPCC - 11/04/2024 12:00 PM EST Behavioral Health Social Work Progress Note Patient identified for [facility] from: PCP [facility] encounter type: Telephone Encounter Attempts to Outreach: 3 attempts Patient Discharged?: No Patient reported that caregiver was able to meet their needs today?: N/A therapist returned patient's call, attempted to clarify what services are needed. Patient statesthat she does take a pill for ADHD but not sure name of rx. Patient was driving and agreed to call back when she had more information to discussed services. YESSENIA Corona November 04, 2024 [facility] Work Phone: 1(482) 499-610201-28-2025 Miscellaneous Notes* Telephone Encounter - Kadi Bentley LPCC - 11/04/2024 12:00 PM EST Behavioral Health Social Work Progress Note Patient identified for [facility] from: PCP [facility] encounter type: Telephone Encounter Attempts to Outreach: 3 attempts Patient Discharged?: No Patient reported that caregiver was able to meet their needs today?: N/A therapist returned patient's call, attempted to clarify what services are needed. Patient statesthat she does take a pill for ADHD but not sure name of rx. Patient was driving and agreed to call back when she had more information to discussed services. ASCENCION Corona-S November 04, 2024 documented in this encounterMed[facility]01-28-2025 NoteHNO ID: [id number] Author: YUE AMBRIZ PA-C Service: ? Author Type: Physician Typing Section Chief Type: Progress Notes Filed: 11/04/2024 11:10 Note Text: Chris Urbina is a 19 year old female here today for medication refill. Was seeing psych at [facility]. Insurance changed. Needs new psychiatrist. Dx with depression and anxiety. Needs refill of wellbutrin. Denies SI or HI. Increased stress due to father's recent affair. REVIEW OF SYSTEMS See HPI, otherwise unremarkable. PAST MEDICAL HISTORY Diagnosis Date Acid reflux ADHD Asthma High-functioning autism spectrum disorder IBS (irritable bowel syndrome) Pituitary tumor 05/30/2022 PAST SURGICAL HISTORY Procedure Laterality Date EAR TUBES HX TONSILLECTOMY AND ADENOIDECTOMY HX FAMILY HISTORY Problem Relation Age of Onset Depression Mother Irritable Bowel Syndrome Mother Asthma Mother Fibromyalgia Mother Heart Father Depression Father Hyperlipidemia Father other (pituitary tumor) Father Anxiety disorder Sister other (ovarian cysts) Sister other (peptic ulcer) Sister Allergies Sister Hypertension Maternal Grandmother Depression Maternal Grandmother other (CVA) Maternal Grandfather other (pulmonary embolus) Maternal Grandfather Hypertension Paternal Grandmother Ischemic Heart Disease Paternal Grandmother Cancer Paternal Grandfather Ischemic Heart Disease Paternal Grandfather Diabetes Paternal Grandfather Hypertension Paternal Aunt Diabetes Paternal Aunt Alzheimer's Disease Maternal great-grandfather Social History Tobacco Use Smoking status: Never Smokeless tobacco: Never Vaping Use Vaping status: Some Days Substances: Flavoring Substance Use Topics Alcohol use: Never Drug use: Never PHYSICAL EXAMINATION: Vitals: BP 108/69 Pulse (!) 125 Temp 36 ?C (96.8 ?F) Ht 160 cm (5' 2.99) Wt 76.2 kg (167 lb 15.9 oz) LMP 05/12/2022 SpO2 98% BMI 29.77 kg/m? General Appearance: Well appearing, alert, in no acute distress, well-hydrated, well nourished.. Psych: pleasant, somewhat anxious appearing, answers questions appropriately. ASSESSMENT: DIAGNOSIS: (F90.2) Attention deficit hyperactivity disorder (ADHD), combined type (primary encounter diagnosis) (F41.1) XIOMY (generalized anxiety disorder) PLAN: Refilled wellbutrin. Call SW to get set up with psych. Return in the interim prn. Pt in agreement with the plan and verbalized understanding. [facility]01-28-2025 History of Present illness Narrative* Yue Ambriz PA-C - 11/04/2024 10:53 AM EST Chris Urbina is a 19 year old female here today for medication refill. Was seeing psych at [facility]. Insurance changed. Needs new psychiatrist. Dx with depression and anxiety. Needs refill of wellbutrin. Denies SI or HI. Increased stress due to father's recent affair. REVIEW OF SYSTEMS See HPI, otherwise unremarkable. PAST MEDICAL HISTORY Diagnosis Date Acid reflux ADHD Asthma High-functioning autism spectrum disorder IBS (irritable bowel syndrome) Pituitary tumor 05/30/2022 PAST SURGICAL HISTORY Procedure Laterality Date EAR TUBES HX TONSILLECTOMY AND ADENOIDECTOMY HX FAMILY HISTORY Problem Relation Age of Onset Depression Mother Irritable Bowel Syndrome Mother Asthma Mother Fibromyalgia Mother Heart Father Depression Father Hyperlipidemia Father other (pituitary tumor) Father Anxiety disorder Sister other (ovarian cysts) Sister other (peptic ulcer) Sister Allergies Sister Hypertension Maternal Grandmother Depression Maternal Grandmother other (CVA) Maternal Grandfather other (pulmonary embolus) Maternal Grandfather Hypertension Paternal Grandmother Ischemic Heart Disease Paternal Grandmother Cancer Paternal Grandfather Ischemic Heart Disease Paternal Grandfather Diabetes Paternal Grandfather Hypertension Paternal Aunt Diabetes Paternal Aunt Alzheimer's Disease Maternal great-grandfather Social History Tobacco Use Smoking status: Never Smokeless tobacco: Never Vaping Use Vaping status: Some Days Substances: Flavoring Substance Use Topics Alcohol use: Never Drug use: Never PHYSICAL EXAMINATION: Vitals: BP 108/69 Pulse (!) 125 Temp 36 C (96.8 F) Ht 160 cm (5' 2.99) Wt 76.2 kg (167 lb 15.9 oz) LMP 05/12/2022 SpO2 98% BMI 29.77 kg/m General Appearance: Well appearing, alert, in no acute distress, well-hydrated, well nourished.. Psych: pleasant, somewhat anxious appearing, answers questions appropriately. ASSESSMENT: DIAGNOSIS: (F90.2) Attention deficit hyperactivity disorder (ADHD), combined type (primary encounter diagnosis) (F41.1) XIOMY (generalized anxiety disorder) PLAN: Refilled wellbutrin. Call SW to get set up with psych. Return in the interim prn. Pt in agreement with the plan and verbalized understanding. Yue Ambriz PA-C * Jessica Petty MA - 11/04/2024 10:51 AM EST Asthma Action Plan Never done Asthma Control Test Never done Spirometry Never done GC (Gonorrhea) Screening (18-24) Never done Depression Screening Never done Anxiety Screening Never done Chlamydia Screening (18-24) Never done Cervical Cancer Screening Never done DTaP,Tdap,Td Vaccine(7 - Td or Tdap) due on 05/15/2024 documented in this encounterMedina Hospital01-28-2025 NoteHNO ID: [id number] Author: JESSICA PETTY MA Service: ? 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 Apprentice Type: Progress Notes Filed: 11/04/2024 11:10 Note Text: Asthma Action Plan Never done Asthma Control Test Never done Spirometry Never done GC (Gonorrhea) Screening (18-24) Never done Depression Screening Never done Anxiety Screening Never done Chlamydia Screening (18-24) Never done Cervical Cancer Screening Never done DTaP,Tdap,Td Vaccine(7 - Td or Tdap) due on 05/15/2024[facility] 11-04-2024 Telephone encounter Note* Telephone Encounter - Ginny Hood RN - 11/04/2024 10:03 AM EST Has appt with Baldo HERNANDEZ 11/04 at 11am [facility]01-28-2025 Miscellaneous Notes* Telephone Encounter - Ginny Hood RN - 11/04/2024 10:03 AM EST Has appt with Baldo HERNANDEZ 11/04 at 11am * Telephone Encounter - Lyubov Davalos RN - 11/01/2024 8:44 AM EST Left a message on Mobile number that the referral is in for [employer]. Advised to CB if she would like to give more information about her concerns so the office can direct her what the next plan of care should be. * Telephone Encounter - Kirsty Broussard RN - 10/31/2024 4:04 PM EST Called to triage, no answer, left VM * Telephone Encounter - Yue Ambriz PA-C - 10/31/2024 12:03 PM EST Please triage to make sure she doesn't need further evaluation sooner. Referral ordered. Yue Paige PA-C documented in this encounterMedina Hospital01-27-2025 Telephone encounter Note * Telephone Encounter - Kadi Bentley LPCC - 11/03/2024 12:24 PM EST Behavioral Health Social Work Progress Note Patient identified for [facility] from: PCP Reason for referral: SW Assessment [facility] encounter type: Telephone Encounter Attempts to Outreach: 1 attempt Patient Discharged?: No Patient reported that caregiver was able to meet their needs today?: N/A Phone call placed today that went to voicemail. Left my contact information and brief nature of call. Initial outreach also completed via [employer] sending list of in network providers with insurance. YESSENIA Corona November 03, 2024 [facility] Work Phone: [phone]) 715-186401-27-2025 Miscellaneous Notes* Telephone Encounter - Kadi Bentley LPCC - 11/03/2024 12:24 PM EST Behavioral Health Social Work Progress Note Patient identified for [facility] from: PCP Reason for referral: SW Assessment SW encounter type: Telephone Encounter Attempts to Outreach: 1 attempt Patient Discharged?: No Patient reported that caregiver was able to meet their needs today?: N/A Phone call placed today that went to [id number]. Left my contact information and brief nature of call. Initial outreach also completed via [employer] sending list of in network providers with insurance. YESSENIA Corona November 03, 2024 documented in this encounterMedina Hospital01-25-2025 Telephone encounter Note * Telephone Encounter - Lyubov Davalos RN - 11/01/2024 8:44 AM EST Left a message on Mobile number that the referral is in for [employer]. Advised to CB if she would like to give more information about her concerns so the office can direct her what the next plan of care should be. [facility]01-[facility] Telephone encounter Note* Telephone Encounter - Kirsty Broussard RN - 10/31/2024 4:04 PM EST Called to triage, no answer, left VM [facility]01-24-[facility] Telephone encounter Note* Telephone Encounter - Vera Alvarez RN - 10/31/2024 2:42 PM EST Spoke with patient, due to recent family issues patient is requesting to restart Zoloft and Wellbutrin, she was previously seeing a psychologist at [facility] and had insurance change. Verbalizes she is not feeling severe depression and does not have and SI, plan or homicidal ideations. Appointment with PCP, scheduled with MARY Lin on TuesdaysNovember 04 @ 11am. Patient aware to go to ED for any thoughts of harming herself or others, she agrees. [facility]01-24-2025 Miscellaneous Notes* Telephone Encounter - Vera Alvarez RN - 10/31/2024 2:42 PM EST Spoke with patient, due to recent family issues patient is requesting to restart Zoloft and Wellbutrin, she was previously seeing a psychologist at [facility] and had insurance change. Verbalizes she is not feeling severe depression and does not have and SI, plan or homicidal ideations. Appointment with PCP, scheduled with MARY Lin on TuesdaysNovember 04 @ 11am. Patient aware to go to ED for any thoughts of harming herself or others, she agrees. * Telephone Encounter - Yue Ambriz PA-C - 10/31/2024 12:04 PM EST Please get more information. Is she looking or counseling or medication management? Yue Paige PA-C documented in this encounterMedina Hospital01-24-2025 Telephone encounter Note * Telephone Encounter - Yue Ambriz PA-C - 10/31/2024 12:04 PM EST Please get more information. Is she looking or counseling or medication management? Yue Paige PA-C [facility]01-24-2025 Telephone encounter Note* Telephone Encounter - Yue Ambriz PA-C - 10/31/2024 12:03 PM EST Please triage to make sure she doesn't need further evaluation sooner. Referral ordered. Thanks, Yue Ambriz PA-C [facility]01-10-2025 Telephone encounter Note* Telephone Encounter - Hazel Gaming LPN - 10/17/2024 11:46 AM EST Prescription Refill Information The patient has been identified by name and date of : Yes Caregiver verified no other encounters exist for this prescription request: Yes Caregiver confirmed with patient/requestor that no other refills are due, in the near future, with this provider at this time: Yes The last office visit in the department: 10/14/24 Does the patient have a future office visit with this provider/department: No Requested Prescriptions Pending Prescriptions Disp Refills risperiDONE (RISPERDAL) 0.5 mg tablet [Pharmacy Med Name: RISPERIDONE 0.5 MG TABLET] 180 tablet 1 Sig: TAKE 1 TABLET BY MOUTH TWICE A DAY Hazel Gaming LPN October 17, 2024 11:46 AM [facility]01-10-2025 Miscellaneous Notes* Telephone Encounter - Hazel Gaming LPN - 10/17/2024 11:46 AM EST Prescription Refill Information The patient has been identified by name and date of : Yes Caregiver verified no other encounters exist for this prescription request: Yes Caregiver confirmed with patient/requestor that no other refills are due, in the near future, with this provider at this time: Yes The last office visit in the department: 10/14/24 Does the patient have a future office visit with this provider/department: No Requested Prescriptions Pending Prescriptions Disp Refills risperiDONE (RISPERDAL) 0.5 mg tablet [Pharmacy Med Name: RISPERIDONE 0.5 MG TABLET] 180 tablet 1 Sig: TAKE 1 TABLET BY MOUTH TWICE A DAY Hazel Gaming LPN October 17, 2024 11:46 AM documented in this encounterMedina Hospital01-09-2025 Telephone encounter Note * Telephone Encounter - Lara Groves LPN - 10/16/2024 3:24 PM EST Prescription Refill Information The patient has been identified by name and date of : Yes Caregiver verified no other encounters exist for this prescription request: Yes Caregiver confirmed with patient/requestor that no other refills are due, in the near future, with this provider at this time: Yes The last office visit in the department: 10/14/24 Does the patient have a future office visit with this provider/department: No Requested Prescriptions Pending Prescriptions Disp Refills risperiDONE (RISPERDAL) 0.5 mg tablet [Pharmacy Med Name: RISPERIDONE 0.5 MG TABLET] 30 tablet 0 Sig: TAKE 1 TABLET BY MOUTH TWICE A DAY Lara Groves LPN October 16, 2024 3:24 PM [facility]01-09-2025 Miscellaneous Notes* Telephone Encounter - Lara Groves LPN - 10/16/2024 3:24 PM EST Prescription Refill Information The patient has been identified by name and date of : Yes Caregiver verified no other encounters exist for this prescription request: Yes Caregiver confirmed with patient/requestor that no other refills are due, in the near future, with this provider at this time: Yes The last office visit in the department: 10/14/24 Does the patient have a future office visit with this provider/department: No Requested Prescriptions Pending Prescriptions Disp Refills risperiDONE (RISPERDAL) 0.5 mg tablet [Pharmacy Med Name: RISPERIDONE 0.5 MG TABLET] 30 tablet 0 Sig: TAKE 1 TABLET BY MOUTH TWICE A DAY Lara Groves LPN October 16, 2024 3:24 PM documented in this encounterMedina Hospital01-07-2025 NoteHNO ID: [id number] Author: JESSICA PETTY MA Service: ? 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 Author Type: Physician Typing Section Chief Type: Progress Notes Filed: 10/14/2024 10:32 Note Text: Chris Urbina is a 19 year old female with a complaint of increased fatigue since September. Wants iron checked, checked for diabetes. History of iron def anemia, taking iron once daily. Normal menses, LMP current. States normal flow. No abnormal bruising or bleeding. Denies changes in weight, hair/skin/nails, bowels, sob. Doesn't take any vitamins or supplements. Denies sore throat or recent illness. Denies chance of . Sleeps for 10-12 hours. Doesn't snore. Depression had been well controlled but recently found out father is leaving her mother. Increased depression with this news. No SI. No recent changes in medications. REVIEW OF SYSTEMS See HPI, otherwise unremarkable. PAST MEDICAL HISTORY Diagnosis Date Acid reflux ADHD Asthma High-functioning autism spectrum disorder IBS (irritable bowel syndrome) Pituitary tumor 05/30/2022 PAST SURGICAL HISTORY Procedure Laterality Date EAR TUBES HX TONSILLECTOMY AND ADENOIDECTOMY HX FAMILY HISTORY Problem Relation Age of Onset Depression Mother Irritable Bowel Syndrome Mother Asthma Mother Fibromyalgia Mother Heart Father Depression Father Hyperlipidemia Father other (pituitary tumor) Father Anxiety disorder Sister other (ovarian cysts) Sister other (peptic ulcer) Sister Allergies Sister Hypertension Maternal Grandmother Depression Maternal Grandmother other (CVA) Maternal Grandfather other (pulmonary embolus) Maternal Grandfather Hypertension Paternal Grandmother Ischemic Heart Disease Paternal Grandmother Cancer Paternal Grandfather Ischemic Heart Disease Paternal Grandfather Diabetes Paternal Grandfather Hypertension Paternal Aunt Diabetes Paternal Aunt Alzheimer's Disease Maternal great-grandfather Social History Tobacco Use Smoking status: Never Smokeless tobacco: Never Vaping Use Vaping status: Some Days Substances: Flavoring Substance Use Topics Alcohol use: Never Drug use: Never PHYSICAL EXAMINATION: Vitals:BP 108/75 Pulse 86 Temp (!) 35.9 ?C (96.7 ?F) Ht 160.9 cm (5' 3.35) Wt 76.6 kg (168 lb 15.7 oz) LMP 05/12/2022 SpO2 97% BMI 29.61 kg/m? General Appearance: Well appearing, alert, in no acute distress, well-hydrated, well nourished.. Eyes: no pallor Oropharynx: Lips, mucosa, and tongue normal, teeth and gums normal, oropharynx normal. Neck: Supple, no adenopathy; thyroid symmetric, normal size Lungs: Lungs clear to auscultation. No wheezing, rhonchi, rales.. Heart: RRR without murmur, gallop, or rubs. No ectopy. Psych: pleasant, appropriate affect. ASSESSMENT: DIAGNOSIS: (D50.9) Iron deficiency anemia, unspecified iron deficiency anemia type (primary encounter diagnosis) (R53.83) Fatigue, unspecified type PLAN: ASSESSMENT/PLAN: 1. Iron deficiency anemia, unspecified iron deficiency anemia type - ICD9: 280.9, ICD10: D50.9 (primary diagnosis) - COMPREHENSIVE METABOLIC PANEL - IRON AND TIBC - FERRITIN 2. Fatigue, unspecified type - ICD9: 780.79, ICD10: R53.83 - THYROID STIMULATING HORMONE - VITAMIN D 25 HYDROXY - COMPLETE BLOOD COUNT AND DIFFERENTIAL - COMPREHENSIVE METABOLIC PANEL - IRON AND TIBC - FERRITIN Follow up dependent on results. Return in the interim for new or worsening sx. Pt in agreement with the plan and verbalized understanding. [facility]01-07-2025 History of Present illness Narrative* Jessica Ptety MA - 10/14/2024 10:09 AM EST Asthma Action Plan Never done Asthma Control Test Never done Spirometry Never done GC (Gonorrhea) Screening (18-24) Never done Depression Screening Never done Anxiety Screening Never done Chlamydia Screening (18-24) Never done Cervical Cancer Screening Never done DTaP,Tdap,Td Vaccine(7 - Td or Tdap) due on 05/15/2024 * Yue Ambriz PA-C - 10/14/2024 10:09 AM EST Chris Urbina is a 19 year old female with a complaint of increased fatigue since September. Wants iron checked, checked for diabetes. History of iron def anemia, taking iron once daily. Normal menses, LMP current. States normal flow. No abnormal bruising or bleeding. Denies changes in weight, hair/skin/nails, bowels, sob. Doesn't take any vitamins or supplements. Denies sore throat or recent illness. Denies chance of . Sleeps for 10-12 hours. Doesn't snore. Depression had been well controlled but recently found out father is leaving her mother. Increased depression with this news. No SI. No recent changes in medications. REVIEW OF SYSTEMS See HPI, otherwise unremarkable. PAST MEDICAL HISTORY Diagnosis Date Acid reflux ADHD Asthma High-functioning autism spectrum disorder IBS (irritable bowel syndrome) Pituitary tumor 05/30/2022 PAST SURGICAL HISTORY Procedure Laterality Date EAR TUBES HX TONSILLECTOMY AND ADENOIDECTOMY HX FAMILY HISTORY Problem Relation Age of Onset Depression Mother Irritable Bowel Syndrome Mother Asthma Mother Fibromyalgia Mother Heart Father Depression Father Hyperlipidemia Father other (pituitary tumor) Father Anxiety disorder Sister other (ovarian cysts) Sister other (peptic ulcer) Sister Allergies Sister Hypertension Maternal Grandmother Depression Maternal Grandmother other (CVA) Maternal Grandfather other (pulmonary embolus) Maternal Grandfather Hypertension Paternal Grandmother Ischemic Heart Disease Paternal Grandmother Cancer Paternal Grandfather Ischemic Heart Disease Paternal Grandfather Diabetes Paternal Grandfather Hypertension Paternal Aunt Diabetes Paternal Aunt Alzheimer's Disease Maternal great-grandfather Social History Tobacco Use Smoking status: Never Smokeless tobacco: Never Vaping Use Vaping status: Some Days Substances: Flavoring Substance Use Topics Alcohol use: Never Drug use: Never PHYSICAL EXAMINATION: Vitals:BP 108/75 Pulse 86 Temp (!) 35.9 C (96.7 F) Ht 160.9 cm (5' 3.35) Wt 76.6 kg (168 lb 15.7 oz) LMP 05/12/2022 SpO2 97% BMI 29.61 kg/m General Appearance: Well appearing, alert, in no acute distress, well-hydrated, well nourished.. Eyes: no pallor Oropharynx: Lips, mucosa, and tongue normal, teeth and gums normal, oropharynx normal. Neck: Supple, no adenopathy; thyroid symmetric, normal size Lungs: Lungs clear to auscultation. No wheezing, rhonchi, rales.. Heart: RRR without murmur, gallop, or rubs. No ectopy. Psych: pleasant, appropriate affect. ASSESSMENT: DIAGNOSIS: (D50.9) Iron deficiency anemia, unspecified iron deficiency anemia type (primary encounter diagnosis) (R53.83) Fatigue, unspecified type PLAN: ASSESSMENT/PLAN: 1. Iron deficiency anemia, unspecified iron deficiency anemia type - ICD9: 280.9, ICD10: D50.9 (primary diagnosis) - COMPREHENSIVE METABOLIC PANEL - IRON AND TIBC - FERRITIN 2. Fatigue, unspecified type - ICD9: 780.79, ICD10: R53.83 - THYROID STIMULATING HORMONE - VITAMIN D 25 HYDROXY - COMPLETE BLOOD COUNT AND DIFFERENTIAL - COMPREHENSIVE METABOLIC PANEL - IRON AND TIBC - FERRITIN Follow up dependent on results. Return in the interim for new or worsening sx. Pt in agreement withthe plan and verbalized understanding. Yue Ambriz PA-C documented in this encounterMedina Hospital12-30-2024 Telephone encounter Note * Telephone Encounter - Lara Groves LPN - 10/06/2024 10:09 AM EST Please review and advise. [facility]12-30-2024 Miscellaneous Notes* Telephone Encounter - Lara Groves LPN - 10/06/2024 10:09 AM EST Please review and advise. documented in this encounterMedina Hospital11-21-2024 Telephone encounter Note * Telephone Encounter - Alyssa Lobo MA - 08/28/2024 3:30 PM EST Prescription Refill Information The patient has been identified by name and date of : Yes Caregiver verified no other encounters exist for this prescription request: Yes Caregiver confirmed with patient/requestor that no other refills are due, in the near future, with this provider at this time: Yes The last office visit in the department: 06/03/24 Does the patient have a future office visit with this provider/department: No Requested Prescriptions Pending Prescriptions Disp Refills cetirizine (ZYRTEC) 10 mg tablet 90 tablet 1 Sig: Take 1 tablet by mouth once daily. atomoxetine (STRATTERA) 25 mg capsule 60 capsule 0 Sig: Take 2 capsules by mouth daily at bedtime. lansoprazole (PREVACID) 30 mg capsule 60 capsule 1 Sig: Take 1 capsule by mouth two times a day. ferrous sulfate (FEROSUL) 325 mg (65 mg iron) tablet 90 tablet 0 Sig: Take 1 tablet by mouth once daily. Alyssa Lobo MA August 28, 2024 3:31 PM [facility]11-21-2024 Miscellaneous Notes* Telephone Encounter - Alyssa Lobo MA - 08/28/2024 3:30 PM EST Prescription Refill Information The patient has been identified by name and date of : Yes Caregiver verified no other encounters exist for this prescription request: Yes Caregiver confirmed with patient/requestor that no other refills are due, in the near future, with this provider at this time: Yes The last office visit in the department: 06/03/24 Does the patient have a future office visit with this provider/department: No Requested Prescriptions Pending Prescriptions Disp Refills cetirizine (ZYRTEC) 10 mg tablet 90 tablet 1 Sig: Take 1 tablet by mouth once daily. atomoxetine (STRATTERA) 25 mg capsule 60 capsule 0 Sig: Take 2 capsules by mouth daily at bedtime. lansoprazole (PREVACID) 30 mg capsule 60 capsule 1 Sig: Take 1 capsule by mouth two times a day. ferrous sulfate (FEROSUL) 325 mg (65 mg iron) tablet 90 tablet 0 Sig: Take 1 tablet by mouth once daily. Alyssa Lobo MA August 28, 2024 3:31 PM documented in this encounterMedina Hospital11-18-2024 Telephone encounter Note * Telephone Encounter - Lara Groves LPN - 08/25/2024 6:16 PM EST Prescription Refill Information The patient has been identified by name and date of : Yes Caregiver verified no other encounters exist for this prescription request: Yes Caregiver confirmed with patient/requestor that no other refills are due, in the near future, with this provider at this time: Yes The last office visit in the department: 06/03/24 Does the patient have a future office visit with this provider/department: No Requested Prescriptions Pending Prescriptions Disp Refills risperiDONE (RISPERDAL) 0.5 mg tablet [Pharmacy Med Name: RISPERIDONE 0.5 MG TABLET] 30 tablet 0 Sig: TAKE 1 TABLET BY MOUTH TWICE A DAY Lara Groves LPN August 25, 2024 6:16 PM [facility]11-18-2024 Miscellaneous Notes* Telephone Encounter - Lara Groves LPN - 08/25/2024 6:16 PM EST Prescription Refill Information The patient has been identified by name and date of : Yes Caregiver verified no other encounters exist for this prescription request: Yes Caregiver confirmed with patient/requestor that no other refills are due, in the near future, with this provider at this time: Yes The last office visit in the department: 06/03/24 Does the patient have a future office visit with this provider/department: No Requested Prescriptions Pending Prescriptions Disp Refills risperiDONE (RISPERDAL) 0.5 mg tablet [Pharmacy Med Name: RISPERIDONE 0.5 MG TABLET] 30 tablet 0 Sig: TAKE 1 TABLET BY MOUTH TWICE A DAY Lara Groves LPN August 25, 2024 6:16 PM documented [facility] encounter[facility] Telephone encounter Note * Telephone Encounter - Aaron Lopez MA - 08/18/2024 7:46 AM EST Prescription Refill Information The patient has been identified by name and date of : Yes Caregiver verified no other encounters exist for this prescription request: Yes Caregiver confirmed with patient/requestor that no other refills are due, in the near future, with this provider at this time: Yes The last office visit in the department: 06/03/2024 Does the patient have a future office visit with this provider/department: No Visit date not found Requested Prescriptions Pending Prescriptions Disp Refills lansoprazole (PREVACID) 30 mg capsule [Pharmacy Med Name: LANSOPRAZOLE DR 30 MG CAPSULE] 60 capsule1 Sig: TAKE 1 CAPSULE BY MOUTH TWICE A DAY Aaron Lopez MA August 18, 2024 7:46 AM [facility]11-11-2024 Miscellaneous Notes* Telephone Encounter - Aaron Lopez MA - 08/18/2024 7:46 AM EST Prescription Refill Information The patient has been identified by name and date of : Yes Caregiver verified no other encounters exist for this prescription request: Yes Caregiver confirmed with patient/requestor that no other refills are due, in the near future, with this provider at this time: Yes The last office visit in the department: 06/03/2024 Does the patient have a future office visit with this provider/department: No Visit date not found Requested Prescriptions Pending Prescriptions Disp Refills lansoprazole (PREVACID) 30 mg capsule [Pharmacy Med Name: LANSOPRAZOLE DR 30 MG CAPSULE] 60 capsule1 Sig: TAKE 1 CAPSULE BY MOUTH TWICE A DAY Aaron Lopez MA August 18, 2024 7:46 AM documented in this encounterMed[facility]10-[facility]2024 Telephone encounter Note * Telephone Encounter - Alyssa Lobo MA - 07/23/2024 8:45 AM EDT Prescription Refill Information The patient has been identified by name and date of : Yes Caregiver verified no other encounters exist for this prescription request: Yes Caregiver confirmed with patient/requestor that no other refills are due, in the near future, with this provider at this time: Yes The last office visit in the department: 06/03/24 Does the patient have a future office visit with this provider/department: No Requested Prescriptions Pending Prescriptions Disp Refills atomoxetine (STRATTERA) 25 mg capsule 60 capsule 0 Sig: Take 2 capsules by mouth daily at bedtime. Alyssa Lobo MA July 23, 2024 8:46 AM [facility]10-16-2024 Miscellaneous Notes* Telephone Encounter - Alyssa Lobo MA - 07/23/2024 8:45 AM EDT Prescription Refill Information The patient has been identified by name and date of : Yes Caregiver verified no other encounters exist for this prescription request: Yes Caregiver confirmed with patient/requestor that no other refills are due, in the near future, with this provider at this time: Yes The last office visit in the department: 06/03/24 Does the patient have a future office visit with this provider/department: No Requested Prescriptions Pending Prescriptions Disp Refills atomoxetine (STRATTERA) 25 mg capsule 60 capsule 0 Sig: Take 2 capsules by mouth daily at bedtime. Alyssa Lobo MA July 23, 2024 8:46 AM documented in this encounterMedina Hospital10-16-2024 Telephone encounter Note * Telephone Encounter - Paulina Neil RN - 07/23/2024 8:23 AM EDT Called patient, no answer at this time. Left voicemail to call the office back. [facility]10-16-2024 Miscellaneous Notes* Telephone Encounter - Paulina Neil RN - 07/23/2024 8:23 AM EDT Called patient, no answer at this time. Left voicemail to call the office back. * Telephone Encounter - Yue Ambriz PA-C - 07/22/2024 4:19 PM EDT Sent one refill. Further refills must be from psychiatry. Yue Ambriz PA-C * Telephone Encounter - Kirsty Broussard RN - 07/22/2024 4:08 PM EDT Spoke to patient who said she has not seen anyone in psychiatry, her previous provider left and shedid not establish with anyone else. Advised to call and schedule an appointment * Telephone Encounter - Yue Ambriz PA-C - 07/22/2024 3:35 PM EDT Please refer to 07/15 refill encounter. Yue Ambriz PA-C * Telephone Encounter - Jess Vargas MA - 07/22/2024 3:18 PM EDT Pharmacy verified in [facility]. Patient has been identified by name and date of : Yes Patient aware RX will be sent to pharmacy. No need to notify patient. Patient phones for refill(s): Requested Prescriptions Pending Prescriptions Disp Refills risperiDONE (RISPERDAL) 0.5 mg tablet 30 tablet 0 Sig: Take 1 tablet by mouth two times a day. Date of last office visit : 06/03/2024 Date of next office visit : Visit date not found Last 2 Encounter Wt Readings: Date: Wt: 06/03/2024 72.4 kg (159 lb 9.8 oz) 06/01/2024 70.4 kg (155 lb 3.3 oz) Not applicable Please advise. Jess Vargas MA documented in this encounterMed[facility]10-[facility]-2024 Telephone encounter Note * Telephone Encounter - Eden Parada - 07/22/2024 4:40 PM EDT I called patient and left a voicemail letting her know to please call the office back to [facility] her transfer [facility] scheduled. [id number] Miscellaneous Notes* Telephone Encounter - Eden Parada - 07/22/2024 4:40 PM EDT I called patient and left a voicemail letting her know to please call the office back to [facility] her transfer appointment scheduled. * Telephone Encounter - Sonam Brice - 07/22/2024 4:17 PM EDT Name of Caller: Chris Contact Reason for Appointment: Pt was a former pt of Dr. Merlos and provider left. Pt was never reestablished with new provider. Pt is looking to schedule an appointment. Please assist with scheduling appointment, Thank you Office Name: Behavioral Health Medication Refills need, if any: n/a Medication Name: n/a documented in this [facility]10-15-2024 Telephone encounter Note* Telephone Encounter - Yue Ambriz PA-C - 07/22/2024 4:19 PM EDT Sent one refill. Further refills must be from psychiatry. Yue Ambriz PA-C [facility]10-15-2024 Telephone encounter Note* Telephone Encounter - Sonam Brice - 07/22/2024 4:17 PM EDT Name of Caller: Chris Contact Reason for Appointment: Pt was a former pt of Dr. Merlos and provider left. Pt was never reestablished with new provider. Pt is looking to schedule an appointment. Please assist with scheduling appointment, Thank you Office Name: Behavioral Health Medication Refills need, if any: n/a Medication Name: n/a [facility] [id number] Telephone encounter Note* Telephone Encounter - Kirsty Broussard RN - 07/22/2024 4:08 PM EDT Spoke to patient who said she has not seen anyone in psychiatry, her previous provider left and shedid not establish with anyone else. Advised to call and schedule an appointment [facility]10-15-2024 Telephone encounter Note* Telephone Encounter - Yue Ambriz PA-C - 07/22/2024 3:35 PM EDT Please refer to 07/15 refill encounter. Yue Ambriz PA-C [facility]10-15-2024 Telephone encounter Note* Telephone Encounter - Jess Vargas MA - 07/22/2024 3:18 PM EDT Pharmacy verified in [facility]. Patient has been identified by name and date of : Yes Patient aware RX will be sent to pharmacy. No need to notify patient. Patient phones for refill(s): Requested Prescriptions Pending Prescriptions Disp Refills risperiDONE (RISPERDAL) 0.5 mg tablet 30 tablet 0 Sig: Take 1 tablet by mouth two times a day. Date of last office visit : 06/03/2024 Date of next office visit : Visit date not found Last 2 Encounter Wt Readings: Date: Wt: 06/03/2024 72.4 kg (159 lb 9.8 oz) 06/01/2024 70.4 kg (155 lb 3.3 oz) Not applicable Please advise. Jess Vargas MA [facility]09-16-2024 Telephone encounter Note* Telephone Encounter - Surekha Gordon MA - 06/23/2024 8:34 AM EDT Pharmacy verified in [facility] Patient has been identified by name and date of : Yes Patient aware RX will be sent to pharmacy. No need to notify patient. Patient phones for refill(s): Requested Prescriptions Pending Prescriptions Disp Refills atomoxetine (STRATTERA) 25 mg capsule 60 capsule 0 Sig: Take 2 capsules by mouth daily at bedtime. Date of last office visit : 06/03/2024 Date of next office visit : 06/23/2024 Last 2 Encounter Wt Readings: Date: Wt: 06/03/2024 72.4 kg (159 lb 9.8 oz) 06/01/2024 70.4 kg (155 lb 3.3 oz) Please advise. Surekha Gordon MA [facility]09-16-2024 Telephone encounter Note* Telephone Encounter - Surekha Gordon MA - 06/23/2024 8:34 AM EDT Pharmacy verified in [facility] Patient has been identified by name and date of : Yes Patient aware RX will be sent to pharmacy. No need to notify patient. Patient phones for refill(s): Requested Prescriptions Pending Prescriptions Disp Refills risperiDONE (RISPERDAL) 0.5 mg tablet 30 tablet 0 Sig: Take 1 tablet by mouth two times a day. Date of last office visit : 06/03/2024 Date of next office visit : 06/23/2024 Last 2 Encounter Wt Readings: Date: Wt: 06/03/2024 72.4 kg (159 lb 9.8 oz) 06/01/2024 70.4 kg (155 lb 3.3 oz) Please advise. Surehka Gordon MA [facility]09-16-2024 Miscellaneous Notes* Telephone Encounter - Surekha Gordon MA - 06/23/2024 8:34 AM EDT Pharmacy verified in [facility] Patient has been identified by name and date of : Yes Patient aware RX will be sent to pharmacy. No need to notify patient. Patient phones for refill(s): Requested Prescriptions Pending Prescriptions Disp Refills risperiDONE (RISPERDAL) 0.5 mg tablet 30 tablet 0 Sig: Take 1 tablet by mouth two times a day. Date of last office visit : 06/03/2024 Date of next office visit : 06/23/2024 Last 2 Encounter Wt Readings: Date: Wt: 06/03/2024 72.4 kg (159 lb 9.8 oz) 06/01/2024 70.4 kg (155 lb 3.3 oz) Please advise. Surekha Gordon MA documented in this encounterMedina Hospital09-16-2024 Miscellaneous Notes* Telephone Encounter - Surekha Gordon MA - 06/23/2024 8:34 AM EDT Pharmacy verified in [facility] Patient has been identified by name and date of : Yes Patient aware RX will be sent to pharmacy. No need to notify patient. Patient phones for refill(s): Requested Prescriptions Pending Prescriptions Disp Refills atomoxetine (STRATTERA) 25 mg capsule 60 capsule 0 Sig: Take 2 capsules by mouth daily at bedtime. Date of last office visit : 06/03/2024 Date of next office visit : 06/23/2024 Last 2 Encounter Wt Readings: Date: Wt: 06/03/2024 72.4 kg (159 lb 9.8 oz) 06/01/2024 70.4 kg (155 lb 3.3 oz) Please advise. Surekha Gordon MA documented in this encounterMedina Hospital09-16-2024 Telephone encounter Note * Telephone Encounter - Surekha Gordon MA - 06/23/2024 8:33 AM EDT Pharmacy verified in [facility] Patient has been identified by name and date of : Yes Patient aware RX will be sent to pharmacy. No need to notify patient. Patient phones for refill(s): Requested Prescriptions Pending Prescriptions Disp Refills lansoprazole (PREVACID) 30 mg capsule 60 capsule 1 Sig: Take 1 capsule by mouth two times a day. Date of last office visit : 06/03/2024 Date of next office visit : Visit date not found Last 2 Encounter Wt Readings: Date: Wt: 06/03/2024 72.4 kg (159 lb 9.8 oz) 06/01/2024 70.4 kg (155 lb 3.3 oz) Please advise. Surekha Gordon MA [facility]09-16-2024 Miscellaneous Notes* Telephone Encounter - Surekha Gordon MA - 06/23/2024 8:33 AM EDT Pharmacy verified in [facility] Patient has been identified by name and date of : Yes Patient aware RX will be sent to pharmacy. No need to notify patient. Patient phones for refill(s): Requested Prescriptions Pending Prescriptions Disp Refills lansoprazole (PREVACID) 30 mg capsule 60 capsule 1 Sig: Take 1 capsule by mouth two times a day. Date of last office visit : 06/03/2024 Date of next office visit : Visit date not found Last 2 Encounter Wt Readings: Date: Wt: 06/03/2024 72.4 kg (159 lb 9.8 oz) 06/01/2024 70.4 kg (155 lb 3.3 oz) Please advise. Surekha Gordon MA documented in this encounterMedina Hospital09-16-2024 Telephone encounter Note * Telephone Encounter - Lara Groves LPN - 06/23/2024 8:20 AM EDT Prescription Refill Information The patient has been identified by name and date of : Yes Caregiver verified no other encounters exist for this prescription request: Yes Caregiver confirmed with patient/requestor that no other refills are due, in the near future, with this provider at this time: Yes The last office visit in the department: 06/03/24 Does the patient have a future office visit with this provider/department: No Requested Prescriptions Pending Prescriptions Disp Refills buPROPion XL (WELLBUTRIN XL) 300 mg 24 hr tablet 30 tablet 1 Sig: Take 1 tablet by mouth once daily. Lara Groves LPN June 23, 2024 8:22 AM [facility]09-16-2024 Miscellaneous Notes* Telephone Encounter - Lara Groves LPN - 06/23/2024 8:20 AM EDT Prescription Refill Information The patient has been identified by name and date of : Yes Caregiver verified no other encounters exist for this prescription request: Yes Caregiver confirmed with patient/requestor that no other refills are due, in the near future, with this provider at this time: Yes The last office visit in the department: 06/03/24 Does the patient have a future office visit with this provider/department: No Requested Prescriptions Pending Prescriptions Disp Refills buPROPion XL (WELLBUTRIN XL) 300 mg 24 hr tablet 30 tablet 1 Sig: Take 1 tablet by mouth once daily. Lara Groves LPN June 23, 2024 8:22 AM documented in this encounterMedina Hospital08-27-2024 History of Present illness Narrative* Jessica Petty MA - 06/03/2024 11:32 AM EDT Asthma Action Plan Never done Asthma Control Test Never done Spirometry Never done GC (Gonorrhea) Screening (18-24) Never done Depression Screening Never done Anxiety Screening Never done Chlamydia Screening (18-24) Never done Cervical Cancer Screening due on 2024 DTaP,Tdap,Td Vaccine(7 - Td or Tdap) due on 05/15/2024 * Yue Ambriz PA-C - 06/03/2024 11:27 AM EDT Chris Urbina is a 19 year old female here today for urgent care follow up. Developed painful lumpto back of neck 5 days ago. Evaluated in UC two days ago, started on bactrim. Mother states bump was very red. No longer red. Still painful. Had vomiting on the day the bump began but none since. Denies fever, chills. REVIEW OF SYSTEMS See HPI, otherwise unremarkable. 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 No date: IBS (irritable bowel syndrome) 05/30/2022: Pituitary tumor PAST SURGICAL HISTORY No date: EAR TUBES HX No date: TONSILLECTOMY AND ADENOIDECTOMY HX FAMILY HISTORY Problem Relation Age of Onset Depression Mother Irritable Bowel Syndrome Mother Asthma Mother Fibromyalgia Mother Heart Father Depression Father Hyperlipidemia Father other (pituitary tumor) Father Anxiety disorder Sister other (ovarian cysts) Sister other (peptic ulcer) Sister Allergies Sister Hypertension Maternal Grandmother Depression Maternal Grandmother other (CVA) Maternal Grandfather other (pulmonary embolus) Maternal Grandfather Hypertension Paternal Grandmother Ischemic Heart Disease Paternal Grandmother Cancer Paternal Grandfather Ischemic Heart Disease Paternal Grandfather Diabetes Paternal Grandfather Hypertension Paternal Aunt Diabetes Paternal Aunt Alzheimer's Disease Maternal great-grandfather Social History Tobacco Use Smoking status: Never Smokeless tobacco: Never Vaping Use Vaping status: Some Days Substances: Flavoring Substance Use Topics Alcohol use: Never Drug use: Never PHYSICAL EXAMINATION: Vitals: BP 126/78 Pulse 120 Temp 36.2 C (97.2 F) Ht 160.9 cm (5' 3.35) Wt 72.4 kg (159 lb 9.8 oz) LMP 05/12/2022 SpO2 98% BMI 27.97 kg/m General Appearance: Well appearing, alert, in no acute distress, well-hydrated, well nourished.. Skin: +tender lump to posterior neck with small white head, +induration, no fluctuance, no erythemaor warmth. ASSESSMENT: DIAGNOSIS: (L08.9) Skin infection PLAN: Extend bactrim for total of 10 days. Use warm compresses. Follow up for new, worsening or persistent sx. Pt in agreement with the plan and verbalized understanding. Yue Ambriz PA-C documented in this encounterMedina Hospital08-25-[facility]24 History of Present illness Narrative* Ramon Vega APRN.[employer] - 06/01/2024 1:11 PM EDT Images from the original note were not included. Subjective HPI HPI Chris Urbina is a 19 year old female who presents today for CC of lump on neck for few days/headache. 3 days ago had vomiting, nausea, upset stomach. Has tried otc medication for relief. Symptoms are worsened by nothing. Denies fever, cp/sob, vision changes. Denies possibility of being . .Patient presents with: Derm Problem: red raised lump on back of neck, painful to touch with vomiting and nausea x thurs. 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 MEDICATIONS risperiDONE (RISPERDAL) 0.5 mg tablet Take 1 tablet by mouth two times a day. atomoxetine (STRATTERA) 25 mg capsule Take 2 capsules by mouth daily at bedtime. sertraline (ZOLOFT) 100 mg tablet Take 2 tablets by mouth once daily. 2 tablets daily VOLNEA, 28, 0.15-0.02 mgx21 /0.01 mg x 5 per tablet Take 1 tablet by mouth once daily. FEROSUL 325 mg (65 mg iron) tablet take 1 tablet by mouth once daily lansoprazole (PREVACID) 30 mg capsule Take 1 capsule by mouth two times a day. cetirizine (ZYRTEC) 10 mg tablet Take 1 tablet by mouth once daily. cabergoline (DOSTINEX) 0.5 mg tablet Take 1 tablet by mouth three times a week. buPROPion XL (WELLBUTRIN XL) 300 mg 24 hr tablet Take 300 mg by mouth once daily. budesonide-formoterol (SYMBICORT) 80-4.5 mcg/actuation inhaler Inhale 2 Puffs as instructed twice daily. albuterol HFA (PROVENTIL HFA, VENTOLIN HFA) 90 mcg/actuation inhaler Inhale 2 Puffs as instructed every 4 hours as needed for wheezing/shortness of breath. aluminum chloride (DRYSOL) 20 % external solution Apply to affected area daily at bedtime. fluticasone (FLONASE) 50 mcg/actuation nasal spray place 1 spray into each nostril twice a day dicyclomine (BENTYL) 10 mg capsule Take 10 mg by mouth. CETIRIZINE HCL (ZYRTEC ORAL) Take by mouth. sulfamethoxazole-trimethoprim (BACTRIM DS) 800-160 mg per tablet Take 1 tablet by mouth two times aday for 5 days. FAMILY HISTORY Problem Relation Age of Onset Depression Mother Irritable Bowel Syndrome Mother Asthma Mother Fibromyalgia Mother Heart Father Depression Father Hyperlipidemia Father other (pituitary tumor) Father Anxiety disorder Sister other (ovarian cysts) Sister other (peptic ulcer) Sister Allergies Sister Hypertension Maternal Grandmother Depression Maternal Grandmother other (CVA) Maternal Grandfather other (pulmonary embolus) Maternal Grandfather Hypertension Paternal Grandmother Ischemic Heart Disease Paternal Grandmother Cancer Paternal Grandfather Ischemic Heart Disease Paternal Grandfather Diabetes Paternal Grandfather Hypertension Paternal Aunt Diabetes Paternal Aunt Alzheimer's Disease Maternal great-grandfather Social History Tobacco Use Smoking status: Never Smokeless tobacco: Never Vaping Use Vaping status: Some Days Substances: Flavoring Substance Use Topics Alcohol use: Never Drug use: Never ROS Objective Blood pressure 118/70, pulse (!) 124, temperature 36.7 C (98.1 F), resp. rate 18, weight 70.4 kg (155 lb 3.3 oz), last menstrual period 05/12/2022, SpO2 99%. Hr recheck manual by provider 102/regular Physical Exam Constitutional: General: She is not in acute distress. Appearance: Normal appearance. She is not toxic-appearing or diaphoretic. HENT: Head: Normocephalic and atraumatic. Cardiovascular: Rate and Rhythm: Normal rate and regular rhythm. Heart sounds: Normal heart sounds. Pulmonary: Effort: Pulmonary effort is normal. No accessory muscle usage or respiratory distress. Breath sounds: Normal breath sounds. Abdominal: General: Bowel sounds are normal. Palpations: Abdomen is soft. Tenderness: There is no abdominal tenderness. Skin: General: Skin is warm and dry. Neurological: Mental Status: She is alert and oriented to person, place, and time. ASSESSMENT/PLAN: 1. Skin infection - ICD9: 686.9, ICD10: L08.9 - Begin treatment with Trimethoprim-sulfamethozazole (Bactrim) DS PO BID - No lymphangetic streaking, this was defined for patient to watch for and to seek medical care immediately if appears - Follow up for recheck in two days - SULFAMETHOXAZOLE 800 MG-TRIMETHOPRIM 160 MG TABLET Ramon Vega APRN.DANIEL documented in this encounterMedina Hospital08-25-2024 Telephone encounter Note * Telephone Encounter - Shelly Terry RN - 06/01/2024 11:57 AM EDT Reason For Call: Neck lump. Nausea Outcome: Disposition given - See healthcare provider within 4 hours. Patient plans to visit [facility]. Reason for Disposition [1] Swelling is red AND [2] size > 2 inches (5.0 cm) (Exception: Itchy area of skin.) See HCP Within 4 Hours Lump 3 inches in length on back of neck. Lump sore Nausea Answer Assessment - Initial Assessment Questions 1. APPEARANCE of SWELLING: Lump on back of neck sore, sized of quarter, red 2. SIZE: 3 inches in length 3. LOCATION: See above. Onset - or Sunday (2-3 days ago) 4. ONSET: See above 5. COLOR: Red 6. PAIN: Neck lump painful to touch only. Bad headache yesterday. No headache today 7. ITCH: No 8. CAUSE: Unknown. Vomited on (3 days ago). Nausea today. Drinking fluids today. Urinated 1 or 2x today. Advised her to drink more fluids. Sip frequently when nauseated and increase amount as tolerated. 9 OTHER SYMPTOMS: See above Protocols used: Skin Lump or Localized [id number] [facility]08-25-2024 Miscellaneous Notes* Telephone Encounter - Shelly Terry RN - 06/01/2024 11:57 AM EDT Reason For Call: Neck lump. Nausea Outcome: Disposition given - See healthcare provider within 4 hours. Patient plans to visit [facility]. Reason for Disposition [1] Swelling is red AND [2] size > 2 inches (5.0 cm) (Exception: Itchy area of skin.) See HCP Within 4 Hours Lump 3 inches in length on back of neck. Lump sore Nausea Answer Assessment - Initial Assessment Questions 1. APPEARANCE of SWELLING: Lump on back of neck sore, sized of quarter, red 2. SIZE: 3 inches in length 3. LOCATION: See above. Onset - or Sunday (2-3 days ago) 4. ONSET: See above 5. COLOR: Red 6. PAIN: Neck lump painful to touch only. Bad headache yesterday. No headache today 7. ITCH: No 8. CAUSE: Unknown. Vomited on (3 days ago). Nausea today. Drinking fluids today. Urinated 1 or 2x today. Advised her to drink more fluids. Sip frequently when nauseated and increase amount as tolerated. 9 OTHER SYMPTOMS: See above Protocols used: Skin Lump or Localized [id number] [facility] Tele[facility] encounter Note * Telephone Encounter - Shannan Recinos - 05/20/2024 6:27 PM EDT [facility]chart sent [facility] Miscellaneous Notes* Telephone Encounter - DentonShannan anderson - 05/20/2024 6:27 PM EDT Mychart sent * Telephone Encounter - Patricia Kearney APRN.CNP - 05/20/2024 6:20 PM EDT Refill at pharmacy. Due for OV. Please schedule with PCP team * Telephone Encounter - Lauren Apodaca MA - 05/20/2024 5:36 PM EDT Prescription Refill Information The patient has been identified by name and date of : Yes Caregiver verified no other encounters exist for this prescription request: Yes Caregiver confirmed with patient/requestor that no other refills are due, in the near future, with this provider at this time: Yes The last office visit in the department: 01/02/24 Does the patient have a future office visit with this provider/department: No Requested Prescriptions Pending Prescriptions Disp Refills lansoprazole (PREVACID) 30 mg capsule [Pharmacy Med Name: LANSOPRAZOLE DR 30 MG CAPSULE] 60 capsule1 Sig: take 1 capsule by mouth twice a day Lauren Apodaca MA May 20, 2024 5:39 PM documented in this encounterMed[facility]08-[facility] Telephone encounter Note * Telephone Encounter - Patricia Kearney APRN.CNP - 05/20/2024 6:20 PM EDT Refill at pharmacy. Due for OV. Please schedule with PCP team [facility] Tele[facility] encounter Note* Telephone Encounter - Lauren Apodaca MA - 05/20/2024 5:36 PM EDT Prescription Refill Information The patient has been identified by name and date of : Yes Caregiver verified no other encounters exist for this prescription request: Yes Caregiver confirmed with patient/requestor that no other refills are due, in the near future, with this provider at this time: Yes The last office visit in the department: 01/02/24 Does the patient have a future office visit with this provider/department: No Requested Prescriptions Pending Prescriptions Disp Refills lansoprazole (PREVACID) 30 mg capsule [Pharmacy Med Name: LANSOPRAZOLE DR 30 MG CAPSULE] 60 capsule1 Sig: take 1 capsule by mouth twice a day Lauren Apodaca MA May 20, 2024 5:39 PM [facility] Telephone encounter Note* Telephone Encounter - Lara Groves LPN - 05/08/2024 2:34 PM EDT Prescription Refill Information The patient has been identified by name and date of : Yes Caregiver verified no other encounters exist for this prescription request: Yes Caregiver confirmed with patient/requestor that no other refills are due, in the near future, with this provider at this time: Yes The last office visit in the department: 01/02/24 Does the patient have a future office visit with this provider/department: No Requested Prescriptions Pending Prescriptions Disp Refills risperiDONE (RISPERDAL) 1 mg tablet 30 tablet 0 Sig: Take 1 tablet by mouth daily at bedtime. Lara Groves LPN May 08, 2024 2:35 PM [facility] Miscellaneous Notes* Telephone Encounter - Lara Groves LPN - 05/08/2024 2:34 PM EDT Prescription Refill Information The patient has been identified by name and date of : Yes Caregiver verified no other encounters exist for this prescription request: Yes Caregiver confirmed with patient/requestor that no other refills are due, in the near future, with this provider at this time: Yes The last office visit in the department: 01/02/24 Does the patient have a future office visit with this provider/department: No Requested Prescriptions Pending Prescriptions Disp Refills risperiDONE (RISPERDAL) 1 mg tablet 30 tablet 0 Sig: Take 1 tablet by mouth daily at bedtime. Lara Groves LPN May 08, 2024 2:35 PM documented in this encounterMed[facility]08-[facility]24 Telephone encounter Note * Telephone Encounter - Shannan Recinos - 05/08/2024 2:26 PM EDT [facility]chart sent [facility] Miscellaneous Notes* Telephone Encounter - Shannan Recinos - 05/08/2024 2:26 PM EDT Mychart sent * Telephone Encounter - Patricia Kearney APRN.DANIEL - 05/08/2024 2:16 PM EDT Please inform patient that they are due for OV and assist in scheduling with PCP team. Thanks. * Telephone Encounter - Lara Groves LPN - 05/08/2024 1:46 PM EDT Prescription Refill Information The patient has been identified by name and date of : Yes Caregiver verified no other encounters exist for this prescription request: Yes Caregiver confirmed with patient/requestor that no other refills are due, in the near future, with this provider at this time: Yes The last office visit in the department: 01/02/24 Does the patient have a future office visit with this provider/department: No Requested Prescriptions Pending Prescriptions Disp Refills atomoxetine (STRATTERA) 25 mg capsule 60 capsule 2 Sig: Take 2 capsules by mouth daily at bedtime. Lara Groves LPN May 08, 2024 1:46 PM documented in this encounterMed[facility]08-[facility]24 Telephone encounter Note * Telephone Encounter - Patricia Kearney APRN.GUNITE MIXER - 05/08/2024 2:16 PM EDT Please inform patient that they are due for OV and assist in scheduling with PCP team. Thanks. [facility] Tele[facility] Note* Telephone Encounter - Lara Groves LPN - 05/08/2024 1:47 PM EDT Prescription Refill Information The patient has been identified by name and date of : Yes Caregiver verified no other encounters exist for this prescription request: Yes Caregiver confirmed with patient/requestor that no other refills are due, in the near future, with this provider at this time: Yes The last office visit in the department: 01/02/24 Does the patient have a future office visit with this provider/department: No Requested Prescriptions Pending Prescriptions Disp Refills sertraline (ZOLOFT) 100 mg tablet Sig: Take 2 tablets by mouth once daily. 2 tablets daily Lara Groves LPN May 08, 2024 1:49 PM [facility] Miscellaneous Notes* Telephone Encounter - Lara Groves LPN - 05/08/2024 1:47 PM EDT Prescription Refill Information The patient has been identified by name and date of : Yes Caregiver verified no other encounters exist for this prescription request: Yes Caregiver confirmed with patient/requestor that no other refills are due, in the near future, with this provider at this time: Yes The last office visit in the department: 01/02/24 Does the patient have a future office visit with this provider/department: No Requested Prescriptions Pending Prescriptions Disp Refills sertraline (ZOLOFT) 100 mg tablet Sig: Take 2 tablets by mouth once daily. 2 tablets daily Lara Groves LPN May 08, 2024 1:49 PM documented in this encounterMed[facility]08-[facility]-2024 Telephone encounter Note * Telephone Encounter - Lraa Groves LPN - 05/08/2024 1:46 PM EDT Prescription Refill Information The patient has been identified by name and date of : Yes Caregiver verified no other encounters exist for this prescription request: Yes Caregiver confirmed with patient/requestor that no other refills are due, in the near future, with this provider at this time: Yes The last office visit in the department: 01/02/24 Does the patient have a future office visit with this provider/department: No Requested Prescriptions Pending Prescriptions Disp Refills atomoxetine (STRATTERA) 25 mg capsule 60 capsule 2 Sig: Take 2 capsules by mouth daily at bedtime. Lara Groves LPN May 08, 2024 1:46 PM [facility] Telephone encounter Note* Telephone Encounter - Hazel Gaming LPN - 04/25/2024 2:07 PM EDT Prescription Refill Information The patient has been identified by name and date of : Yes Caregiver verified no other encounters exist for this prescription request: Yes Caregiver confirmed with patient/requestor that no other refills are due, in the near future, with this provider at this time: Yes The last office visit in the department: 01/02/24 Does the patient have a future office visit with this provider/department: Yes Requested Prescriptions Pending Prescriptions Disp Refills VOLNEA, 28, 0.15-0.02 mgx21 /0.01 mg x 5 per tablet 84 tablet 3 Sig: Take 1 tablet by mouth once daily. Hazel Gaming LPN April 25, 2024 2:08 PM [facility] Miscellaneous Notes* Telephone Encounter - Hazel Gaming LPN - 04/25/2024 2:07 PM EDT Prescription Refill Information The patient has been identified by name and date of : Yes Caregiver verified no other encounters exist for this prescription request: Yes Caregiver confirmed with patient/requestor that no other refills are due, in the near future, with this provider at this time: Yes The last office visit in the department: 01/02/24 Does the patient have a future office visit with this provider/department: Yes Requested Prescriptions Pending Prescriptions Disp Refills VOLNEA, 28, 0.15-0.02 mgx21 /0.01 mg x 5 per tablet 84 tablet 3 Sig: Take 1 tablet by mouth once daily. Hazel Gaming LPN April 25, 2024 2:08 PM documented in this encounterMed[facility]07-17-2024 Miscellaneous Notes* Telephone Encounter - Rox Mancini MA - 04/23/2024 10:07 AM EDT Prescription Refill Information The patient has been identified by name and date of : Yes Caregiver verified no other encounters exist for this prescription request: Yes Caregiver confirmed with patient/requestor that no other refills are due, in the near future, with this provider at this time: Yes The last office visit in the department: 02/26/2023 Does the patient have a future office visit with this provider/department: Visit date not found Requested Prescriptions Pending Prescriptions Disp Refills FEROSUL 325 mg (65 mg iron) tablet [Pharmacy Med Name: FEROSUL 325 MG TABLET] 90 tablet 0 Sig: take 1 tablet by mouth once daily Rox Mancini MA April 23, 2024 10:07 AM documented in this encounterMed[facility]07-17-2024 Telephone encounter Note * Telephone Encounter - Rox Mancini MA - 04/23/2024 10:07 AM EDT Prescription Refill Information The patient has been identified by name and date of : Yes Caregiver verified no other encounters exist for this prescription request: Yes Caregiver confirmed with patient/requestor that no other refills are due, in the near future, with this provider at this time: Yes The last office visit in the department: 02/26/2023 Does the patient have a future office visit with this provider/department: Visit date not found Requested Prescriptions Pending Prescriptions Disp Refills FEROSUL 325 mg (65 mg iron) tablet [Pharmacy Med Name: FEROSUL 325 MG TABLET] 90 tablet 0 Sig: take 1 tablet by mouth once daily Rxo Mancini MA April 23, 2024 10:07 AM [facility] Tele[facility] encounter Note* Telephone Encounter - Alyssa Lobo MA - 04/22/2024 8:25 AM EDT Prescription Refill Information The patient has been identified by name and date of : Yes Caregiver verified no other encounters exist for this prescription request: Yes Caregiver confirmed with patient/requestor that no other refills are due, in the near future, with this provider at this time: Yes The last office visit in the department: 01/02/24 Does the patient have a future office visit with this provider/department: No Requested Prescriptions Pending Prescriptions Disp Refills lansoprazole (PREVACID) 30 mg capsule Sig: Take 1 capsule by mouth two times a day. Alyssa Lobo MA April 22, 2024 8:27 AM [facility] Miscellaneous Notes* Telephone Encounter - Alyssa Lobo MA - 04/22/2024 8:25 AM EDT Prescription Refill Information The patient has been identified by name and date of : Yes Caregiver verified no other encounters exist for this prescription request: Yes Caregiver confirmed with patient/requestor that no other refills are due, in the near future, with this provider at this time: Yes The last office visit in the department: 01/02/24 Does the patient have a future office visit with this provider/department: No Requested Prescriptions Pending Prescriptions Disp Refills lansoprazole (PREVACID) 30 mg capsule Sig: Take 1 capsule by mouth two times a day. Alyssa Lobo MA April 22, 2024 8:27 AM [facility] in [facility] encounterMed[facility]06-[facility]24 Telephone encounter Note * Telephone Encounter - Lara Groves LPN - 03/10/2024 3:40 PM EDT LM for patient to contact her psychiatrist for the refills. Lara Groves LPN [facility] Miscellaneous Notes* Telephone Encounter - Lara Groves LPN - 03/10/2024 3:40 PM EDT LM for patient to contact her psychiatrist for the refills. Lara Groves LPN * Telephone Encounter - Jess Vargas MA - 03/04/2024 3:41 PM EDT Left message for the patient to give us a call about her requested medication, this should go through her Psychiatrist and not us. Please address this to the patient when she returns the call Jess Vargas MA * Telephone Encounter - Yue Ambriz PA-C - 03/04/2024 3:35 PM EDT See 01/31 [place] message. Pt should be getting refilled from psychiatrist. Yue Ambriz PA-C * Telephone Encounter - Jess Vargas MA - 03/04/2024 3:03 PM EDT Pharmacy verified in [facility]. Patient has been identified by name and date of : Yes Patient aware RX will be sent to pharmacy. No need to notify patient. Patient phones for refill(s): Requested Prescriptions Pending Prescriptions Disp Refills risperiDONE (RISPERDAL) 1 mg tablet [Pharmacy Med Name: RISPERIDONE 1 MG TABLET] 30 tablet 0 Sig: take 1 tablet by mouth at bedtime Date of last office visit : 02/26/2023 Date of next office visit : Visit date not found Last 2 Encounter Wt Readings: Date: Wt: 02/26/2023 75.4 kg (166 lb 3.2 oz) (90%, Z= 1.29)* 01/19/2023 75 kg (165 lb 6.4 oz) (90%, Z= 1.28)* Not applicable Please advise. Jess Vargas MA documented in this encounterMed[facility]05-28-[facility]24 Telephone encounter Note * Telephone Encounter - Jess Vargas MA - 03/04/2024 3:41 PM EDT Left message for the patient to give us a call about her requested medication, this should go through her Psychiatrist and not us. Please address this to the patient when she returns the call Jess Vargas MA [facility] Tele[facility] Note* Telephone Encounter - Yue Ambriz PA-C - 03/04/2024 3:35 PM EDT See 01/31 mychart message. Pt should be getting refilled from psychiatrist. Yue Ambriz PA-C [facility] Tele[facility] encounter Note* Telephone Encounter - Jess Vargas MA - 03/04/2024 3:03 PM EDT Pharmacy verified in [facility]. Patient has been identified by name and date of : Yes Patient aware RX will be sent to pharmacy. No need to notify patient. Patient phones for refill(s): Requested Prescriptions Pending Prescriptions Disp Refills risperiDONE (RISPERDAL) 1 mg tablet [Pharmacy Med Name: RISPERIDONE 1 MG TABLET] 30 tablet 0 Sig: take 1 tablet by mouth at bedtime Date of last office visit : 02/26/2023 Date of next office visit : Visit date not found Last 2 Encounter Wt Readings: Date: Wt: 02/26/2023 75.4 kg (166 lb 3.2 oz) (90%, Z= 1.29)* 01/19/2023 75 kg (165 lb 6.4 oz) (90%, Z= 1.28)* Not applicable Please advise. Jess Vargas MA [facility] Tele[facility] Note* Telephone Encounter - Vera Alvarez RN - 02/28/2024 10:56 AM EDT Attempted to call patient, poor connection, unable to hear patient through static and then call wasdisconnected. [facility] Miscellaneous Notes* Telephone Encounter - Vera Alvarez RN - 02/28/2024 10:56 AM EDT Attempted to call patient, poor connection, unable to hear patient through static and then call wasdisconnected. * Telephone Encounter - Jennifer Hawk RN - 02/28/2024 9:15 AM EDT Called patient at [phone]. Left message on voicemail for patient to return call for triage. * Telephone Encounter - Yue Ambriz PA-C - 02/27/2024 5:16 PM EDT Please triage and schedule appt as appropriate. Yue Ambriz PA-C * Telephone Encounter - Jessica Petty MA - 02/26/2024 4:20 PM EDT Please review and advise documented in this encounterMed[facility]05-23-2024 Telephone encounter Note * Telephone Encounter - Jennifer Hawk RN - 02/28/2024 9:15 AM EDT Called patient at [phone]. Left message on voicemail for patient to return call for triage. [facility] Tele[facility] Note* Telephone Encounter - Yue Ambriz PA-C - 02/27/2024 5:16 PM EDT Please triage and schedule appt as appropriate. Yue Ambriz PA-C [facility] Tele[facility] Note* Telephone Encounter - Jessica Petty MA - 02/26/2024 4:20 PM EDT Please review and advise [facility] Tele[facility] Note* Telephone Encounter - Alyssa Lobo MA - 02/04/2024 11:28 AM EDT Last appointment: 01/02/24 Next appointment: 02/06/24 Pharmacy verified in [facility]. Refill(s) requested: Requested Prescriptions Pending Prescriptions Disp Refills cetirizine (ZYRTEC) 10 mg tablet 90 tablet 1 Sig: Take 1 tablet by mouth once daily. Order(s) pended. Please advise. Alyssa Lobo MA, SUPERCALENDER OPERATOR HELPER [facility]04-29[facility] Miscellaneous Notes* Telephone Encounter - Alyssa Lobo MA - 02/04/2024 11:28 AM EDT Last appointment: 01/02/24 Next appointment: 02/06/24 Pharmacy verified in [facility]. Refill(s) requested: Requested Prescriptions Pending Prescriptions Disp Refills cetirizine (ZYRTEC) 10 mg tablet 90 tablet 1 Sig: Take 1 tablet by mouth once daily. Order(s) pended. Please advise. Alyssa Lobo MA, SUPERCALENDER OPERATOR HELPER documented in this encounterMedina Hospital04-25-2024 Telephone encounter Note * Telephone Encounter - Lyubov Davalos RN - 01/31/2024 3:53 PM EDT Message to patient, she will CB to make an appt., aware of the date to have BW done. [facility] Miscellaneous Notes* Telephone Encounter - Lyubov Davalos RN - 01/31/2024 3:53 PM EDT Message to patient, she will CB to make an appt., aware of the date to have BW done. * Telephone Encounter - Lara Groves LPN - 01/31/2024 1:06 PM EDT LM for patient to call office. Lara Groves LPN * Telephone Encounter - Iwona Rangel - 01/31/2024 12:19 PM EDT Patient returned phone call, she is available anytime before 5:00 PM. She stated please call her cell: [phone] and not her Mother's cell. She did say that both her Mother and Father have guardianship over her but to call her. * Telephone Encounter - Lara Groves LPN - 01/31/2024 11:48 AM EDT LM for patient to call the office. Lara Groves LPN * Telephone Encounter - Alyssa Lobo MA - 01/30/2024 3:03 PM EDT Left VM stating we had a message to real to her, asked her to call back.Please relay below message to her when she calls back * Telephone Encounter - Priya Do MD - 01/30/2024 12:29 PM EDT Pt did not show for her virtual visit this morning. Iron levels are low, slightly anemic. Often from heavy periods in a young female. Prolactin level normal. Recommend she try starting iron, ferrous sulfate 325 mg once a day and recheck labs in 3 months. Schedule fu visit at that time. documented in this encounterMedina [facility]04-25-2024 Telephone encounter Note * Telephone Encounter - Lara Groves LPN - 01/31/2024 1:06 PM EDT LM for patient to call office. Lara Groves LPN [facility] Tele[facility] Note* Telephone Encounter - Keaau Iwona Armas - 01/31/2024 12:19 PM EDT Patient returned phone call, she is available anytime before 5:00 PM. She stated please call her cell: [phone] and not her Mother's cell. She did say that both her Mother and Father have guardianship over her but to call her. [facility] Tele[facility] encounter Note* Telephone Encounter - Lara Groves LPN - 01/31/2024 11:48 AM EDT LM for patient to call the office. Lara Groves LPN [facility] Telephone encounter Note* Telephone Encounter - Alyssa Lobo MA - 01/30/2024 3:03 PM EDT Left VM stating we had a message to real to her, asked her to call back.Please relay below message to her when she calls back [facility] Tele[facility] Note* Telephone Encounter - Priya Do MD - 01/30/2024 12:29 PM EDT Pt did not show for her virtual visit this morning. Iron levels are low, slightly anemic. Often from heavy periods in a young female. Prolactin level normal. Recommend she try starting iron, ferrous sulfate 325 mg once a day and recheck labs in 3 months. Schedule fu visit at that time. [facility] Miscellaneous Notes* Telephone Encounter - Isa Tucker LPN - 12/31/2023 9:43 AM EDT Pharmacy verified in [facility] Patient has been identified by name and date of : Yes Patient aware RX will be sent to pharmacy. No need to notify patient. Patient phones for refill(s): Requested Prescriptions Pending Prescriptions Disp Refills cetirizine (ZYRTEC) 10 mg tablet [Pharmacy Med Name: CETIRIZINE HCL 10 MG TABLET] 90 tablet 1 Sig: take 1 tablet by mouth once daily Date of last office visit : 02/26/2023 Date of next office visit : 01/02/2024 Last 2 Encounter Wt Readings: Date: Wt: 02/26/2023 75.4 kg (166 lb 3.2 oz) (90%, Z= 1.29)* 01/19/2023 75 kg (165 lb 6.4 oz) (90%, Z= 1.28)* Not applicable Please advise. Isa Tucker LPN documented in this encounterMedina Hospital03-20-2024 Miscellaneous Notes* Addendum Note - Fern Chaves RN - 12/26/2023 2:50 PM EDTAddended by: FERN CHAVES on: 12/26/2023 02:50 PM Modules accepted: Orders * Telephone Encounter - Fern Chaves RN - 12/26/2023 2:48 PM EDT Requester: Patient Patients last Endocrinology visit occurred 05/30/2022. Follow-up evaluation has been established Upcoming Endocrinology Appointments - Next 365 Days Visit Type Date Time Department VIDEO SPEC EST 03/07/2024 11:00 AM ENDO MAIN . Requested Prescriptions Pending Prescriptions Disp Refills cabergoline (DOSTINEX) 0.5 mg tablet 12 tablet 11 Sig: Take 1 tablet by mouth three times a week. If patient is due for an appointment please route to provider for refill consideration and also to the endo scheduling pool. PSS NOTE: Patient needs scheduled appointment No documented in this encounterMedina Hospital03-15-2024 Miscellaneous Notes* Telephone Encounter - Vera Alvarez RN - 12/21/2023 3:32 PM EDT See triage encounter. * Telephone Encounter - Karuna Solomon MA - 12/20/2023 3:09 PM EDT Please triage. documented in this encounterMedina Hospital09-18-2023 Miscellaneous Notes* Telephone Encounter - Priya Do MD - 06/25/2023 4:56 PM EDT Had #90 filled on 05/[address] Merlos. * Telephone Encounter - Lara Groves LPN - 05/21/2023 10:59 AM EDT Last appointment: 02/26/23 Next appointment: none Pharmacy verified in [facility]. Refill(s) requested: Requested Prescriptions Pending Prescriptions Disp Refills risperiDONE (RISPERDAL) 1 mg tablet 30 tablet 0 Sig: Take 1 tablet by mouth daily at bedtime. Order(s) pended. Please advise. Lara Groves LPN, GAUTAM documented in this encounterMedina Hospital08-04-2023 Miscellaneous Notes* Telephone Encounter - Alannah Roca Ma - 05/11/2023 2:54 PM EDT Please review and advise documented in this encounterMedina Hospital05-22-2023 History of Present illness Narrative* Priya Do MD - 02/26/2023 5:48 PM EDT Patient presents with: Follow Up: Paper work HPI: Chris Urbina is a 17 year old female who presents to the office today for guardianship paperwork. Patient has high functioning autism, parents are guardians to help oversee her finances She lives at home. Significant separation anxiety when away from parents, boyfriend. Doesn't feel comfortable making medical decisions or financial decisions for herself. Accompanied by aunt today. Sees psychiatry, meds working well. REVIEW OF SYSTEMS: CONSTITUTIONAL: No fevers, chills, nightsweats, unintended weight loss HEENT: Denies frequent or severe heaches, nasal congestion/sinus symptoms, problematic allergy problems. EYES: No diplopia or blurry vision. CARDIOVASCULAR: No chest pain, dyspnea, palpitations, orthopnea, PND, ankle edema. PULM: No dyspnea, unexplained cough. GI: No dysphagia/odynophagia, problematic reflux, constipation, diarrhea, changes in stool habits, hematochezia, melena. : No new urinary complaints, including dysuria, gross hematuria or pyuria. NEURO: No new balance problems, peripheral weakness/paresthesias or numbness of concern. MUSC-SKEL: No new joint pain, swelling, or erythema. PSY: No concerns regarding depression, anxiety or panic. INTEGUMENTARY: No new skin changes (rash, new or changing mole, new growth) PAST MEDICAL HISTORY Diagnosis Date Acid reflux ADHD Asthma High-functioning autism spectrum disorder IBS (irritable bowel syndrome) Pituitary tumor 05/30/2022 PAST SURGICAL HISTORY Procedure Laterality Date EAR TUBES HX TONSILLECTOMY AND ADENOIDECTOMY HX FAMILY HISTORY Problem Relation Age of Onset Depression Mother Irritable Bowel Syndrome Mother Asthma Mother Fibromyalgia Mother Heart Father Depression Father Hyperlipidemia Father other (pituitary tumor) Father Anxiety disorder Sister other (ovarian cysts) Sister other (peptic ulcer) Sister Allergies Sister Hypertension Maternal Grandmother Depression Maternal Grandmother other (CVA) Maternal Grandfather other (pulmonary embolus) Maternal Grandfather Hypertension Paternal Grandmother Ischemic Heart Disease Paternal Grandmother Cancer Paternal Grandfather Ischemic Heart Disease Paternal Grandfather Diabetes Paternal Grandfather Hypertension Paternal Aunt Diabetes Paternal Aunt Alzheimer's Disease Maternal great-grandfather Social History Tobacco Use Smoking status: Never Smokeless tobacco: Never Vaping Use Vaping Use: Some days Substances: Flavoring Substance Use Topics Alcohol use: Never Drug use: Never ACTIVE PROBLEM LIST Allergic Rhinitis Asperger's Disorder Asthma Attention Deficit Hyperactivity Disorder (Adhd) Reflux Esophagitis Tic Pituitary Tumor Hyperhidrosis ALLERGIES No Known Allergies MEDICATIONS: buPROPion XL (WELLBUTRIN XL) 300 mg 24 hr tablet Take 300 mg by mouth once daily. lansoprazole (PREVACID) 15 mg capsule Take 1 capsule by mouth twice daily. sertraline (ZOLOFT) 100 mg tablet Take 2 tablets by mouth once daily. 2 tablets daily budesonide-formoterol (SYMBICORT) 80-4.5 mcg/actuation inhaler Inhale 2 Puffs as instructed twice daily. atomoxetine (STRATTERA) 25 mg capsule Take 2 capsules by mouth daily at bedtime. albuterol HFA (PROVENTIL HFA, VENTOLIN HFA) 90 mcg/actuation inhaler Inhale 2 Puffs as instructed every 4 hours as needed for wheezing/shortness of breath. aluminum chloride (DRYSOL) 20 % external solution Apply to affected area daily at bedtime. cabergoline (DOSTINEX) 0.5 mg tablet Take 1 tablet by mouth three times a week. fluticasone (FLONASE) 50 mcg/actuation nasal spray place 1 spray into each nostril twice a day VOLNEA, 28, 0.15-0.02 mgx21 /0.01 mg x 5 per tablet Take 1 tablet by mouth once daily. dicyclomine (BENTYL) 10 mg capsule Take 10 mg by mouth. risperiDONE (RISPERDAL) 1 mg tablet Take 1 mg by mouth daily at bedtime. lansoprazole (PREVACID) 30 mg capsule Take 30 mg by mouth twice daily. CETIRIZINE HCL (ZYRTEC ORAL) Take by mouth. EXAM:BP 120/76 Pulse 115 Temp 36.4 C (97.6 F) (Temporal) Ht 160.9 cm (5' 3.35) Wt 75.4 kg (166 lb 3.2 oz) LMP 05/12/2022 SpO2 99% BMI 29.12 kg/m Last Wt 02/26/23 : 75.4 kg (166 lb 3.2 oz) 01/19/23 : 75 kg (165 lb 6.4 oz) 05/30/22 : 68 kg (150 lb) 05/15/22 : 68 kg (150 lb) PHYSICAL EXAM: General Appearance: Well appearing, alert, in no acute distress, well-hydrated, well nourished.. Skin: Skin color, texture, turgor normal, no suspicious rashes or lesions. Neurologic: Gait normal. ASSESSMENT/PLAN: 1. Separation anxiety disorder - ICD9: 309.21, ICD10: F93.0 (primary diagnosis) - paperwork filled out, fu with psychiatry. At baseline. 2. Attention deficit hyperactivity disorder (ADHD), combined type - ICD9: 314.01, ICD10: F90.2 - continue current meds 3. Asperger's disorder - ICD9: 299.80, ICD10: F84.5 - stable 4. Moderate episode of recurrent major depressive disorder (HCC) - ICD9: 296.32, ICD10: F33.1 - stable. Priya Do * Lara Groves LPN - 02/26/2023 5:40 PM EDT ASTHMA ACTION PLAN Never done ASTHMA CONTROL TEST Never done PNEUMOCOCCAL(1 - PCV) due on 2009 SPIROMETRY Never done [facility] Instructions* Patient Instructions* Lara Groves LPN - 02/26/2023 5:41 PM EDT [facility] TEST INFORMATION [facility] HOURS: Lab is open: 7:30am to 5:00pm M - , 7:30am to 4:00pm onFri and 8am -12pm on Sat. The lab is located in [facility] on the first floor. There is a registration window at the lab, available 7 am to 3 pm Sunday - Sunday. If registration is unavailable at the lab, you may register at the patient registration office near the front lobby of the hospital. SCHEDULING A LAB APPOINTMENT: Laboratory appointments are recommended.Walk ins are still accepted. Call [phone] or schedule via [employer] scheduling ticket. ROUTINE LAB ORDERS 60 days after they are entered. If your lab orders , you may be required to wait in the lab while they are reinstated FUTURE ORDERS are lab tests to be completed on the EXPECTED date. These orders 60 days afterthe expected date. STANDING ORDERS are recurring orders with an expiration date. The interval will indicate how often the test should be completed. CT / MRI / IVP If you have lab tests ordered for one of these radiology exams, please complete the blood work at least one day prior to the scheduled exam. PRESCRIPTION REFILL REQUESTS Request prescription refills through your [employer] account or contact your Pharmacy. My Chart Schedule My Appointment enables you to view your established primary care provider's open schedule and book an appointment online in real-time. This feature is available in internal medicine, family medicine, or pediatrics at any of our [facility] locations and main campus. documented in this encounter[facility]04-14-[facility]23 History of Present illness Narrative* Priya Do MD - 01/19/2023 3:10 PM EDT Patient presents with: Establish Care HPI: Chris Urbina is a 17 year old female who presents to the office today for getting established. 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 Hyperprolactinemia Had galactorrhea On cabergoline, prolactin was still high in 05/2022 - increased dose to 3 times a week Breast milk has stopped Periods are normal, on ocps. Sees obgyn in [place] - prescribes control. GERD Used to see GI Had EGD On prevacid BID, doing fine. Asthma Using symbicort prn, running or hot weather is a trigger Not used for 1 year Has boyfriend of 2 years Has temps, not driving yet. REVIEW OF SYSTEMS: CONSTITUTIONAL: No fevers, chills, nightsweats, unintended weight loss HEENT: Denies frequent or severe heaches, nasal congestion/sinus symptoms, problematic allergy problems. EYES: No diplopia or blurry vision. CARDIOVASCULAR: No chest pain, dyspnea, palpitations, orthopnea, PND, ankle edema. PULM: No dyspnea, unexplained cough. GI: No dysphagia/odynophagia, problematic reflux, constipation, diarrhea, changes in stool habits, hematochezia, melena. : No new urinary complaints, including dysuria, gross hematuria or pyuria. NEURO: No new balance problems, peripheral weakness/paresthesias or numbness of concern. MUSC-SKEL: No new joint pain, swelling, or erythema. PSY: No concerns regarding depression, anxiety or panic. INTEGUMENTARY: No new skin changes (rash, new or changing mole, new growth) PAST MEDICAL HISTORY Diagnosis Date Acid reflux ADHD Asthma High-functioning autism spectrum disorder IBS (irritable bowel syndrome) Pituitary tumor 05/30/2022 PAST SURGICAL HISTORY Procedure Laterality Date EAR TUBES HX TONSILLECTOMY AND ADENOIDECTOMY HX FAMILY HISTORY Problem Relation Age of Onset Depression Mother Irritable Bowel Syndrome Mother Asthma Mother Fibromyalgia Mother Heart Father Depression Father Hyperlipidemia Father other (pituitary tumor) Father Anxiety disorder Sister other (ovarian cysts) Sister other (peptic ulcer) Sister Allergies Sister Hypertension Maternal Grandmother Depression Maternal Grandmother other (CVA) Maternal Grandfather other (pulmonary embolus) Maternal Grandfather Hypertension Paternal Grandmother Ischemic Heart Disease Paternal Grandmother Cancer Paternal Grandfather Ischemic Heart Disease Paternal Grandfather Diabetes Paternal Grandfather Hypertension Paternal Aunt Diabetes Paternal Aunt Alzheimer's Disease Maternal great-grandfather Social History Tobacco Use Smoking status: Never Smokeless tobacco: Never Vaping Use Vaping Use: Some days Substances: Flavoring Substance Use Topics Alcohol use: Never Drug use: Never ACTIVE PROBLEM LIST Allergic Rhinitis Asperger's Disorder Asthma Attention Deficit Hyperactivity Disorder (Adhd) Reflux Esophagitis Tic Pituitary Tumor Hyperhidrosis ALLERGIES No Known Allergies MEDICATIONS: buPROPion XL (WELLBUTRIN XL) 300 mg 24 hr tablet Take 300 mg by mouth once daily. cabergoline (DOSTINEX) 0.5 mg tablet Take 1 tablet by mouth three times a week. fluticasone (FLONASE) 50 mcg/actuation nasal spray place 1 spray into each nostril twice a day VOLNEA, 28, 0.15-0.02 mgx21 /0.01 mg x 5 per tablet Take 1 tablet by mouth once daily. dicyclomine (BENTYL) 10 mg capsule Take 10 mg by mouth. risperiDONE (RISPERDAL) 1 mg tablet Take 1 mg by mouth daily at bedtime. lansoprazole (PREVACID) 30 mg capsule Take 30 mg by mouth twice daily. CETIRIZINE HCL (ZYRTEC ORAL) Take by mouth. lansoprazole (PREVACID) 15 mg capsule Take 1 capsule by mouth twice daily. sertraline (ZOLOFT) 100 mg tablet Take 2 tablets by mouth once daily. 2 tablets daily budesonide-formoterol (SYMBICORT) 80-4.5 mcg/actuation inhaler Inhale 2 Puffs as instructed twice daily. atomoxetine (STRATTERA) 25 mg capsule Take 2 capsules by mouth daily at bedtime. albuterol HFA (PROVENTIL HFA, VENTOLIN HFA) 90 mcg/actuation inhaler Inhale 2 Puffs as instructed every 4 hours as needed for wheezing/shortness of breath. aluminum chloride (DRYSOL) 20 % external solution Apply to affected area daily at bedtime. EXAM:BP 122/78 Pulse 84 Temp 36.8 C (98.3 F) (Temporal) Ht 160.9 cm (5' 3.35) Wt 75 kg (165 lb 6.4 oz) LMP 05/12/2022 SpO2 99% BMI 28.98 kg/m Last Wt 01/19/23 : 75 kg (165 lb 6.4 oz) 05/30/22 : 68 kg (150 lb) 05/15/22 : 68 kg (150 lb) 07/20/18 : 69.9 kg (154 lb) PHYSICAL EXAM: General Appearance: Well appearing, alert, in no acute distress, well-hydrated, well nourished.. Skin: Skin color, texture, turgor normal, no suspicious rashes or lesions. Lymph Nodes: No cervical lymphadenopathy, No supraclavicular lymphadenopathy, Head: Normocephalic, no masses, lesions, tenderness or abnormalities. Eyes: Anicteric sclera. Pupils are equally round and reactive to light. Extraocular movements are intact. . Nose/Sinuses: Nares normal, septum midline, mucosa normal, no drainage or sinus tenderness. Oropharynx: Lips, mucosa, and tongue normal, teeth and gums normal, oropharynx normal. Neck: Supple, no adenopathy; thyroid symmetric, normal size, no bruits. Lungs: Lungs clear to auscultation. No wheezing, rhonchi, rales. Heart: RRR without murmur, gallop, or rubs. No ectopy. Abdomen: Normal abdominal exam, Abdomen soft, non-tender. Bowel sounds normal. No masses, organomegaly. Extremities: No deformities, edema, skin discoloration, clubbing or cyanosis. Good capillary refill. Neurologic: Gait normal. ASSESSMENT/PLAN: 1. Encounter for well adult exam without abnormal findings - ICD9: V70.0, ICD10: Z00.00 (primary diagnosis) - Counseled on healthy diet and regular exercise 2. GERD without esophagitis - ICD9: 530.81, ICD10: K21.9 - cut back dose from 30 mg BID to 15 mg BID - LANSOPRAZOLE 15 MG CAPSULE,DELAYED RELEASE 3. Moderate persistent asthma, uncomplicated - ICD9: 493.90, ICD10: J45.40 - resume symbicort - BUDESONIDE-FORMOTEROL HFA 80 MCG-4.5 MCG/ACTUATION AEROSOL INHALER - SPIROMETRY - BASELINE AND POST DILATOR - ALBUTEROL SULFATE HFA 90 MCG/ACTUATION AEROSOL INHALER 4. Moderate persistent asthma without complication - ICD9: 493.90, ICD10: J45.40 5. Asthma case management patient - ICD9: 493.90, ICD10: J45.909 6. Special screening examination for viral disease - ICD9: V73.99, ICD10: Z11.59 - HEP C AB IA W/CONF SCRN 7. Screening for HIV (human immunodeficiency virus) - ICD9: V73.89, ICD10: Z11.4 - HIV 1 2 COMBO(AG/AB),WITH REFLEX TO DIFFERENTIATION 8. Laboratory exam ordered as part of routine general medical examination - ICD9: V72.62, ICD10: Z00.00 - BASIC METABOLIC PNL 9. Hyperhidrosis - ICD9: 705.21, ICD10: R61 - start DRYSOL 20 % TOPICAL SOLUTION Encouraged to schedule follow up with endo for prolactinoma. Priya Do * Lara Groves LPN - 01/19/2023 3:09 PM EDT ASTHMA ACTION PLAN Never done ASTHMA CONTROL TEST Never done PNEUMOCOCCAL(1 - PCV) due on 2009 SPIROMETRY Never done GC (GONORRHEA) SCREENING (18-24) Never done ANNUAL PCP TEAM CHRONIC DISEASE VISIT Never done HEPATITIS C SCREENING Never done HIV SCREENING Never done CHLAMYDIA SCREENING (18-24) Never done DEPRESSION ASSESSMENT Never done documented in this encounterMed[facility] Hospital04-14-2023 Instructions* Patient Instructions* Lara Groves LPN - 01/19/2023 3:10 PM EDT [facility] TEST INFORMATION [facility] LAB HOURS: Lab is open: 7:30am to 5:00pm M - Th, 7:30am to 4:00pm onFri and 8am -12pm on Sat. The lab is located in [facility] on the first floor. There is a registration window at the lab, available 7 am to 3 pm Sunday - Sunday. If registration is unavailable at the lab, you may register at the patient registration office near the front lobby of the hospital. SCHEDULING A LAB APPOINTMENT: Laboratory appointments are recommended.Walk ins are still accepted. Call [phone] or schedule via [employer] scheduling ticket. ROUTINE LAB ORDERS 60 days after they are entered. If your lab orders , you may be required to wait in the lab while they are reinstated FUTURE ORDERS are lab tests to be completed on the EXPECTED date. These orders 60 days afterthe expected date. STANDING ORDERS are recurring orders with an expiration date. The interval will indicate how often the test should be completed. CT / MRI / IVP If you have lab tests ordered for one of these radiology exams, please complete the blood work at least one day prior to the scheduled exam. PRESCRIPTION REFILL REQUESTS Request prescription refills through your [employer] account or contact your Pharmacy. My Chart Schedule My Appointment enables you to view your established primary care provider's open schedule and book an appointment online in real-time. This feature is available in internal medicine, family medicine, or pediatrics at any of our [facility] locations and [facility]. documented in this encounterMedina Hospital08-31-2022 Miscellaneous Notes* Telephone Encounter - Margaret Castro Pss - 06/07/2022 4:01 PM EDT Received outside medical records from [facility] will index into chart. Margaret Castro Senior Android Software Engineer II [facility] F-20 documented in this encounterMedina Hospital08-25-2022 Miscellaneous Notes* Telephone Encounter - Davis Gonzales - 06/01/2022 9:57 AM EDT Requester: Patient Patients last Endocrinology visit occurred 05/30/22. Follow-up evaluation has been established N/A. Requested Prescriptions Pending Prescriptions Disp Refills cabergoline (DOSTINEX) 0.5 mg tablet 12 tablet 11 Sig: Take 1 tablet by mouth three times a week. If patient is due for an appointment please route to provider for refill consideration and also to the endo scheduling pool. PSS NOTE: Patient needs scheduled appointment Yes Davis Gonzales [facility] documented in this encounterMedina Hospital08-23-2022 Miscellaneous Notes* Telephone Encounter - Lisbeth Omer Fulfillment Representative - 05/30/2022 2:55 PM EDT Faxed medical records form to [facility]. Successfully transmitted to [phone] documented in this encounterMedina Hospital08-23-2022 Instructions* Patient Instructions* Shaunna Garcia - 05/30/2022 11:01 AM EDT [facility] Department of Endocrinology, Diabetes and Metabolism. Did you know that you need to call 48 hours in advance of your scheduled visit, if you are unable to make your appointment? The Endocrinology and Metabolism [place] thanks you for your commitment, because patients not showing to their appointment results in a lost opportunity for patients to receive [facility] health care at the [facility]. To Cancel an appointment, please choose one of the following: - Call the Appointment Call Center at [phone] - From [employer], Go to Appointments - Cancel Appts If cancelling, consider your need to reschedule to prevent further delays in your care. To Schedule an appointment, please choose one of the following: - Call the Appointment Call Center at [phone] - From [employer], Go to Appointments - Request an Appt documented in this encounterMedina Hospital08-23-2022 History of Present illness Narrative* Caitie Goodman MD - 05/30/2022 11:00 AM EDT Answers submitted by the patient for this visit: Endocrine Review of Systems (Submitted on 05/23/2022) Fatigue: Yes Night Sweats: Yes Recent Unintentional Weight Change: No Skin Color Changes: No Post-Nasal Drip: Yes Thyroid Pain (lower neck): No Trouble Swallowing: No Vision Disturbance: Yes Chest Pain: No Leg Swelling: No Blood Clots?: No Leg Pain while walking?: Yes Difficulty Breathing?: No Heartburn: Yes Nausea: No Vomiting?: No Diarrhea: No Constipation: No Abdominal Pain: No Bone Pain?: Yes Muscle Aches: Yes Muscle Weakness: Yes Joint Pain or Stiffness: Yes Headaches: Yes Dizziness: No Numbness?: No Urgency to Urinate?: Yes Increased Urination?: No Slow or Small Urine Stream?: No Are your menstrual cycles regular?: Yes Are your menstrual cycles irregular?: No Have your menstrual cycles stopped?: No Flushing?: No Hot Flashes?: No Increased Thirst: No Change in Body Hair?: No Cold Intolerance: No Heat Intolerance?: No Initial Pituitary Patient Assessment Form Chris Urbina is a 17 year old female here today for an initial pituitary assessment Referred by: Name: Rommel Emmanuel Current Outpatient Medications Medication Sig fluticasone (FLONASE) 50 mcg/actuation nasal spray place 1 spray into each nostril twice a day cabergoline (DOSTINEX) 0.5 mg tablet take 1 tablet by mouth two times a week albuterol HFA (PROVENTIL HFA, VENTOLIN HFA) 90 mcg/actuation inhaler inhale 2 puffs by mouth and INTO THE LUNGS every 4 hours if needed for shortness of breath methylphenidate ER 36 mg tablet Take 36 mg by mouth once daily. dicyclomine (BENTYL) 10 mg capsule Take 10 mg by mouth. sertraline (ZOLOFT) 50 mg tablet Take 75 mg by mouth once daily. risperiDONE (RISPERDAL) 1 mg tablet Take 1.5 mg by mouth once daily. LANSOPRAZOLE (PREVACID ORAL) Take by mouth. ATOMOXETINE HCL (STRATTERA ORAL) Take by mouth. CETIRIZINE HCL (ZYRTEC ORAL) Take by mouth. MULTIVIT &MINERALS/FERROUS FUM (MULTI VITAMIN ORAL) Take by mouth. BUDESONIDE/FORMOTEROL FUMARATE (SYMBICORT INHALATION) Inhale as instructed. VOLNEA, 28, 0.15-0.02 mgx21 /0.01 mg x 5 per tablet Take 1 tablet by mouth once daily. No current facility-administered medications for this visit. PAST MEDICAL HISTORY Diagnosis Date Acid reflux ADHD Asthma High-functioning autism spectrum disorder IBS (irritable bowel syndrome) Pituitary tumor 05/30/2022 PAST SURGICAL HISTORY Procedure Laterality Date EAR TUBES HX TONSILLECTOMY AND ADENOIDECTOMY HX FAMILY HISTORY Problem Relation Age of Onset Depression Mother Irritable Bowel Syndrome Mother Asthma Mother Fibromyalgia Mother Heart Father Depression Father Hyperlipidemia Father Anxiety disorder Sister other (ovarian cysts) Sister other (peptic ulcer) Sister Allergies Sister Hypertension Maternal Grandmother Depression Maternal Grandmother other (CVA) Maternal Grandfather other (pulmonary embolus) Maternal Grandfather Hypertension Paternal Grandmother Ischemic Heart Disease Paternal Grandmother Cancer Paternal Grandfather Ischemic Heart Disease Paternal Grandfather Diabetes Paternal Grandfather Hypertension Paternal Aunt Diabetes Paternal Aunt Alzheimer's Disease Maternal great-grandfather History of Present Illness: She reports galactorrhea for about 1 year. Menses have irregular since menarche. She was told her prolactin was elevated and started on cabergoline 0.25 mg twice a week. Reportedly repeat prolactin was even higher and she was increased to 0.5 mg cabergoline twice a week and then an MRI of her pituitary was obtained. the family was told her pituitary was enlarged and she needed to see an shirt line operator but none of this information has been received. I only have reports by the family. Review of Systems: GENERAL: Fatigue yes, a little. Weight gained 20 lbs over past few months HEAD & NECK: Headaches Yes, like migraines, Visual Complaints No, Dizziness No CVS: Chest pain PULMONARY: asthma but rarely uses inhaler GI: GERD system: Nocturia Yes. 3-4 times per night Sex / Menstruation / OB Hx: Menstrual History Oligomenorrhea: MUSCULOSKEL: Muscle weakness and Knee pain OTHER: Galactorrhea: yes, with expression Mood changes: yes, Depressed Diaphoresis: Yes, night sweats Easy Bruising Yes Family Medical History: FAMILY HISTORY Problem Relation Age of Onset Depression Mother Irritable Bowel Syndrome Mother Asthma Mother Fibromyalgia Mother Heart Father Depression Father Hyperlipidemia Father Anxiety disorder Sister other (ovarian cysts) Sister other (peptic ulcer) Sister Allergies Sister Hypertension Maternal Grandmother Depression Maternal Grandmother other (CVA) Maternal Grandfather other (pulmonary embolus) Maternal Grandfather Hypertension Paternal Grandmother Ischemic Heart Disease Paternal Grandmother Cancer Paternal Grandfather Ischemic Heart Disease Paternal Grandfather Diabetes Paternal Grandfather Hypertension Paternal Aunt Diabetes Paternal Aunt Alzheimer's Disease Maternal great-grandfather Social History: Social History Tobacco Use Smoking status: Never Smokeless tobacco: Never Substance Use Topics Alcohol use: Never Drug use: Never Previous Pituitary Surgery: No Previous Radiotherapy: No Lab Value Units Date High Low TSH No results within date range. T4 No results within date range. FTI No results within date range. T3 No results within date range. FREET3 No results within date range. FREET4 No results within date range. FSH No results within date range. LH No results within date range. TESTFREE No results within date range. TESTOST No results within date range. PROL No results within date range. ALPSUB No results within date range. ILGF1 No results within date range. GH No results within date range. DHEAS No results within date range. ACTH No results within date range. COR0 No results within date range. COR30 No results within date range. COR60 No results within date range. Lab Value Units Date High Low ALT No results within date range. PHYSICAL EXAM BP 118/75 Pulse 106 Ht 160.9 cm (5' 3.35) Wt 68 kg (150 lb) LMP 05/12/2022 BMI 26.28 kg/m APPEARANCE: Well appearing, alert, in no acute distress, well-hydrated, well nourished. EYES MATT, extra occular movements normal NECK Supple, no adenopathy; thyroid symmetric, normal size, no bruits BREASTS: a drop of clear fluid expressed from each breast. She reports it was more milky prior to cabergoline. HEART RRR with normal S1 and S2, systolic murmur at LSB, no gallops, no JVD appreciated LUNGS clear to auscultation ABD bowel sounds normoactive, no bruits, soft, non-tender, non-distended, without organomegaly or palpable masses, no tenderness to palpation EXTREMITIES No deformities, No skin discoloration, and No edema NEURO Awake, alert and oriented x 3, Reflexes symmetrical, and Cranial nerves II-XII grossly intact SKIN Skin color, texture, turgor normal, no suspicious rashes or lesions Previous MRI/CT Scan: Yes, Not available. RELEVENT OUTSIDE LABS: Not available. Consult Patient is sent at the request of Dr. Rommel Emmanuel for my opinion regarding galactorrhea, elevated prolactin and pituitary enlargement. My final recommendations will be communicated back to the requesting physician by way of a copy of today's office notes. ASSESSMENT/PLAN: It may be very hard to know what the actual pathophysiology is in this 17 yo womanwho carries a diagnosis of Asperger's disorder. Her mother is her guardian and clearly in charge but a sister also seems very involved. Her boyfriend is also present. Release of information signed by her mother to obtain lab and to get images of pituitary on disk. Lab today- Prolactin, IFG-1, TSH, free T4, DHEA-S, CMP, and in view of nocturia 3-4 times per night- urine andserum for osmolality. RTN based on data from today and that received from [facility]. Caitie Goodman MD Endocrinology Staff documented in this encounterMedina Hospital[facility]22 Instructions* Patient Instructions* Jose Gleason APRN.[employer] - 05/15/2022 6:25 PM EDT How to Manage Common Symptoms Associated with COVID for Adults Fever- Fever is a temperature over 100.4 F and can occur when the body is fighting an infection. Tohelp treat a fever: Drink plenty of fluids and stay well hydrated. Eat small amounts of easy to digest food. Rest. Your body needs rest to recover, but getting up and moving around the house frequently is a good idea. You should try to continue doing your normal daily activities (bathing, toileting, grooming, cooking), though you will probably feel tired, and need to rest often. Avoid any heavy activity or exercise, as this will increase your body temperature. Dress in light clothing and stay covered in a light sheet. Keep the room temperature cool. Take a slightly warm (not cold or cool) bath, or apply damp washcloths to the forehead and wrists. Cough- Cough is a common symptom associated with COVID and can be bothersome. To help treat a cough: Stay well hydrated. Try warm water or tea with lemon and/or honey to help soothe the cough. Use a humidifier to add moisture to the air. Try a product with menthol, like a cough drop or a rub for your chest such as Vicks, which can helpreduce cough. Try cough drops. Avoid smoking and other strong odors or perfumes. Try breathing exercises to keep your lungs open and clear. Take a big deep breath through your noseand hold for 5 seconds before slowly releasing. Repeat frequently, while you are awake. Congestion- Runny nose or nasal congestion can occur with COVID. Treatment can help relieve symptoms: Try OTC nasal saline spray, or nasal saline rinse to relieve mucus congestion. Nasal strips can help keep nasal passages open, to increase airflow. Elevating your head with an extra pillow in bed can help reduce congestion. Using a humidifier can increase moisture in the air, and make breathing easier. Sore Throat- Another common symptom with COVID, can be managed at home by: Stay well hydrated. Gargle with salt water - mix teaspoon salt with 1 cup of warm water and gargle. This helps to loosen mucus in the back of the throat and may reduce discomfort. Try ice chips, popsicles or lozenges to soothe the throat. Nausea/Vomiting/Diarrhea- These are common symptoms, and staying hydrated is most important. If you are nauseous or vomiting, start with small sips of water every 10-15 minutes and increase astolerated. You can try sucking an ice cube too. If tolerating, you can try pedialyte or Gatorade, or flat sprite or patric-gi. Start slowly and increase as you are able to. Instead of meals, try smaller, more frequent snacks. Try eating bland foods like crackers, toast, rice, and applesauce. Avoid spicy, greasy or fried foods and dairy containing foods. Even if you aren't feeling hungry due to lack of smell or taste, it is important to try to take in some food when you are able. After drinking and eating, rest in an upright position for up to two hours as needed to help decrease nauseous feelings. Try closing your eyes, avoid moving and watching TV. Avoid strong odors that can make you feel more nauseated. When to seek emergency medical attention Look for emergency warning signs for COVID-19. If having any of these symptoms, seek emergency medical care immediately: Trouble breathing Persistent pain or pressure in the chest New confusion Inability to wake or stay awake Bluish lips or face *This list is not all possible symptoms. Please call your medical provider for any other symptoms that are severe or concerning to you. documented in this encounterMedina Hospital08-[facility]22 History of Present illness Narrative* Jose Gleason APRN.CNP - 05/15/2022 6:13 PM EDT Subjective HPI Nontoxic-appearing female presents urgent care accompanied by mother. Chief complaint bilateral earpain nasal congestion. The symptoms have been present for the last 10 to 11 days. Additionally patient has developed nasal congestion and fatigue body aches cough headache. These symptoms have been present for the last 3 days. States since cough congestion has started ear pain has worsened. Has not used any OTC medications. Denies any known sick contacts. No ear trauma otorrhea. No difficulty hearing. History of otitis media in the past. Has had tubes placed previously. Denies any high fevers productive cough chest pain shortness of breath pleuritic pain hemoptysis nausea vomiting abdominal pain or change in bowel or bladder habits past medical history prescription medication use allergies reviewed. BP 108/62 Pulse 117 Temp 37.8 C (100.1 F) Resp 18 Wt 68 kg (150 lb) LMP 05/12/2022 YsT923% Hr 95 .Patient presents with: Ear Pain: Bilateral ear pain rated 10, x11 days Hx swimming, nasal congestion, cough, denied chest pain , SOB PAST MEDICAL HISTORY Diagnosis Date Acid reflux ADHD Asthma High-functioning autism spectrum disorder IBS (irritable bowel syndrome) PAST SURGICAL HISTORY Procedure Laterality Date EAR TUBES HX TONSILLECTOMY AND ADENOIDECTOMY HX ALLERGIES Patient has no known allergies. MEDICATIONS methylphenidate ER 36 mg tablet Take 36 mg by mouth once daily. dicyclomine (BENTYL) 10 mg capsule Take 10 mg by mouth. sertraline (ZOLOFT) 50 mg tablet Take 75 mg by mouth once daily. risperiDONE (RISPERDAL) 1 mg tablet Take 1.5 mg by mouth once daily. LANSOPRAZOLE (PREVACID ORAL) Take by mouth. ATOMOXETINE HCL (STRATTERA ORAL) Take by mouth. CETIRIZINE HCL (ZYRTEC ORAL) Take by mouth. MULTIVIT &MINERALS/FERROUS FUM (MULTI VITAMIN ORAL) Take by mouth. BUDESONIDE/FORMOTEROL FUMARATE (SYMBICORT INHALATION) Inhale as instructed. FAMILY HISTORY Problem Relation Age of Onset Heart Father Hypertension Maternal Grandmother Hypertension Paternal Grandmother Cancer Paternal Grandfather Heart Paternal Grandfather Diabetes Paternal Grandfather Hypertension Paternal Aunt Diabetes Paternal Aunt Social History Tobacco Use Smoking status: Never Smokeless tobacco: Never Substance Use Topics Alcohol use: Never Drug use: Never Review of Systems Constitutional: Positive for malaise/fatigue. Negative for chills and fever. HENT: Positive for congestion, ear pain, sinus pain and sore throat. Negative for ear discharge. Eyes: Negative for blurred vision, pain, discharge and redness. Respiratory: Positive for cough. Negative for hemoptysis, sputum production, shortness of breath, wheezing and stridor. Cardiovascular: Negative for chest pain. Gastrointestinal: Negative for abdominal pain, diarrhea, nausea and vomiting. Musculoskeletal: Positive for myalgias. Skin: Negative for itching and rash. Neurological: Positive for headaches. Negative for dizziness. Objective Physical Exam Vitals and nursing note reviewed. Constitutional: General: She is not in acute distress. Appearance: She is not diaphoretic. HENT: Head: Normocephalic and atraumatic. Jaw: No trismus, tenderness, swelling or pain on movement. Right Ear: Hearing, ear canal and external ear normal. No decreased hearing noted. No drainage, swelling or tenderness. No mastoid tenderness. Tympanic membrane is erythematous and bulging. Tympanic membrane is not perforated. Left Ear: Hearing, ear canal and external ear normal. No decreased hearing noted. No drainage, swelling or tenderness. No mastoid tenderness. Tympanic membrane is erythematous and bulging. Tympanic membrane is not perforated. Nose: Nose normal. Mouth/Throat: Lips: [place]. Mouth: Mucous membranes are moist. Pharynx: Oropharynx is clear. Uvula midline. No pharyngeal swelling, oropharyngeal exudate, posterior oropharyngeal erythema or uvula swelling. Eyes: General: Right eye: No discharge. Left eye: No discharge. Conjunctiva/sclera: Conjunctivae normal. Pupils: Pupils are equal, round, and reactive to light. Cardiovascular: Rate and Rhythm: Normal rate and regular rhythm. Heart sounds: Normal heart sounds. Pulmonary: Effort: Pulmonary effort is normal. No tachypnea, accessory muscle usage or respiratory distress. Breath sounds: Normal breath sounds. No stridor. No wheezing, rhonchi or rales. Abdominal: Palpations: Abdomen is soft. Tenderness: There is no abdominal tenderness. There is no guarding or rebound. Musculoskeletal: General: No tenderness. Normal range of motion. Cervical back: Normal range of motion and neck supple. No rigidity or tenderness. Lymphadenopathy: Head: Right side of head: No submental, submandibular, tonsillar, preauricular, posterior auricular or occipital adenopathy. Left side of head: No submental, submandibular, tonsillar, preauricular, posterior auricular or occipital adenopathy. Cervical: No cervical adenopathy. Right cervical: No superficial or posterior cervical adenopathy. Left cervical: No superficial or posterior cervical adenopathy. Skin: General: Skin is warm and dry. Findings: No rash. Neurological: Mental Status: She is alert and oriented to person, place, and time. ASSESSMENT/PLAN: 1. Suspected COVID-19 virus infection - ICD9: V01.79, ICD10: Z20.822 (primary diagnosis) - 2019 CORONAVIRUS 2. Acute otitis media, bilateral - ICD9: 382.9, ICD10: H66.93 Patient diagnosed with otitis media bilateral. Will be placed on amoxicillin. Has tolerated this antibiotic in the past. Additionally COVID-19 test will be obtained. Patient was educated on supportive therapies. Patient will follow up with primary care provider as needed. Patient was instructed to immediately proceed to emergency room for any new, worsening, or symptoms lasting longer than anticipated. The patient's clinical presentation is otherwise unremarkable at this time. Based on exam and clinical finding, the patient is stable for discharge. Plan of care was discussed with patient. Patient verbalizes understanding and agrees to plan of care. This note was generated using Tunespeak software. It may contain errors in wording, punctuation, or spelling. Jose Gleason APRN.DANIEL documented in this encounterMer[facility] noteNo assessment information availableWBrecksville [facility] Work Phone: Evaluation note* Diagnosis Suspected COVID-19 virus infection- Primary Acute otitis media, bilateral Unspecified otitis media [facility]* Diagnosis Pituitary tumor- Primary Neoplasm of unspecified nature of endocrine glands and other parts of nervous system Nocturia Hyperprolactinemia (HCC) Other and unspecified anterior pituitary hyperfunction Galactorrhea Galactorrhea not associated with childbirth Irregular menses Irregular menstrual cycle Asthma case management patient [facility]* Diagnosis Hyperprolactinemia (HCC) Other and unspecified anterior pituitary hyperfunction [facility]* Diagnosis Encounter for well adult exam without abnormal findings- Primary GERD without esophagitis Esophageal reflux Moderate persistent asthma, uncomplicated Unspecified asthma Moderate persistent asthma without complication Unspecified asthma Asthma case management patient Special screening examination for viral disease Special screening examination for unspecified viral disease Screening for HIV (human immunodeficiency virus) Special screening examination for other specified viral diseases Laboratory exam ordered as part of routine general medical examination Laboratory examination ordered as part of a routine general medical examination Hyperhidrosis Primary focal hyperhidrosis [facility]* Diagnosis 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), combined type Asperger's disorder Other specified pervasive developmental disorders, current or active state Moderate episode of recurrent major depressive disorder (HCC) documented in [facility]* Diagnosis Hyperprolactinemia (HCC) Other and unspecified anterior pituitary hyperfunction documented in this [facility]* Diagnosis Iron deficiency anemia, unspecified iron deficiency anemia type- Primary [facility]* Diagnosis Iron deficiency anemia, unspecified iron deficiency anemia type [facility]* Diagnosis Iron deficiency anemia, unspecified iron deficiency anemia type [facility]* Diagnosis Iron deficiency anemia, unspecified iron deficiency anemia type- Primary [facility]* Diagnosis Skin infection- Primary Unspecified local infection of skin and subcutaneous tissue [facility]* Diagnosis Skin infection Unspecified local infection of skin and subcutaneous tissue documented [facility]* Diagnosis Iron deficiency anemia, unspecified iron deficiency anemia type documented [facility]* Diagnosis Iron deficiency anemia, unspecified iron deficiency anemia type- Primary Fatigue, unspecified type [facility]* Diagnosis Vitamin D deficiency- Primary Unspecified vitamin D deficiency Iron deficiency anemia, unspecified iron deficiency anemia type documented [facility]* Diagnosis Depression, unspecified depression type- Primary documented [facility]* Diagnosis Vagina bleeding- Primary Other specified noninflammatory disorder of vagina documented [facility] this [facility]* Diagnosis Attention deficit hyperactivity disorder (ADHD), combined type- Primary XIOMY (generalized anxiety disorder) Generalized anxiety disorder documented [facility]* Diagnosis Iron deficiency anemia, unspecified iron deficiency anemia type documented [facility] this [facility]* Diagnosis Moderate persistent asthma, uncomplicated Unspecified asthma [facility] Diagnosis URI, acute- Primary Acute upper respiratory infections of unspecified site Acute pain of right knee documented in this encounter [facility]* Diagnosis Influenza A- Primary Influenza with other respiratory manifestations documented [facility]* Diagnosis Elevated blood pressure reading without diagnosis of hypertension- Primary documented in [facility]* Diagnosis Iron deficiency anemia, unspecified iron deficiency anemia type- Primary documented in this [facility]* Diagnosis URI, acute- Primary Acute upper respiratory infections of unspecified site Other chest pain Dysmenorrhea General counseling and advice for contraceptive management Other general counseling and advice for contraceptive management Allergic rhinitis, unspecified seasonality, unspecified trigger documented [facility] this [facility]* Diagnosis General counseling and advice for contraceptive management- Primary Other general counseling and advice for contraceptive management Dysmenorrhea documented in this [facility]* Diagnosis Onset Date Resolution Status Admit Date Physical exam, pre-employment acute July 14, 2025 3:11pm [facility] Work Phone: Hospital Discharge instructionsAdditional Instructions I do not think you have pneumonia since you do not have a fever or cough and your 100% on room air. Your EKG shows normal heart rhythm. I recommend you follow-up with your primary care doctor or return to the ER if symptoms worsen.[facility] Work Phone: Reason for referral (narrative)* Outpatient Procedure (Routine) - Pending Review Specialty Diagnoses / Procedures Referred By Contac t Referred To Contact [facility] Diagnoses Moderate persistent asthma, uncomplicated Procedures SPIROMETRY - BASELINE AND POST DILATOR BRNCDILAT RSPSE SPMTRY PRE&POST-BRNCDILAT ADMN Priya Do MD [address] [place] [id number] [facility] [employer] [address] [place] [address] Referral ID Status Reason Start Date Expiration Date Visits Requested Visits Authorized [id number] Pending Review Auto-Generat ed Referral 01/19/2023 02/18/2024 1 1 * Medication Prior Authorization - Pending Review Specialty Diagnoses / Procedures Referred By Contac t Referred To Contact Diagnoses GERD without esophagitis Priya Do MD [address] [place] [address] Referral ID Status Reason Start Date Expiration Date V isits Requested Visits Authorized [id number] Pending Review 1 1 [facility] HospitalReason for referral (narrative)No reason for referral information availableWBrecksville [facility] Work Phone: Summary Purpose Family History No Family History Records FoundNo Family History Records FoundNo Family History Records FoundNo Family History Records FoundNo Family History Records FoundNo Family History Records Found Advance Directives No Advanced Directives Records Found Advance Directive Response Recorded Date/ Time Do you have a Healthcare Power of Coconut [place]iler? No April 30, 2025 8:27pm Chief Complaint and Reason for Visit Chief Complaint HYPERPROLACTINEMIA, GALACTORRHEA, DYSMENORRHEA Chief Complaint Admit Date cp April 30, 2025 8:09 pm Chief Complaint Admit Date cp April 30, 2025 8:09 pm PE NON DOT DRUG & BAT/ [employer] July 14, 2025 3:10pm PE NON DOT PHYSICAL/ [employer] July 142024 3:11pm Reason for Visit Admit Date Physical exam, pre-employment July 3:11pm Reason for Referral Specialty Diagnoses / Procedures Referred By Contac t Referred To Contact Yue Ambriz PA-C [address] [place] [address] Referral ID Status Reason Start Date Expiration Date Visits Re quested Visits Authorized [id number] Closed 1 1 Specialty Diagnoses / Procedures Referred By Contac t Referred To Contact Diagnoses Depression, unspecified depression type Procedures CONSULT TO PRIMARY [facility]ARE [facility]IORAL [facility] ADULT Yue Ambriz PA-C [address] [phone] Referral ID Status Reason Start Date Expiration Date Visits Requested Visits Authorized [id number] Authorized PCP Requested Referral 10/31/2024 01/29/2025 1 1 Specialty Diagnoses / Procedures Referred By Contac t Referred To Contact Diagnoses Vagina bleeding Procedures CONSULT TO [facility] OFFICE/OUTPATIENT [facility] 60 MINUTES Yue Ambriz PA-C [address] [place] [address] Referral ID Status Reason Start Date Expiration Date Visits Requested Visits Authorized [id number] Authorized PCP Requested Referral Auto-Generate d Referral 10/31/2024 10/31/2025 1 1 Additional Source Comments INFORMATION SOURCE (unrecogn ized section and content) DATE CREATED AUTHOR 02/27/2019 [facility] ([place]) DATE CREATED AUTHOR AUTHOR'S ORGANIZ ATION 09/29/2022 [facility] DATE CREATED AUTHOR AUTHOR'S ORGANIZ ATION 07/25/2024 [facility] DATE CREATED AUTHOR AUTHOR'S ORGANIZ ATION 08/14/2025 [facility] DATE CREATED AUTHOR AUTHOR'S ORGANIZ ATION 08/16/2025 [facility] DATE CREATED AUTHOR AUTHOR'S ORGANIZ ATION 08/16/2025 [facility] Goals (unrecognized section and content) Goals may be documented in a n alternate sectionGoals may be documented in an alternate sectionGoals may be documented in an alternate sectionGoals may be documented in an alternate sectionGoals may be documented in an alternate sectionGoals may be documented in an alternate section Source Comments (unrecognize d section and content) In the event this informatio n is protected by the Federal Confidentiality of Alcohol and Drug Abuse Patient Records regulations: The Federal rules restrict any use of the information to criminally investigate or prosecute any alcohol or drug abuse patient.[facility] HospitalIn the event this information is protected by the Federal Confidentiality of Alcohol and Drug Abuse Patient Records regulations: The Federal rules restrict any use of the information to criminally investigate or prosecute any alcohol or drug abuse patient.[facility] HospitalIn the event this information is protected by the Federal Confidentiality of Alcohol and Drug Abuse Patient Records regulations: The Federal rules restrict any use of the information to criminally investigate or prosecute any alcohol or drug abuse patient.[facility] HospitalIn the event this information is protected by the Federal Confidentiality of Alcohol and Drug Abuse Patient Records regulations: The Federal rules restrict any use of the information to criminally investigate or prosecute any alcohol or drug abuse patient.[facility] HospitalIn the event this information is protected by the Federal Confidentiality of Alcohol and Drug Abuse Patient Records regulations: The Federal rules restrict any use of the information to criminally investigate or prosecute any alcohol or drug abuse patient.[facility] HospitalIn the event this information is protected by the Federal Confidentiality of Alcohol and Drug Abuse Patient Records regulations: The Federal rules restrict any use of the information to criminally investigate or prosecute any alcohol or drug abuse patient.[facility] HospitalIn the event this information is protected by the Federal Confidentiality of Alcohol and Drug Abuse Patient Records regulations: The Federal rules restrict any use of the information to criminally investigate or prosecute any alcohol or drug abuse patient.[facility] HospitalIn the event this information is protected by the Federal Confidentiality of Alcohol and Drug Abuse Patient Records regulations: The Federal rules restrict any use of the information to criminally investigate or prosecute any alcohol or drug abuse patient.[facility] HospitalIn the event this information is protected by the Federal Confidentiality of Alcohol and Drug Abuse Patient Records regulations: The Federal rules restrict any use of the information to criminally investigate or prosecute any alcohol or drug abuse patient.[facility] HospitalIn the event this information is protected by the Federal Confidentiality of Alcohol and Drug Abuse Patient Records regulations: The Federal rules restrict any use of the information to criminally investigate or prosecute any alcohol or drug abuse patient.[facility] HospitalIn the event this information is protected by the Federal Confidentiality of Alcohol and Drug Abuse Patient Records regulations: The Federal rules restrict any use of the information to criminally investigate or prosecute any alcohol or drug abuse patient.[facility] HospitalIn the event this information is protected by the Federal Confidentiality of Alcohol and Drug Abuse Patient Records regulations: The Federal rules restrict any use of the information to criminally investigate or prosecute any alcohol or drug abuse patient.[facility] HospitalIn the event this information is protected by the Federal Confidentiality of Alcohol and Drug Abuse Patient Records regulations: The Federal rules restrict any use of the information to criminally investigate or prosecute any alcohol or drug abuse patient.[facility] HospitalIn the event this information is protected by the Federal Confidentiality of Alcohol and Drug Abuse Patient Records regulations: The Federal rules restrict any use of the information to criminally investigate or prosecute any alcohol or drug abuse patient.[facility] HospitalIn the event this information is protected by the Federal Confidentiality of Alcohol and Drug Abuse Patient Records regulations: The Federal rules restrict any use of the information to criminally investigate or prosecute any alcohol or drug abuse patient.[facility] HospitalIn the event this information is protected by the Federal Confidentiality of Alcohol and Drug Abuse Patient Records regulations: The Federal rules restrict any use of the information to criminally investigate or prosecute any alcohol or drug abuse patient.[facility] HospitalIn the event this information is protected by the Federal Confidentiality of Alcohol and Drug Abuse Patient Records regulations: The Federal rules restrict any use of the information to criminally investigate or prosecute any alcohol or drug abuse patient.[facility] HospitalIn the event this information is protected by the Federal Confidentiality of Alcohol and Drug Abuse Patient Records regulations: The Federal rules restrict any use of the information to criminally investigate or prosecute any alcohol or drug abuse patient.[facility] HospitalIn the event this information is protected by the Federal Confidentiality of Alcohol and Drug Abuse Patient Records regulations: The Federal rules restrict any use of the information to criminally investigate or prosecute any alcohol or drug abuse patient.[facility] HospitalIn the event this information is protected by the Federal Confidentiality of Alcohol and Drug Abuse Patient Records regulations: The Federal rules restrict any use of the information to criminally investigate or prosecute any alcohol or drug abuse patient.[facility] HospitalIn the event this information is protected by the Federal Confidentiality of Alcohol and Drug Abuse Patient Records regulations: The Federal rules restrict any use of the information to criminally investigate or prosecute any alcohol or drug abuse patient.[facility] HospitalIn the event this information is protected by the Federal Confidentiality of Alcohol and Drug Abuse Patient Records regulations: The Federal rules restrict any use of the information to criminally investigate or prosecute any alcohol or drug abuse patient.[facility] HospitalIn the event this information is protected by the Federal Confidentiality of Alcohol and Drug Abuse Patient Records regulations: The Federal rules restrict any use of the information to criminally investigate or prosecute any alcohol or drug abuse patient.[facility] HospitalIn the event this information is protected by the Federal Confidentiality of Alcohol and Drug Abuse Patient Records regulations: The Federal rules restrict any use of the information to criminally investigate or prosecute any alcohol or drug abuse patient.[facility] HospitalIn the event this information is protected by the Federal Confidentiality of Alcohol and Drug Abuse Patient Records regulations: The Federal rules restrict any use of the information to criminally investigate or prosecute any alcohol or drug abuse patient.[facility] HospitalIn the event this information is protected by the Federal Confidentiality of Alcohol and Drug Abuse Patient Records regulations: The Federal rules restrict any use of the information to criminally investigate or prosecute any alcohol or drug abuse patient.[facility] HospitalIn the event this information is protected by the Federal Confidentiality of Alcohol and Drug Abuse Patient Records regulations: The Federal rules restrict any use of the information to criminally investigate or prosecute any alcohol or drug abuse patient.[facility] HospitalIn the event this information is protected by the Federal Confidentiality of Alcohol and Drug Abuse Patient Records regulations: The Federal rules restrict any use of the information to criminally investigate or prosecute any alcohol or drug abuse patient.[facility] HospitalIn the event this information is protected by the Federal Confidentiality of Alcohol and Drug Abuse Patient Records regulations: The Federal rules restrict any use of the information to criminally investigate or prosecute any alcohol or drug abuse patient.[facility] HospitalIn the event this information is protected by the Federal Confidentiality of Alcohol and Drug Abuse Patient Records regulations: The Federal rules restrict any use of the information to criminally investigate or prosecute any alcohol or drug abuse patient.[facility] HospitalIn the event this information is protected by the Federal Confidentiality of Alcohol and Drug Abuse Patient Records regulations: The Federal rules restrict any use of the information to criminally investigate or prosecute any alcohol or drug abuse patient.[facility] HospitalIn the event this information is protected by the Federal Confidentiality of Alcohol and Drug Abuse Patient Records regulations: The Federal rules restrict any use of the information to criminally investigate or prosecute any alcohol or drug abuse patient.[facility] HospitalIn the event this information is protected by the Federal Confidentiality of Alcohol and Drug Abuse Patient Records regulations: The Federal rules restrict any use of the information to criminally investigate or prosecute any alcohol or drug abuse patient.[facility] the event this information is protected by the Federal Confidentiality of Alcohol and Drug Abuse Patient Records regulations: The Federal rules restrict any use of the information to criminally investigate or prosecute any alcohol or drug abuse patient.[facility] HospitalIn the event this information is protected by the Federal Confidentiality of Alcohol and Drug Abuse Patient Records regulations: The Federal rules restrict any use of the information to criminally investigate or prosecute any alcohol or drug abuse patient.[facility] HospitalIn the event this information is protected by the Federal Confidentiality of Alcohol and Drug Abuse Patient Records regulations: The Federal rules restrict any use of the information to criminally investigate or prosecute any alcohol or drug abuse patient.[facility]In the event this information is protected by the Federal Confidentiality of Alcohol and Drug Abuse Patient Records regulations: The Federal rules restrict any use of the information to criminally investigate or prosecute any alcohol or drug abuse patient.[facility] HospitalIn the event this information is protected by the Federal Confidentiality of Alcohol and Drug Abuse Patient Records regulations: The Federal rules restrict any use of the information to criminally investigate or prosecute any alcohol or drug abuse patient.[facility] HospitalIn the event this information is protected by the Federal Confidentiality of Alcohol and Drug Abuse Patient Records regulations: The Federal rules restrict any use of the information to criminally investigate or prosecute any alcohol or drug abuse patient.[facility] HospitalIn the event this information is protected by the Federal Confidentiality of Alcohol and Drug Abuse Patient Records regulations: The Federal rules restrict any use of the information to criminally investigate or prosecute any alcohol or drug abuse patient.[facility] HospitalIn the event this information is protected by the Federal Confidentiality of Alcohol and Drug Abuse Patient Records regulations: The Federal rules restrict any use of the information to criminally investigate or prosecute any alcohol or drug abuse patient.[facility] HospitalIn the event this information is protected by the Federal Confidentiality of Alcohol and Drug Abuse Patient Records regulations: The Federal rules restrict any use of the information to criminally investigate or prosecute any alcohol or drug abuse patient.[facility] HospitalIn the event this information is protected by the Federal Confidentiality of Alcohol and Drug Abuse Patient Records regulations: The Federal rules restrict any use of the information to criminally investigate or prosecute any alcohol or drug abuse patient.[facility] HospitalIn the event this information is protected by the Federal Confidentiality of Alcohol and Drug Abuse Patient Records regulations: The Federal rules restrict any use of the information to criminally investigate or prosecute any alcohol or drug abuse patient.[facility] HospitalIn the event this information is protected by the Federal Confidentiality of Alcohol and Drug Abuse Patient Records regulations: The Federal rules restrict any use of the information to criminally investigate or prosecute any alcohol or drug abuse patient.[facility] HospitalIn the event this information is protected by the Federal Confidentiality of Alcohol and Drug Abuse Patient Records regulations: The Federal rules restrict any use of the information to criminally investigate or prosecute any alcohol or drug abuse patient.[facility] HospitalIn the event this information is protected by the Federal Confidentiality of Alcohol and Drug Abuse Patient Records regulations: The Federal rules restrict any use of the information to criminally investigate or prosecute any alcohol or drug abuse patient.[facility] HospitalIn the event this information is protected by the Federal Confidentiality of Alcohol and Drug Abuse Patient Records regulations: The Federal rules restrict any use of the information to criminally investigate or prosecute any alcohol or drug abuse patient.[facility] HospitalIn the event this information is protected by the Federal Confidentiality of Alcohol and Drug Abuse Patient Records regulations: The Federal rules restrict any use of the information to criminally investigate or prosecute any alcohol or drug abuse patient.[facility] HospitalIn the event this information is protected by the Federal Confidentiality of Alcohol and Drug Abuse Patient Records regulations: The Federal rules restrict any use of the information to criminally investigate or prosecute any alcohol or drug abuse patient.[facility] HospitalIn the event this information is protected by the Federal Confidentiality of Alcohol and Drug Abuse Patient Records regulations: The Federal rules restrict any use of the information to criminally investigate or prosecute any alcohol or drug abuse patient.[facility] HospitalIn the event this information is protected by the Federal Confidentiality of Alcohol and Drug Abuse Patient Records regulations: The Federal rules restrict any use of the information to criminally investigate or prosecute any alcohol or drug abuse patient.[facility] HospitalIn the event this information is protected by the Federal Confidentiality of Alcohol and Drug Abuse Patient Records regulations: The Federal rules restrict any use of the information to criminally investigate or prosecute any alcohol or drug abuse patient.[facility] HospitalIn the event this information is protected by the Federal Confidentiality of Alcohol and Drug Abuse Patient Records regulations: The Federal rules restrict any use of the information to criminally investigate or prosecute any alcohol or drug abuse patient.[facility] HospitalIn the event this information is protected by the Federal Confidentiality of Alcohol and Drug Abuse Patient Records regulations: The Federal rules restrict any use of the information to criminally investigate or prosecute any alcohol or drug abuse patient.[facility] HospitalIn the event this information is protected by the Federal Confidentiality of Alcohol and Drug Abuse Patient Records regulations: The Federal rules restrict any use of the information to criminally investigate or prosecute any alcohol or drug abuse patient.[facility] HospitalIn the event this information is protected by the Federal Confidentiality of Alcohol and Drug Abuse Patient Records regulations: The Federal rules restrict any use of the information to criminally investigate or prosecute any alcohol or drug abuse patient.[facility] HospitalIn the event this information is protected by the Federal Confidentiality of Alcohol and Drug Abuse Patient Records regulations: The Federal rules restrict any use of the information to criminally investigate or prosecute any alcohol or drug abuse patient.[facility] HospitalIn the event this information is protected by the Federal Confidentiality of Alcohol and Drug Abuse Patient Records regulations: The Federal rules restrict any use of the information to criminally investigate or prosecute any alcohol or drug abuse patient.[facility] HospitalIn the event this information is protected by the Federal Confidentiality of Alcohol and Drug Abuse Patient Records regulations: The Federal rules restrict any use of the information to criminally investigate or prosecute any alcohol or drug abuse patient.[facility] HospitalIn the event this information is protected by the Federal Confidentiality of Alcohol and Drug Abuse Patient Records regulations: The Federal rules restrict any use of the information to criminally investigate or prosecute any alcohol or drug abuse patient.[facility] HospitalIn the event this information is protected by the Federal Confidentiality of Alcohol and Drug Abuse Patient Records regulations: The Federal rules restrict any use of the information to criminally investigate or prosecute any alcohol or drug abuse patient.[facility] HospitalIn the event this information is protected by the Federal Confidentiality of Alcohol and Drug Abuse Patient Records regulations: The Federal rules restrict any use of the information to criminally investigate or prosecute any alcohol or drug abuse patient.[facility] HospitalIn the event this information is protected by the Federal Confidentiality of Alcohol and Drug Abuse Patient Records regulations: The Federal rules restrict any use of the information to criminally investigate or prosecute any alcohol or drug abuse patient.[facility] HospitalIn the event this information is protected by the Federal Confidentiality of Alcohol and Drug Abuse Patient Records regulations: The Federal rules restrict any use of the information to criminally investigate or prosecute any alcohol or drug abuse patient.[facility] HospitalIn the event this information is protected by the Federal Confidentiality of Alcohol and Drug Abuse Patient Records regulations: The Federal rules restrict any use of the information to criminally investigate or prosecute any alcohol or drug abuse patient.[facility] HospitalIn the event this information is protected by the Federal Confidentiality of Alcohol and Drug Abuse Patient Records regulations: The Federal rules restrict any use of the information to criminally investigate or prosecute any alcohol or drug abuse patient.[facility] HospitalIn the event this information is protected by the Federal Confidentiality of Alcohol and Drug Abuse Patient Records regulations: The Federal rules restrict any use of the information to criminally investigate or prosecute any alcohol or drug abuse patient.[facility] HospitalIn the event this information is protected by the Federal Confidentiality of Alcohol and Drug Abuse Patient Records regulations: The Federal rules restrict any use of the information to criminally investigate or prosecute any alcohol or drug abuse patient.[facility] HospitalIn the event this information is protected by the Federal Confidentiality of Alcohol and Drug Abuse Patient Records regulations: The Federal rules restrict any use of the information to criminally investigate or prosecute any alcohol or drug abuse patient.[facility] HospitalIn the event this information is protected by the Federal Confidentiality of Alcohol and Drug Abuse Patient Records regulations: The Federal rules restrict any use of the information to criminally investigate or prosecute any alcohol or drug abuse patient.[facility] HospitalIn the event this information is protected by the Federal Confidentiality of Alcohol and Drug Abuse Patient Records regulations: The Federal rules restrict any use of the information to criminally investigate or prosecute any alcohol or drug abuse patient.[facility] HospitalIn the event this information is protected by the Federal Confidentiality of Alcohol and Drug Abuse Patient Records regulations: The Federal rules restrict any use of the information to criminally investigate or prosecute any alcohol or drug abuse patient.[facility] HospitalIn the event this information is protected by the Federal Confidentiality of Alcohol and Drug Abuse Patient Records regulations: The Federal rules restrict any use of the information to criminally investigate or prosecute any alcohol or drug abuse patient.[facility] HospitalIn the event this information is protected by the Federal Confidentiality of Alcohol and Drug Abuse Patient Records regulations: The Federal rules restrict any use of the information to criminally investigate or prosecute any alcohol or drug abuse patient.[facility] HospitalIn the event this information is protected by the Federal Confidentiality of Alcohol and Drug Abuse Patient Records regulations: The Federal rules restrict any use of the information to criminally investigate or prosecute any alcohol or drug abuse patient.[facility] HospitalIn the event this information is protected by the Federal Confidentiality of Alcohol and Drug Abuse Patient Records regulations: The Federal rules restrict any use of the information to criminally investigate or prosecute any alcohol or drug abuse patient.[facility] HospitalIn the event this information is protected by the Federal Confidentiality of Alcohol and Drug Abuse Patient Records regulations: The Federal rules restrict any use of the information to criminally investigate or prosecute any alcohol or drug abuse patient.[facility] HospitalIn the event this information is protected by the Federal Confidentiality of Alcohol and Drug Abuse Patient Records regulations: The Federal rules restrict any use of the information to criminally investigate or prosecute any alcohol or drug abuse patient.[facility] HospitalIn the event this information is protected by the Federal Confidentiality of Alcohol and Drug Abuse Patient Records regulations: The Federal rules restrict any use of the information to criminally investigate or prosecute any alcohol or drug abuse patient.[facility] Reason for Visit (unrecogniz ed section and content) Reason Comments Ear Pain Bilateral ear pain r ated 10, x11 days Hx swimming, nasal congestion, cough, denied chest pain , SOB Reason Comments Forms Medical Records Reason Comments Pituitary Problem Reason Onset Date Comments Refill Request 06/01/2022 Reason Comments Received Outside Medical Records Reason Comments Establish Care Reason Comments Follow Up Paper work Reason Comments Refill Request Reason Comments Results Reason Onset Date Comments Refill Request 02/01/2024 Reason Onset Date Comments Refill Request 04/25/2024 Reason Onset Date Comments Refill Request 05/08/2024 Reason Onset Date Comments Refill Request 05/14/2024 Reason Comments skin lump Reason Comments Derm Problem red raised lump on b ack of neck, painful to touch with vomiting and nausea x thurs. headache x 1 day Reason Comments Follow Up Reason Onset Date Comments Refill Request 06/23/2024 Reason Onset Date Comments Refill Request 07/22/2024 Reason Onset Date Comments Appointment Request 07/22/2024 Reason Onset Date Comments Refill Request 08/28/2024 Reason Comments Fatigue Reason Comments Med Change Request Reason Comments bh consult Reason Comments New Medication Wants to restart wel lbutrin Reason Onset Date Comments Refill Request 11/17/2024 Reason Onset Date Comments Refill Request 11/18/2024 Reason Comments Nurse Triage Call Reason Comments URI Nausea, cough, conge stion for the past two weeks. Also right knee pain Reason Comments Follow Up Blood pressure Reason Comments Diarrhea Reason Onset Date Comments Refill Request 01/17/2025 Reason Onset Date Comments Refill Request 03/10/2025 Reason Comments Acute Visit Cough Chest pain when coug patrick for past 3 days. Needs referral to OB to get back on control. Reason Comments Contraception Specialty Diagnoses / Procedures Referred By Contac t Referred To Contact Diagnoses Dysmenorrhea General counseling and advice for contraceptive management Procedures CONSULT TO [facility]ER OFFICE/OUTPATIENT [facility] 60 MINUTES Patricia Kearney, SOIL BI[employer]Y TEACHER.[employer] [address] [place] [address] Phone: tel: fax: Referral ID Status Reason Start Date Expiration Date V isits Requested Visits Authorized [id number] Closed PCP Requested Referral Auto-Generated Referral 03/26/2025 03/26/2026 1 1 Reason Onset Date Comments Refill Request 05/18/2025 Care Teams (unrecognized sec tion and content) Straight Line Edger Relationship Specialty Start Date End Date Karlie Parra (Fax) PCP - General Pediatrics 02/04/15 Straight Line Edger Relationship Specialty Start Date End Date Karlie Parra PCP - General Pediatrics 02/04/15 Straight Line Edger Relationship Specialty Start Date End Date Karlie Parra PCP - General Pediatrics 02/04/15 Straight Line Edger Relationship Specialty Start Date End Date Karlie Parra PCP - General Pediatrics 02/04/15 Straight Line Edger Relationship Specialty Start Date End Date Karlie Parra PCP - General Pediatrics 02/04/15 Straight Line Edger Relationship Specialty Start Date End Date Priya Do MD [address] [place] [address] PCP - General Family Medicine 01/19/23 Straight Line Edger Relationship Specialty Start Date End Date Priya Do MD [address] [place] [address] PCP - General Family Medicine 01/19/23 Straight Line Edger Relationship Specialty Start Date End Date Priya Do MD [address] [place] [address] PCP - General Family Medicine 01/19/23 Straight Line Edger Relationship Specialty Start Date End Date Priya Do MD [address] [place] [address] PCP - General Family Medicine 01/19/23 Straight Line Edger Relationship Specialty Start Date End Date Priya Do MD [address] [place] [address] PCP - General Family Medicine 01/19/23 Straight Line Edger Relationship Specialty Start Date End Date Priya Do MD [address] [place] [address] PCP - General Family Medicine 01/19/23 Straight Line Edger Relationship Specialty Start Date End Date Priya Do MD [address] [place] [address] PCP - General Family Medicine 01/19/23 Straight Line Edger Relationship Specialty Start Date End Date Priya Do MD [address] [place] [address] PCP - General Family Medicine 01/19/23 Straight Line Edger Relationship Specialty Start Date End Date Priya Do MD [address] [place] [address] PCP - General Family Medicine 01/19/23 Straight Line Edger Relationship Specialty Start Date End Date Priya Do MD [address] [place] [address] PCP - General Family Medicine 01/19/23 Straight Line Edger Relationship Specialty Start Date End Date Priya Do MD [address] [place] [address] PCP - General Family Medicine 01/19/23 Straight Line Edger Relationship Specialty Start Date End Date Priya Do MD [address] [place] [address] PCP - General Family Medicine 01/19/23 Straight Line Edger Relationship Specialty Start Date End Date Priya Do MD [address] [place] [address] PCP - General Family Medicine 01/19/23 Straight Line Edger Relationship Specialty Start Date End Date Priya Do MD [address] [place] [address] PCP - General Family Medicine 01/19/23 Straight Line Edger Relationship Specialty Start Date End Date Priya Do MD [address] [place] [address] PCP - General Family Medicine 01/19/23 Straight Line Edger Relationship Specialty Start Date End Date Priya Do MD [address] [place] [address] PCP - General Family Medicine 01/19/23 Straight Line Edger Relationship Specialty Start Date End Date Uche Carpenter [address] [place] [address] PCP - General 07/12/23 Straight Line Edger Relationship Specialty Start Date End Date Priya Do MD [address] [place] [address] PCP - General Family Medicine 01/19/23 Yue Ambriz PA-C [address] [place] [address] Calculation Clerk Family Medicine 09/14/24 Straight Line Edger Relationship Specialty Start Date End Date Priya Do MD [address] [place] [address] PCP - General Family Medicine 01/19/23 Yue Ambriz PA-C [address] [place] [address] Calculation Clerk [facility] 09/14/24 Straight Line Edger Relationship Specialty Start Date End Date Priya Do MD [address] [place] [address] PCP - General Family Medicine 01/19/23 Yue Ambriz PA-C [address] [place] [address] Calculation Clerk Family Medicine 09/14/24 Straight Line Edger Relationship Specialty Start Date End Date Priya Do MD [address] [place] [address] PCP - General Family Medicine 01/19/23 Yue Ambriz PA-C [address] [place] [address] Calculation Clerk [facility] 09/14/24 Straight Line Edger Relationship Specialty Start Date End Date Priya Do MD [address] [place] [address] PCP - General Family Medicine 01/19/23 Yue Ambriz PA-C [address] [place] [address] [facility] Straight Line Edger Relationship Specialty Start Date End Date Priya Do MD [address] [place] [address] PCP - General Family Medicine 01/19/23 Yue Ambriz PA-C [address] [place] [address] [facility] Straight Line Edger Relationship Specialty Start Date End Date Priya Do MD [address] [place] [address] PCP - General Family Medicine 01/19/23 Yue Ambriz PA-C [address] [place] [address] [facility] Straight Line Edger Relationship Specialty Start Date End Date Priya Do MD [address] [place] [address] PCP - General Family Medicine 01/19/23 Yue Ambriz PA-C [address] [place] [address] [facility] Straight Line Edger Relationship Specialty Start Date End Date Priya Do MD [address] [place] [address] PCP - General Family Medicine 01/19/23 Yue Ambriz PA-C [address] [place] [address] [facility] Straight Line Edger Relationship Specialty Start Date End Date Priya Do MD [address] [place] [address] PCP - General Family Medicine 01/19/23 Yue Ambriz PA-C [address] [place] [address] [facility] Straight Line Edger Relationship Specialty Start Date End Date Priya Do MD [address] [place] [address] PCP - General Family Medicine 01/19/23 Yue Ambriz PA-C [address] [place] [address] [facility] Straight Line Edger Relationship Specialty Start Date End Date Priya Do MD [address] [place], [place] [id number] PCP - General Family Medicine 01/19/23 Yue Ambriz PA-C [address] [place] [address] Calculation Clerk [facility] 09/14/24 Straight Line Edger Relationship Specialty Start Date End Date Priya Do MD [address] [place] [address] PCP - General Family Medicine 01/19/23 Yue Ambriz PA-C [address] [place] [address] Calculation Clerk [facility] 09/14/24 Straight Line Edger Relationship Specialty Start Date End Date Priya Do MD [address] [place] [address] PCP - General Family Medicine 01/19/23 Yue Ambriz PA-C [address] [place] [address] Calculation Clerk [facility] 09/14/24 Straight Line Edger Relationship Specialty Start Date End Date Priya Do MD [address] [place] [address] PCP - General Family Medicine 01/19/23 Yue Ambriz PA-C [address] [place] [address] [facility] Straight Line Edger Relationship Specialty Start Date End Date Priya Do MD [address] [place] [address] PCP - General Family Medicine 01/19/23 Yue Ambriz PA-C [address] [place] [id number] [facility] 09/14/24 Team Status: Active Member Role/Relationship Status Dates Dr. Vera Song MD Primary Care Provider Active Team Status: Inactive Member Role/Relationship Status Dates Dr. Vera Song MD Primary Care Provider Active Start: April 30, 2025 End: April 30, 2025 Dr. Wayne Koroma MD Referring Provider Active Sta rt: April 30, 2025 End: April 30, 2025 Dr. Wayne Koroma MD Emergency Provider Active Sta rt: April 30, 2025 End: April 30, 2025 Straight Line Edger Relationship Specialty Start Date End Date Priya Do MD [address] [place] [address] PCP - [facility] 01/19/23 Yue Ambriz PA-C [address] [place] [id number] [facility] 09/14/24 Team Status: Active Member Role/Relationship Status Dates Dr. Vera Song MD Primary care physician Active Team Status: Inactive Member Role/Relationship Status Dates Dr. Vera Song MD Primary care physician Active Start: April 30, 2025 End: April 30, 2025 Dr. Wayne Koroma MD Attending physician Active St art: April 30, 2025 End: April 30, 2025 Dr. Wayne Koroma MD Referring Provider Active Sta rt: April 30, 2025 End: April 30, 2025 Dr. Wayne Koroma MD Emergency Department Physician Acti ve Start: April 30, 2025 End: April 30, 2025 Team Status: Inactive Member Role/Relationship Status Dates Dr. Vera Song MD Primary care physician Active Start: July 14, 2025 End: July 14, 2025 Dr. Vera Song MD Referring Provider Active S tart: July 14, 2025 End: July 14, 2025 MARY Molina Attending physician Active Start: July 14, 2025 End: July 14, 2025 Team Status: Inactive Member Role/Relationship Status Dates Dr. Vera Song MD Primary care physician Active Start: July 14, 2025 End: July 14, 2025 Dr. Vera Song MD Referring Provider Active S tart: July 14, 2025 End: July 14, 2025 MARY Molina Attending physician Active Start: July 14, 2025 End: July 14, 2025 FOR RECORDS PERTAINING TO PATIENTS WHO ARE OR HAVE BEEN ENROLLED IN A CHEMICAL DEPENDENCY/SUBSTANCEABUSE PROGRAM, SOME INFORMATION MAY BE OMITTED. This clinical summary was aggregated from multiple sources. Caution should be exercised in using it in the provision of clinical care. This summary normalizes information from multiple sources, and as a consequence, information in this document may materially change the coding, format and clinical context of patient data. In addition, data may be omitted in some cases. CLINICAL DECISIONS SHOULD BE BASED ON THE PRIMARY CLINICAL RECORDS. [facility] [employer] provides no warranty or guarantee of the accuracy or completeness of information in this document.
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
[2025-10-01 22:00] VITALS: BP 134/89; PULSE 99; RESP 18; TEMP 36.2; O2SAT 100
== END 2025-10-01 22:17 | disposition home or self-care (01) ==
PROVIDERS: Emergency Provider Emergency Medicine; PCP Family Medicine Sports Medicine; Visit Provider Emergency Medicine
DX: S39.012A Strain of muscle, fascia and tendon of lower back, initial encounter (principal); X50.0XXA Overexertion from strenuous movement or load, initial encounter; M62.830 Muscle spasm of back; F17.290 Nicotine dependence, other tobacco product, uncomplicated
CPT/HCPCS: 99283